=== PATIENT | female | born 1995 | race Caucasian/White ===

== ENCOUNTER → 2016-12-19 | Outpatient (CLI) | payer BC, OTHER ==
[~2016-12-19] MED LIST: ALPR0.25 BC; ASPI-586 PO; CEPH500C PO; DOXY1TAB3; ENOX60DI12 SQ; FOLI0.8T PO; LABE200T3; LABE200T3 PO; LEVO112T55 PO; METO-270 PO; NIFE60TA2 PO; NIFE90TA PO; PREN1TAB19 PO; ZOLP5TAB PO
--- OUTSIDE RECORDS SUMMARY | 2016-12-19 17:20 | XMS REPORT | Continuity of Care Document ---
Author Author [facility] Organization [facility] Address Unknown Phone Unavailable Care Team Providers Care Infusion Nurse Name Role Phone Sang Lawson PCP [phone] Source Comments Some departments are not documenting in the electronic medical record. If you do not see the information that you expected, contact Release of Information in the Health Information Management department at [phone] for further assistance in locating additional records.[facility] Active Allergies and Adverse Reactions No Known Allergies Current Medications Prescription Sig. Disp. Refills Start End Date Status Date NIFEdipine SR Take 60 mg by mouth Active (PROCARDIA-XL; ADALAT CC) daily. 60 mg tablet aspirin EC 81 mg tablet Take 81 mg by mouth Active daily. Take with food. vitamins, w/iron Take 1 Tab by mouth Active & folate 65/1 mg tab daily. levothyroxine (SYNTHROID) Take 137 mcg by mouth 90 Tab 3 11/07/20 Active 137 mcg tablet daily 30 minutes before 16 breakfast. enoxaparin (LOVENOX) 60 Inject 0.6 mL under the 30 Syringe 0 12/15/19 Active mg syrg skin daily. 17 enoxaparin (LOVENOX) 60 Inject 0.6 mL under the 0.6 mL 0 11/21/19 Discontin mg syrg skin daily. 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 Comments Currently Estimated Date of Delivery Based on Ultrasound Yes 05/20/2017 Most Recent Encounters Date Type Specialty Providers Description 12/19/2016 [facility] Luciana Singh, Supervision of high risk Encounter , unspecified, second trimester 12/19/2016 Office Visit High Risk Luciana Singh, High-risk MD second trimester (Primary Dx); Persistent proteinuria; Flu-like symptoms 12/19/2016 Documentation High Risk Aparna Ordonez MD 12/18/2016 Orders Only High Risk Luciana Singh, Chronic hypertension during (Primary Dx); with poor obstetric history 12/18/2016 Orders Only High Risk Luciana Singh MD 12/15/2016 Orders Only High Risk Jeremy Lyon MD Hx of preeclampsia, prior , currently , second trimester (Primary Dx) 12/04/2016 [facility] Becky Livingston MD Supervision of high risk Encounter , unspecified, second trimester 12/04/2016 Office Visit High Risk Becky Livingston MD High- risk , second trimester (Primary Dx) 11/22/2016 Telephone Nephrology Marce Ventura MD Results 11/21/2016 [facility] Radiology Marce Ventura MD Encounter 11/21/2016 [facility] Andreea Tolbert MD Supervision of high risk Encounter , unspecified, first trimester 11/21/2016 Office Visit High Risk Deborah Fulton MD High- risk , first trimester (Primary Dx); Non-functioning kidney; Anticoagulated 11/20/2016 Telephone Nephrology Marce Ventura MD Results 11/17/2016 Office Visit Nephrology Marce Ventura MD Proteinuria ( Primary Dx); Essential hypertension; 13 weeks gestation of ; Non morbid obesity due to excess calories; 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 [facility] Marce Ventura MD Proteinuria, unspecified Encounter 11/16/2016 Documentation High Risk Luciana Singh MD 11/08/2016 Documentation High Risk Becky Livingston MD 11/08/2016 Telephone High Risk Becky Livingston MD Results 11/08/2016 Orders Only High Risk Becky Livingston MD High- risk supervision, unspecified trimester (Primary Dx) 11/07/2016 [facility] Sang Lawson MD Supervision of high risk Encounter , unspecified, first trimester 11/07/2016 Office Visit High Risk Becky Livingston MD High- risk , unspecified trimester (Primary Dx) 11/07/2016 Clinical High Risk Screening for chromosomal Support anomalies by amniocentesis (Primary Dx) 10/30/2016 Hospital Sang Lawson MD Supervision of high risk Encounter , unspecified, first trimester 10/30/2016 Initial High Risk Sang Lawson MD High-risk , first trimester (Primary Dx); Chronic hypertension; with poor obstetric history; Hypothyroid in , antepartum, first trimester; Hx of pre-eclampsia, prior , currently 10/30/2016 Clinical High Risk Chronic hypertension; Support with poor obstetric history 10/27/2016 Orders Only High Risk John Moreau DO Chronic hypertension (Primary Dx); with poor obstetric history Social History Tobacco Use Types Packs/Day Years Used Date Never Smoker Alcohol Use Drinks/Week oz/Week Comments No 0 Standard 0.0 drinks or equivalent Last Filed Vital Signs Vital Sign Reading Time Taken Blood Pressure 134/79 12/19/2016 9:22 AM [employer] Pulse 79 12/19/2016 9:22 AM [employer] Temperature - - Respiratory Rate - - Height 1.575 m (5' 2.01") 12/19/2016 9:22 AM [employer] Weight 120.203 kg (265 lb) 12/04/2016 9:18 AM [employer] Body Mass Index 48.46 12/04/2016 9:18 AM [employer] Oxygen Saturation - - Plan of Care Date Type Specialty Providers Description 01/02/2017 Appointment High Risk Aparna Ordonez MD [address] [place] [address] [phone] (Fax) 01/16/2017 Appointment High Risk 01/16/2017 Appointment High Risk Aparna Ordonez MD [address] [place] [address] [phone] (Fax) Health Maintenance Due Date Last Done Comments Physical (Comprehensive) 2000 Exam Hpv Vaccines (#1) 2004 Pertussis Vaccine 2004 Tetanus Vaccine 2010 Cervical Cancer Screening 2014 Influenza Vaccine 07/13/2016 Results from Last 3 Months URINALYSIS, MICROSCOPIC (12/19/2016 12:23 PM) Component Value Range WBCs,UA 0-2 0-2 /HPF RBCs,UA NONE 0-3 /HPF Bacteria,UA FEW (A) NEG-NEG Squamous Epithelial Cells 0-2 0-5 Specimen Urine URINALYSIS DIPSTICK (12/19/2016 12:23 PM) Component Value Range Color,UA STRAW Turbidity,UA CLEAR CLEAR-CLEAR Specific [place]-Urine 1.003 1.003-1.035 pH,UA 8.0 5.0-8.0 Protein,UA 1+ (A) NEG-NEG Glucose,UA NEG NEG-NEG Ketones,UA NEG NEG-NEG Bilirubin,UA NEG NEG-NEG Blood,UA NEG NEG-NEG Urobilinogen,UA NORMAL NORM-NORMAL Nitrite,UA NEG NEG-NEG Leukocytes,UA NEG NEG-NEG Urine Ascorbic Acid, UA NEG NEG-NEG Specimen Urine PROTEIN/CR RATIO,UR RAN (12/19/2016 12:23 PM)Only the most recent of 4 results within the time period is included. Component Value Range Protein, Random 23 MG/DL Creatinine, Random 19 MG/DL Protein/CR ratio 1.2 Specimen Urine TYPE & SCREEN (NOT CROSSMATCH ELIGIBLE) (12/19/2016 11:37 AM) Component Value Range ABO/RH(D) O POS Antibody Screen NEG Blood Component Type RED CELL GROUP Specimen Blood, venous - Blood NOTES (12/19/2016 11:37 AM) Component Value Range Specimen Notes PT GAVE URINE SAMPLE IN DOCTORS OFFICE YW SYPHILIS AB SCREEN (12/19/2016 11:37 AM) Component Value Range Syphilis AB, Total NEGComment: NEG-NEG Negative EIA: Negative results indicate no past or present syphilis infection. Early infection can not be excluded. Specimen Blood RUBELLA AB IGG (12/19/2016 11:37 AM) Component Value Range Rubella IgG IMMUNE Specimen Blood HIV AB SCREEN(1 AND 2) (12/19/2016 11:37 AM) Component Value Range HIV 1 and 2 AG AB Screen NEG NEG-NEG Specimen Blood HEPATITIS B SURFACE AG (12/19/2016 11:37 AM) Component Value Range HBsAg NEG Specimen Blood HEMOGLOBIN A1C (12/19/2016 11:37 AM) Component Value Range Hemoglobin A1C 5.3Comment: 4.0-6.0 % The ADA recommends that most patients with type 1 and type 2 diabetes maintain an A1c level <7%. Specimen Blood CBC (12/19/2016 11:37 AM) Component Value Range White Blood Cells 11.6 (H) 4.5-11.0 K/UL RBC 5.04 (H) 4.0-5.0 M/UL Hemoglobin 13.9 12.0-15.0 GM/DL Hematocrit 42.9 36-45 % MCV 85.1 80-100 FL MCH 27.6 26-34 PG MCHC 32.4 32.0-36.0 G/DL RDW 15.4 (H) 11-15 % Platelet Count 278 150-400 K/UL MPV 7.6 7-11 FL Specimen Blood POC URINE DIPSTICK MANUAL READ (12/19/2016 9:24 AM)Only the most recent of 5 results within the time period is included. Component Value Range Urine Glucose POC NEGComment: lot#[id number] exp- Urine Ketone POC NEG Urine Blood POC NEG Urine Protein POC NEG Urine Leukocytes POC NEG Specimen Urine CULTURE-URINE W/SENSITIVITY (12/04/2016 9:06 AM) Component Value Range Battery Name URINE CULTURE Specimen Description URINE Special Requests NONE Culture <10,000 organisms/ml MIXED CONTAMINANTS Report Status FINAL 12/05/2016 Specimen Urine US RENAL BLADDER LTD (11/21/2016 1:20 PM) Impressions 1. Upper limits of normal sized right kidney with small left kidney, most consistent with renal hypoplasia. 2. Patent renal vasculature bilaterally. Approved by Dale Todd M.D. on 11/21/2016 2:15 PM By my electronic signature, I attest that I have personally reviewed the images for this examination and formulated the interpretations and opinions expressed in this report Finalized by Carter Quiroz M.D. on 11/21/2016 7:03 PM. Dictated by Dale Todd M.D. on 11/21/2016 2:13 PM. Narrative Renal Ultrasound Clinical Indication: Congenital renal abnormality, essential hypertension Technique: Multiple real-time grayscale sonographic images were obtained through the urinary system. Findings: Comparison: None The right kidney is upper limits of normal and measures 13.3 x 5.3 cm.No hydronephrosis or nephrolithiasis. Right renal artery and vein are patent. The left kidney measures 5.6 x 3.4 cm.No hydronephrosis, nephrolithiasis, or renal masses are identified. Left renal artery and vein are patent. The urinary bladder is nondistended. Incidental note is made of partially evaluated intrauterine . Procedure Note Interface, Radiant Results - Tue Nov 21, 2016 7:06 PM [employer] Renal Ultrasound Clinical Indication: Congenital renal abnormality, essential hypertension Technique: Multiple real-time grayscale sonographic images were obtained through the urinary system. Findings: Comparison: None The right kidney is upper limits of normal and measures 13.3 x 5.3 cm. No hydronephrosis or nephrolithiasis. Right renal artery and vein are patent. The left kidney measures 5.6 x 3.4 cm. No hydronephrosis, nephrolithiasis, or renal masses are identified. Left renal artery and vein are patent. The urinary bladder is nondistended. Incidental note is made of partially evaluated intrauterine . IMPRESSION 1. Upper limits of normal sized right kidney with small left kidney, most consistent with renal hypoplasia. 2. Patent renal vasculature bilaterally. Approved by Dale Todd M.D. on 11/21/2016 2:15 PM By my electronic signature, I attest that I have personally reviewed the images for this examination and formulated the interpretations and opinions expressed in this report Finalized by Carter Quiroz M.D. on 11/21/2016 7:03 PM. Dictated by Dale Todd M.D. on 11/21/2016 2:13 PM. POC URINE DIPSTICK AUTO READ (11/17/2016) Component Value Range Urine Glucose POC norm Urine Bilirubin POC neg Urine Ketone POC neg Urine Specific [place] 1.020 POC Urine Blood POC neg Urine PH POC 6 Urine Protein POC 500 Urine Urobilinogen POC norm Urine Nitrite POC neg Urine Leukocytes POC 25 Specimen Urine URINE COLLECTION (11/07/2016 3:00 PM) Component Value Range Collection Period, Urine 24.0 Volume, Urine 1384 MLS PROTEIN/CREAT RAT, 24 HR (11/07/2016 3:00 PM) Component Value Range Protein, Random 98 MG/DL Protein, 24 HR 1356 (H) 50-150 MG/24 HRS Creatinine, Random 108 MG/DL Protein/CR ratio 0.9 Specimen Urine URIC ACID (10/30/2016 5:00 PM) Component Value Range Uric Acid 5.0 2.0-7.0 MG/DL Specimen Blood LDH-LACTATE DEHYDROGENASE (10/30/2016 5:00 PM) Component Value Range Lactate Dehydrogenase 155 100-210 U/L Specimen Blood THYROID STIMULATING HORMONE-TSH (10/30/2016 5:00 PM) Component Value Range TSH 5.893 (H) 0.35-5.00 MCU/ML Specimen Blood FREE T4 (FREE THYROXINE) ONLY (10/30/2016 5:00 PM) Component Value Range T4-Free 0.9 0.6-1.6 NG/DL Specimen Blood COMPREHENSIVE METABOLIC PANEL (10/30/2016 5:00 PM) Component Value Range Sodium 135 (L) 137-147 MMOL/L Potassium 3.6 3.5-5.1 MMOL/L Chloride 101 98-110 MMOL/L Glucose 81 70-100 MG/DL Blood Urea Nitrogen 12 7-25 MG/DL Creatinine 0.73 0.4-1.00 MG/DL Calcium 10.0 8.5-10.6 MG/DL Total Protein 7.6 6.0-8.0 G/DL Total Bilirubin 0.3 0.3-1.2 MG/DL Albumin 3.9 3.5-5.0 G/DL Alk Phosphatase 75 25-110 U/L AST (SGOT) 13 7-40 U/L CO2 25 21-30 MMOL/L ALT (SGPT) 11 7-56 U/L Anion Gap 9 3-12 eGFR Non >60Comment: >60 mL/min The eGFR is not validated for use in drug dosing adjustments. Continue to use estimated creatinine clearance per dosing reference text. Please contact the Clinical Pharmacist for questions. eGFR >60Comment: >60 mL/min The eGFR is not validated for use in drug dosing adjustments. Continue to use estimated creatinine clearance per dosing reference text. Please contact the Clinical Pharmacist for questions. Specimen Blood ULTRASOUND [facility] ORDER (10/30/2016)
== END ==
LOC: LAB 17:16
PROVIDERS: ATTEND Obstetrics & Gynecology Maternal & Fetal Medicine
DX: R68.89 Other general symptoms and signs (principal)
CPT/HCPCS: 87804

== ENCOUNTER 2017-01-05 00:26 | Observation (INO) | payer BC, OTHER ==
[2017-01-05] VITALS (10 sets, daily range): BP systolic 136–167; BP diastolic 75–97
[~2017-01-05] VITALS: Ht 157.5 cm; Wt 120.7 kg
[~2017-01-05 00:26] MED LIST changes: -ALPR0.25 BC; -ASPI-586 PO; -ENOX60DI12 SQ; -FOLI0.8T PO; -LABE200T3 PO; -METO-270 PO; -NIFE60TA2 PO; -NIFE90TA PO; -PREN1TAB19 PO; -ZOLP5TAB PO
--- OUTSIDE RECORDS SUMMARY | 2017-01-05 00:32 | XMS REPORT | Continuity of Care Document ---
Author Author [facility] Organization [facility] Address Unknown Phone Unavailable Care Team Providers Care General Maintenance Mechanic Name Role Phone Sang Lawson PCP [phone] Source Comments Some departments are not documenting in the electronic medical record. If you do not see the information that you expected, contact Release of Information in the Health Information Management department at [phone] for further assistance in locating additional records.[facility] Active Allergies and Adverse Reactions No Known Allergies Current Medications Prescription Sig. Disp. Refills Start End Date Status Date aspirin EC 81 mg tablet Take 81 [...] 12/15/19 Active mg syrg skin daily. 17 NIFEdipine XL Take 1 Tab by mouth twice 90 Tab 3 12/27/19 Active (PROCARDIA-XL) 60 mg daily. 17 tablet escitalopram oxalate Take 1 Tab by mouth 90 Tab 3 01/02/20 Active (LEXAPRO) 10 mg tablet daily. 17 NIFEdipine SR Take 60 mg by mouth 12/27/19 Discontin (PROCARDIA-XL; ADALAT CC) daily. 17 ued 60 mg tablet enoxaparin (LOVENOX) 60 Inject 0.6 mL under the 0.6 mL 0 11/21/19 Discontin mg syrg skin daily. 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 Comments Currently Estimated Date of Delivery Based on Ultrasound Yes 05/20/2017 Most Recent Encounters Date Type Specialty Providers Description 01/02/2017 [facility] Becky Livingston MD Supervision of high risk Encounter , unspecified, second trimester 01/02/2017 Office Visit High Risk Luciana Singh, High-risk , second trimester (Primary Dx); Hx of preeclampsia, prior , currently , second trimester; Proteinuria affecting in second trimester; Phil's thyroiditis; Supervision of high risk in second trimester 12/27/2016 Hospital Obstetrics Encounter 12/27/2016 Documentation High Risk Son Chaves MD 12/25/2016 Hospital Obstetrics Lizette Smith MD Chronic hypertension in - Encounter Son Chaves MD 12/27/2016 12/25/2016 Anesthesia Obstetrics Berlin Gutierrez, Event 12/25/2016 Telephone High Risk Son Chaves MD Blood Pressure Readings 12/22/2016 Documentation High Risk Luciana Singh MD 12/20/2016 Telephone High Risk Luciana Singh, MD 12/19/2016 [facility] Luciana Singh, Supervision of high risk Encounter MD , unspecified, second trimester 12/19/2016 Clinical High Risk Chronic hypertension Support during ; with poor obstetric history 12/19/2016 Office Visit High Risk Luciana Singh, High-risk , second trimester (Primary Dx); Persistent proteinuria; Flu-like symptoms; Mild intermittent asthma without complication; Influenza 12/19/2016 Documentation High Risk Aparna Ordonez MD 12/18/2016 Orders Only High Risk Luciana Singh Chronic hypertension during (Primary Dx); with poor obstetric history 12/18/2016 Orders Only High Risk Luciana Singh, 23 weeks gestation of MD (Primary Dx) 12/15/2016 Orders Only High Risk Jeremy Lyon MD Hx of preeclampsia, prior , currently , second trimester (Primary Dx) 12/04/2016 [facility] Becky Livingston MD Supervision of high risk Encounter , unspecified, second trimester 12/04/2016 Office Visit High Risk Becky Livingston MD High- risk , second trimester (Primary Dx) 11/22/2016 Telephone Nephrology Marce Ventura MD Results 11/21/2016 Hospital Radiology Marce Ventura MD Encounter 11/21/2016 [facility] Andreea Tolbert MD Supervision of high risk Encounter , unspecified, first trimester 11/21/2016 Office Visit High Risk Deborah Fulton MD High- risk , first trimester (Primary Dx); Non-functioning kidney; Anticoagulated 11/20/2016 Telephone Nephrology Marce Ventura MD Results 11/17/2016 Office Visit Nephrology Marce Vetnura MD Proteinuria ( Primary Dx); Essential hypertension; 13 weeks gestation of ; Non morbid obesity due to excess calories; 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 [facility] Marce Ventura MD Proteinuria, unspecified Encounter 11/16/2016 Documentation High Risk Luciana Singh MD 11/08/2016 Documentation High Risk Becky Livingston MD 11/08/2016 Telephone High Risk Becky Livingston MD Results 11/08/2016 Orders Only High Risk Becky Livingston MD High- risk supervision, unspecified trimester (Primary Dx) 11/07/2016 [facility] Sang Lawson MD Supervision of high risk Encounter , unspecified, first trimester 11/07/2016 Office Visit High Risk Becky Livingston MD High- risk , unspecified trimester (Primary Dx) 11/07/2016 Clinical High Risk Screening for chromosomal Support anomalies by amniocentesis (Primary Dx) 10/30/2016 [facility] Sang Lawson MD Supervision of high [...] Vital Sign Reading Time Taken Blood Pressure 126/84 01/02/2017 9:47 AM AIRCRAFT SERVICER Pulse 100 01/02/2017 9:37 AM AIRCRAFT SERVICER Temperature 36.6 C (97.9 F) 12/27/2016 7:30 AM AIRCRAFT SERVICER Respiratory Rate - - Height 1.575 m (5' 2.01") 01/02/2017 9:37 AM AIRCRAFT SERVICER Weight 120.657 kg (266 lb) 01/02/2017 9:37 AM AIRCRAFT SERVICER Body Mass Index 48.64 01/02/2017 9:37 AM AIRCRAFT SERVICER Oxygen Saturation 100% 12/27/2016 11:02 AM AIRCRAFT SERVICER Plan of Care Date Type Specialty Providers Description 01/16/2017 Appointment High Risk 01/16/2017 Appointment High Risk Aparna Ordonez MD [address] [facility] [address] [place] [address] [phone] (Fax) Health Maintenance Due Date Last Done Comments Physical (Comprehensive) 2000 Exam Hpv Vaccines (#1) 2004 Pertussis Vaccine 2004 Tetanus Vaccine 2010 Cervical Cancer Screening 2014 Influenza Vaccine 07/13/2016 Procedures from Last 3 Months Procedure Name Priority Date/Time Associated Diagnosis Comments CONSULT IV THERAPY TEAM STAT 12/25/2016 7:46 PM AIRCRAFT SERVICER Results from Last 3 Months HEPARIN, LOW MOLECULAR WEIGHT (01/02/2017 10:16 AM) Component Value Range Heparin-Low Molecular 0.29 (L) 0.4-1.1 U/ML Weight Specimen Blood POC URINE DIPSTICK MANUAL READ (01/02/2017 9:39 AM)Only the most recent of 6 results within the time period is included. Component Value Range Urine Glucose POC negComment: lot#[id number] - Urine Ketone POC neg Urine Blood POC neg Urine Protein POC 1+ Urine Leukocytes POC neg Specimen Urine PROTEIN/CR RATIO,UR RAN (01/02/2017 9:30 AM)Only the most recent of 6 results within the time period is included. Component Value Range Protein, Random 35 MG/DL Creatinine, Random 24 MG/DL Protein/CR ratio 1.5 Specimen Urine ANTI-NUCLEAR ANTIBODY(TE) (12/26/2016 9:15 AM) Component Value Range TE Screen <80 <80 TITER BETA 2 GLYCOPROTEIN 1 AB, IGM (12/26/2016 9:15 AM) Component Value Range BETA-2 GLY 1 AB IGM 3.1 0-20 [facility] Specimen Blood BETA 2 GLYCOPROTEIN 1 AB, IGG (12/26/2016 9:15 AM) Component Value Range BETA-2 GLY 1 AB ICG 1.0 0-20 [facility] Specimen Blood HEX LUPUS ANTICOAGULANT (12/26/2016 9:15 AM) Component Value Range Hexagonal Lupus 2Comment: Anticoagulant Unit: sec This value is NEGATIVE. This is a qualitative assay and is therefore reported as positive for lupus anticoagulant or negative. The quantitative value is provided as an aid in diagnosis. Reference Range: 0 - 11 This test was developed and its performance characteristics determined by [facility]. It has not been cleared or approved by the Food and Drug Administration. Test Performed by: [facility] [address] [place] [address] [address] Specimen Blood CARDIOLIPIN AB IGG/IGM (12/26/2016 9:15 AM) Component Value Range Cardiolipin, IgG 3.5 <15 GPL/ML Cardiolipin, IgM 7.1 <12.5 MPL/ML Specimen Blood C3 COMPLEMENT 3 (12/26/2016 9:15 AM) Component Value Range Complemnt C3 194.0 88-200 MG/DL Specimen Blood C4 COMPLEMENT 4 (12/26/2016 9:15 AM) Component Value Range Complemnt C4 42.0 10-49 MG/DL Specimen Blood FREE T4 (FREE THYROXINE) ONLY (12/26/2016 9:15 AM)Only the most recent of 2 results within the time period is included. Component Value Range T4-Free 0.9 0.6-1.6 NG/DL Specimen Blood THYROID STIMULATING HORMONE-TSH (12/26/2016 9:15 AM)Only the most recent of 2 results within the time period is included. Component Value Range TSH 2.215 0.35-5.00 MCU/ML Specimen Blood URINE COLLECTION (12/25/2016 8:50 PM)Only the most recent of 2 results within the time period is included. Component Value Range Collection Period, Urine 24.0 Volume, Urine 3742 MLS CREATININE CLEARANCE-URINE 24H (12/25/2016 8:50 PM) Component Value Range Creatinine,Urine CRCL 46 MG/DL Creatinine, Serum, CRCL 0.61 MG/DL Creatinine Clearance 196 (H) 88-128 mL/min Specimen Urine TOTAL PROTEIN-URINE 24 HR (12/25/2016 8:50 PM) Component Value Range Protein, Random 58 MG/DL Protein, 24 HR 2170 (H) 50-150 MG/24 HRS Specimen Urine URINALYSIS, MICROSCOPIC (12/25/2016 5:40 PM)Only the most recent of 2 results within the time period is included. Component Value Range WBCs,UA 0-2 0-2 /HPF RBCs,UA NONE 0-3 /HPF MucousUA TRACE Squamous Epithelial Cells 0-2 0-5 Specimen Urine URINALYSIS DIPSTICK (12/25/2016 5:40 PM)Only the most recent of 2 results within the time period is included. Component Value Range Color,UA YELLOW Turbidity,UA CLEAR CLEAR-CLEAR Specific [place]-Urine 1.022 1.003-1.035 pH,UA 6.0 5.0-8.0 Protein,UA 3+ (A) NEG-NEG Glucose,UA NEG NEG-NEG Ketones,UA NEG NEG-NEG Bilirubin,UA NEG NEG-NEG Blood,UA NEG NEG-NEG Urobilinogen,UA NORMAL NORM-NORMAL Nitrite,UA NEG NEG-NEG Leukocytes,UA NEG NEG-NEG Urine Ascorbic Acid, UA NEG NEG-NEG Specimen Urine CULTURE-URINE W/SENSITIVITY (12/25/2016 5:40 PM)Only the most recent of 3 results within the time period is included. Component Value Range Battery Name URINE CULTURE Specimen Description URINE Special Requests NONE Culture NO GROWTH Report Status FINAL 12/26/2016 Specimen Urine URIC ACID (12/25/2016 5:30 PM)Only the most recent of 2 results within the time period is included. Component Value Range Uric Acid 4.5 2.0-7.0 MG/DL Specimen Blood LDH-LACTATE DEHYDROGENASE (12/25/2016 5:30 PM)Only the most recent of 2 results within the time period is included. Component Value Range Lactate Dehydrogenase 107 100-210 U/L Specimen Blood COMPREHENSIVE METABOLIC PANEL (12/25/2016 5:30 PM)Only the most recent of 2 results within the time period is included. Component Value Range Sodium 136 (L) 137-147 MMOL/L Potassium 3.8 3.5-5.1 MMOL/L Chloride 101 98-110 MMOL/L Glucose 86 70-100 MG/DL Blood Urea Nitrogen 9 7-25 MG/DL Creatinine 0.61 0.4-1.00 MG/DL Calcium 9.6 8.5-10.6 MG/DL Total Protein 7.6 6.0-8.0 G/DL Total Bilirubin 0.3 0.3-1.2 MG/DL Albumin 3.8 3.5-5.0 G/DL Alk Phosphatase 83 25-110 U/L AST (SGOT) 10 7-40 U/L CO2 24 21-30 MMOL/L ALT (SGPT) 10 7-56 U/L Anion Gap 11 3-12 eGFR Non >60Comment: >60 mL/min The [...] the Clinical Pharmacist for questions. Specimen Blood CBC (12/25/2016 5:30 PM)Only the most recent of 2 results within the time period is included. Component Value Range White Blood Cells 10.9 4.5-11.0 K/UL RBC 5.41 (H) 4.0-5.0 M/UL Hemoglobin 14.8 12.0-15.0 GM/DL Hematocrit 45.7 (H) 36-45 % MCV 84.4 80-100 FL MCH 27.3 26-34 PG MCHC 32.4 32.0-36.0 G/DL RDW 14.7 11-15 % Platelet Count 314 150-400 K/UL MPV 7.4 7-11 FL Specimen Blood TYPE & SCREEN (NOT CROSSMATCH ELIGIBLE) (12/19/2016 [...] maintain an A1c level <7%. Specimen Blood ULTRASOUND [facility] ORDER (12/19/2016)Only the most recent of 2 results within the time period is included.INFLUENZA A/B AG (RAPID TEST) (12/19/2016) Component Value Range Influenza A/B Antigen NEGATIVE Specimen Other - Nasopharyngeal Swab US RENAL BLADDER LTD (11/21/2016 1:20 PM) [...] Tue Nov 21, 2016 7:06 PM AIRCRAFT SERVICER Renal Ultrasound Clinical Indication: Congenital renal abnormality, [...] neg Urine Ketone POC neg Urine Specific [place] 1.020 POC Urine Blood POC neg Urine PH POC 6 Urine Protein POC 500 Urine Urobilinogen POC norm Urine Nitrite POC neg Urine Leukocytes POC 25 Specimen Urine PROTEIN/CREAT RAT, 24 HR (11/07/2016 3:00 PM) Component Value Range Protein, Random 98 MG/DL Protein, 24 HR 1356 (H) 50-150 MG/24 HRS Creatinine, Random 108 MG/DL Protein/CR ratio 0.9 Specimen Urine
[2017-01-05] MEDS ORDERED: NS IV 1000 ML 1,000 ML IV ONE (00:33)
[2017-01-05] MEDS ORDERED: NIFE60TA2 PO (00:37)
[2017-01-05] MEDS ORDERED: diphenhydrAMINE 50 MG/ML INJ (BENADRYL) IV STA (00:37)
[2017-01-05] MEDS ORDERED: PREN1TAB19 PO (00:37)
[2017-01-05] MEDS ORDERED: ASPI-586 PO (00:37)
[2017-01-05] MEDS ORDERED: ENOX60DI12 SQ (00:37)
[2017-01-05] MEDS ORDERED: methylPREDNISolone 125 MG (Solu-MEDROL) VIAL IV STA (00:37)
[2017-01-05] MEDS ORDERED: hydrALAZINE (APESOLINE) 20 MG/ML VIAL IV ONE (00:45)
[2017-01-05 00:48] LABS: BASOPHILS % (AUTO) 0 % (0-10); EOSINOPHILS # (AUTO) 0.3 10^3/uL (0.0-0.3); EOSINOPHILS % (AUTO) 3 % (0-10); LYMPHOCYTES # (AUTO) 3.3 X 10^3 (1.0-4.0); LYMPHOCYTES % (AUTO) 29 % (12-44); MEAN CORPUSCULAR HEMOGLOBIN 28 PG (25-34); MEAN CORPUSCULAR HGB CONC 34 G/DL (32-36); MEAN CORPUSCULAR VOLUME 83 FL (80-99); MEAN PLATELET VOLUME 10.1 FL (7.4-10.4); MONOCYTES # (AUTO) 1.1 X 10^3 (0.0-1.0); MONOCYTES % (AUTO) 10 % (0-12); NEUTROPHILS # (AUTO) 6.3 X 10^3 (1.8-7.8); NEUTROPHILS % (AUTO) 57 % (42-75); PLATELET COUNT 367 10^3/uL (130-400); RED CELL DISTRIBUTION WIDTH 14.1 % (10.0-14.5)
[2017-01-05 00:50] LABS: BILIRUBIN,URINE NEGATIVE (NEGATIVE); KETONES,URINE NEGATIVE (NEGATIVE); LEUKOCYTE ESTERASE ,URINE NEGATIVE (NEGATIVE); NITRITE,URINE NEGATIVE (NEGATIVE); PH,URINE 7 (5-9); PROTEIN,URINE 3+ (NEGATIVE); UROBILINOGEN,URINE NORMAL (NORMAL)
--- NOTE | 2017-01-05 00:53 | ED General ---
General Chief Complaint: Cardiac/General Problems Stated Complaint: ALLERGIC RXN Nursing Triage Note: Pt to ED via [facility] from home. Pt reports taking new prescription of Lexapro around 2100 tonight. Approx 1 hour after taking medication pt reports feeling heart racing, shaking, and feeling like lips and tongue were swelling. Upon arrival to ED, pt reports lips and tongue are feeling normal but still c/o palpitations. Pt is approx 20 weeks . Nursing Sepsis Screen: No Definite Risk Source of Information: Patient Exam Limitations: No Limitations History of Present Illness Time Seen by Provider: 00:26 Initial Comments Here with report of heart racing, shaking, lips and tongue swelling and not feeling well. This started at about an hour after taking a dose of Lexapro tonight. She has been on it before but has been off of it for a while. She restarted her dose tonight and then 1 hour later started getting these feelings. Overall concerns are complicated by the fact that she is 20 weeks and has had previous miscarriage of twins at 23 weeks due to eclampsia. She only has one kidney. She already notes protein loss in the urine of 2 g per day. She is high-risk due to all of this and is seen at . Local OB doctor is Dr. Alberts. Denies nausea or vomiting. Denies abdominal pain. Timing/Duration: 1-3 Hours Severity: Moderate, Severe Associated Systoms: No Chest Pain, No Cough, No Fever/Chills, No Nausea/ Vomiting, No Shortness of Air, Weakness Allergies and Home Medications Allergies Coded Allergies: No Known Drug Allergies (Unverified , 03/09/16) Home Medications Aspirin 81 Mg Tablet.dr 81 MG PO DAILY (Reported) Enoxaparin Sodium 60 Mg/0.6 Ml Syringe 60 MG SQ DAILY (Reported) Levothyroxine Sodium 112 Mcg Tablet #30 138 MCG PO DAILY (Reported) Nifedipine 60 Mg Tab.er.24 60 MG PO BID (Reported) Vit/Iron Fumarate/FA 1 Each Tablet 1 EACH PO DAILY (Reported) Constitutional: see HPINo chills, No fever EENTM: other (mouth and tongue swelling that is improved)No nose congestion, No throat pain Respiratory: no symptoms reported Cardiovascular: see HPINo edema, palpitations Gastrointestinal: no symptoms reportedNo nausea, No vomiting Genitourinary: No decreased output, No pain : Yes Expected Date of Delivery: May 20, 2017 Musculoskeletal: no symptoms reported Skin: no symptoms reported Psychiatric/Neurological: See HPI AnxietyDenies Tremors, Denies Weakness Hematologic/Lymphatic: No Symptoms Reported All Other Systems Reviewed Negative Unless Noted: Yes Past Sykzgcf-Cpltnf-Sjuvsf Hx Patient Social History Alcohol Use: Denies Use Recreational Drug Use: No Smoking Status: Never a Smoker Recent Foreign Travel: No Contact w/Someone Who Travel: No Recent Infectious Disease Expo: No Recent Hopitalizations: No Immunizations Up To Date Tetanus Booster (TDap): Less than 5yrs PED Vaccines UTD: Yes Seasonal Allergies Seasonal Allergies: Yes Surgeries HX Surgeries: Yes Surgeries: Orthopedic, Tonsillectomy Respiratory Hx Respiratory Disorders: Yes Respiratory Disorders: Asthma Cardiovascular Hx Cardiac Disorders: Yes (pre-eclampsia w/ ) Cardiac Disorders: Hypertension Neurological Hx Neurological Disorders: No Reproductive System : Yes Hx Reproductive Disorders: No Sexually Transmitted Disease: No HIV/AIDS: No Genitourinary Hx Genitourinary Disorders: No Gastrointestinal Hx Gastrointestinal Disorders: No Musculoskeletal Hx Musculoskeletal Disorders: No Endocrine Hx Endocrine Disorders: Yes (THYROIDITIS) HEENT HX ENT Disorders: No Cancer Hx Cancer: No Psychosocial Hx Psychiatric Problems: No Integumentary HX Skin/Integumentary Disorder: No Blood Transfusions Hx Blood Disorders: No Adverse Reaction to a Blood Tr: No Reviewed Nursing Assessment Reviewed/Agree w Nursing PMH: Yes Family Medical History Significant Family History: No Pertinent Family Hx Family Medial History: Graves' disease Hypercholesterolemia 19 FATHER (father) 19 MOTHER (mother) Hypertension 19 MOTHER (mother) Physical Exam Vital Signs Vital Sign - Last 12Hours 01/05/17 00:27 Temp 98.8 Pulse 150 Resp 18 B/P 184/97 Pulse Ox 100 O2 Delivery Room Air Capillary Refill : Less Than 3 Seconds General Appearance: No Apparent Distress WD/WN HEENT: PERRL/EOMI Pharynx Normal Neck: Non Tender Supple Respiratory: Lungs Clear Normal Breath Sounds Cardiovascular: No Murmur Tachycardia Gastrointestinal: Non Tender Soft Back: Normal Inspection No CVA Tenderness No Vertebral Tenderness Extremity: Normal Inspection Normal Range of Motion Non Tender No Calf Tenderness Neurologic/Psychiatric: Alert Oriented x3 Skin: Normal Color Warm/Dry Progress/Results/Core Measures Results/Orders Lab Results Laboratory Tests Test 01/05/17 00:30 01/05/17 00:40 Range/Units Alanine Aminotransferase (ALT/SGPT) 13 0-55 U/L Albumin 3.5 3.2-4.5 G/DL Alkaline Phosphatase 76 40-136 U/L Anion Gap 14 5-14 MMOL/L Aspartate Amino Transf (AST/SGOT) 13 5-34 U/L BUN/Creatinine Ratio 21 Basophils # (Auto) 0.0 0.0-0.1 10^3/uL Basophils (%) (Auto) 0 0-10 % Blood Urea Nitrogen 15 7-18 MG/DL Calcium Level 9.3 8.5-10.1 MG/DL Carbon Dioxide Level 20 L 21-32 MMOL/L Chloride Level 104 98-107 MMOL/L Creatinine 0.73 0.60-1.30 MG/DL Eosinophils # (Auto) 0.3 0.0-0.3 10^3/uL Eosinophils (%) (Auto) 3 0-10 % Estimat Glomerular Filtration Rate > 60 Glucose Level 105 70-105 MG/DL Hematocrit 40 35-52 % Hemoglobin 13.6 11.5-16.0 G/DL Lymphocytes # (Auto) 3.3 1.0-4.0 X 10^3 Lymphocytes (%) (Auto) 29 12-44 % Magnesium Level 1.7 L 1.8-2.4 MG/DL Mean Corpuscular Hemoglobin 28 25-34 PG Mean Corpuscular Hemoglobin Concent 34 32-36 G/DL Mean Corpuscular Volume 83 80-99 FL Mean Platelet Volume 10.1 7.4-10.4 FL Monocytes # (Auto) 1.1 H 0.0-1.0 X 10^3 Monocytes (%) (Auto) 10 0-12 % Neutrophils # (Auto) 6.3 1.8-7.8 X 10^3 Neutrophils (%) (Auto) 57 42-75 % Platelet Count 367 130-400 10^3/uL Potassium Level 3.7 3.6-5.0 MMOL/L Red Blood Count 4.80 4.35-5.85 10^6/uL Red Cell Distribution Width 14.1 10.0-14.5 % Sodium Level 138 135-145 MMOL/L Total Bilirubin 0.2 0.1-1.0 MG/DL Total Protein 6.8 6.4-8.2 G/DL Uric Acid 5.6 2.6-7.2 MG/DL White Blood Count 11.0 4.3-11.0 10^3/uL Urine Bacteria TRACE /HPF Urine Bilirubin NEGATIVE NEGATIVE Urine Casts NONE /LPF Urine Clarity CLEAR Urine Color YELLOW Urine Creatinine 22 L 30-125 MG/DL Urine Crystals NONE /LPF Urine Culture Indicated NO Urine Glucose (UA) NEGATIVE NEGATIVE Urine Ketones NEGATIVE NEGATIVE Urine Leukocyte Esterase NEGATIVE NEGATIVE Urine Mucus NEGATIVE /LPF Urine Nitrite NEGATIVE NEGATIVE Urine Protein 83 H 6-12 MG/DL Urine Protein/Creatinine Ratio 3.77 Urine RBC NONE /HPF Urine RBC (Auto) NEGATIVE NEGATIVE Urine Specific [place] 1.015 L 1.016-1.022 Urine Squamous Epithelial Cells 2-5 /HPF Urine Urobilinogen NORMAL NORMAL MG/DL Urine WBC NONE /HPF Urine pH 7 5-9 My Orders Orders-ELIDA ENCINAS MD Cbc With Automated Diff (01/05/17 00:33) Comprehensive Metabolic Panel (01/05/17 00:33) Magnesium (01/05/17 00:33) Ua Culture If Indicated (01/05/17 00:33) Saline Lock/Iv-Start (01/05/17 00:33) Ns Iv 1000 Ml (Sodium Chloride 0.9%) (01/05/17 00:33) Urine [place] Prot Creat W/Ratio (01/05/17 00:33) Uric Acid (01/05/17 00:36) Diphenhydramine Injection (Benadryl Inje (01/05/17 00:37) Methylprednisolone Sod Succ (Solu-Medrol (01/05/17 00:37) Hydralazine Injection (Apresoline Inject (01/05/17 00:45) Medications Given in ED Current Medications Medications Dose Ordered Sig/Ángel Route Start Time Stop Time Status Last Admin Dose Admin Hydralazine HCl 20 mg ONCE ONCE IV 01/05/17 00:45 01/05/17 00:46 DC 01/05/17 01:32 20 MG Sodium Chloride 1,000 ml @ 0 mls/hr Q0M ONCE IV 01/05/17 00:33 01/05/17 00:40 DC 01/05/17 00:50 999 MLS/HR Vital Signs/I&O Vital Sign - Last 12Hours 01/05/17 00:27 Temp 98.8 Pulse 150 Resp 18 B/P 184/97 Pulse Ox 100 O2 Delivery Room Air Blood Pressure Mean: 126 Progress Note : Progress Note Seen and evaluated. IV by EMS. Labs and UA ordered. I did discuss the case with Dr. Garay, OB doctor on-call. Due to her history, we will check uric acid and spot urine protein to creatinine ratio. She has known proteinuria. For her symptoms, normal saline 1 L bolus, Benadryl 25 mg IV and Solu-Medrol 125 mg IV (for possible allergic reaction symptoms) and hydralazine 20 mg IV for hypertension. Dr. Garay agrees. Monitor patient. 0145: Bedside ultrasound shows positive movement with heart rate of 135 and approximately 20-4/7 weeks by femur length. Hydralazine was held earlier but given for blood pressure that was ranging again to 161/85. It did drop earlier after administration of Benadryl. Patient's much comforted after ultrasound. Admit, observation status. Patient and family agree with plan. Departure Communication Time/Spoke to Admitting Phy: 00:33 Impression Impression: Primary Impression: Preeclampsia Qualified Code: O14.92 - Unspecified pre-eclampsia, second trimester Additional Impressions: Hypertension Qualified Code: I15.9 - Secondary hypertension, unspecified Allergic reaction caused by a drug Qualified Code: T78.40XA - Allergy, unspecified, initial encounter Disposition: ADMITTED INPATIENT Condition: Stable Decision to Admit Reason: Admit from ER (General) Decision to Admit/Date: Jan 05, 2017 Time/Decision to Admit Time: 00:33 Departure-Patient Inst. Referrals: MADAY FARR MD (PCP/Family) Primary Care Physician ELIDA ENCINAS MD Jan 05, 2017 00:52
[2017-01-05 01:10] LABS: PROTEIN/CREATININE RATIO 3.77
[2017-01-05 01:10] LABS: ALANINE AMINOTRANSFERASE 13 U/L (0-55); ALBUMIN 3.5 G/DL (3.2-4.5); ANION GAP 14 MMOL/L (5-14); ASPARTATE AMINO TRANSFERASE 13 U/L (5-34); BILIRUBIN,TOTAL 0.2 MG/DL (0.1-1.0); BLOOD UREA NITROGEN 15 MG/DL (7-18); BUN/CREATININE RATIO 21; CALCIUM 9.3 MG/DL (8.5-10.1); CARBON DIOXIDE 20 MMOL/L (21-32); CHLORIDE 104 MMOL/L (98-107); CREATININE SERUM 0.73 MG/DL (0.60-1.30); GFR ESTIMATED > 60; GLUCOSE 105 MG/DL (70-105); MAGNESIUM 1.7 MG/DL (1.8-2.4); POTASSIUM 3.7 MMOL/L (3.6-5.0); SODIUM 138 MMOL/L (135-145); TOTAL PROTEIN 6.8 G/DL (6.4-8.2); URIC ACID 5.6 MG/DL (2.6-7.2)
[2017-01-05] MEDS ORDERED: hydrALAZINE (APESOLINE) 20 MG/ML VIAL IV PRN (02:30)
[2017-01-05] MEDS ORDERED: diphenhydrAMINE 50 MG/ML INJ (BENADRYL) IVP PRN (02:30)
[2017-01-05] MEDS ORDERED: NS IV 1000 ML 1,000 ML IV SCH (02:30)
[2017-01-05] MEDS ORDERED: predniSONE 20 MG TAB PO SCH (07:00)
[2017-01-05] MEDS ORDERED: LEVOTHYROXINE 88 MCG (LEVOTHORID) TAB PO SCH (07:40)
[2017-01-05] MEDS ORDERED: LEVOTHYROXINE 50 MCG (LEVOTHROID) TAB PO SCH (07:41)
--- NOTE | 2017-01-05 07:41 | History & Physical-OB ---
OB - Chief Complaint & HPI Date Date of Admission: Date of Admission: Jan 05, 2017 at 1:45 am Chief Complaint/History OB-Reason for Admission/Chief: Expected Date of Delivery: May 20, 2017 Gestational Age in Weeks: 20 Gestational Age in Days: 1 Other reason for admission: This 21-year-old female presented to the emergency department with palpitations. She was worked up and evaluated for suspicion of preeclampsia as she has a history of presenting with early onset preeclampsia in the past. Her heart rate was in the 150s and EKG was evaluated by emergency physician found to be SVT. Blood pressure was controlled using hydralazine, and the patient was admitted for observation. Emergency physician was suspicious for anaphylaxis secondary to new starting of medication yesterday. She took 1 dose of Lexapro. This morning upon evaluating the patient she denies any chest pain , palpitations, shortness of breath, change in vision, headache, and denies any right upper quadrant pain. She reports that she feels much better. She reports movement. She denies any contractions, vaginal bleeding, loss of fluid. Admission Nurse Assessment Rev: Yes History of Labs Laboratory Tests Test 01/05/17 00:30 01/05/17 00:40 Range/Units Alanine Aminotransferase (ALT/SGPT) 13 0-55 U/L Albumin 3.5 3.2-4.5 G/DL Alkaline Phosphatase 76 40-136 U/L Anion Gap 14 5-14 MMOL/L Aspartate Amino Transf (AST/SGOT) 13 5-34 U/L BUN/Creatinine Ratio 21 Basophils # (Auto) 0.0 0.0-0.1 10^3/uL Basophils (%) (Auto) 0 0-10 % Blood Urea Nitrogen 15 7-18 MG/DL Calcium Level 9.3 8.5-10.1 MG/DL Carbon Dioxide Level 20 L 21-32 MMOL/L Chloride Level 104 98-107 MMOL/L Creatinine 0.73 0.60-1.30 MG/DL Eosinophils # (Auto) 0.3 0.0-0.3 10^3/uL Eosinophils (%) (Auto) 3 0-10 % Estimat Glomerular Filtration Rate > 60 Glucose Level 105 70-105 MG/DL Hematocrit 40 35-52 % Hemoglobin 13.6 11.5-16.0 G/DL Lymphocytes # (Auto) 3.3 1.0-4.0 X 10^3 Lymphocytes (%) (Auto) 29 12-44 % Magnesium Level 1.7 L 1.8-2.4 MG/DL Mean Corpuscular Hemoglobin 28 25-34 PG Mean Corpuscular Hemoglobin Concent 34 32-36 G/DL Mean Corpuscular Volume 83 80-99 FL Mean Platelet Volume 10.1 7.4-10.4 FL Monocytes # (Auto) 1.1 H 0.0-1.0 X 10^3 Monocytes (%) (Auto) 10 0-12 % Neutrophils # (Auto) 6.3 1.8-7.8 X 10^3 Neutrophils (%) (Auto) 57 42-75 % Platelet Count 367 130-400 10^3/uL Potassium Level 3.7 3.6-5.0 MMOL/L Red Blood Count 4.80 4.35-5.85 10^6/uL Red Cell Distribution Width 14.1 10.0-14.5 % Sodium Level 138 135-145 MMOL/L Total Bilirubin 0.2 0.1-1.0 MG/DL Total Protein 6.8 6.4-8.2 G/DL Uric Acid 5.6 2.6-7.2 MG/DL White Blood Count 11.0 4.3-11.0 10^3/uL Urine Bacteria TRACE /HPF Urine Bilirubin NEGATIVE NEGATIVE Urine Casts NONE /LPF Urine Clarity CLEAR Urine Color YELLOW Urine Creatinine 22 L 30-125 MG/DL Urine Crystals NONE /LPF Urine Culture Indicated NO Urine Glucose (UA) NEGATIVE NEGATIVE Urine Ketones NEGATIVE NEGATIVE Urine Leukocyte Esterase NEGATIVE NEGATIVE Urine Mucus NEGATIVE /LPF Urine Nitrite NEGATIVE NEGATIVE Urine Protein 83 H 6-12 MG/DL Urine Protein/Creatinine Ratio 3.77 Urine RBC NONE /HPF Urine RBC (Auto) NEGATIVE NEGATIVE Urine Specific [place] 1.015 L 1.016-1.022 Urine Squamous Epithelial Cells 2-5 /HPF Urine Urobilinogen NORMAL NORMAL MG/DL Urine WBC NONE /HPF Urine pH 7 5-9 Allergies and Home Medications Allergies Coded Allergies: escitalopram (Verified Allergy, Unknown, 01/05/17) Home Medications Aspirin 81 Mg Tablet.dr 81 MG PO DAILY (Reported) Enoxaparin Sodium 60 Mg/0.6 Ml Syringe 60 MG SQ DAILY (Reported) Levothyroxine Sodium 112 Mcg Tablet #30 138 MCG PO DAILY (Reported) Nifedipine 60 Mg Tab.er.24 60 MG PO BID (Reported) Vit/Iron Fumarate/FA 1 Each Tablet 1 EACH PO DAILY (Reported) OB - History Hx of Present Care: Yes Ultrasounds: Normal mid trimester US Obstetrical Complications: Pre-eclampsia, Gestational Hypertension Medical Complications: Other (Phil's thyroiditis) Delivery History Hx Dystocia: No Hx Large For Gestational Age I: No Hx Section: No Hx Vaginal Delivery Post C-Sec: No Hx Blood Disorders: No Adverse Rxn to Tranfusion: No Patient Past Medical History See above - cHTN on labetalol prior to , anovulation, morbid obesity, solitary maternal kidney, hypothryoidism Social History/Family History HIV/AIDS: No Recent Infectious Disease Expo: No Sexually Transmitted Disease: No Alcohol Use: Denies Use Recreational Drug Use: No Immunizations Hepatitis A: Yes Hepatitis B: Yes Tetanus Booster (TDap): Less than 5yrs OB - Admission Exam Physical Exam Vitals: Vital Signs 01/05/17 06:56 Temp 98.6 Pulse 122 Resp 18 B/P 149/83 Pulse Ox 98 O2 Delivery Room Air HEENT: NCAT Heart: Other (tachycardic in the 110s to 100s) Lungs: Clear Abdomen: Gravid Contractions on Admission: None Labs Laboratory Tests Test 01/05/17 00:30 01/05/17 00:40 Range/Units Alanine Aminotransferase (ALT/SGPT) 13 0-55 U/L Albumin 3.5 3.2-4.5 G/DL Alkaline Phosphatase 76 40-136 U/L Anion Gap 14 5-14 MMOL/L Aspartate Amino Transf (AST/SGOT) 13 5-34 U/L BUN/Creatinine Ratio 21 Basophils # (Auto) 0.0 0.0-0.1 10^3/uL Basophils (%) (Auto) 0 0-10 % Blood Urea Nitrogen 15 7-18 MG/DL Calcium Level 9.3 8.5-10.1 MG/DL Carbon Dioxide Level 20 L 21-32 MMOL/L Chloride Level 104 98-107 MMOL/L Creatinine 0.73 0.60-1.30 MG/DL Eosinophils # (Auto) 0.3 0.0-0.3 10^3/uL Eosinophils (%) (Auto) 3 0-10 % Estimat Glomerular Filtration Rate > 60 Glucose Level 105 70-105 MG/DL Hematocrit 40 35-52 % Hemoglobin 13.6 11.5-16.0 G/DL Lymphocytes # (Auto) 3.3 1.0-4.0 X 10^3 Lymphocytes (%) (Auto) 29 12-44 % Magnesium Level 1.7 L 1.8-2.4 MG/DL Mean Corpuscular Hemoglobin 28 25-34 PG Mean Corpuscular Hemoglobin Concent 34 32-36 G/DL Mean Corpuscular Volume 83 80-99 FL Mean Platelet Volume 10.1 7.4-10.4 FL Monocytes # (Auto) 1.1 H 0.0-1.0 X 10^3 Monocytes (%) (Auto) 10 0-12 % Neutrophils # (Auto) 6.3 1.8-7.8 X 10^3 Neutrophils (%) (Auto) 57 42-75 % Platelet Count 367 130-400 10^3/uL Potassium Level 3.7 3.6-5.0 MMOL/L Red Blood Count 4.80 4.35-5.85 10^6/uL Red Cell Distribution Width 14.1 10.0-14.5 % Sodium Level 138 135-145 MMOL/L Total Bilirubin 0.2 0.1-1.0 MG/DL Total Protein 6.8 6.4-8.2 G/DL Uric Acid 5.6 2.6-7.2 MG/DL White Blood Count 11.0 4.3-11.0 10^3/uL Urine Bacteria TRACE /HPF Urine Bilirubin NEGATIVE NEGATIVE Urine Casts NONE /LPF Urine Clarity CLEAR Urine Color YELLOW Urine Creatinine 22 L 30-125 MG/DL Urine Crystals NONE /LPF Urine Culture Indicated NO Urine Glucose (UA) NEGATIVE NEGATIVE Urine Ketones NEGATIVE NEGATIVE Urine Leukocyte Esterase NEGATIVE NEGATIVE Urine Mucus NEGATIVE /LPF Urine Nitrite NEGATIVE NEGATIVE Urine Protein 83 H 6-12 MG/DL Urine Protein/Creatinine Ratio 3.77 Urine RBC NONE /HPF Urine RBC (Auto) NEGATIVE NEGATIVE Urine Specific [place] 1.015 L 1.016-1.022 Urine Squamous Epithelial Cells 2-5 /HPF Urine Urobilinogen NORMAL NORMAL MG/DL Urine WBC NONE /HPF Urine pH 7 5-9 OB - Assessment/Plan/Diagnosis Plan Other Plan Since patient is doing much better this morning I plan on evaluating her status later today and if continues to be stable we'll consider discharge was continued medications and follow-up with med. We'll have the patient hold Lexapro at this point due to adverse reaction. Discharge Diagnosis Diagnosis: Diagnosis: 21-year-old at 20 weeks and 2 days gestation History of early-onset preeclampsia Chronic hypertension Phil's thyroiditis JUDE BRUCE DO Jan 05, 2017 07:41
[2017-01-05] MEDS ORDERED: ASPIRIN E.C. 81 MG (ECOTRIN) TAB PO SCH (09:00)
[2017-01-05] MEDS ORDERED: ENOXAPARIN 60 MG/0.6 ML (LOVENOX) SYR SQ SCH (09:00)
[2017-01-05] MEDS ORDERED: NIFEdipine ER 60 MG (PROCARDIA XL) TAB PO SCH (09:00)
[2017-01-31] MEDS ORDERED: NIFE90TA PO (21:23)
== END 2017-01-05 12:34 | disposition home or self-care (01) ==
LOC: EDUNIT# 00:26 → ER 00:27 → LDRP 01:45 → UNDOADMOB 01:45 → LDRP 02:20
PROVIDERS: ADMIT Obstetrics & Gynecology; ATTEND Obstetrics & Gynecology
DX: O14.92 Unspecified pre-eclampsia, second trimester (principal); O9A.212 Injury, poisoning and certain other consequences of external causes complicating pregnancy, second trimester; I47.1 Supraventricular tachycardia; R22.0 Localized swelling, mass and lump, head; T43.225A Adverse effect of selective serotonin reuptake inhibitors, initial encounter; Z3A.20 20 weeks gestation of pregnancy
CPT/HCPCS: 36415; 80053; 81000; 82570; 83735; 84156; 84443; 84550; 85025; 96361; 96374; 96375; 99211; G0378

== ENCOUNTER 2017-01-24 00:23 | Outpatient (CLI) | payer BC, OTHER ==
[~2017-01-24] VITALS: Ht 157.5 cm; Wt 123.9 kg
[2017-01-24] VITALS (7 sets, daily range): BP systolic 135–151; BP diastolic 63–88
[~2017-01-24 00:23] MED LIST changes: +ASPI-586 PO; +ENOX60DI12 SQ; +NIFE60TA2 PO; +PREN1TAB19 PO
--- OUTSIDE RECORDS SUMMARY | 2017-01-24 00:28 | XMS REPORT | Continuity of Care Document ---
Author Author [facility] Organization [facility] Address Unknown Phone Unavailable Care Team Providers Care Head Irrigator Name Role Phone Sang Lawson PCP [phone] Source Comments Some departments are not documenting in the electronic medical record. If you do not see the information that you expected, contact Release of Information in the Health Information Management department at [phone] for further assistance in locating additional records.[facility] Active Allergies and Adverse Reactions Allergen Noted Date Severity Reactions Comments Lexapro 01/05/2017 Low PALPITATIONS, SEE Lip and Tongue swelling COMMENTS Current Medications Prescription Sig. Disp. Refills Start End Date Status Date aspirin EC 81 mg tablet Take 81 mg by mouth Active daily. Take with food. vitamins, w/iron Take 1 Tab by mouth Active & folate 65/1 mg tab daily. levothyroxine (SYNTHROID) Take 137 mcg by mouth 90 Tab 3 11/07/20 Active 137 mcg tablet daily 30 minutes before 16 breakfast. NIFEdipine XL Take 1 Tab by mouth twice 90 Tab 3 12/27/19 Active (PROCARDIA-XL) 60 mg daily. 17 tablet enoxaparin (LOVENOX) 60 INJECT 0.6ML UNDER THE 30 Syringe 0 01/18/20 Active mg syrg SKIN DAILY 17 NIFEdipine SR Take 60 mg by mouth 12/27/19 Discontin (PROCARDIA-XL; ADALAT CC) daily. 17 ued 60 mg tablet enoxaparin (LOVENOX) 60 Inject 0.6 mL under the 30 Syringe 0 12/15/19 01/18/20 Discontin mg syrg skin daily. 17 17 ued escitalopram oxalate Take 1 Tab by mouth 90 Tab 3 01/02/20 01/05/20 Discontin (LEXAPRO) 10 mg tablet daily. 17 17 ued Active Problems Problem [...] Recent Encounters Date Type Specialty Providers Description 01/17/2017 Refill High Risk Jeremy Lyon MD 01/16/2017 [facility] Deborah Fulton MD Gestational proteinuria, Encounter second trimester 01/16/2017 Office Visit High Risk Deborah Fulton MD High- risk , second trimester (Primary Dx); Proteinuria affecting in second trimester 01/12/2017 Orders Only High Risk Deborah Fulton MD Chronic hypertension in (Primary Dx); with poor obstetric history 01/09/2017 Telephone High Risk Aparna Ordonez MD 01/05/2017 Documentation High Risk Aparna Ordonez MD 01/02/2017 [facility] Becky Livingston MD Supervision of high risk Encounter , unspecified, second trimester 01/02/2017 Office Visit High Risk Luciana Singh High-risk , second trimester (Primary Dx); Hx of preeclampsia, prior , currently , second trimester; Proteinuria affecting in second trimester; Phil's thyroiditis; Supervision of high risk in second trimester 12/27/2016 Hospital Obstetrics Encounter 12/27/2016 Documentation High Risk Son Chaves MD 12/25/2016 Hospital Obstetrics Lizette Smith MD Chronic hypertension in - Encounter Son Chaves MD 12/27/2016 12/25/2016 Anesthesia Obstetrics Berlin Gutierrez DO Event 12/25/2016 Telephone High Risk Son Chaves MD Blood Pressure Readings 12/22/2016 Documentation High Risk Luciana Singh MD 12/20/2016 Telephone High Risk Luciana Singh, Carlos AVILA 12/19/2016 [facility] Luciana Singh, Supervision of high risk Encounter , unspecified, second trimester 12/19/2016 Clinical High Risk Chronic hypertension Support during ; with poor obstetric history 12/19/2016 Office Visit High Risk Luciana Singh, High-risk , second trimester (Primary Dx); Persistent proteinuria; Flu-like symptoms; Mild intermittent asthma without complication; Influenza 12/19/2016 Documentation High Risk Aparna Ordonez MD 12/18/2016 Orders Only High Risk Luciana Singh, Chronic hypertension MD during (Primary Dx); with poor obstetric history 12/18/2016 Orders Only High Risk Luciana Singh, 23 weeks gestation of MD (Primary Dx) 12/15/2016 Orders Only High Risk Jeremy Lyon MD Hx of preeclampsia, prior , currently , second trimester (Primary Dx) 12/04/2016 [facility] Becky Livingston MD Supervision of high risk Encounter , unspecified, second trimester 12/04/2016 Office Visit High Risk Becky Livingston MD High- risk , second trimester (Primary Dx) 11/22/2016 Telephone Nephrology Marce Ventura MD Results 11/21/2016 [facility] Radiology Marce Ventura MD Encounter 11/21/2016 [facility] Andreea Tolbert MD Supervision of high risk Encounter , unspecified, first trimester 11/21/2016 Office Visit High Risk Deborah Fulton MD High- risk , first trimester (Primary Dx); Non-functioning kidney; Anticoagulated 11/20/2016 Telephone Nephrology Marce Ventura MD Results 11/17/2016 Office Visit Nephrology Marce Ventura MD Proteinuria ( Primary Dx); Essential hypertension; 13 weeks gestation of ; Non morbid obesity due to excess calories; Phli's thyroiditis 11/17/2016 [facility] Marce Ventura MD Proteinuria, unspecified Encounter 11/16/2016 Documentation High Risk Luciana Singh MD 11/08/2016 Documentation High Risk Becky Livingston MD 11/08/2016 Telephone High Risk Becky Livingston MD Results 11/08/2016 Orders Only High Risk Becky Livingston MD High- risk supervision, unspecified trimester (Primary Dx) 11/07/2016 [facility] Sang Lawson MD Supervision of high risk Encounter , unspecified, first trimester 11/07/2016 Office Visit High Risk Becky Livingston MD High- risk , unspecified trimester (Primary Dx) 11/07/2016 Clinical High Risk Screening for chromosomal Support anomalies by amniocentesis (Primary Dx) 10/30/2016 [facility] Sang Lawson MD Supervision of high [...] Vital Sign Reading Time Taken Blood Pressure 134/77 01/16/2017 10:43 AM [employer] Pulse 126 01/16/2017 10:43 AM [employer] Temperature 36.6 C (97.9 F) 12/27/2016 7:30 AM [employer] Respiratory Rate - - Height 1.575 m (5' 2.01") 01/16/2017 10:43 AM [employer] Weight 121.11 kg (267 lb) 01/16/2017 10:43 AM [employer] Body Mass Index 48.82 01/16/2017 10:43 AM [employer] Oxygen Saturation 100% 12/27/2016 11:02 AM [employer] Plan of Care Date Type Specialty Providers Description 01/30/2017 Appointment High Risk Aparna Ordonez MD [address] [place] [address] [phone] (Fax) 02/13/2017 Appointment High Risk Aparna Ordonez MD [address] [place] [address] [phone] (Fax) 02/13/2017 Appointment High Risk Health Maintenance Due Date Last Done Comments Physical (Comprehensive) 2000 Exam Hpv Vaccines (#1) 2004 Pertussis Vaccine 2004 Tetanus Vaccine 2010 Cervical Cancer Screening 2014 Influenza Vaccine 07/13/2017 Procedures from Last 3 Months Procedure Name Priority Date/Time Associated Diagnosis Comments CONSULT IV THERAPY TEAM STAT 12/25/2016 7:46 PM [employer] Results from Last 3 Months POC URINE DIPSTICK MANUAL READ (01/16/2017 10:44 AM)Only the most recent of 7 results within the time period is included. Component Value Range Urine Glucose POC negComment: lot#[id number] exp- Urine Ketone POC neg Urine Blood POC neg Urine Protein POC tr Urine Leukocytes POC neg Specimen Urine URINALYSIS, MICROSCOPIC (01/16/2017 10:33 AM)Only the most recent of 3 results within the time period is included. Component Value Range WBCs,UA 0-2 0-2 /HPF RBCs,UA NONE 0-3 /HPF Bacteria,UA FEW (A) NEG-NEG Squamous Epithelial Cells 0-2 0-5 Specimen Urine URINALYSIS DIPSTICK (01/16/2017 10:33 AM)Only the most recent of 3 results within the time period is included. Component Value Range Color,UA STRAW Turbidity,UA CLEAR CLEAR-CLEAR Specific [place]-Urine 1.003 1.003-1.035 pH,UA 7.0 5.0-8.0 Protein,UA 1+ (A) NEG-NEG Glucose,UA NEG NEG-NEG Ketones,UA NEG NEG-NEG Bilirubin,UA NEG NEG-NEG Blood,UA NEG NEG-NEG Urobilinogen,UA NORMAL NORM-NORMAL Nitrite,UA NEG NEG-NEG Leukocytes,UA NEG NEG-NEG Urine Ascorbic Acid, UA NEG NEG-NEG Specimen Urine PROTEIN/CR RATIO,UR RAN (01/16/2017 10:33 AM)Only the most recent of 7 results within the time period is included. Component Value Range Protein, Random 33 MG/DL Creatinine, Random 20 MG/DL Protein/CR ratio 1.7 Specimen Urine HEPARIN, LOW MOLECULAR WEIGHT (01/02/2017 10:16 AM) Component Value Range Heparin-Low Molecular 0.29 (L) 0.4-1.1 U/ML Weight Specimen Blood ANTI-NUCLEAR ANTIBODY(TE) (12/26/2016 9:15 AM) Component Value [...] developed and its performance characteristics determined by [facility]. It has not been cleared or approved by the Food and Drug Administration. Test Performed by: [facility] [id number] [facility] [address] [place] [address] Specimen Blood CARDIOLIPIN AB IGG/IGM (12/26/2016 9:15 [...] 2170 (H) 50-150 MG/24 HRS Specimen Urine CULTURE-URINE W/SENSITIVITY (12/25/2016 5:40 PM)Only [...] an A1c level <7%. Specimen Blood ULTRASOUND [facility] ORDER (12/19/2016)Only the most recent of [...] - Tue Nov 21, 2016 7:06 PM [employer] Renal Ultrasound Clinical Indication: Congenital renal abnormality, [...] neg Urine Ketone POC neg Urine Specific [place] 1.020 POC Urine Blood POC neg Urine [...]
[2017-01-24] MEDS ORDERED: ALPRAZolam 0.5 MG (XANAX) TAB PO SCH (01:15)
[2017-01-24 01:27] LABS: BILIRUBIN,URINE NEGATIVE (NEGATIVE); KETONES,URINE NEGATIVE (NEGATIVE); LEUKOCYTE ESTERASE ,URINE NEGATIVE (NEGATIVE); NITRITE,URINE NEGATIVE (NEGATIVE); PH,URINE 7 (5-9); PROTEIN,URINE 3+ (NEGATIVE); UROBILINOGEN,URINE NORMAL (NORMAL)
[2017-01-24 01:29] LABS: BASOPHILS % (AUTO) 0 % (0-10); EOSINOPHILS # (AUTO) 0.2 10^3/uL (0.0-0.3); EOSINOPHILS % (AUTO) 2 % (0-10); LYMPHOCYTES # (AUTO) 1.7 X 10^3 (1.0-4.0); LYMPHOCYTES % (AUTO) 13 % (12-44); MEAN CORPUSCULAR HEMOGLOBIN 28 PG (25-34); MEAN CORPUSCULAR HGB CONC 33 G/DL (32-36); MEAN CORPUSCULAR VOLUME 85 FL (80-99); MEAN PLATELET VOLUME 9.7 FL (7.4-10.4); MONOCYTES # (AUTO) 0.9 X 10^3 (0.0-1.0); MONOCYTES % (AUTO) 7 % (0-12); NEUTROPHILS # (AUTO) 9.7 X 10^3 (1.8-7.8); NEUTROPHILS % (AUTO) 78 % (42-75); PLATELET COUNT 273 10^3/uL (130-400); RED BLOOD COUNT 4.74 10^6/uL (4.35-5.85); RED CELL DISTRIBUTION WIDTH 14.3 % (10.0-14.5); WHITE BLOOD COUNT 12.5 10^3/uL (4.3-11.0)
[2017-01-24 01:34] LABS: WBC,URINE RARE /HPF
[2017-01-24 01:51] LABS: ALANINE AMINOTRANSFERASE 10 U/L (0-55); ALBUMIN 3.1 G/DL (3.2-4.5); ANION GAP 14 MMOL/L (5-14); ASPARTATE AMINO TRANSFERASE 10 U/L (5-34); BILIRUBIN,TOTAL 0.2 MG/DL (0.1-1.0); BLOOD UREA NITROGEN 9 MG/DL (7-18); BUN/CREATININE RATIO 13; CALCIUM 9.1 MG/DL (8.5-10.1); CARBON DIOXIDE 19 MMOL/L (21-32); CHLORIDE 106 MMOL/L (98-107); CREATININE SERUM 0.68 MG/DL (0.60-1.30); GFR ESTIMATED > 60; GLUCOSE 118 MG/DL (70-105); MAGNESIUM 1.6 MG/DL (1.8-2.4); POTASSIUM 3.8 MMOL/L (3.6-5.0); SODIUM 139 MMOL/L (135-145); TOTAL PROTEIN 6.2 G/DL (6.4-8.2)
[2017-01-24 02:11] LABS: THYROID STIMULATING HORMONE 1.44 UIU/ML (0.35-4.94)
[2017-01-24] MEDS ORDERED: FOLI0.8T PO (03:24)
[2017-01-24] MEDS ORDERED: ALPR0.25 BC (03:25)
[2017-01-24] MEDS ORDERED: ALPRAZolam 0.25 MG (XANAX) TAB PO PRN (07:30)
[2017-01-24] MEDS ORDERED: LEVOTHYROXINE 112 MCG (LEVOTHROID) TAB PO SCH (07:30)
[2017-01-24] MEDS ORDERED: MAGNESIUM OXIDE (MAG-OX)400 MG TAB PO SCH (08:00)
[2017-01-24] MEDS ORDERED: ENOXAPARIN 40 MG/0.4 ML (LOVENOX) SYR SC SCH (08:00)
--- NOTE | 2017-01-24 08:33 | History & Physical-OB ---
OB - Chief Complaint & HPI Date Date of Admission: Date of Admission: Chief Complaint/History Hx : 2 Hx Para: 0 (0100) Expected Date of Delivery: May 20, 2017 Gestational Age in Weeks: 23 Gestational Age in Days: 3 Other reason for admission: 21 y/o @ 23w3d by early sono at [facility] who presented overnight and admitted by Dr. Alberts for tachycardia. Reports late last evening, she was lying in bed and felt her heart race. She took her pulse and it was 154. She presented for care at that time. No chest pain, palpitations, SOA. Did have an episode last week for the same scenario and was thought to be r/t to an allergic reaction to lexapro. Now, reports no complaints. States she feels much better. She believes this was panic related. She lost a set of twins at 23 wga in her last due to super-imposed pre-eclampsia and she is sad and anxious about this. Reports fetus is active. No LOF VB CTX. Does not have any signs of super-imposed pre-eclampsia including h/a, vision changes, RUQ pain, increased edema. History of Labs O+ Antibody neg RI Hep B neg RPR NR HIV Neg GC/CT neg/neg baseline 24 hour urine 1300mg Allergies and Home Medications Allergies Coded Allergies: escitalopram (Verified Allergy, Unknown, 01/05/17) Home Medications Alprazolam 0.25 Mg Tablet 0.25 MG BC PRN (Reported) Aspirin 81 Mg Tablet.dr 81 MG PO DAILY (Reported) Enoxaparin Sodium 60 Mg/0.6 Ml Syringe 60 MG SQ DAILY (Reported) Folic Acid 0.8 Mg Tablet 0.8 MG PO DAILY (Reported) Levothyroxine Sodium 112 Mcg Tablet #30 138 MCG PO DAILY (Reported) Nifedipine 60 Mg Tab.er.24 60 MG PO BID (Reported) OB - History Hx of Present Care: Yes Abnormal Ultrasound Findings: last sono 01/16 at [facility] with adequate interval growth Obstetrical Complications: Other (h/o IUFD @ 23 wga due to super-imposed pre- eclampsia) Medical Complications: Other (chronic HTN, class III obesity, unilateral kidney , hypothyroidism) Obstetrical History Hx : 2 Hx Para: 0100 Hx Total # of Abortions (Spona: 1 Delivery History Hx Dystocia: No Hx Large For Gestational Age I: No Hx Section: No Hx Vaginal Delivery Post C-Sec: No Hx Blood Disorders: No Adverse Rxn to Tranfusion: No Patient Past Medical History See above - cHTN on labetalol prior to , anovulation, morbid obesity, solitary maternal kidney, hypothryoidism Social History/Family History HIV/AIDS: No Recent Infectious Disease Expo: No Sexually Transmitted Disease: No Immunizations Hepatitis A: Yes Hepatitis B: Yes Tetanus Booster (TDap): Less than 5yrs Date of Influenza Vaccine: Sep 04, 2016 OB - Admission Exam Physical Exam Vitals: Vital Signs 01/24/17 01/24/17 02:00 03:39 Temp 97.7 Pulse 113 Resp 20 B/P 138/79 Pulse Ox 99 O2 Delivery Room Air HEENT: NCAT Heart: Rhythm Normal Lungs: Clear Abdomen: Gravid Labs Laboratory Tests Test 01/24/17 01:00 01/24/17 01:20 Range/Units Urine Bacteria TRACE /HPF Urine Bilirubin NEGATIVE NEGATIVE Urine Casts NONE /LPF Urine Clarity CLEAR Urine Color YELLOW Urine Crystals NONE /LPF Urine Culture Indicated NO Urine Glucose (UA) NEGATIVE NEGATIVE Urine Ketones NEGATIVE NEGATIVE Urine Leukocyte Esterase NEGATIVE NEGATIVE Urine Mucus NEGATIVE /LPF Urine Nitrite NEGATIVE NEGATIVE Urine Protein 3+ H NEGATIVE Urine RBC NONE /HPF Urine RBC (Auto) NEGATIVE NEGATIVE Urine Specific [place] 1.010 L 1.016-1.022 Urine Squamous Epithelial Cells 2-5 /HPF Urine Urobilinogen NORMAL NORMAL MG/DL Urine WBC RARE /HPF Urine pH 7 5-9 Alanine Aminotransferase (ALT/SGPT) 10 0-55 U/L Albumin 3.1 L 3.2-4.5 G/DL Alkaline Phosphatase 79 40-136 U/L Anion Gap 14 5-14 MMOL/L Aspartate Amino Transf (AST/SGOT) 10 5-34 U/L B-Type Natriuretic Peptide < 10.0 <100.0 PG/ML BUN/Creatinine Ratio 13 Basophils # (Auto) 0.0 0.0-0.1 10^3/uL Basophils (%) (Auto) 0 0-10 % Blood Urea Nitrogen 9 7-18 MG/DL Calcium Level 9.1 8.5-10.1 MG/DL Carbon Dioxide Level 19 L 21-32 MMOL/L Chloride Level 106 98-107 MMOL/L Creatinine 0.68 0.60-1.30 MG/DL Eosinophils # (Auto) 0.2 0.0-0.3 10^3/uL Eosinophils (%) (Auto) 2 0-10 % Estimat Glomerular Filtration Rate > 60 Glucose Level 118 H 70-105 MG/DL Hematocrit 40 35-52 % Hemoglobin 13.3 11.5-16.0 G/DL Lymphocytes # (Auto) 1.7 1.0-4.0 X 10^3 Lymphocytes (%) (Auto) 13 12-44 % Magnesium Level 1.6 L 1.8-2.4 MG/DL Mean Corpuscular Hemoglobin 28 25-34 PG Mean Corpuscular Hemoglobin Concent 33 32-36 G/DL Mean Corpuscular Volume 85 80-99 FL Mean Platelet Volume 9.7 7.4-10.4 FL Monocytes # (Auto) 0.9 0.0-1.0 X 10^3 Monocytes (%) (Auto) 7 0-12 % Neutrophils # (Auto) 9.7 H 1.8-7.8 X 10^3 Neutrophils (%) (Auto) 78 H 42-75 % Platelet Count 273 130-400 10^3/uL Potassium Level 3.8 3.6-5.0 MMOL/L Red Blood Count 4.74 4.35-5.85 10^6/uL Red Cell Distribution Width 14.3 10.0-14.5 % Sodium Level 139 135-145 MMOL/L Thyroid Stimulating Hormone (TSH) 1.44 0.35-4.94 UIU/ML Total Bilirubin 0.2 0.1-1.0 MG/DL Total Protein 6.2 L 6.4-8.2 G/DL White Blood Count 12.5 H 4.3-11.0 10^3/uL OB - Assessment/Plan/Diagnosis Plan Other Plan 21 y/o @ 23w3d with tachycardia, anxiety. Chronic HTN Unilateral kidney, chronic proteinuria Class III obesity H/o super-imposed pre-eclampsia with twin IUFD @ 23 wga No evidence of super-imposed pre-eclampsia. HELLP labs normal, BPs mild range or better. Tachycardia improved this AM. I have not reviewed EKG personally, but was told sinus tachycardia by Dr. Alberts who admitted the patient overnight. She does have anxiety and believes this is related but would like to r/o other causes. She has asked Dr. Vargas to see the patient and will follow-up on his recommendations. Pt reports next visit with [facility] at is Sunday. Will continue to monitor closely. JOHN FOX MD Jan 24, 2017 08:33
[2017-01-24] MEDS ORDERED: NIFEdipine ER 60 MG (PROCARDIA XL) TAB PO NR (09:00)
[2017-01-24] MEDS ORDERED: ASPIRIN E.C. 81 MG (ECOTRIN) TAB PO SCH (09:00)
[2017-01-24] MEDS ORDERED: LEVOTHYROXINE 88 MCG (LEVOTHORID) TAB ONE (09:49)
[2017-01-24] MEDS ORDERED: LEVOTHYROXINE 50 MCG (LEVOTHROID) TAB ONE (09:49)
[2017-01-24] MEDS ORDERED: METO-270 PO (12:53)
--- NOTE | 2017-01-24 12:54 | Consultation-Cardiology ---
HPI-Cardiology Cardiology Consultation Date of Consultation 01/24/17 Date of Admission Indication: tachycardia HPI Patient is a 21 y/o female, 23 wks gestation, presented to the ER last night after noticing her heart racing with HR in the 150's while lying down in bed. Denied any CP. Patient does admit to having increased anxiety recently as it she lost twins at 23 weeks with her last . Was given Xanax with some improvement of her palpitations. Telemetry reveals sinus tachycardia ranging from 90's to 130's. History of HTN, solitary kidney, obesity. 21 years old lady with a 23 weeks of , last 20 at 23 weeks previously. Patient was doing well until she laid down in bed last night when she started feeling her heart racing and it was around 150 she was fairly anxious and uncomfortable especially with her previous history. Came into the emergency room and she was admitted for observation, felt better after receiving Xanax. Telemetry showed sinus tachycardia with episode of heart rate up to 130. Currently feeling well. No further episodes were noted. Home Medications & Allergies Allergies: Coded Allergies: escitalopram (Verified Allergy, Unknown, 01/05/17) Home Medication List Reviewed: Yes [id number] Hx Patient Social History Alcohol Use: Denies Use Smoking Status: Never a Smoker Recent Foreign Travel: No Recent Infectious Disease Expo: No Recent Hopitalizations: No Physical Abuse Screen: No Sexual Abuse: No Immunizations Up To Date Tetanus Booster (TDap): Less than 5yrs Date of Influenza Vaccine: Sep 04, 2016 Past Medical History HTN, obesity, anxiety Family Medical History Significant Family History: No Pertinent Family Hx Family History: Graves' disease Hypercholesterolemia 19 FATHER (father) 19 MOTHER (mother) Hypertension 19 MOTHER (mother) Constitutional: No chills, No diaphoresis, No dizziness, No fever, No malaise EENTM: No blurred vision, No double vision, No vision loss Respiratory: No cough, No dyspnea on exertion, No orthopnea, No short of breath Cardiovascular: No chest pain, No edema, palpitationsNo syncope Gastrointestinal: No abdominal pain, No constipation, No diarrhea Genitourinary: No dysuria, No frequency Musculoskeletal: No back pain, No joint pain Skin: No lesions, No rash Psychiatric/Neurological: Anxiety Reviewed Test Results Reviewed Test Results Lab Laboratory Tests 01/24/17 01:00: Urine Bacteria TRACE, Urine Bilirubin NEGATIVE, Urine Casts NONE, Urine Clarity CLEAR, Urine Color YELLOW, Urine Crystals NONE, Urine Culture Indicated NO, Urine Glucose (UA) NEGATIVE, Urine Ketones NEGATIVE, Urine Leukocyte Esterase NEGATIVE, Urine Mucus NEGATIVE, Urine Nitrite NEGATIVE, Urine Protein 3+H, Urine RBC NONE, Urine RBC (Auto) NEGATIVE, Urine Specific [place] 1.010L, Urine Squamous Epithelial Cells 2-5, Urine Urobilinogen NORMAL, Urine WBC RARE, Urine pH 7 01/24/17 01:20: Alanine Aminotransferase (ALT/SGPT) 10, Albumin 3.1L, Alkaline Phosphatase 79, Anion Gap 14, Aspartate Amino Transf (AST/SGOT) 10, B-Type Natriuretic Peptide < 10.0, BUN/Creatinine Ratio 13, Basophils # (Auto) 0.0, Basophils (%) (Auto) 0 , Blood Urea Nitrogen 9, Calcium Level 9.1, Carbon Dioxide Level 19L, Chloride Level 106, Creatinine 0.68, Eosinophils # (Auto) 0.2, Eosinophils (%) (Auto) 2, Estimat Glomerular Filtration Rate > 60, Glucose Level 118H, Hematocrit 40, Hemoglobin 13.3, Lymphocytes # (Auto) 1.7, Lymphocytes (%) (Auto) 13, Magnesium Level 1.6L, Mean Corpuscular Hemoglobin 28, Mean Corpuscular Hemoglobin Concent 33, Mean Corpuscular Volume 85, Mean Platelet Volume 9.7, Monocytes # (Auto) 0.9 , Monocytes (%) (Auto) 7, Neutrophils # (Auto) 9.7H, Neutrophils (%) (Auto) 78H , Platelet Count 273, Potassium Level 3.8, Red Blood Count 4.74, Red Cell Distribution Width 14.3, Sodium Level 139, Thyroid Stimulating Hormone (TSH) 1.44, Total Bilirubin 0.2, Total Protein 6.2L, White Blood Count 12.5H ECG Impression ECG Initial ECG Rhythm: S.Tach Physical Exam Vital Signs Vital Sign - Last 12Hours 01/24/17 00:50 Temp 99.2 Pulse 132 Resp 22 B/P 151/81 Pulse Ox 99 O2 Delivery Room Air Capillary Refill : General Appearance: No Apparent Distress WD/WN HEENT: PERRL/EOMI TMs Normal Normal ENT Inspection Pharynx Normal Neck: Full Range of Motion Normal Inspection Non Tender Supple Respiratory: Chest Non Tender Lungs Clear Cardiovascular: No Edema No Gallop No JVD No Murmur Tachycardia Gastrointestinal: Non Tender Soft Rectal: Deferred Back: No CVA Tenderness Extremity: Non Tender No Calf Tenderness Neurologic/Psychiatric: Alert 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 Currently on nifedipine. I will add Lopressor 25mg daily PRN for resting HR >120, BP>140. Continue to monitor, patient was educated in length about the use of beta blockers, currently feeling better. Okay for discharge and follow-up as an outpatient. She is to continue on Procardia as an outpatient. HTN- controlled. Continue to monitor. Add Lopressor to use as needed as discussed above. Obesity Hypothyroidism- TSH WNL. Continue to monitor. 23 wks with history of super-imposed pre-eclampsia with twin IUFD at 23 wga. Anxiety Unilateral kidney Thank you for allowing us to participate in the management of Ms. Matson. This is Paige Mason PA-C as a scribe for Dr. Vargas. This is Dr. Vargas, I have seen and evaluated the patient with Paige, interviewed the patient and perform physical examination, on examination lungs were clear to auscultation bilaterally, heart is regular rate and rhythm. She has episode of sinus tachycardia and anxiety. She has been controlled on Procardia with her hypertension, palpitation is better at this time, I reassured her. Instructed her or taking Lopressor 25 mg as needed for palpitation, tachycardia or hypertension. I did review the current note and agree with the current scribe, I made a few modification and used Italic Font PAIGE HEARN Jan 24, 2017 12:53 MADDISON VARGAS MD Jan 24, 2017 13:23
--- NOTE | 2017-01-24 12:55 | Discharge Inst-Women's Service ---
Discharge Inst-Women's Serv Depart Medication/Instructions New, Converted or Re-Newed RX: Transmitted to Pharmacy Final Diagnosis Tachycardia, anxiety Consults/Follow Up Additional Follow Up: Yes Orders/Referrals F/u as scheduled with Dr. Alberts and MARY at [facility] F/u with Dr. Vargas in 4 weeks Activity Activity: Activity as Tolerated Driving Instructions: You May Drive NO SMOKING: NO SMOKING Diet Discharge Diet: No Restrictions Symptoms to Report to : Swelling Increased, Eyesight Changes, Pain Increased , Fever Over 101 Degrees F, Pain/Pressure in Chest, Vaginal Bleeding Increase, Dizziness/Fainting, Nausea/Vomiting, Shortness of Breath Palpitations, chest pain, shortness of breath, or any other concerns For Any Problems or Questions: Contact Your Physician, Go to Emergency Room JOHN FOX MD Jan 24, 2017 12:54
[2017-01-25] MEDS ORDERED: LEVOTHYROXINE 88 MCG (LEVOTHORID) TAB PO SCH (06:30)
[2017-01-25] MEDS ORDERED: LEVOTHYROXINE 50 MCG (LEVOTHROID) TAB PO SCH (06:30)
[2017-01-31] MEDS ORDERED: NIFE90TA PO (21:23)
== END 2017-01-24 13:30 | disposition home or self-care (01) ==
LOC: WSo 00:23 → LDRP 00:28 → WSo 13:30
PROVIDERS: ATTEND Obstetrics & Gynecology
DX: R00.0 Tachycardia, unspecified (principal); O10.012 Pre-existing essential hypertension complicating pregnancy, second trimester; O12.12 Gestational proteinuria, second trimester; O99.212 Obesity complicating pregnancy, second trimester; E66.9 Obesity, unspecified; O99.282 Endocrine, nutritional and metabolic diseases complicating pregnancy, second trimester; E03.9 Hypothyroidism, unspecified; O99.342 Other mental disorders complicating pregnancy, second trimester; F41.9 Anxiety disorder, unspecified; Z3A.23 23 weeks gestation of pregnancy
CPT/HCPCS: 36415; 80053; 81000; 83735; 83880; 84443; 85025; 93005; 96372; 99213

== ENCOUNTER 2017-01-31 19:13 | Outpatient (CLI) | payer BC, OTHER ==
[~2017-01-31] VITALS: Ht 157.5 cm; Wt 123.9 kg
[~2017-01-31 19:13] MED LIST changes: +ALPR0.25 BC; +FOLI0.8T PO; +METO-270 PO
[2017-01-31 19:43] VITALS: BP 175/88
[2017-01-31 20:04] VITALS: BP 147/73
[2017-01-31 20:15] LABS: BILIRUBIN,URINE NEGATIVE (NEGATIVE); KETONES,URINE NEGATIVE (NEGATIVE); LEUKOCYTE ESTERASE ,URINE NEGATIVE (NEGATIVE); NITRITE,URINE NEGATIVE (NEGATIVE); PH,URINE 7 (5-9); PROTEIN,URINE 2+ (NEGATIVE); UROBILINOGEN,URINE NORMAL (NORMAL)
[2017-01-31 20:20] LABS: BASOPHILS % (AUTO) 0 % (0-10); EOSINOPHILS # (AUTO) 0.3 10^3/uL (0.0-0.3); EOSINOPHILS % (AUTO) 2 % (0-10); LYMPHOCYTES # (AUTO) 2.4 X 10^3 (1.0-4.0); LYMPHOCYTES % (AUTO) 18 % (12-44); MEAN CORPUSCULAR HEMOGLOBIN 29 PG (25-34); MEAN CORPUSCULAR HGB CONC 34 G/DL (32-36); MEAN CORPUSCULAR VOLUME 85 FL (80-99); MONOCYTES # (AUTO) 1.1 X 10^3 (0.0-1.0); MONOCYTES % (AUTO) 8 % (0-12); NEUTROPHILS # (AUTO) 9.4 X 10^3 (1.8-7.8); NEUTROPHILS % (AUTO) 72 % (42-75); PLATELET COUNT 319 10^3/uL (130-400); RED BLOOD COUNT 4.78 10^6/uL (4.35-5.85); RED CELL DISTRIBUTION WIDTH 14.2 % (10.0-14.5); WHITE BLOOD COUNT 13.1 10^3/uL (4.3-11.0)
[2017-01-31 20:33] LABS: WBC,URINE RARE /HPF
[2017-01-31 20:37] LABS: PROTEIN/CREATININE RATIO 1.81
[2017-01-31 20:40] LABS: ALANINE AMINOTRANSFERASE 12 U/L (0-55); ALBUMIN 3.2 G/DL (3.2-4.5); ANION GAP 14 MMOL/L (5-14); ASPARTATE AMINO TRANSFERASE 12 U/L (5-34); BILIRUBIN,TOTAL 0.2 MG/DL (0.1-1.0); BLOOD UREA NITROGEN 11 MG/DL (7-18); BUN/CREATININE RATIO 16; CALCIUM 9.6 MG/DL (8.5-10.1); CARBON DIOXIDE 19 MMOL/L (21-32); CHLORIDE 105 MMOL/L (98-107); GFR ESTIMATED > 60; GLUCOSE 86 MG/DL (70-105); LACTATE DEHYDROGENASE 136 U/L (125-220); POTASSIUM 3.8 MMOL/L (3.6-5.0); SODIUM 138 MMOL/L (135-145); TOTAL PROTEIN 6.5 G/DL (6.4-8.2); URIC ACID 4.9 MG/DL (2.6-7.2)
[2017-01-31 20:45] VITALS: BP 141/70
[2017-01-31 21:06] VITALS: BP 145/67
[2017-01-31] MEDS ORDERED: NIFEdipine 10 MG CAPS (WOMEN'S SERVICES ONLY!!!) PO ONE (21:15)
[2017-01-31] MEDS ORDERED: NIFE90TA PO (21:23)
--- NOTE | 2017-01-31 21:31 | History & Physical-OB ---
OB - Chief Complaint & HPI Date Date of Admission: Date of Admission: Chief Complaint/History OB-Reason for Admission/Chief: Hx : 2 Hx Para: 0 Expected Date of Delivery: May 20, 2017 Gestational Age in Weeks: 24 Gestational Age in Days: 3 Other reason for admission: Sarah is a 21 y/o @ 24w3d with chronic HTN here for elevated BP Reports when sitting at home, BP was 180/100 Has been seen at for this recently No other si/sx pre-eclampsia, denies h/a, vision changes, RUQ pain, sudden increase in edema/wt Does admit to significant anxiety but did not feel overly anxious at that time Fetus is active No LOF VB CTX On modified bedrest (working while sitting only) Taking lovenox. On Procardia 60 mg BID. Managed at [facility] primarily by Dr. Ordonez Well known to me from previous admissions managed by Dr. Alberts locally History of Labs See last H&P for labs Allergies and Home Medications Allergies Coded Allergies: escitalopram (Verified Allergy, Unknown, 01/05/17) Home Medications Aspirin 81 Mg Tablet.dr, 81 MG PO DAILY, (Reported) Enoxaparin Sodium 60 Mg/0.6 Ml Syringe, 60 MG SQ DAILY, (Reported) Folic Acid 0.8 Mg Tablet, 0.8 MG PO DAILY, (Reported) Levothyroxine Sodium 112 Mcg Tablet, 138 MCG PO DAILY, #30 (Reported) Nifedipine 60 Mg Tab.er.24, 60 MG PO BID, (Reported) Nifedipine 90 Mg Tab.er.24, 90 MG PO Q12H, #60 Ref 1 Prescribed by: JOHN FOX on 01/31/172122 OB - History Hx of Present Care: Yes Obstetrical Complications: Other (history of severe pre-eclampsia at 22 wga with IUFD of twins) Medical Complications: Other (cHTN, unilateral kidney with chronic proteinuria , class III obesity, hypothyroidism) Delivery History Hx Dystocia: No Hx Large For Gestational Age I: No Hx Section: No Hx Vaginal Delivery Post C-Sec: No Hx Blood Disorders: No Adverse Rxn to Tranfusion: No Patient Past Medical History See above - cHTN on labetalol prior to , anovulation, morbid obesity, solitary maternal kidney, hypothyroidism Social History/Family History HIV/AIDS: No Recent Infectious Disease Expo: No Sexually Transmitted Disease: No Immunizations Hepatitis A: Yes Hepatitis B: Yes Tetanus Booster (TDap): Less than 5yrs Date of Influenza Vaccine: Sep 04, 2016 OB - Admission Exam Physical Exam Vitals: see vice president of consulting services of vitals BP 175/88, then mild range following pulse low 100s HEENT: NCAT Heart: Rhythm Normal Lungs: Clear Abdomen: Gravid Extremities: Normal Reflexes: Normal Heart Rate: 130's Decelerations: No Decelerations Short Term Variability: Present [facility] Variability: Average (6-25) Contractions on Admission: None Labs Laboratory Tests Test 01/31/17 20:00 01/31/17 20:14 Range/Units Urine Color YELLOW Urine Clarity CLEAR Urine pH 7 5-9 Urine Specific [place] 1.005 L 1.016-1.022 Urine Protein 29 H 6-12 MG/DL Urine Glucose (UA) NEGATIVE NEGATIVE Urine Ketones NEGATIVE NEGATIVE Urine Nitrite NEGATIVE NEGATIVE Urine Bilirubin NEGATIVE NEGATIVE Urine Urobilinogen NORMAL NORMAL MG/DL Urine Leukocyte Esterase NEGATIVE NEGATIVE Urine RBC (Auto) NEGATIVE NEGATIVE Urine RBC 0-2 /HPF Urine WBC RARE /HPF Urine Squamous Epithelial Cells 2-5 /HPF Urine Crystals NONE /LPF Urine Bacteria NEGATIVE /HPF Urine Casts NONE /LPF Urine Mucus NEGATIVE /LPF Urine Culture Indicated NO Urine Creatinine 16 L 30-125 MG/DL Urine Protein/Creatinine Ratio 1.81 White Blood Count 13.1 H 4.3-11.0 10^3/uL Red Blood Count 4.78 4.35-5.85 10^6/uL Hemoglobin 13.6 11.5-16.0 G/DL Hematocrit 41 35-52 % Mean Corpuscular Volume 85 80-99 FL Mean Corpuscular Hemoglobin 29 25-34 PG Mean Corpuscular Hemoglobin Concent 34 32-36 G/DL Red Cell Distribution Width 14.2 10.0-14.5 % Platelet Count 319 130-400 10^3/uL Mean Platelet Volume 10.0 7.4-10.4 FL Neutrophils (%) (Auto) 72 42-75 % Lymphocytes (%) (Auto) 18 12-44 % Monocytes (%) (Auto) 8 0-12 % Eosinophils (%) (Auto) 2 0-10 % Basophils (%) (Auto) 0 0-10 % Neutrophils # (Auto) 9.4 H 1.8-7.8 X 10^3 Lymphocytes # (Auto) 2.4 1.0-4.0 X 10^3 Monocytes # (Auto) 1.1 H 0.0-1.0 X 10^3 Eosinophils # (Auto) 0.3 0.0-0.3 10^3/uL Basophils # (Auto) 0.0 0.0-0.1 10^3/uL Sodium Level 138 135-145 MMOL/L Potassium Level 3.8 3.6-5.0 MMOL/L Chloride Level 105 98-107 MMOL/L Carbon Dioxide Level 19 L 21-32 MMOL/L Anion Gap 14 5-14 MMOL/L Blood Urea Nitrogen 11 7-18 MG/DL Creatinine 0.70 0.60-1.30 MG/DL Estimat Glomerular Filtration Rate > 60 BUN/Creatinine Ratio 16 Glucose Level 86 70-105 MG/DL Uric Acid 4.9 2.6-7.2 MG/DL Calcium Level 9.6 8.5-10.1 MG/DL Total Bilirubin 0.2 0.1-1.0 MG/DL Aspartate Amino Transf (AST/SGOT) 12 5-34 U/L Alanine Aminotransferase (ALT/SGPT) 12 0-55 U/L Alkaline Phosphatase 87 40-136 U/L Lactate Dehydrogenase 136 125-220 U/L Total Protein 6.5 6.4-8.2 G/DL Albumin 3.2 3.2-4.5 G/DL OB - Assessment/Plan/Diagnosis Plan Other Plan 21 y/o @ 24w3d with worsening cHTN in Unilateral kidney, chronic proteinuria Class III obesity H/o super-imposed pre-eclampsia with twin IUFD @ 23 wga Hypothyroidism No evidence of super-imposed pre-eclampsia. HELLP labs normal, BPs mild range or better after bedrest in triage. Does have significant proteinuria but this is chronic. I spoke with Dr. Ordonez with [facility] who manages her high risk conditions who agrees with my plan to increase procardia to 90 mg BID. She will have her nursing staff contact the patient for visit there. Return precautions discussed. JOHN FOX MD Jan 31, 2017 21:31
[2017-01-31 21:40] VITALS: BP 140/66
== END 2017-01-31 21:40 | disposition home or self-care (01) ==
LOC: DELPENDDIS → LDRP 19:13 → WSo 19:13
PROVIDERS: ATTEND Obstetrics & Gynecology
DX: O10.912 Unspecified pre-existing hypertension complicating pregnancy, second trimester (principal); O12.12 Gestational proteinuria, second trimester; O99.282 Endocrine, nutritional and metabolic diseases complicating pregnancy, second trimester; E03.9 Hypothyroidism, unspecified; O26.892 Other specified pregnancy related conditions, second trimester; Q60.0 Renal agenesis, unilateral; Z3A.24 24 weeks gestation of pregnancy
CPT/HCPCS: 36415; 80053; 81000; 82570; 83615; 84156; 84550; 85025; 99213

== ENCOUNTER 2017-02-12 18:30 | Outpatient (CLI) | payer BC, OTHER ==
[~2017-02-12] VITALS: Ht 157.5 cm; Wt 123.9 kg
[2017-02-12] VITALS (9 sets, daily range): BP systolic 146–191; BP diastolic 72–87
[~2017-02-12 18:30] MED LIST changes: +NIFE90TA PO
[2017-02-12] MEDS ORDERED: NIFE90TA PO (19:24)
[2017-02-12] MEDS ORDERED: ZOLP5TAB PO (19:24)
[2017-02-12] MEDS ORDERED: NIFEdipine 10 MG CAPS (WOMEN'S SERVICES ONLY!!!) PO ONE ×2 (19:50→20:00)
[2017-02-12 20:00] LABS: BASOPHILS % (AUTO) 0 % (0-10); EOSINOPHILS # (AUTO) 0.2 10^3/uL (0.0-0.3); EOSINOPHILS % (AUTO) 1 % (0-10); LYMPHOCYTES # (AUTO) 2.5 X 10^3 (1.0-4.0); LYMPHOCYTES % (AUTO) 19 % (12-44); MEAN CORPUSCULAR HEMOGLOBIN 29 PG (25-34); MEAN CORPUSCULAR HGB CONC 33 G/DL (32-36); MEAN CORPUSCULAR VOLUME 86 FL (80-99); MEAN PLATELET VOLUME 10.1 FL (7.4-10.4); MONOCYTES # (AUTO) 1.2 X 10^3 (0.0-1.0); MONOCYTES % (AUTO) 9 % (0-12); NEUTROPHILS # (AUTO) 9.4 X 10^3 (1.8-7.8); NEUTROPHILS % (AUTO) 70 % (42-75); PLATELET COUNT 278 10^3/uL (130-400); RED BLOOD COUNT 4.52 10^6/uL (4.35-5.85); RED CELL DISTRIBUTION WIDTH 14.1 % (10.0-14.5); WHITE BLOOD COUNT 13.3 10^3/uL (4.3-11.0)
[2017-02-12] MEDS ORDERED: NIFEdipine ER 30 MG (PROCARDIA XL) TAB PO NR (20:00)
[2017-02-12] MEDS ORDERED: NIFEdipine ER 60 MG (PROCARDIA XL) TAB PO NR (20:00)
[2017-02-12 20:14] LABS: BILIRUBIN,URINE NEGATIVE (NEGATIVE); KETONES,URINE 1+ (NEGATIVE); LEUKOCYTE ESTERASE ,URINE NEGATIVE (NEGATIVE); NITRITE,URINE NEGATIVE (NEGATIVE); PH,URINE 7 (5-9); PROTEIN,URINE 2+ (NEGATIVE); UROBILINOGEN,URINE NORMAL (NORMAL)
[2017-02-12 20:25] LABS: SQUAMOUS EPITHELIAL CELL,UR 0-2 /HPF
[2017-02-12 20:25] LABS: ALANINE AMINOTRANSFERASE 7 U/L (0-55); ALBUMIN 3.1 G/DL (3.2-4.5); ANION GAP 12 MMOL/L (5-14); ASPARTATE AMINO TRANSFERASE 9 U/L (5-34); BILIRUBIN,TOTAL 0.2 MG/DL (0.1-1.0); BLOOD UREA NITROGEN 12 MG/DL (7-18); BUN/CREATININE RATIO 18; CALCIUM 9.5 MG/DL (8.5-10.1); CARBON DIOXIDE 20 MMOL/L (21-32); CHLORIDE 106 MMOL/L (98-107); CREATININE SERUM 0.68 MG/DL (0.60-1.30); GFR ESTIMATED > 60; GLUCOSE 78 MG/DL (70-105); LACTATE DEHYDROGENASE 166 U/L (125-220); POTASSIUM 4.1 MMOL/L (3.6-5.0); SODIUM 138 MMOL/L (135-145); TOTAL PROTEIN 6.2 G/DL (6.4-8.2); URIC ACID 4.9 MG/DL (2.6-7.2)
[2017-02-12] MEDS ORDERED: hydrALAZINE (APESOLINE) 20 MG/ML VIAL IV ONE ×2 (21:30→22:15)
[2017-02-12] MEDS ORDERED: hydrOXYzine (VISTARIL) 25 MG CAP PO ONE (22:45)
[2017-02-12] MEDS ORDERED: hydrOXYzine (ATARAX) 10 MG TAB PO ONE (23:00)
[2017-02-12] MEDS ORDERED: hydrALAZINE (APESOLINE) 20 MG/ML VIAL IV PRN (23:30)
[2017-02-13 03:30] VITALS: BP 148/81
[2017-02-13 06:08] VITALS: BP 138/74
--- NOTE | 2017-02-13 07:49 | History & Physical ---
History and Physical this patient is a 21-year-old patient of Dr. Nasima martinez. She presented with complaint of elevated blood pressure. She is brought 26 weeks gestation and her has been complicated by elevated blood pressure for which she is on Procardia. She has a significant medical history and has apparently persistent proteinuria. She continued her on blood pressure medication and was treated with hydralazine in addition. Pressures were as high as 170s to 180s over 80s. Blood pressures eventually came down to the 140s over 70s to 80s. Vital Signs Date Time Temp Pulse Resp B/P (MAP) Pulse Ox O2 Delivery O2 Flow Rate FiO2 02/13/17 06:08 90 138/74 02/13/17 03:30 90 148/81 02/12/17 23:55 105 148/73 02/12/17 23:09 106 174/77 02/12/17 22:33 98.4 114 146/80 02/12/17 22:06 104 170/79 02/12/17 22:05 109 178/81 02/12/17 21:11 106 188/77 02/12/17 21:09 99 177/72 02/12/17 20:33 109 176/87 99 02/12/17 19:43 113 191/79 99 Laboratory Tests Test 02/12/17 19:44 02/12/17 20:00 Range/Units White Blood Count 13.3 H 4.3-11.0 10^3/uL Red Blood Count 4.52 4.35-5.85 10^6/uL Hemoglobin 12.9 11.5-16.0 G/DL Hematocrit 39 35-52 % Mean Corpuscular Volume 86 80-99 FL Mean Corpuscular Hemoglobin 29 25-34 PG Mean Corpuscular Hemoglobin Concent 33 32-36 G/DL Red Cell Distribution Width 14.1 10.0-14.5 % Platelet Count 278 130-400 10^3/uL Mean Platelet Volume 10.1 7.4-10.4 FL Neutrophils (%) (Auto) 70 42-75 % Lymphocytes (%) (Auto) 19 12-44 % Monocytes (%) (Auto) 9 0-12 % Eosinophils (%) (Auto) 1 0-10 % Basophils (%) (Auto) 0 0-10 % Neutrophils # (Auto) 9.4 H 1.8-7.8 X 10^3 Lymphocytes # (Auto) 2.5 1.0-4.0 X 10^3 Monocytes # (Auto) 1.2 H 0.0-1.0 X 10^3 Eosinophils # (Auto) 0.2 0.0-0.3 10^3/uL Basophils # (Auto) 0.0 0.0-0.1 10^3/uL Sodium Level 138 135-145 MMOL/L Potassium Level 4.1 3.6-5.0 MMOL/L Chloride Level 106 98-107 MMOL/L Carbon Dioxide Level 20 L 21-32 MMOL/L Anion Gap 12 5-14 MMOL/L Blood Urea Nitrogen 12 7-18 MG/DL Creatinine 0.68 0.60-1.30 MG/DL Estimat Glomerular Filtration Rate > 60 BUN/Creatinine Ratio 18 Glucose Level 78 70-105 MG/DL Uric Acid 4.9 2.6-7.2 MG/DL Calcium Level 9.5 8.5-10.1 MG/DL Total Bilirubin 0.2 0.1-1.0 MG/DL Aspartate Amino Transf (AST/SGOT) 9 5-34 U/L Alanine Aminotransferase (ALT/SGPT) 7 0-55 U/L Alkaline Phosphatase 76 40-136 U/L Lactate Dehydrogenase 166 125-220 U/L Total Protein 6.2 L 6.4-8.2 G/DL Albumin 3.1 L 3.2-4.5 G/DL Urine Color YELLOW Urine Clarity SLIGHTLY CLOUDY Urine pH 7 5-9 Urine Specific [place] 1.010 L 1.016-1.022 Urine Protein 38 H 6-12 MG/DL Urine Glucose (UA) NEGATIVE NEGATIVE Urine Ketones 1+ H NEGATIVE Urine Nitrite NEGATIVE NEGATIVE Urine Bilirubin NEGATIVE NEGATIVE Urine Urobilinogen NORMAL NORMAL MG/DL Urine Leukocyte Esterase NEGATIVE NEGATIVE Urine RBC (Auto) NEGATIVE NEGATIVE Urine RBC NONE /HPF Urine WBC NONE /HPF Urine Squamous Epithelial Cells 0-2 /HPF Urine Crystals NONE /LPF Urine Bacteria NONE /HPF Urine Casts NONE /LPF Urine Mucus NEGATIVE /LPF Urine Culture Indicated NO Urine Creatinine 19 L 30-125 MG/DL Urine Protein/Creatinine Ratio 2.00 monitoring was continuous through the night and was reassuring physical exam is deferred assessment and plan 26 week with significantly elevated blood pressure. Blood pressure was eventually brought down with a couple doses of hydralazine. Patient was discharges morning feeling markedly improved. She does have an appointment at [facility] for follow-up in regard to her complicated severe hypertension Allergies and Home Medications Allergies Coded Allergies: escitalopram (Verified Allergy, Unknown, 01/05/17) Home Medications Aspirin 81 Mg Tablet.dr, 81 MG PO DAILY, (Reported) Enoxaparin Sodium 60 Mg/0.6 Ml Syringe, 60 MG SQ DAILY, (Reported) Folic Acid 0.8 Mg Tablet, 0.8 MG PO DAILY, (Reported) Levothyroxine Sodium 112 Mcg Tablet, 138 MCG PO DAILY, #30 (Reported) Nifedipine 90 Mg Tab.er.24, 90 MG PO BID, #60 Ref 1 Prescribed by: CHENTE JAIME on 02/12/171923 Zolpidem Tartrate 5 Mg Tablet, 5 MG PO HS, (Reported) ION GO MD Feb 13, 2017 07:49
--- NOTE | 2017-02-13 07:57 | History & Physical ---
History and Physical severe hypertension Allergies and Home Medications Allergies Coded Allergies: escitalopram (Verified Allergy, Unknown, 01/05/17) Home Medications Aspirin 81 Mg Tablet.dr, 81 MG PO DAILY, (Reported) Enoxaparin Sodium 60 Mg/0.6 Ml Syringe, 60 MG SQ DAILY, (Reported) Folic Acid 0.8 Mg Tablet, 0.8 MG PO DAILY, (Reported) Levothyroxine Sodium 112 Mcg Tablet, 138 MCG PO DAILY, #30 (Reported) Nifedipine 90 Mg Tab.er.24, 90 MG PO BID, #60 Ref 1 Prescribed by: CHENTE JAIME on 02/12/171923 Zolpidem Tartrate 5 Mg Tablet, 5 MG PO HS, (Reported) ION GO MD Feb 13, 2017 7:57 am
== END 2017-02-13 07:55 | disposition home or self-care (01) ==
LOC: LDRP 18:30 → WSo 18:30
PROVIDERS: ATTEND Obstetrics & Gynecology
DX: O10.912 Unspecified pre-existing hypertension complicating pregnancy, second trimester (principal); O12.12 Gestational proteinuria, second trimester; Z3A.26 26 weeks gestation of pregnancy
CPT/HCPCS: 36415; 80053; 81000; 82570; 83615; 84156; 84550; 85025; 87088; 96374; 96376; 99213

== ENCOUNTER 2017-03-08 19:45 | Outpatient (CLI) | payer OTHER, BC ==
[~2017-03-08] VITALS: Ht 157.5 cm; Wt 125.2 kg
[~2017-03-08 19:45] MED LIST changes: +ZOLP5TAB PO
[2017-03-08 19:58] VITALS: BP 145/81
[2017-03-08] MEDS ORDERED: LABE200T3 PO (20:34)
--- NOTE | 2017-03-09 10:52 | Physician Query-Final Dx ---
ANTONIO BHATT 03/09/17 1052: Clinic Account Progress/Dx Physician Query: Please give diagnosis Date of Service Mar 08, 2017 at 19:45 JUDE BRUCE DO 03/10/17 0928: Clinic Account Progress/Dx DIAGNOSIS: Diagnosis 28 week IUP Chronic HTN Elevated BP at home reading ANTONIO BHATT Mar 09, 2017 10:52 JUDE BRUCE DO Mar 10, 2017 09:28
== END 2017-03-08 20:40 | disposition home or self-care (01) ==
LOC: WSo 19:45
PROVIDERS: ATTEND Obstetrics & Gynecology
DX: O10.913 Unspecified pre-existing hypertension complicating pregnancy, third trimester (principal); Z3A.28 28 weeks gestation of pregnancy
CPT/HCPCS: 99212

== ENCOUNTER 2017-03-19 09:59 | Outpatient (CLI) | payer BC, OTHER ==
[~2017-03-19] VITALS: Ht 154.9 cm; Wt 125.2 kg
[~2017-03-19 09:59] MED LIST changes: +LABE200T3 PO
[2017-03-19 10:42] VITALS: BP 149/68
[2017-03-19] MEDS ORDERED: NIFE90TA PO (10:51)
--- NOTE | 2017-03-20 10:14 | Physician Query-Final Dx ---
MELANIA MUNROE 03/20/17 1013: Clinic Account Progress/Dx Physician Query: Please give diagnosis Date of Service March 19, 2017 at 09:59 ION GO MD 03/20/17 1126: Clinic Account Progress/Dx DIAGNOSIS: Diagnosis induced hypertension MELANIA MUNROE March 20, 2017 10:13 ION GO MD March 20, 2017 11:26
== END 2017-03-19 12:10 | disposition home or self-care (01) ==
LOC: LDRP 09:59 → WSo 09:59
PROVIDERS: ATTEND Obstetrics & Gynecology
DX: O13.3 Gestational [pregnancy-induced] hypertension without significant proteinuria, third trimester (principal); Z3A.31 31 weeks gestation of pregnancy
CPT/HCPCS: 99213

== ENCOUNTER 2017-04-17 16:24 | Outpatient (CLI) | payer BC, OTHER ==
[~2017-04-17] VITALS: Ht 157.5 cm; Wt 127.5 kg
[2017-04-17 16:58] VITALS: BP 149/72
[2017-04-17 17:05] VITALS: BP 155/74
[2017-04-17 17:26] VITALS: BP 138/63
[2017-04-17 17:55] VITALS: BP 138/63
--- NOTE | 2017-04-18 08:10 | Physician Query-Final Dx ---
ANTONIO BHATT 04/18/17 0810: Clinic Account Progress/Dx Physician Query: Please give diagnosis Date of Service Apr 17, 2017 at 16:24 JORDAN MICHELLE DO 04/18/17 1827: Clinic Account Progress/Dx DIAGNOSIS: Diagnosis blurred vision chronic hypertension, third trimester history of proteinuria ANTONIO BHATT Apr 18, 2017 08:10 JORDAN MICHELLE DO Apr 18, 2017 18:27
== END 2017-04-17 17:55 | disposition home or self-care (01) ==
LOC: WSo 16:24 → LDRP 16:24 → WSo 17:55
PROVIDERS: ATTEND Obstetrics & Gynecology
DX: O10.013 Pre-existing essential hypertension complicating pregnancy, third trimester (principal); O26.893 Other specified pregnancy related conditions, third trimester; O99.89 Other specified diseases and conditions complicating pregnancy, childbirth and the puerperium; H53.8 Other visual disturbances; Z3A.35 35 weeks gestation of pregnancy
CPT/HCPCS: 99212

== ENCOUNTER 2017-04-25 02:24 | Outpatient (CLI) | payer BC, OTHER ==
[~2017-04-25] VITALS: Ht 157.5 cm; Wt 125.4 kg
[2017-04-25] VITALS (15 sets, daily range): BP systolic 136–187; BP diastolic 68–103
[2017-04-25 02:56] LABS: BILIRUBIN,URINE NEGATIVE (NEGATIVE); KETONES,URINE NEGATIVE (NEGATIVE); LEUKOCYTE ESTERASE ,URINE NEGATIVE (NEGATIVE); NITRITE,URINE NEGATIVE (NEGATIVE); PH,URINE 7 (5-9); PROTEIN,URINE 3+ (NEGATIVE); UROBILINOGEN,URINE NORMAL (NORMAL)
[2017-04-25 03:10] LABS: SQUAMOUS EPITHELIAL CELL,UR 0-2 /HPF
[2017-04-25] MEDS ORDERED: HEPA100D37 IV (04:12)
--- NOTE | 2017-04-26 12:19 | Physician Query-Final Dx ---
MELANIA MUNROE 04/26/17 1219: Clinic Account Progress/Dx Physician Query: Please give diagnosis Date of Service Apr 25, 2017 at 02:24 JORDAN MICHELLE DO 04/30/17 1027: Clinic Account Progress/Dx DIAGNOSIS: Diagnosis chronic hypertension with exacerbation, third trimester severe proteinuria (preexisiting) anxiety, MELANIA MUNROE Apr 26, 2017 12:19 JORDAN MICHELLE DO Apr 30, 2017 10:27
== END 2017-04-25 06:37 | disposition home or self-care (01) ==
LOC: WSo 02:24 → LDRP 02:25 → WSo 06:37
PROVIDERS: ATTEND Obstetrics & Gynecology
DX: O10.013 Pre-existing essential hypertension complicating pregnancy, third trimester (principal); O12.13 Gestational proteinuria, third trimester; F41.9 Anxiety disorder, unspecified; Z3A.36 36 weeks gestation of pregnancy; O99.343 Other mental disorders complicating pregnancy, third trimester
CPT/HCPCS: 81000; 99213

== ENCOUNTER 2017-05-03 15:07 | Outpatient (RCR) | payer BC, OTHER ==
[~2017-05-03 15:07] MED LIST changes: +HEPA100D37 IV; -METO-270 PO; +METO-387 PO
== END 2017-08-01 | disposition home or self-care (01) ==
LOC: WSo 15:07
PROVIDERS: ATTEND Family Medicine
DX: Z39.1 Encounter for care and examination of lactating mother (principal)
CPT/HCPCS: 99211

== ENCOUNTER 2018-02-27 06:47 | Emergency (ER) | payer BC, OTHER ==
[~2018-02-27] VITALS: Ht 157.5 cm; Wt 119.3 kg
[~2018-02-27 06:47] MED LIST changes: -LABE200T3; -LABE200T3 PO; +LABE200T7; +LABE200T7 PO
[2018-02-27] MEDS ORDERED: FLUO20CA42 PO (07:12)
[2018-02-27] MEDS ORDERED: NIFE90TA33 (07:12)
[2018-02-27] MEDS ORDERED: ALPR0.254 PO (07:12)
[2018-02-27] MEDS ORDERED: NS IV 1000 ML 1,000 ML IV ONE (07:19)
--- NOTE | 2018-02-27 07:27 | ED Abdominal Pain ---
General Chief Complaint: Back Problems Stated Complaint: BACK PAIN Nursing Triage Note: ARRIVED VIA AMB TO ROOM 07. COMPLAINS OF RIGHT SIDED UPPER BACK PAIN THAT RADIATES INTO UPPER ABD STARTING LAST NIGHT. STATES THIS HAPPENED ABOUT A MONTH AGO. Sepsis Screen: No Definite Risk Source of Information: Patient Exam Limitations: No Limitations History of Present Illness Date Seen by Provider: Feb 27, 2018 Time Seen by Provider: 07:11 Initial Comments This 22-year-old young lady presents to the emergency room with complaints of pain in the right mid upper back and right upper quadrant of the abdomen since last night. She has been having episodes of similar pain intermittently over the past month. She notes this pain usually happens in the evening and after eating. Last night she ate macaroni and cheese and hamburgers before the pain started. She normally takes Tylenol, Xanax, and applies heat to treat the pain. This was ineffective last night. She has associated nausea without vomiting. She denies diarrhea or constipation. Her last bowel movement was last night and was normal. She denies any vaginal symptoms, fever, or urinary changes. She has the Mirena for contraception. Last oral intake was at 22:00. Allergies and Home Medications Allergies Coded Allergies: escitalopram (Verified Allergy, Unknown, 01/05/17) Home Medications Labetalol HCl 200 Mg Tablet, 300 MG PO BID, (Reported) Levothyroxine Sodium 112 Mcg Tablet, 138 MCG PO DAILY, (Reported) Nifedipine 90 Mg Tab.er.24, 90 MG PO BID, (Reported) Ondansetron 4 Mg Tab.rapdis, 4 MG SL Q4H PRN for NAUSEA/VOMITING-1ST LINE Prescribed by: MARISA RAPP on 02/27/18 1107 Oxycodone HCl/Acetaminophen 1 Each Tablet, 1 EACH PO Q4H PRN for PAIN-MODERATE TO SEVERE Prescribed by: MARISA RAPP on 02/27/18 1107 Zolpidem Tartrate 5 Mg Tablet, 5 MG PO HS, (Reported) Patient Home Medication List Home Medication List Reviewed: Yes Review of Systems Constitutional: no symptoms reported EENTM: No Symptoms Reported Respiratory: No Symptoms Reported Cardiovascular: No Symptoms Reported Gastrointestinal: See HPI Genitourinary: No Symptoms Reported Musculoskeletal: no symptoms reported Skin: no symptoms reported Psychiatric/Neurological: No Symptoms Reported Past Fkdpjyn-Ygcipz-Zkdozp Hx Patient Social History Alcohol Use: Denies Use Recreational Drug Use: No Smoking Status: Never a Smoker Recent Foreign Travel: No Contact w/Someone Who Travel: No Recent Infectious Disease Expo: No Recent Hopitalizations: No Immunizations Up To Date Tetanus Booster (TDap): Less than 5yrs PED Vaccines UTD: Yes Date of Influenza Vaccine: Sep 04, 2016 Seasonal Allergies Seasonal Allergies: Yes Past Medical History Surgeries: Yes Section, Orthopedic, Tonsillectomy Respiratory: Yes Asthma Currently Using CPAP: No Currently Using BIPAP: No Cardiac: Yes (pre-eclampsia w/ ) Hypertension Neurological: No : No Reproductive Disorders: No [employer]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) Sexually Transmitted Disease: No HIV/AIDS: No Genitourinary: Yes (functionally unilateral kidney) Gastrointestinal: No Musculoskeletal: No 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) Hypothyroidsim HEENT: No Cancer: No Did You Recieve Any Treatments: No Psychosocial: No Integumentary: No Blood Disorders: No Adverse Reaction/Blood Tranf: No Family Medical History Graves' disease Hypercholesterolemia 19 FATHER (father) 19 MOTHER (mother) Hypertension 19 MOTHER (mother) No Pertinent Family Hx, Asthma, Heart Disease Physical Exam Vital Signs Vital Signs - First Documented 02/27/18 02/27/18 06:56 11:28 Temp 98.0 Pulse 74 Resp 18 B/P (MAP) 166/144 (151) Pulse Ox 100 O2 Delivery Room Air Capillary Refill : Less Than 3 Seconds General Appearance: WD/WN, mild distress, obese HEENT: PERRL/EOMI, normal ENT inspection Neck: normal inspection Respiratory: lungs clear, normal breath sounds, no respiratory distress, no accessory muscle use Cardiovascular: regular rate, rhythm, no edema, no murmur Gastrointestinal: normal bowel sounds, soft, tenderness (right upper quadrant) Extremities: normal inspection, no pedal edema 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, no motor/sensory deficits, alert, normal mood/affect, oriented x 3 Skin: normal color, warm/dry Progress/Results/Core Measures Lab Results Laboratory Tests Test 02/27/18 07:27 02/27/18 07:30 Range/Units White Blood Count 9.0 4.3-11.0 10^3/uL Red Blood Count 5.51 4.35-5.85 10^6/uL Hemoglobin 14.9 11.5-16.0 G/DL Hematocrit 45 35-52 % Mean Corpuscular Volume 82 80-99 FL Mean Corpuscular Hemoglobin 27 25-34 PG Mean Corpuscular Hemoglobin Concent 33 32-36 G/DL Red Cell Distribution Width 15.0 H 10.0-14.5 % Platelet Count 329 130-400 10^3/uL Mean Platelet Volume 9.7 7.4-10.4 FL Neutrophils (%) (Auto) 56 42-75 % Lymphocytes (%) (Auto) 25 12-44 % Monocytes (%) (Auto) 7 0-12 % Eosinophils (%) (Auto) 11 H 0-10 % Basophils (%) (Auto) 1 0-10 % Neutrophils # (Auto) 5.0 1.8-7.8 X 10^3 Lymphocytes # (Auto) 2.3 1.0-4.0 X 10^3 Monocytes # (Auto) 0.7 0.0-1.0 X 10^3 Eosinophils # (Auto) 1.0 H 0.0-0.3 10^3/uL Basophils # (Auto) 0.1 0.0-0.1 10^3/uL Sodium Level 140 135-145 MMOL/L Potassium Level 4.2 3.6-5.0 MMOL/L Chloride Level 106 98-107 MMOL/L Carbon Dioxide Level 24 21-32 MMOL/L Anion Gap 10 5-14 MMOL/L Blood Urea Nitrogen 13 7-18 MG/DL Creatinine 0.84 0.60-1.30 MG/DL Estimat Glomerular Filtration Rate > 60 BUN/Creatinine Ratio 15 Glucose Level 88 70-105 MG/DL Calcium Level 9.8 8.5-10.1 MG/DL Total Bilirubin 0.4 0.1-1.0 MG/DL Aspartate Amino Transf (AST/SGOT) 13 5-34 U/L Alanine Aminotransferase (ALT/SGPT) 15 0-55 U/L Alkaline Phosphatase 123 40-136 U/L Total Protein 7.3 6.4-8.2 GM/DL Albumin 4.1 3.2-4.5 GM/DL Lipase 11 8-78 U/L Serum Test, Qualitative NEGATIVE NEGATIVE Urine Color YELLOW Urine Clarity CLEAR Urine pH 6 5-9 Urine Specific [place] 1.010 L 1.016-1.022 Urine Protein 3+ H NEGATIVE Urine Glucose (UA) NEGATIVE NEGATIVE Urine Ketones NEGATIVE NEGATIVE Urine Nitrite NEGATIVE NEGATIVE Urine Bilirubin NEGATIVE NEGATIVE Urine Urobilinogen NORMAL NORMAL MG/DL Urine Leukocyte Esterase NEGATIVE NEGATIVE Urine RBC (Auto) NEGATIVE NEGATIVE Urine RBC NONE /HPF Urine WBC NONE /HPF Urine Squamous Epithelial Cells 5-10 /HPF Urine Crystals NONE /LPF Urine Bacteria NEGATIVE /HPF Urine Casts NONE /LPF Urine Mucus NEGATIVE /LPF Urine Culture Indicated NO My Orders Orders - MARISA WALKER MD Cbc With Automated Diff (02/27/18 07:19) Comprehensive Metabolic Panel (02/27/18 07:19) Hcg,Qualitative Serum (02/27/18 07:19) Lipase (02/27/18 07:19) Ua Culture If Indicated (02/27/18 07:19) Saline Lock/Iv-Start (02/27/18 07:19) Ns Iv 1000 Ml (Sodium Chloride 0.9%) (02/27/18 07:19) Fentanyl Injection (Sublimaze Injection (02/27/18 07:30) Ondansetron Injection (Zofran Injectio (02/27/18 07:30) Us Gallbladder [id number] (02/27/18 07:19) Chest Pa/Lat (2 View) (02/27/18 09:44) Ketorolac Injection (Toradol Injection) (02/27/18 09:45) Medications Given in ED Vital Signs/I&O 02/27/18 02/27/18 06:56 11:28 Temp 98.0 Pulse 74 77 Resp 18 18 B/P (MAP) 166/144 (151) 135/81 Pulse Ox 100 98 O2 Delivery Room Air Blood Pressure Mean: 151 Progress Note #1: Time: 07:27 Progress Note Patient was seen and examined. Fentanyl and Zofran have been ordered for treatment of symptoms. Labs pending. Gallbladder ultrasound is pending. Progress Note #2: Progress Note GB US was negative. Residual pain was further treated with Toradol. Necessity for further work-up which might include hepatobiliary scan and/or endoscopy was discussed with patient and SO. Diagonstic Imaging: Ultrasound Plain Films/CT/US/NM/MRI: abdomen Comments Gallbladder ultrasound report reviewed. See report below: NAME: ALEJANDRO BARTH [facility] REC#: [id number] PT STATUS: DEP ER : 1995 PHYSICIAN: MARISA WALKER MD ADMIT DATE: 02/27/18/ER Signed Date of Exam: 02/27/18 US GALLBLADDER [id number] PROCEDURE: US Gallbladder. TECHNIQUE: Multiple Real-time grayscale images were obtained over the right upper quadrant in various projections. INDICATION: Abdominal pain. FINDINGS: The exam demonstrates poor visualization of the pancreas due to overlying bowel gas. The liver appears normal. Flow is present in the main portal vein. No intrahepatic ductal dilatation is present. The gallbladder appears normal. The gallbladder wall is of normal thickness measuring 2 mm. The common bile duct is of normal caliber measuring 4.2 mm. No pericholecystic fluid, ascites, or sonographic Mccarthy sign is present. The right kidney appears normal measuring up to 11.9 x 5.3 x 5.7 cm. No calculus or hydronephrosis is present. IMPRESSION: Normal right upper quadrant ultrasound. The pancreas is not well-visualized. Dictated by: Dictated on workstation # [id number] Dict: 02/27/18 0936 Trans: 02/27/181715 Interpreted by: BARBARA GOLDBERG MD Electronically signed by: BARBARA GOLDBERG MD 02/27/181715 Diagonstic Imaging: Xray Plain Films/CT/US/NM/MRI: chest Comments Chest x-ray viewed by me and report reviewed. See report below: NAME: ALEJANDRO BARTH [facility] REC#: [id number] PT STATUS: [facility] ER : 1995 PHYSICIAN: MARISA WALKER MD ADMIT DATE: 02/27/18/ER Signed Date of Exam: 02/27/18 CHEST PA/LAT (2 VIEW) INDICATION: Right-sided upper back pain PA and lateral chest obtained at 1030 AM. Heart and mediastinal silhouette are normal in appearance. The lungs are clear. There is no pneumothorax or pleural fluid. IMPRESSION: Negative chest. Dictated by: Dictated on workstation # [id number] Dict: 02/27/18 1033 Trans: 02/27/18 1124 Interpreted by: LAILA BARNEY MD Electronically signed by: LAILA BARNEY MD 02/27/18 1124 Departure Impression Primary Impression: Right upper quadrant pain Additional Impression: Nausea Disposition: 01 HOME, SELF-CARE Condition: Improved Departure-Patient Inst. Decision time for Depature: 11:00 Referrals: MADAY FARR MD (PCP/Family) Primary Care Physician Patient Instructions: Acute Abdomen (Belly Pain) Add. Discharge Instructions: Follow-up with your primary care provider as soon as possible. Please call today for an appointment. Discuss further workup with your primary care provider which may include a hepatobiliary scan and/or endoscopy (visual scoping of the esophagus and stomach ). Eat an extremely low fat diet and small meals. Drink plenty of clear liquids. For primary pain control, take Tylenol (acetaminophen) up to 1000 mg every 6 hours as needed. Add ibuprofen up to 600 mg every 6 hours as needed for additional pain relief. For more severe pain you may use Percocet as prescribed. Return to the emergency room if symptoms worsen. Also return to the emergency room if you develop new symptoms such as vomiting, fever over 100, or other concerning symptoms. All discharge instructions reviewed with patient and/or family. Voiced understanding. Scripts Oxycodone HCl/Acetaminophen (Percocet 5-325 mg Tablet) 1 Each Tablet 1 EACH PO Q4H PRN for PAIN-MODERATE TO SEVERE, #10 TAB Prov: MARISA WALKER MD 02/27/18 Ondansetron (Zofran Odt) 4 Mg Tab.rapdis 4 MG SL Q4H PRN for NAUSEA/VOMITING-1ST LINE, #10 TAB Prov: MARISA WALKER MD 02/27/18 Copy Copies To 1: MADAY FARR MD, JOSHUA T MD Feb 27, 2018 07:27
[2018-02-27] MEDS ORDERED: ONDANSETRON 4 MG/2 ML (SDV) Z0FRAN IVP ONE (07:30)
[2018-02-27] MEDS ORDERED: fentaNYL INJECTION 100 MCG/2 ML AMP IVP ONE (07:30)
[2018-02-27 07:33] LABS: BASOPHILS # (AUTO) 0.1 10^3/uL (0.0-0.1); BASOPHILS % (AUTO) 1 % (0-10); EOSINOPHILS % (AUTO) 11 % (0-10); HEMATOCRIT 45 % (35-52); HEMOGLOBIN 14.9 G/DL (11.5-16.0); LYMPHOCYTES # (AUTO) 2.3 X 10^3 (1.0-4.0); LYMPHOCYTES % (AUTO) 25 % (12-44); MEAN CORPUSCULAR HEMOGLOBIN 27 PG (25-34); MEAN CORPUSCULAR HGB CONC 33 G/DL (32-36); MEAN CORPUSCULAR VOLUME 82 FL (80-99); MEAN PLATELET VOLUME 9.7 FL (7.4-10.4); MONOCYTES # (AUTO) 0.7 X 10^3 (0.0-1.0); MONOCYTES % (AUTO) 7 % (0-12); NEUTROPHILS % (AUTO) 56 % (42-75); PLATELET COUNT 329 10^3/uL (130-400); RED BLOOD COUNT 5.51 10^6/uL (4.35-5.85)
[2018-02-27 07:38] LABS: BILIRUBIN,URINE NEGATIVE (NEGATIVE); CLARITY,URINE CLEAR; COLOR,URINE YELLOW; GLUCOSE, URINE (UA) NEGATIVE (NEGATIVE); KETONES,URINE NEGATIVE (NEGATIVE); LEUKOCYTE ESTERASE ,URINE NEGATIVE (NEGATIVE); NITRITE,URINE NEGATIVE (NEGATIVE); PH,URINE 6 (5-9); PROTEIN,URINE 3+ (NEGATIVE); UROBILINOGEN,URINE NORMAL (NORMAL)
[2018-02-27 07:57] LABS: ALANINE AMINOTRANSFERASE 15 U/L (0-55); ALBUMIN 4.1 GM/DL (3.2-4.5); ALKALINE PHOSPHATASE 123 U/L (40-136); BILIRUBIN,TOTAL 0.4 MG/DL (0.1-1.0); BUN/CREATININE RATIO 15; CALCIUM 9.8 MG/DL (8.5-10.1); CARBON DIOXIDE 24 MMOL/L (21-32); CHLORIDE 106 MMOL/L (98-107); CREATININE SERUM 0.84 MG/DL (0.60-1.30); GFR ESTIMATED > 60; GLUCOSE 88 MG/DL (70-105); LIPASE 11 U/L (8-78); POTASSIUM 4.2 MMOL/L (3.6-5.0); SODIUM 140 MMOL/L (135-145); TOTAL PROTEIN 7.3 GM/DL (6.4-8.2)
[2018-02-27 08:00] LABS: BACTERIA,URINE NEGATIVE /HPF
--- NOTE | 2018-02-27 09:39 | Diagnostic Imaging Report ---
PROCEDURE: US Gallbladder. TECHNIQUE: Multiple Real-time grayscale images were obtained over the right upper quadrant in various projections. INDICATION: Abdominal pain. FINDINGS: The exam demonstrates poor visualization of the pancreas due to overlying bowel gas. The liver appears normal. Flow is present in the main portal vein. No intrahepatic ductal dilatation is present. The gallbladder appears normal. The gallbladder wall is of normal thickness measuring 2 mm. The common bile duct is of normal caliber measuring 4.2 mm. No pericholecystic fluid, ascites, or sonographic Mccarthy sign is present. The right kidney appears normal measuring up to 11.9 x 5.3 x 5.7 cm. No calculus or hydronephrosis is present. IMPRESSION: Normal right upper quadrant ultrasound. The pancreas is not well-visualized. Dictated by: Dictated on workstation # [id number]
[2018-02-27] MEDS ORDERED: KETOROLAC 30 MG/ML VIAL IVP ONE (09:45)
--- NOTE | 2018-02-27 10:36 | Diagnostic Imaging Report ---
INDICATION: Right-sided upper back pain PA and lateral chest obtained at 1030 AM. Heart and mediastinal silhouette are normal in appearance. The lungs are clear. There is no pneumothorax or pleural fluid. IMPRESSION: Negative chest. Dictated by: Dictated on workstation # [id number]
[2018-02-27] MEDS ORDERED: OXYC-197 PO (11:07)
[2018-02-27] MEDS ORDERED: ONDA4TAB8 SL (11:07)
[2018-02-27 11:28] VITALS: BP 135/81
[2018-03-14] MEDS ORDERED: ACHD5005 PO (13:07)
[2018-03-14] MEDS ORDERED: DOCU-143 PO (13:07)
== END 2018-02-27 11:28 | disposition home or self-care (01) ==
LOC: EDUNIT# 06:47 → ER 06:50
DX: R10.11 Right upper quadrant pain (principal); R11.0 Nausea; E03.9 Hypothyroidism, unspecified; I10 Essential (primary) hypertension; J45.909 Unspecified asthma, uncomplicated; Z87.59 Personal history of other complications of pregnancy, childbirth and the puerperium; Z90.89 Acquired absence of other organs; Z97.5 Presence of (intrauterine) contraceptive device; Z88.8 Allergy status to other drugs, medicaments and biological substances
CPT/HCPCS: 36415; 71046; 76705; 80053; 81000; 83690; 84703; 85025; 96361; 96374; 96375

== ENCOUNTER → 2018-03-08 | Outpatient (CLI) | payer BC ==
[~2018-03-08] MED LIST changes: +ACHD5005 PO; +ALPR0.254 PO; +CATHETER FLUSH 10 ML SYR IV PRN; +DOCU-143 PO; +FLUO20CA42 PO; +LABE200T3; +LABE200T3 PO; -LABE200T7; -LABE200T7 PO; +LEVO137T2 PO; +NIFE90TA33; +ONDA4TAB8 SL; +OXYC-197 PO; +RT-ALBUINH IH; +morphine INJ 10 MG/ML 1ML (SYR OR VIAL) IV ONE; +morphine INJ 10 MG/ML 1ML (SYR OR VIAL) ONE
--- NOTE | 2018-03-08 17:28 | Diagnostic Imaging Report ---
INDICATION: Right upper quadrant pain. TECHNIQUE: Patient was administered 5.3 mCi technetium 99m Choletec intravenously and imaging over the abdomen was performed. At 60 minutes, approximately 2 mg of morphine sulfate was administered intravenously due to a nonvisualized gallbladder. A second dose of 1.0 mCi technetium 99m Choletec was also administered. FINDINGS: A homogeneous uptake of activity by the liver is seen with prompt excretion of activity into the common duct. There is passage of activity into the small bowel. Despite morphine, the gallbladder is nonvisualized. IMPRESSION: Nonvisualized gallbladder suggestive of cystic duct obstruction. Dictated by: Dictated on workstation # [id number]
== END ==
LOC: CARD 11:30
PROVIDERS: ATTEND Family Medicine
DX: R10.11 Right upper quadrant pain (principal)
CPT/HCPCS: 78226

== ENCOUNTER 2018-03-13 08:56 | Outpatient (CLI) | payer BC ==
[~2018-03-13] VITALS: Ht 157.5 cm; Wt 119.3 kg
[~2018-03-13 08:56] MED LIST changes: -ACHD5005 PO; -CATHETER FLUSH 10 ML SYR IV PRN; -DOCU-143 PO; -LEVO137T2 PO; -RT-ALBUINH IH; -morphine INJ 10 MG/ML 1ML (SYR OR VIAL) IV ONE; -morphine INJ 10 MG/ML 1ML (SYR OR VIAL) ONE
[2018-03-13] MEDS ORDERED: LEVO137T2 PO (09:20)
[2018-03-13] MEDS ORDERED: RT-ALBUINH IH (09:20)
[2018-03-14] MEDS ORDERED: ACHD5005 PO (13:07)
[2018-03-14] MEDS ORDERED: DOCU-143 PO (13:07)
== END 2018-03-13 09:25 ==
LOC: PREOP 08:56
PROVIDERS: ATTEND Surgery
DX: Z01.818 Encounter for other preprocedural examination (principal); K81.9 Cholecystitis, unspecified

== ENCOUNTER 2018-03-14 09:44 | Day surgery (SDC) | payer BC ==
[~2018-03-14] VITALS: Ht 157.5 cm; Wt 119.3 kg
[~2018-03-14 09:44] MED LIST changes: +LEVO137T2 PO; +RT-ALBUINH IH
[2018-03-14] MEDS ORDERED: ceFAZolin 2 GM IV Premixed 50 ML IV ONE (10:15)
[2018-03-14 10:47] VITALS: BP 121/79
[2018-03-14] MEDS: LACTATED RINGERS 1,000 ML IV PRN ×2 (10:47→12:05)
[2018-03-14] MEDS ORDERED: LIDOCAINE 1% INJ 20 ML 20 ML VIAL ONE (10:56)
[2018-03-14] MEDS ORDERED: BUPIVACAINE 0.5% 30 ML (SENSORCAINE) VIAL ONE (10:56)
[2018-03-14] MEDS ORDERED: fentaNYL INJECTION 100 MCG/2 ML AMP ONE ×2 (10:59→12:55)
[2018-03-14] MEDS ORDERED: SUCCINYLCHOLINE INJ 100 MG/5 ML SYR ONE (10:59)
[2018-03-14] MEDS ORDERED: ONDANSETRON 4 MG/2 ML (SDV) Z0FRAN ONE (10:59)
[2018-03-14] MEDS ORDERED: MIDAZOLAM 2 MG/2 ML (VERSED) VIAL ONE (10:59)
[2018-03-14] MEDS ORDERED: DEXAMETHASONE 10 MG/ML (DECADRON) 1 ML VIAL ONE (10:59)
[2018-03-14] MEDS ORDERED: LIDOCAINE PF 2% 5 ML (XYLOCAINE) VIAL ONE (10:59)
[2018-03-14] MEDS ORDERED: ROCURONIUM 10 MG/ML 5 ML SYRINGE IV ONE (10:59)
[2018-03-14] MEDS ORDERED: proPOfol 200 MG/20 ML (DIPRIVAN) VIAL IV ONE (10:59)
--- NOTE | 2018-03-14 11:44 | Progress Note-Pre Operative ---
Pre-Operative Progress Note H&P Reviewed The H&P was reviewed, patient examined and no changes noted. Date Seen by Provider: March 14, 2018 Time Seen by Provider: 11:44 Date H&P Reviewed: March 14, 2018 Time H&P Reviewed: 11:44 Pre-Operative Diagnosis: CHRONIC CHOLECYSTITIS JUNAID PANTOJA DO March 14, 2018 11:44
[2018-03-14] MEDS ORDERED: NEOSTIGMINE 1 MG/ML 5 ML SYRINGE ONE (13:00)
[2018-03-14] MEDS ORDERED: GLYCOPYRROLATE 0.2 MG/ML (ROBINUL) 2 ML VIAL ONE (13:00)
--- NOTE | 2018-03-14 13:06 | Progress Note-Post Operative ---
Post-Operative Progess Note Surgeon (s)/Healthcare Business Analyst (s) Surgeon JUNAID PANTOJA DO Healthcare Business Analyst: Dr. Rodas Pre-Operative Diagnosis CHRONIC CHOLECYSTITIS Post-Operative Diagnosis hydrops gallbladder Procedure & Operative Findings Date of Procedure 03/14/18 Procedure Performed/Findings lap mora c ioc Anesthesia Type general Estimated Blood Loss Estimated blood loss (mL): min Specimens/Packing Specimens Removed gallbladder JUNAID PANTOJA DO March 14, 2018 13:06
[2018-03-14] MEDS ORDERED: DOCU-143 PO (13:07)
[2018-03-14] MEDS ORDERED: ACHD5005 PO (13:07)
--- NOTE | 2018-03-14 13:09 | Discharge Inst-Simple/Standard ---
Discharge Inst-Standard Discharge Medications New, Converted or Re-Newed RX: RX on Chart Patient Instructions/Follow Up Plan of Care/Instructions/FU: 2 weeks bekah Activity as Tolerated: No Discharge Diet: Regular Diet Other Inst to Patient Follow up Appt: Make appointment for 2 weeks. Instructions: No lifting greater than 10 pounds. No strenuous activity. May shower in 24 hours, no tub bath or soaking. Use incentive spirometer at home as directed. No Smoking Skin/Wound Care: You have special glue over incisions it will fall off on its own. Symptoms to Report: Appetite Changes, Extremity Discoloration, Numbness/Tingling, Swelling Increased , Bleeding Excessive, Eyesight Changes, Pain Increased, Urine Color Change, Constipation(Persistent), Fever over 101 degree F, Pain/Pressure in chest, Urinating Difficulty, Cough Up/Vomit Blood, Heart Beat Irreg/Pounding, Pain/ Pressure in jaw, Vaginal Bleeding Increase, Cramps in feet or legs, Lightheadedness, Pain/Pressure in shoulder, Diarrhea(Persistent), Memory Changes Suddenly, Questions/Concerns, Weight gain consecutive days, Dizziness/ Fainting, Nausea/Vomiting, Shortness of Breath, Weight gain over 2 pounds. If eyes or skin turn yellow notify physician. If questions or concerns contact your physician Or seek help at emergency department. JUNAID PANTOJA DO March 14, 2018 13:09
[2018-03-14] MEDS ORDERED: HYDROcodone/APAP 5 MG/325 MG (LORTAB) TAB PO PRN (13:15)
[2018-03-14] MEDS ORDERED: SEVOFLURANE (ULTANE) 15 ML INHAL SOLN ONE (13:25)
[2018-03-14] MEDS ORDERED: HYDROmorphone 2 MG/ML VIAL (DILAUDID) IVP PRN (13:30)
[2018-03-14] MEDS ORDERED: fentaNYL INJECTION 100 MCG/2 ML AMP IVP PRN (13:30)
[2018-03-14] MEDS ORDERED: MEPERIDINE (DEMEROL) INJ 50 MG/ML IVP PRN (13:30)
[2018-03-14] MEDS ORDERED: ONDANSETRON 4 MG/2 ML (SDV) Z0FRAN IVP PRN (13:30)
[2018-03-14 14:20] VITALS: BP 134/76
[2018-03-14] MEDS ORDERED: oxyCODONE/APAP 5/325MG (PERCOCET 5) TABLET ONE (14:28)
[2018-03-14] MEDS ORDERED: oxyCODONE/APAP 5/325MG (PERCOCET 5) TABLET PO ONE (14:30)
[2018-03-14 14:50] VITALS: BP 136/71
[2018-03-14 15:20] VITALS: BP 129/70
[2018-03-14 16:25] VITALS: BP 129/70
--- NOTE | 2018-03-14 19:22 | Diagnostic Imaging Report ---
INDICATION: Fluoroscopy during intraoperative cholangiogram. Fluoroscopy was provided during intraoperative cholangiogram. 89 seconds of fluoroscopy was utilized. The images demonstrate contrast being injected via the cystic duct remnant. Intrahepatic and extrahepatic bile ducts are nondilated. No filling defects are seen. Imaging was not carried out to show contrast within the duodenum. IMPRESSION: Fluoroscopy during intraoperative cholangiogram. Dictated by: Dictated on workstation # [id number]
--- NOTE | 2018-03-16 02:40 | OPERATIVE REPORT ---
DATE OF SERVICE: 03/14/2018 PREOPERATIVE DIAGNOSIS: Chronic cholecystitis. POSTOPERATIVE DIAGNOSIS: Hydrops of the gallbladder. PROCEDURE: Laparoscopic cholecystectomy with intraoperative cholangiogram. SURGEON: Glen Kumar DO. READY MIX TRUCK DRIVER: Dr. Rodas, assisted in retraction, dissection and closure. ANESTHESIA: General. ESTIMATED BLOOD LOSS: Minimal. COMPLICATIONS: None. INDICATIONS: The patient is a 22-year-old female who began having lots of pain that she thought was a pinched nerve. She had workup demonstrating the cystic duct to be obstructed by HIDA scan which would be consistent with chronic cholecystitis. The patient was explained risks and benefits of procedure and wished to proceed with procedure. Consent was signed in the chart. PROCEDURE: The patient was taken to the operating suite. She was prepped and draped in sterile fashion. Surgical pause was performed. Delma technique was used to dissect just above the umbilicus down to the fascia, which was then scored, grasped and elevated and the abdomen was entered. A balloon trocar was inserted and pneumoperitoneum was achieved. Under direct visualization of the laparoscope, a 5 mm trocar was placed in the subxiphoid region and two 5 mm trocars were placed in the right upper quadrant. Gallbladder was appeared inflamed and thickened. There is some omental fat up on that as well. The adhesions were then taken down and the gallbladder was grasped and elevated. The cystic duct was then dissected out along with the cystic artery. A small hole was made in the gallbladder which decompressed it. White fluid consistent with hydrops gallbladder, drained from it. Clips were placed on the proximal and distal portion of the cystic artery and clips were placed on the distal portion of the cystic duct which was a very short cystic duct. The duct was then partially transected. Arrow catheter was inserted and cholangiogram was then performed. There are no filling defects and contrast made its way into duodenum. The catheter was removed. Clips were placed on the proximal portion of the cystic duct and then the duct and artery were then completely transected. Hook cautery was used to dissect the gallbladder from the gallbladder fossa achieving hemostasis. Once removed, it was placed in an Endobag and removed through the 12 mm trocar site. The abdomen was irrigated and suctioned with copious amounts of irrigation. The trocars were then removed. A 0 Vicryl was placed at the fascia of the 12 mm trocar which was then closed. The skin was then closed with 4-0 Monocryl in a subcuticular fashion. The abdomen was then washed and dried and a SwiftSet was placed over the incisions. The patient tolerated the procedure well without any complications. She was sent to recovery room in stable condition. Job ID: [id number] DocumentID: [id number] Dictated Date: 03/15/2018 20:07:17 Alliance Consultant Date: 03/16/2018 02:40:04 Dictated By: DO PHUC SHANNON
== END 2018-03-14 16:25 | disposition home or self-care (01) ==
LOC: SDC 09:44
PROVIDERS: ATTEND Surgery
DX: K80.10 Calculus of gallbladder with chronic cholecystitis without obstruction (principal); K82.1 Hydrops of gallbladder; I10 Essential (primary) hypertension; E06.3 Autoimmune thyroiditis; J45.909 Unspecified asthma, uncomplicated; E66.01 Morbid (severe) obesity due to excess calories; Z68.42 Body mass index [BMI] 45.0-49.9, adult; Z79.899 Other long term (current) drug therapy
CPT/HCPCS: 84703; 87081; 88304; 94664

== ENCOUNTER → 2020-09-16 | Outpatient (CLI) | payer OTHER ==
[~2020-09-16] MED LIST changes: +ACHD5005 PO; +ALPR.25T PO; -ALPR0.254 PO; +DOCU-143 PO; -LABE200T3; -LABE200T3 PO; +LABE200T7; +LABE200T7 PO; -METO-387 PO; +MTP25TSR PO; -NIFE90TA33; +NIFE90TA57; -OXYC-197 PO; +OXYC1TAB87 PO
== END ==
LOC: LAB 09:31
PROVIDERS: ATTEND Obstetrics & Gynecology Reproductive Endocrinology
DX: Z32.01 Encounter for pregnancy test, result positive (principal)
CPT/HCPCS: 36415; 84144

== ENCOUNTER → 2020-10-18 | Outpatient (CLI) | payer OTHER ==
[2020-10-18 11:07] LABS: HEMOGLOBIN 14.6 g/dL (11.5-16.0); MEAN PLATELET VOLUME 9.7 fL (9.0-12.2); WHITE BLOOD COUNT 4.3 10^3/uL (4.3-11.0)
[2020-10-18 11:46] LABS: ALANINE AMINOTRANSFERASE 40 U/L (0-55); ALBUMIN 4.1 GM/DL (3.2-4.5); ALKALINE PHOSPHATASE 92 U/L (40-136); BILIRUBIN,TOTAL 0.3 MG/DL (0.1-1.0); BUN/CREATININE RATIO 10; CALCIUM 9.2 MG/DL (8.5-10.1); CARBON DIOXIDE 23 MMOL/L (21-32); CHLORIDE 105 MMOL/L (98-107); GFR ESTIMATED > 60; GLUCOSE 87 MG/DL (70-105); POTASSIUM 4.2 MMOL/L (3.6-5.0); SODIUM 140 MMOL/L (135-145)
== END ==
LOC: LABNPT 06:17
DX: U07.1 COVID-19 (principal)
CPT/HCPCS: 80053; 85027; 86141

== ENCOUNTER 2021-09-30 19:12 | Inpatient (IN) | payer BC, OTHER ==
[~2021-09-30] VITALS: Ht 167.7 cm; Wt 150.8 kg
[~2021-09-30 19:12] MED LIST changes: -FOLI0.8T PO; +FOLI0.8T4 PO
[2021-09-30] MEDS ORDERED: LACTATED RINGERS 1,000 ML IV ONE ×3 (19:30→21:45)
[2021-09-30] MEDS: PROPOFOL DRIP (ICU) 100 ML IV SCH (19:31)
[2021-09-30 19:35] VITALS: BP 95/51
[2021-09-30 19:50] LABS: BILIRUBIN,URINE NEGATIVE (NEGATIVE); CLARITY,URINE CLEAR; COLOR,URINE YELLOW; GLUCOSE, URINE (UA) NEGATIVE (NEGATIVE); KETONES,URINE NEGATIVE (NEGATIVE); LEUKOCYTE ESTERASE ,URINE NEGATIVE (NEGATIVE); NITRITE,URINE NEGATIVE (NEGATIVE); PROTEIN,URINE TRACE (NEGATIVE)
[2021-09-30 20:00] LABS: ABG BASE EXCESS -7.9 MMOL/L (-2.5-2.5); ABG OXYGEN SATURATION 81 % (94-100); ABG PCO2 60 MMHG (35-45); ABG PO2 58 MMHG (79-93); ABG TCO2 21.5 MMOL/L (21.0-31.0); ALLENS TEST YES-POS; INSPIRED O2 100%; VENTILATOR YES
[2021-09-30] MEDS ORDERED: IOHEXOL 350 MG/ML 100 ML (OMNIPAQUE 350) VIAL IV ONE (20:00)
[2021-09-30] MEDS ORDERED: HOLD METFORMIN - RECEIVED CONTRAST 20 ML VIAL IV SCH (20:00)
[2021-09-30] MEDS ORDERED: NS 100 ML (IVPB) BAG IV ONE (20:00)
[2021-09-30 20:02] LABS: ABG PH 7.14 (7.37-7.43)
[2021-09-30 20:02] LABS: AMPHETAMINE SCREEN, URINE NEGATIVE (NEGATIVE); BARBITURATE SCREEN URINE NEGATIVE (NEGATIVE); BENZODIAZEPINES SCREEN URINE NEGATIVE (NEGATIVE); CANNABINOID SCREEN, URINE NEGATIVE (NEGATIVE); COCAINE SCREEN URINE NEGATIVE (NEGATIVE); METHADONE STAT NEGATIVE (NEGATIVE); METHAMPHETAMINE SCREEN URINE S NEGATIVE (NEGATIVE); OPIATE SCREEN URINE NEGATIVE (NEGATIVE); OXYCODONE STAT NEGATIVE (NEGATIVE); TRICYCLIC ANTIDEPRESSANTS SCRE NEGATIVE (NEGATIVE)
[2021-09-30 20:03] LABS: PROPOXYPHENE STAT NEGATIVE (NEGATIVE)
[2021-09-30 20:08] LABS: CHLORIDE 106 MMOL/L (98-107); POTASSIUM 4.1 MMOL/L (3.6-5.0); SODIUM 137 MMOL/L (135-145)
[2021-09-30 20:09] LABS: ALBUMIN 3.4 GM/DL (3.2-4.5)
[2021-09-30 20:10] LABS: AMYLASE 82 U/L (25-125); CALCIUM 8.3 MG/DL (8.5-10.1)
[2021-09-30 20:11] LABS: GLUCOSE 161 MG/DL (70-105); TOTAL PROTEIN 6.4 GM/DL (6.4-8.2)
[2021-09-30 20:12] LABS: CARBON DIOXIDE 14 MMOL/L (21-32)
[2021-09-30 20:13] LABS: BILIRUBIN,TOTAL 0.4 MG/DL (0.1-1.0)
[2021-09-30 20:15] LABS: ALKALINE PHOSPHATASE 143 U/L (40-136); CREATININE SERUM 1.18 MG/DL (0.60-1.30); GFR ESTIMATED 55
[2021-09-30 20:16] LABS: BUN/CREATININE RATIO 14
[2021-09-30 20:17] LABS: SALICYLATE < 5.0 MG/DL (5.0-20.0)
[2021-09-30 20:18] LABS: ALANINE AMINOTRANSFERASE 355 U/L (0-55); MAGNESIUM 1.9 MG/DL (1.6-2.4)
[2021-09-30 20:19] LABS: AMORPHOUS SEDIMENT,UR RARE AMOR URATES /LPF; BACTERIA,URINE TRACE /HPF; CREATINE KINASE 145 U/L (29-168); LIPASE 45 U/L (8-78)
[2021-09-30 20:20] LABS: FIBRIN DEGRADATION PRODUCTS 13.86 UG/ML (0.00-0.49); PROTHROMBIN TIME PATIENT 13.5 SEC (12.2-14.7)
--- NOTE | 2021-09-30 20:21 | Diagnostic Imaging Report ---
PROCEDURE: CT head w/o r/o stroke. TECHNIQUE: Multiple contiguous axial images were obtained through the brain without the use of intravenous contrast. Auto Exposure Controls were utilized during the CT exam to meet ALARA standards for radiation dose reduction. INDICATION: Post code. Found down at home. On ventilator. Neurological deficit. COMPARISON: None. FINDINGS: The ventricles and cortical sulci appear age-appropriate. There is no midline shift or mass effect. There is motion artifact throughout the exam resulting in suboptimal evaluation. No acute intracranial hemorrhage is seen. No CT evidence of acute territorial ischemia is seen. The calvarium appears intact. Visualized paranasal sinuses are clear. The patient is intubated. IMPRESSION: No acute intracranial hemorrhage or CT evidence of acute territorial ischemia. Dictated by: Dictated on workstation # [id number]
--- NOTE | 2021-09-30 20:23 | Diagnostic Imaging Report ---
HISTORY: Post code, found down, on ventilator. COMPARISON: 02/27/2018. TECHNIQUE: Frontal view of the chest. FINDINGS: Endotracheal tube is near the ramsey, less than 1 cm. Lung volumes are low. There is airspace consolidation throughout the right lung with some aeration in the right lung base, as well as consolidation in the left upper lung. No pleural effusion or pneumothorax is seen. Prominence of the cardiac silhouette is likely accentuated by low lung volumes. An enteric tube crosses into the stomach. IMPRESSION: 1. Endotracheal tube is just above the ramsey. Consider 2 cm of retraction. 2. Marked airspace consolidation in the right lung as well as in the left upper lung. This could be due to infection, edema, hemorrhage. Findings including endotracheal tube placement discussed with MADAY ELIZONDO DO by Dr. Groves, on 09/30/2021 8:10 PM. Dictated by: Dictated on workstation # [id number]
--- NOTE | 2021-09-30 20:25 | ED General ---
General Chief Complaint: Code Blue Stated Complaint: CODE BLUE Source of Information: EMS (MADAY ELIZONDO DO) History of Present Illness Date Seen by Provider: Sep 30, 2021 Time Seen by Provider: 19:16 Initial Comments PT ARRIVES VIA EMS FROM HOME PT HAD A WITNESSED ARREST BY FAMILY/BYSTANDERS--PT WAS SITTING IN LIVING ROOM AND COLLAPSED CPR WAS INITIATED BY FIRE DEPT. PT WAS DEFIBRILLATED X 2 BY FIRE DEPT. WHEN EMS ARRIVED, PT FOUND TO BE IN V-FIB, AND EMS DEFIBRILLATED X 2, THEN GAVE AMIDARONE EMS REPORT THAT PT CONVERTED TO SINUS TACH WITH RATE IN 130'S WITH AMIODARONE EMS ALSO GAVE EPINEPHRINE X 2, NARCAN 4 MG EMS UNABLE TO INTUBATE DUE TO PT WITH CLAMPED JAW/BITING TONGUE. PT IS HAVING SPONTANEOUS RESPIRATIONS, WITH EMS BAGGING PATIENT TO ASSIST RESPIRATIONS. O2 SATS IN 70'S ACCUCHECK 96 BY EMS. NO OTHER INFORMATION IS KNOWN AT THIS TIME. NO FAMILY HERE AT THIS TIME (MADAY ELIZONDO DO) Allergies and Home Medications Allergies Coded Allergies: escitalopram (Verified Allergy, Unknown, 01/05/17) Patient Home Medication List ALPRAZolam (Xanax Tablet) 0.25 Mg Tablet, 0.25 MG PO DAILY PRN for ANXIETY, (Reported) Entered as Reported by: JACQUIE TERAN on 02/27/18 0712 Albuterol Sulfate (Proair Hfa) 1 Puff Puff, 2 PUFF IH Q4H PRN for SHORTNESS OF BREATH, (Reported) Entered as Reported by: HUSSEIN MELGOZA on 03/13/18 0920 Docusate Sodium (Colace) 100 Mg Capsule, 100 MG PO DAILY Prescribed by: JUNAID PANOTJA on 03/14/18 1307 Esomeprazole Magnesium (Esomeprazole Magnesium) 40 Mg Capsule.dr, 40 MG PO DAILY, (Reported) Entered as Reported by: AFIA PUGA on 10/01/21 0454 Last Action: New Order Fluoxetine HCl (Prozac) 20 Mg Capsule, 20 MG PO DAILY, (Reported) Entered as Reported by: JACQUIE TERAN on 02/27/18 0712 Last Action: Last Taken Edited Hydrocodone Bit/Acetaminophen (Lortab 5 Mg Tablet) 1 Tab Tab, 1 TAB PO Q4H PRN Prescribed by: JUNAID PANTOJA on 03/14/18 1307 Labetalol HCl (Labetalol HCl) 200 Mg Tablet, 300 MG PO BID, (Reported) Entered as Reported by: JOYCE ISSA on 03/08/172033 Last Action: Last Taken Edited Levothyroxine Sodium (Levothyroxine Sodium) 137 Mcg Tablet, 137 MCG PO DAILY, (Reported) Entered as Reported by: HUSSEIN MELGOZA on 03/13/18 0920 Last Action: Last Taken Edited Nifedipine (Procardia Xl) 90 Mg Tab.er.24, 90 MG PO BID, (Reported) Entered as Reported by: MING SEWELL on 03/19/17 1051 Last Action: Last Taken Edited Oxycodone HCl/Acetaminophen (Percocet 5-325 mg Tablet) 1 Each Tablet, 1 EACH PO Q4H PRN for PAIN-MODERATE TO SEVERE Prescribed by: MARISA RAPP on 02/27/18 1107 Zolpidem Tartrate (Ambien) 5 Mg Tablet, 5 MG PO HS, (Reported) Entered as Reported by: CHENTE JAIME on 02/12/171923 Review of Systems Review of Systems Constitutional: other (PT IS UNRESPONSIVE) (MADAY ELIZONDO DO) Past Pziryuh-Tstrcq-Lmktfx Hx Immunizations Up To Date Tetanus Booster (TDap): Less than 5yrs PED Vaccines UTD: Yes (MADAY ELIZONDO DO) Seasonal Allergies Seasonal Allergies: Yes (MADAY ELIZONDO DO) Past Medical History Surgeries: Yes Section, Tonsillectomy Respiratory: Yes Asthma Currently Using CPAP: No Currently Using BIPAP: No Cardiac: Yes (pre-eclampsia w/ ) Hypertension Neurological: No Reproductive Disorders: No [employer] History: IUD Sexually Transmitted Disease: No HIV/AIDS: No Genitourinary: Yes (functionally unilateral kidney) Gastrointestinal: No Gall Bladder Disease Musculoskeletal: No 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) Hypothyroidsim HEENT: No Cancer: No Did You Recieve Any Treatments: No Psychosocial: No Integumentary: No Blood Disorders: No Adverse Reaction/Blood Tranf: No (MADAY ELIZONDO DO) Family Medical History Graves' disease Hypercholesterolemia 19 FATHER (father) 19 MOTHER (mother) Hypertension 19 MOTHER (mother) No Pertinent Family Hx, Asthma, Heart Disease (MADAY ELIZONDO DO) Physical Exam Vital Signs Vital Signs - First Documented 09/30/21 09/30/21 19:31 19:35 Pulse 130 Resp 25 Pulse Ox 93 O2 Delivery Mechanical Ventilator FiO2 100 (SLAVA MONTOYA APRN) Vital Signs Capillary Refill : (MADAY ELIZONDO DO) Height, Weight, BMI Height: 5'2.00" Weight: 263lbs. 0.0oz. 119.507629rs; 48.1 BMI Method:Stated General Appearance: Severe Distress, Other (OBTUNDED, WITH LABORED BREATHING WHILE BEING BAGGED TO ASSIST RESPIRATIONS. PT WITH JAWS CLAMPED DOWN AND BITING TONGUE, WITH MODERATE AMOUNT OF BLOOD IN MOUTH AND AROUND LIPS. ) HEENT: Other (PUPILS 5 MM AND MINIMALLY REACTIVE. ) (MADAY ELIZONDO DO) Focused Exam Lactate Level 09/30/21 19:35: Lactic Acid Level 4.27*H (SLAVA MONTOYA APRN) Lactic Acid Level Laboratory Tests Test 09/30/21 19:35 Lactic Acid Level 4.27 MMOL/L (0.50-2.00) *H (SLAVA MONTOYA APRN) Procedures/Interventions Lumen: triple Position: internal jugular (R) Anesthesia: local Volume Anesthetic (ccs): 5 Complications: none Post Position: sutured, good blood return, position confirmed w/ CXR IV : Location: Right Site: Upper arm IV Catheter Type: Peripheral IV IV Catheter Gauge: 20 (SLAVA MONTOYA APRN) Date of ETT Placement: Oct 01, 2021 Time of ETT Placement: 21:00 (estimated time) Intubation Method: orotracheal Tube Size: 7 Medications: Succinylcholine (+2mg ativan dt concern for possible seizure activity) Positive End Tide CO2: Yes Breath Sounds after Intubation: bilateral-equal Intubation Complications: no complications Post Intubation Xray: Yes (SLAVA MONTOYA APRN) Progress/Results/Core Measures Suspected Sepsis SIRS Temperature: Pulse: Respiratory Rate: Laboratory Tests 09/30/21 00:00: Blood Pressure / Mean: 09/30/21 19:35: Laboratory Tests 09/30/21 00:00: 09/30/21 19:35: Creatinine 1.18, Total Bilirubin 0.4 (MADAY ELIZONDO DO) Results/Orders Lab Results Laboratory Tests Test 09/30/21 19:24 09/30/21 19:35 09/30/21 20:33 09/30/21 20:42 Range/Units Blood Gas Puncture Site L RAD R RAD Blood Gas Patient Temperature 36.0 97.1 Arterial Blood pH 7.14 *L 7.27 *L 7.37-7.43 Arterial Blood Partial Pressure CO2 60 H 45 35-45 MMHG Arterial Blood Partial Pressure O2 58 L 75 L 79-93 MMHG Arterial Blood HCO3 20 L 20 L 23-27 MMOL/L Arterial Blood Total CO2 21.5 21.3 21.0-31.0 MMOL/L Arterial Blood Oxygen Saturation 81 L 93 L 94-100 % Arterial Blood Base Excess -7.9 L -5.9 L -2.5-2.5 MMOL/L Baron Test YES-POS YES-POS Blood Gas Ventilator Setting YES YES Blood Gas Inspired Oxygen 100% 100% Prothrombin Time 13.5 12.2-14.7 SEC INR Comment 1.0 0.8-1.4 Activated Partial Thromboplast Time 28 24-35 SEC D-Dimer 13.86 H 0.00-0.49 UG/ML Urine Color YELLOW Urine Clarity CLEAR Urine pH 6.0 5-9 Urine Specific [place] 1.020 1.016-1.022 Urine Protein TRACE H NEGATIVE Urine Glucose (UA) NEGATIVE NEGATIVE Urine Ketones NEGATIVE NEGATIVE Urine Nitrite NEGATIVE NEGATIVE Urine Bilirubin NEGATIVE NEGATIVE Urine Urobilinogen 0.2 < = 1.0 MG/DL Urine Leukocyte Esterase NEGATIVE NEGATIVE Urine RBC (Auto) 2+ H NEGATIVE Urine RBC 5-10 H /HPF Urine WBC NONE /HPF Urine Crystals PRESENT H /LPF Urine Amorphous Sediment RARE CARLOS ALBERTO URATES H /LPF Urine Bacteria TRACE /HPF Urine Casts NONE /LPF Urine Mucus NEGATIVE /LPF Urine Culture Indicated NO Sodium Level 137 135-145 MMOL/L Potassium Level 4.1 3.6-5.0 MMOL/L Chloride Level 106 98-107 MMOL/L Carbon Dioxide Level 14 L 21-32 MMOL/L Anion Gap 17 H 5-14 MMOL/L Blood Urea Nitrogen 16 7-18 MG/DL Creatinine 1.18 0.60-1.30 MG/DL Estimat Glomerular Filtration Rate 55 BUN/Creatinine Ratio 14 Glucose Level 161 H 70-105 MG/DL Lactic Acid Level 4.27 *H 0.50-2.00 MMOL/L Calcium Level 8.3 L 8.5-10.1 MG/DL Corrected Calcium 8.8 8.5-10.1 MG/DL Magnesium Level 1.9 1.6-2.4 MG/DL Total Bilirubin 0.4 0.1-1.0 MG/DL Aspartate Amino Transf (AST/SGOT) 385 H 5-34 U/L Alanine Aminotransferase (ALT/SGPT) 355 H 0-55 U/L Alkaline Phosphatase 143 H 40-136 U/L Lactate Dehydrogenase 933 H 125-220 U/L Total Creatine Kinase 145 29-168 U/L Creatine Kinase MB 20.8 *H <6.6 NG/ML Myoglobin 578.0 H 10.0-92.0 NG/ML Troponin I 3.236 *H <0.028 NG/ML C-Reactive Protein High Sensitivity 0.14 0.00-0.50 MG/DL Total Protein 6.4 6.4-8.2 GM/DL Albumin 3.4 3.2-4.5 GM/DL Amylase Level 82 25-125 U/L Lipase 45 8-78 U/L Procalcitonin 0.06 <0.10 NG/ML Free Thyroxine 1.04 0.70-1.48 NG/DL TSH [place] Testing 5.83 H 0.35-4.94 UIU/ML Serum Test, Qualitative NEGATIVE NEGATIVE Salicylates Level < 5.0 L 5.0-20.0 MG/DL Urine Opiates Screen NEGATIVE NEGATIVE Urine Oxycodone Screen NEGATIVE NEGATIVE Urine Methadone Screen NEGATIVE NEGATIVE Urine Propoxyphene Screen NEGATIVE NEGATIVE Acetaminophen Level < 10 L 10-30 UG/ML Urine Barbiturates Screen NEGATIVE NEGATIVE Ur Tricyclic Antidepressants Screen NEGATIVE NEGATIVE Urine Phencyclidine Screen NEGATIVE NEGATIVE Urine Amphetamines Screen NEGATIVE NEGATIVE Urine Methamphetamines Screen NEGATIVE NEGATIVE Urine Benzodiazepines Screen NEGATIVE NEGATIVE Urine Cocaine Screen NEGATIVE NEGATIVE Urine Cannabinoids Screen NEGATIVE NEGATIVE Serum Alcohol < 10 <10 MG/DL Influenza Type A (RT-PCR) Not Detected Not Detecte Influenza Type B (RT-PCR) Not Detected Not Detecte SARS-CoV-2 RNA (RT-PCR) Not Detected Not Detecte White Blood Count 17.9 H 4.3-11.0 10^3/uL Red Blood Count 5.85 H 3.80-5.11 10^6/uL Hemoglobin 16.1 H 11.5-16.0 g/dL Hematocrit 51 35-52 % Mean Corpuscular Volume 87 80-99 fL Mean Corpuscular Hemoglobin 28 25-34 pg Mean Corpuscular Hemoglobin Concent 32 32-36 g/dL Red Cell Distribution Width 13.2 10.0-14.5 % Platelet Count 354 130-400 10^3/uL Mean Platelet Volume 9.6 9.0-12.2 fL Immature Granulocyte % (Auto) 1 % Neutrophils (%) (Auto) 79 H 42-75 % Lymphocytes (%) (Auto) 14 12-44 % Monocytes (%) (Auto) 5 0-12 % Eosinophils (%) (Auto) 1 0-10 % Basophils (%) (Auto) 0 0-10 % Neutrophils # (Auto) 14.1 H 1.8-7.8 10^3/uL Lymphocytes # (Auto) 2.4 1.0-4.0 10^3/uL Monocytes # (Auto) 1.0 0.0-1.0 10^3/uL Eosinophils # (Auto) 0.1 0.0-0.3 10^3/uL Basophils # (Auto) 0.1 0.0-0.1 10^3/uL Immature Granulocyte # (Auto) 0.2 H 0.0-0.1 10^3/uL Neutrophils % (Manual) 81 % Lymphocytes % (Manual) 15 % Monocytes % (Manual) 4 % Blood Morphology Comment NORMAL Erythrocyte Sedimentation Rate 5 0-20 MM/HR B-Type Natriuretic Peptide 33.8 <100.0 PG/ML (SLAVA MONTOYA APRN) Vital Signs/I&O 09/30/21 09/30/21 09/30/21 09/30/21 19:31 19:35 19:35 19:36 Pulse 130 94 Resp 25 B/P (MAP) Pulse Ox 93 93 74 O2 Delivery Mechanical Ventilator Ambu Bag FiO2 100 100 (SLAVA MONTOYA APRN) Vital Signs/I&O Capillary Refill : (MADAY ELIZONDO DO) Departure Departure-Patient Inst. Referrals: MADAY FARR MD (PCP/Family) Primary Care Physician MADAY ELIZONDO DO Sep 30, 2021 20:25 SLAVA MONTOYA APRN Oct 01, 2021 10:41
[2021-09-30 20:32] LABS: ACETAMINOPHEN < 10 UG/ML (10-30); CREATINE KINASE MB 20.8 NG/ML (<6.6)
[2021-09-30 20:40] LABS: TSH (THYROID ANALYZER) 5.83 UIU/ML (0.35-4.94)
[2021-09-30] MEDS ORDERED: MIDAZOLAM 5 MG/5 ML (VERSED) VIAL IVP ONE (20:45)
[2021-09-30] MEDS ORDERED: CEFEPIME INJECTION 1,000 MG in NS (IVPB) 50 ML IV ONE (20:45)
[2021-09-30 20:48] LABS: BASOPHILS # (AUTO) 0.1 10^3/uL (0.0-0.1); BASOPHILS % (AUTO) 0 % (0-10); EOSINOPHILS # (AUTO) 0.1 10^3/uL (0.0-0.3); EOSINOPHILS % (AUTO) 1 % (0-10); HEMATOCRIT 51 % (35-52); HEMOGLOBIN 16.1 g/dL (11.5-16.0); LYMPHOCYTES # (AUTO) 2.4 10^3/uL (1.0-4.0); LYMPHOCYTES % (AUTO) 14 % (12-44); MEAN CORPUSCULAR HEMOGLOBIN 28 pg (25-34); MEAN CORPUSCULAR HGB CONC 32 g/dL (32-36); MEAN CORPUSCULAR VOLUME 87 fL (80-99); MEAN PLATELET VOLUME 9.6 fL (9.0-12.2); MONOCYTES % (AUTO) 5 % (0-12); NEUTROPHILS # (AUTO) 14.1 10^3/uL (1.8-7.8); NEUTROPHILS % (AUTO) 79 % (42-75); PLATELET COUNT 354 10^3/uL (130-400); WHITE BLOOD COUNT 17.9 10^3/uL (4.3-11.0)
--- NOTE | 2021-09-30 21:00 | Diagnostic Imaging Report ---
INDICATION: CODE. Respiratory distress. TECHNIQUE: CTA chest, abdomen and pelvis. Thin axial sections through the chest, abdomen and pelvis are obtained following intravenous contrast bolus. Multiplanar MIP images were reconstructed and reviewed. All CT scans use one or more of the following dose optimizing techniques: automated exposure control, MA and/or KvP adjustment based on patient size and exam type or iterative reconstruction. COMPARISON: There is no prior CTA chest examination available for comparison. FINDINGS: The plain film examination of the chest performed on 02/17/2018 failed to show any sign of an acute abnormality. There is dense consolidation throughout the right upper lobe and right perihilar region and to a lesser extent the right lung base. There are also patchy areas of atelectasis/infiltrate in the left lung. These findings do suggest pneumonia/atelectasis and the possibly of aspiration pneumonia should be considered. The heart size is within normal limits. The aorta is not abnormally dilated. There is no defect within the pulmonary arteries to indicate a pulmonary embolus. The branches of the pulmonary arteries to the lower lobes are difficult to evaluate, however, due to the pneumonia/atelectasis. There is no mediastinal or hilar adenopathy. The patient has been intubated and ET tube seems to be in good position. There is also an NG line in place with the tip of the tube in the gastric fundus. The stomach, however, is distended by gas and air. The liver is difficult to assess due to streak artifact. There is a vague area of diminished density in the lateral aspect of the right lobe. This finding is questionable for a contusion. The spleen, pancreas, adrenals and inferior vena cava show no sign of an acute abnormality. The abdominal aorta is quite small. This finding has been seen with hypovolemia. Also, there is an area of diminished density along the inferior medial aspect of the right kidney. This does suggest underperfusion. The left kidney seems fairly well perfused but it is much smaller than the right. There is no pelvic mass or free fluid collection noted. There is a Castle catheter within the bladder. The uterus is grossly unremarkable. The bone windows show no sign of a fracture or of a destructive lesion. IMPRESSION: 1. There is diffuse pneumonia/atelectasis throughout the right lung and to a lesser extent the left lung. This could be secondary to aspiration pneumonia. 2. There is no evidence for a pulmonary embolus or for an aortic dissection. 3. There is an NG line in place but the stomach is distended by gas and fluid. 4. The vague area of diminished density along the periphery of the right lobe of the liver is questionable for a contusion. 5. The diminished density in the inferior pole the right kidney does suggest underperfusion. The aorta is also quite small and this finding has been associated with hypovolemia.. 6. These results were discussed with Dr. Cesilia Yanez at the time of this dictation. Dictated by: Dictated on workstation # [id number]
[2021-09-30] MEDS ORDERED: ROCURONIUM 10 MG/ML 5 ML SYRINGE IV STA ×3 (21:08→21:11)
[2021-09-30] MEDS ORDERED: MAG SULFATE 2 GM/50 ML IV PRE-MIX BAG IV STA ×3 (21:08→21:11)
[2021-09-30] MEDS ORDERED: fentaNYL INJ 100 MCG/2 ML AMP IV STA ×2 (21:08)
[2021-09-30] MEDS ORDERED: LORazepam INJ 2 MG/ML (ATIVAN) VIAL IV STA ×2 (21:08)
[2021-09-30] MEDS: VANCOMYCIN INJECTION 1,000 MG in NS (IVPB) 250 ML IV SCH ×2 (21:10→22:05)
[2021-09-30] MEDS ORDERED: ROCURONIUM 50 MG/5 ML (ZEMURON) VIAL IV PRN ×2 (21:15)
[2021-09-30] MEDS ORDERED: LACRI-LUBE OPTHALMIC OINT 3.5 GM TUBE OU SCH (21:15)
[2021-09-30] MEDS ORDERED: CALCIUM CHLORIDE 10% INJECTION 1 GM in NS (IVPB) 100 ML IV PRN ×4 (21:15)
[2021-09-30] MEDS ORDERED: LACRI-LUBE OPTHALMIC OINT 3.5 GM TUBE OU PRN ×3 (21:15)
[2021-09-30] MEDS ORDERED: SODIUM PHOSPHATE INJ 30 MM in NS (IVPB) 250 ML IV PRN ×4 (21:15)
[2021-09-30] MEDS ORDERED: LORazepam INJECTION FOR DRIP 20 MG in D5W 100 ML IVPB 90 ML IV SCH ×4 (21:15)
[2021-09-30] MEDS ORDERED: fentaNYL INJ 1,250 MCG in NS (IVPB) 225 ML IV SCH (21:15)
[2021-09-30] MEDS ORDERED: MAGNESIUM SULFATE DRIP 500 ML IV SCH (21:15)
[2021-09-30 21:29] LABS: FREE T4 (FREE THYROXINE) 1.04 NG/DL (0.70-1.48)
[2021-09-30 21:30] LABS: ERYTHROCYTE SEDIMENTATION RATE 5 MM/HR (0-20)
--- NOTE | 2021-09-30 21:53 | Diagnostic Imaging Report ---
HISTORY: Central line placement. COMPARISON: 09/30/2021. TECHNIQUE: Frontal view of the chest. FINDINGS: The endotracheal tube is 2.7 cm above the ramsey. The right central line tip projects over the low SVC. The cardiac silhouette is prominent, may be exacerbated by low lung volumes. There is no pleural effusion or pneumothorax. Marked airspace consolidation in the right lung and in the left upper lung appears stable given differences in inspiration. IMPRESSION: 1. The right central line projects over the low SVC. Endotracheal tube was retracted to 2.7 cm above the ramsey. 2. Stable bilateral airspace opacities, right worse than left. Dictated by: Dictated on workstation # [id number]
[2021-09-30] MEDS ORDERED: busPIRone 15 MG (BUSPAR) TABLET GT SCH (22:00)
[2021-09-30] MEDS ORDERED: MAGNESIUM 1 GM/100 ML IVPB 200 ML IV ONE (22:13)
[2021-09-30 22:35] LABS: LYMPHOCYTES % (MANUAL) 15 %; MONOCYTES % (MANUAL) 4 %; NEUTROPHILS % (MANUAL) 81 %
[2021-09-30 22:36] LABS: RBC MORPH NORMAL
[2021-09-30 22:39] LABS: ABG BASE EXCESS -5.9 MMOL/L (-2.5-2.5); ABG OXYGEN SATURATION 93 % (94-100); ABG PCO2 45 MMHG (35-45); ABG PO2 75 MMHG (79-93); ABG TCO2 21.3 MMOL/L (21.0-31.0); ALLENS TEST YES-POS; INSPIRED O2 100%; PATIENT TEMP 97.1; VENTILATOR YES
[2021-09-30 22:40] LABS: ABG PH 7.27 (7.37-7.43)
[2021-09-30 23:27] VITALS: BP 129/98
[2021-09-30] MEDS: LACRI-LUBE OPTHALMIC OINT 3.5 GM TUBE OU SCH (23:40)
[2021-09-30] MEDS: LACTATED RINGERS 1,000 ML IV SCH (23:44)
[2021-09-30] MEDS: busPIRone 15 MG (BUSPAR) TABLET GT SCH (23:46)
[2021-09-30 23:48] VITALS: BP 95/51
[2021-09-30] MEDS ORDERED: MAGNESIUM 1 GM/100 ML IVPB 100 ML IV ONE (23:49)
[2021-09-30] MEDS: ACETAMINOPHEN 325 MG TABLET GT SCH (23:54)
[2021-09-30] MEDS: inSUlin ASPART (NovoLOG) 1 UNIT/0.01 ML (CHARGE PER UNIT) SC SCH (23:57)
[2021-09-30] MEDS: MAGNESIUM SULFATE DRIP 500 ML IV SCH (23:58)
[2021-10-01] MEDS ORDERED: ACETAMINOPHEN 325 MG TABLET GT SCH
[2021-10-01] MEDS ORDERED: POTASSIUM CL 10MEQ/50ML IVPB 50 ML IV SCH
[2021-10-01] MEDS ORDERED: RT-ALBUTEROL/IPRATROPIUM 3 ML (DUONEB) VIAL INH PRN
[2021-10-01 00:07] LABS: POTASSIUM 3.9 MMOL/L (3.6-5.0)
--- NOTE | 2021-10-01 00:13 | Tele-ICU Progress Note ---
Progress Note 26F morbid obesity, severe GERD, Phil's, congenital single functioning kidney presented after witnessed cardiac arrest. She had essentially been in her usual state of health with the exception of significant worsening of GERD. 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 She did not go to the ER, elected to go home. Her gave her an omeprazole and left her in her usual state of health upright in a chair. She was not eating and did not have any food her general vicinity. He went to the bathroom were he overheard an odd gurgle. When it recurred he went to find his unresponsive, gasping, with some jerking movements. She then became apneic. Per 911 instructions he moved her to the floor and intitiated compressions. He does note that she would have some gasping respirations during compressions. I believe police arrived first, delivered shock x2 per auto-defib. On EMS arrival found to be in VF, additional shock x2 with successful ROSC. Of note, appeared to have significant tongue biting and bleeding. CTA was negative for PE or aortic dissection. Severe left and minor right infiltrate, suspicious for aspiration. Per , no family history of sudden , will confirm with her mother. Of note, had COVID in October which did progress to COVID pna. Did receive 2 do ses of vaccine in addition. Rapid COVID negative. - Cardiac arrest: unclear etiology. Could be pneumonia/hypoxia but without prodromal illness and pattern of distribtion, suspect this represents aspiration during the event. Primary seizure with hypoxia is also possible, but patient has no history or risk factors. No apparent drug use. Troponin at 3.2, slightly above expected this quickly post cardiac arrest. Will get echo, cardiology consulted. May have been primary cardiac event or arrythmia. If so, the event has completed and emergent procedure would have more risks than benefits. No significant metabolic derrangements. Hypothermia protocol initiated. - troponin elevation: as above, concerning for acute event. Will defer anticoag to cardiology. Trend troponins, echo, cardiology eval (non-emergent as above). - acidosis: initial combined acidosis, repeat ABG with CO2 improved from 60 to 45, pH from 7.14 to 7.27. Bicarb unchanged at 20. Will get repeat ABG now and reeval vent settings, consider bicarb gtt at that time. - seizure vs myclonus: presumable myoclonic activity post cardiac arrest. However this is based on likelihood of incidence, can not exclude new onset seizure at onset. Keppra ordered. Try and maintain hypothermia off of paralytics to facilitate monitoring. - transaminitis: ischemic hepatitis secodnary to cardiac arrest. Anticipate significant worsening before improving. - pneumonia: as above, suspect massive aspiration during event. No prior infectious symptoms. Will send cultures. Cefepime, vanco intiated in ER. Rapid COVID negative. - Hasimoto's. Slight TSH elevation of 5.2, fT4 pending. Does not have clinical stigmata of thyroid coma, but will await results. Focused Exam Lactate Level 09/30/21 19:35: Lactic Acid Level 4.27*H 09/30/21 21:34: Lactic Acid Level 1.69 Height, Weight, BMI Height: 5'2.00" Weight: 263lbs. 0.0oz. 119.516070qg; 48.1 BMI Method:Stated Lactic Acid Level Laboratory Tests Test 09/30/21 21:34 Lactic Acid Level 1.69 MMOL/L (0.50-2.00) DAVID MARIE MD Oct 01, 2021 00:13
[2021-10-01] MEDS ORDERED: ASPIRIN 300 MG (5 GR) SUPPOSITORY PR STA (00:44)
[2021-10-01] MEDS ORDERED: MAGNESIUM 1 GM/100 ML IVPB 100 ML IV ONE (00:58)
[2021-10-01] MEDS: MAGNESIUM SULFATE DRIP 500 ML IV SCH ×2 (01:00→02:06)
[2021-10-01] MEDS: FAMOTIDINE 20MG/2ML IV (PEPCID) IVP SCH ×2 (01:02→11:30)
[2021-10-01] MEDS: POTASSIUM CL 10MEQ/50ML IVPB 50 ML IV SCH ×8 (01:03→20:37)
[2021-10-01] MEDS: PROPOFOL DRIP (ICU) 100 ML IV SCH ×9 (01:08→23:53)
[2021-10-01 01:28] LABS: BASOPHILS # (AUTO) 0.1 10^3/uL (0.0-0.1); BASOPHILS % (AUTO) 0 % (0-10); EOSINOPHILS # (AUTO) 0.1 10^3/uL (0.0-0.3); EOSINOPHILS % (AUTO) 1 % (0-10); HEMATOCRIT 48 % (35-52); HEMOGLOBIN 15.1 g/dL (11.5-16.0); LYMPHOCYTES # (AUTO) 1.8 10^3/uL (1.0-4.0); LYMPHOCYTES % (AUTO) 11 % (12-44); MEAN CORPUSCULAR HEMOGLOBIN 28 pg (25-34); MEAN CORPUSCULAR HGB CONC 32 g/dL (32-36); MEAN CORPUSCULAR VOLUME 88 fL (80-99); MEAN PLATELET VOLUME 9.6 fL (9.0-12.2); MONOCYTES # (AUTO) 0.7 10^3/uL (0.0-1.0); MONOCYTES % (AUTO) 4 % (0-12); NEUTROPHILS # (AUTO) 14.5 10^3/uL (1.8-7.8); NEUTROPHILS % (AUTO) 84 % (42-75); PLATELET COUNT 270 10^3/uL (130-400); WHITE BLOOD COUNT 17.2 10^3/uL (4.3-11.0)
[2021-10-01 01:35] LABS: POTASSIUM 3.6 MMOL/L (3.6-5.0)
[2021-10-01 01:37] LABS: CALCIUM 7.9 MG/DL (8.5-10.1)
[2021-10-01 01:38] LABS: TOTAL PROTEIN 5.7 GM/DL (6.4-8.2)
[2021-10-01] MEDS ORDERED: fentaNYL DRIP PRE-MIX 250 ML IV ONE ×2 (01:39→13:11)
[2021-10-01 01:40] LABS: BILIRUBIN,TOTAL 0.5 MG/DL (0.1-1.0)
[2021-10-01 01:41] LABS: PHOSPHORUS 4.6 MG/DL (2.3-4.7)
[2021-10-01 01:42] LABS: CREATININE SERUM 1.12 MG/DL (0.60-1.30)
[2021-10-01] MEDS: fentaNYL INJ 1,250 MCG in NS (IVPB) 225 ML IV SCH ×2 (01:43→13:12)
[2021-10-01 01:44] LABS: MAGNESIUM 2.8 MG/DL (1.6-2.4)
[2021-10-01 01:49] LABS: FIBRIN DEGRADATION PRODUCTS 14.78 UG/ML (0.00-0.49); PROTHROMBIN TIME PATIENT 13.2 SEC (12.2-14.7)
[2021-10-01] MEDS: HEParin DRIP 25000 UNIT/500ML 500 ML IV SCH (02:00)
[2021-10-01 02:34] VITALS: BP 121/77
[2021-10-01] MEDS: RT-ALBUTEROL/IPRATROPIUM 3 ML (DUONEB) VIAL INH SCH ×6 (02:34→22:24)
[2021-10-01 02:39] LABS: ABG BASE EXCESS -6.4 MMOL/L (-2.5-2.5); ABG OXYGEN SATURATION 91 % (94-100); ABG PCO2 48 MMHG (35-45); ABG PO2 55 MMHG (79-93); ABG TCO2 22.3 MMOL/L (21.0-31.0)
[2021-10-01 02:40] LABS: ALLENS TEST YES-POS; INSPIRED O2 100%; PATIENT TEMP 33.5; VENTILATOR YES
[2021-10-01 02:41] LABS: ABG PH 7.23 (7.37-7.43)
[2021-10-01] MEDS ORDERED: ASPIRIN E.C. 325 MG (ECOTRIN) TABLET PO ONE (02:45)
[2021-10-01] MEDS: LACTATED RINGERS 1,000 ML IV SCH ×4 (03:15→22:47)
[2021-10-01] MEDS: LACRI-LUBE OPTHALMIC OINT 3.5 GM TUBE OU SCH ×4 (03:20→20:15)
[2021-10-01] MEDS: inSUlin ASPART (NovoLOG) 1 UNIT/0.01 ML (CHARGE PER UNIT) SC SCH ×7 (03:21→23:52)
[2021-10-01 03:33] LABS: BASOPHILS % (AUTO) 0 % (0-10); EOSINOPHILS # (AUTO) 0.1 10^3/uL (0.0-0.3); EOSINOPHILS % (AUTO) 1 % (0-10); HEMATOCRIT 46 % (35-52); HEMOGLOBIN 14.7 g/dL (11.5-16.0); LYMPHOCYTES # (AUTO) 1.4 10^3/uL (1.0-4.0); LYMPHOCYTES % (AUTO) 9 % (12-44); MEAN CORPUSCULAR HEMOGLOBIN 28 pg (25-34); MEAN CORPUSCULAR HGB CONC 32 g/dL (32-36); MEAN CORPUSCULAR VOLUME 88 fL (80-99); MEAN PLATELET VOLUME 9.5 fL (9.0-12.2); MONOCYTES # (AUTO) 0.6 10^3/uL (0.0-1.0); MONOCYTES % (AUTO) 4 % (0-12); NEUTROPHILS # (AUTO) 13.4 10^3/uL (1.8-7.8); NEUTROPHILS % (AUTO) 86 % (42-75); PLATELET COUNT 230 10^3/uL (130-400); WHITE BLOOD COUNT 15.5 10^3/uL (4.3-11.0)
[2021-10-01 03:45] LABS: ALBUMIN 2.9 GM/DL (3.2-4.5); POTASSIUM 3.6 MMOL/L (3.6-5.0)
[2021-10-01 03:46] LABS: INR 1.1 (0.8-1.4); PROTHROMBIN TIME PATIENT 14.1 SEC (12.2-14.7)
[2021-10-01 03:47] LABS: CALCIUM 7.9 MG/DL (8.5-10.1)
[2021-10-01 03:48] LABS: TOTAL PROTEIN 5.3 GM/DL (6.4-8.2)
[2021-10-01 03:50] LABS: BILIRUBIN,TOTAL 0.5 MG/DL (0.1-1.0)
[2021-10-01 03:51] LABS: PHOSPHORUS 4.5 MG/DL (2.3-4.7)
[2021-10-01 04:02] LABS: MAGNESIUM 3.4 MG/DL (1.6-2.4)
[2021-10-01 04:12] LABS: CREATININE SERUM 1.06 MG/DL (0.60-1.30)
[2021-10-01] MEDS ORDERED: EPINEPHrine 1 MG INJECTION 4 MG in NS (IVPB) 248 ML IV SCH (04:30)
[2021-10-01] MEDS ORDERED: VANCOMYCIN 750 MG/NS 250 ML IVPB IV ONE ×2 (04:30)
[2021-10-01] MEDS ORDERED: NS (IVPB) 50 ML ONE (04:34)
[2021-10-01] MEDS ORDERED: NS (IVPB) 250 ML ONE (04:34)
[2021-10-01] MEDS: NOREPINEPHRINE 8 MG/250 ML 250 ML IV SCH ×3 (04:37→22:47)
[2021-10-01] MEDS: VASOPRESSIN INJECTION 20 UNIT in NS (IVPB) 100 ML IV SCH ×2 (04:37→14:49)
[2021-10-01] MEDS: CEFEPIME 1,000 MG/NS 50 ML IVPB IV SCH ×4 (04:38→10:16)
[2021-10-01] MEDS ORDERED: ESOM40CA52 PO (04:54)
[2021-10-01] MEDS: ACETAMINOPHEN 325 MG TABLET GT SCH ×2 (05:40→11:29)
[2021-10-01] MEDS: busPIRone 15 MG (BUSPAR) TABLET GT SCH ×3 (05:40→21:49)
[2021-10-01 06:57] LABS: BASOPHILS % (AUTO) 0 % (0-10); EOSINOPHILS % (AUTO) 0 % (0-10); HEMATOCRIT 45 % (35-52); HEMOGLOBIN 14.1 g/dL (11.5-16.0); LYMPHOCYTES # (AUTO) 0.8 10^3/uL (1.0-4.0); LYMPHOCYTES % (AUTO) 5 % (12-44); MEAN CORPUSCULAR HEMOGLOBIN 28 pg (25-34); MEAN CORPUSCULAR HGB CONC 32 g/dL (32-36); MEAN CORPUSCULAR VOLUME 88 fL (80-99); MEAN PLATELET VOLUME 9.6 fL (9.0-12.2); MONOCYTES # (AUTO) 0.5 10^3/uL (0.0-1.0); MONOCYTES % (AUTO) 3 % (0-12); NEUTROPHILS # (AUTO) 14.3 10^3/uL (1.8-7.8); NEUTROPHILS % (AUTO) 91 % (42-75); PLATELET COUNT 211 10^3/uL (130-400); WHITE BLOOD COUNT 15.7 10^3/uL (4.3-11.0)
[2021-10-01 06:58] VITALS: BP 121/77
[2021-10-01 07:11] LABS: ALBUMIN 2.8 GM/DL (3.2-4.5); POTASSIUM 3.9 MMOL/L (3.6-5.0)
[2021-10-01 07:12] LABS: CALCIUM 7.8 MG/DL (8.5-10.1)
[2021-10-01 07:14] LABS: TOTAL PROTEIN 5.5 GM/DL (6.4-8.2)
[2021-10-01 07:15] LABS: BILIRUBIN,TOTAL 1.1 MG/DL (0.1-1.0)
[2021-10-01 07:17] LABS: CREATININE SERUM 1.06 MG/DL (0.60-1.30); PHOSPHORUS 3.8 MG/DL (2.3-4.7)
[2021-10-01 07:19] LABS: PROTHROMBIN TIME PATIENT 13.5 SEC (12.2-14.7)
[2021-10-01] MEDS ORDERED: FLU QUADRIvalent (3YOA+) 60 mcg/0.5 ml 2021-22(AFLURIA) IM ONE (07:30)
[2021-10-01 08:19] LABS: ABG BASE EXCESS -7.3 MMOL/L (-2.5-2.5); ABG OXYGEN SATURATION 94 % (94-100); ABG PCO2 40 MMHG (35-45); ABG PO2 66 MMHG (79-93); ABG TCO2 20.4 MMOL/L (21.0-31.0)
[2021-10-01 08:21] LABS: ABG PH 7.27 (7.37-7.43)
[2021-10-01 08:22] LABS: ALLENS TEST YES-POS; INSPIRED O2 100%; PATIENT TEMP 33.4; VENTILATOR YES
[2021-10-01] MEDS: PANTOPRAZOLE 40 MG (PROTONIX) VIAL IV SCH (08:35)
[2021-10-01] MEDS ORDERED: NS IV 1000 ML 1,000 ML ONE (08:50)
[2021-10-01 09:04] LABS: TRIGLYCERIDES 125 MG/DL (<150); VLDL CHOLESTEROL 25 MG/DL (5-40)
[2021-10-01 09:09] LABS: CHOLESTEROL 187 MG/DL (< 200)
[2021-10-01 09:10] LABS: HDL CHOLESTEROL 40 MG/DL (40-60)
[2021-10-01] MEDS: VANCOMYCIN 1500 MG/NS 500 ML IVPB IV SCH ×4 (09:19→20:36)
--- NOTE | 2021-10-01 09:36 | Anesthesia-Procedure Note ---
Procedures/Interventions Procedure Start/Stop/Diagnosis Date of Procedure: Oct 01, 2021 Start Time: 09:00 Stop Time: 09:30 Arterial Line Arterial Line Catheter: 20G Type: Radial Location: Left Procedure: prepped, draped in sterile fashion, good wave-form was obtained, patient tolerated procedure well, no immediate complications, post procedure area cleaned, post procedure dressing applied RUBIN SIEGEL CRNA Oct 01, 2021 09:36
[2021-10-01] MEDS: ASPIRIN 81 MG CHEW (CHILDREN'S ASA) PO SCH (09:37)
[2021-10-01] MEDS ORDERED: fentaNYL INJ 100 MCG/2 ML AMP IV ONE (09:47)
[2021-10-01] MEDS ORDERED: SUCCINYLCHOLINE INJ 100 MG/5 ML SYR/VIAL INJ ONE (09:47)
[2021-10-01] MEDS ORDERED: MIDAZOLAM 5 MG/5 ML (VERSED) VIAL INJ ONE (09:47)
[2021-10-01] MEDS ORDERED: ETOMIDATE IV SOLN 20 MG/10 ML VIAL IV ONE (09:47)
[2021-10-01] MEDS ORDERED: LACRI-LUBE OPTHALMIC OINT 3.5 GM TUBE OU PRN (10:00)
--- NOTE | 2021-10-01 10:41 | Consultation-Cardiology ---
HPI-Cardiology Cardiology Consultation: Date of Consultation 10/01/2021 Date of Admission 09/30/2021 Attending Physician Jorge Zhong Jr, MD Admitting Physician Cesilia Henson MD Consulting Physician JORGE ZHONG JR, MD HPI: Time Seen by a Provider: 09:45 Chief Complaint: Reason for consultation: Sudden cardiac I had the pleasure of seeing Sarah and her this morning in the intensive care unit at [facility] in [place], [place]. I obtained the history from her since the patient is intubated and sedated on hypothermia protocol. According to her , she has been dealing with worsening esophageal reflux disease over the past few months. There have been several occasions where she had severe substernal chest discomfort that would sometimes lead to vomiting. She told him on several occasions that she felt like she was dying. She would just take more of her proton pump inhibitor and antacids for relief. She did not discuss this with her primary provider. Yesterday she was again having issues with heartburn. She had gone home for lunch and took some extra medication for the heartburn. Her had seen her at that time. She went back to work after lunch and according to her , her coworkers urged her to go to the hospital to get checked out. However, she just continue to work. When her got home in the evening, she was laying on the sofa resting. She was still complaining of heartburn. He went into the bathroom and then heard some gurgling sounds in the other room. He went to check on his and she was unresponsive and her tongue was out of her mouth and she was clenching on her tongue. He did a sternal rub and she did not respond. He got her on the floor and called 911 and started CPR. Upon arrival of the fire squad, she was found to be in ventricular fibrillation and received 2 defibrillations. EMS then arrived and she was still in ventricular fibrillation and received at least 1 or 2 other shocks. She then regained spontaneous circulation and was brought to the hospital for further evaluation. In the emergency room she was intubated and sedated for airway protection. She was subsequently admitted to the intensive care unit. She has not had any further arrhythmias. She did receive 1 dose of intravenous amiodarone in the field but this was not continued. The patient's states that she has otherwise been doing reasonably well. She is in the process of being evaluated for bariatric surgery to be performed sometime next spring. He does believe that she has sleep apnea but she refuses to get tested. She apparently has severe daytime somnolence and fatigue as well as dyspnea on exertion. No further history was obtained due to the patient's intubated status. The patient's does state that her maternal grandfather and 2 of his brothers all had heart attacks at a young age and at least 2 of them sounds as though they had sudden cardiac . Her mother had a coronary stent in her 30s. Certain portions of this document may have been dictated utilizing voice recognition technology. Inherent to this technology, typographical and grammatical errors may exist. As much as I am diligent to identify and correct these mistakes, some errors may remain in the document. Review of Systems-Cardiology Review of Systems Other comments Not obtainable due to clinical status. [id number]-[id number]-Vzgeco Hx Patient Social History Marrital Status: Smoking Status: Never a Smoker Have you traveled recently?: No Alcohol Use?: No Pt feels they are or have been: No Immunizations Up To Date Tetanus Booster (TDap): Less than 5yrs Date of Influenza Vaccine: Sep 04, 2016 Past Medical History PMH As described under Assessment. Family Medical History Family Medical History: As above, her mother had a coronary stent in her 30s. Family History: Graves' disease Hypercholesterolemia 19 FATHER (father) 19 MOTHER (mother) Hypertension 19 MOTHER (mother) Allergies and Home Medications Allergies Coded Allergies: escitalopram (Verified Allergy, Unknown, 01/05/17) Patient Home Medication List Home Medication List Reviewed: Yes ALPRAZolam (Xanax Tablet) 0.25 Mg Tablet, 0.25 MG PO DAILY PRN for ANXIETY, (Reported) Entered as Reported by: JACQUIE TERAN on 02/27/18 0712 Albuterol Sulfate (Proair Hfa) 1 Puff Puff, 2 PUFF IH Q4H PRN for SHORTNESS OF BREATH, (Reported) Entered as Reported by: HUSSEIN MELGOZA on 03/13/18 0920 Docusate Sodium (Colace) 100 Mg Capsule, 100 MG PO DAILY Prescribed by: JUNAID PANTOJA on 03/14/18 1307 Esomeprazole Magnesium (Esomeprazole Magnesium) 40 Mg Capsule.dr, 40 MG PO DAILY, (Reported) Entered as Reported by: AFIA PUGA on 10/01/21 0454 Last Action: New Order Fluoxetine HCl (Prozac) 20 Mg Capsule, 20 MG PO DAILY, (Reported) Entered as Reported by: JACQUIE TERAN on 02/27/18 0712 Last Action: Last Taken Edited Hydrocodone Bit/Acetaminophen (Lortab 5 Mg Tablet) 1 Tab Tab, 1 TAB PO Q4H PRN Prescribed by: JUNAID PANTOJA on 03/14/18 1307 Labetalol HCl (Labetalol HCl) 200 Mg Tablet, 300 MG PO BID, (Reported) Entered as Reported by: JOYCE ISSA on 03/08/172033 Last Action: Last Taken Edited Levothyroxine Sodium (Levothyroxine Sodium) 137 Mcg Tablet, 137 MCG PO DAILY, (Reported) Entered as Reported by: HUSSEIN MELGOZA on 03/13/18 0920 Last Action: Last Taken Edited Nifedipine (Procardia Xl) 90 Mg Tab.er.24, 90 MG PO BID, (Reported) Entered as Reported by: MING SEWELL on 03/19/17 1051 Last Action: Last Taken Edited Oxycodone HCl/Acetaminophen (Percocet 5-325 mg Tablet) 1 Each Tablet, 1 EACH PO Q4H PRN for PAIN-MODERATE TO SEVERE Prescribed by: MARISA RAPP on 02/27/18 1107 Zolpidem Tartrate (Ambien) 5 Mg Tablet, 5 MG PO HS, (Reported) Entered as Reported by: CHENTE JAIME on 02/12/17 192 Exam Vital Signs Vital Signs Date Time Temp Pulse Resp B/P (MAP) Pulse Ox O2 Delivery O2 Flow Rate FiO2 10/01/21 11:00 33.0 10/01/21 10:59 60 16 97 100 10/01/21 10:28 96/54 10/01/21 09:45 Mechanical Ventilator 100.00 Physical Exam General: Intubated and sedated. Well nourished and appears stated age. She is morbidly obese. Eye: Conjunctivae are clear. There are no xanthelasma. HENT: Normocephalic. Atraumatic. Carotid pulsations 2/2 without bruits. Neck: Jugular venous pressure does not appear elevated. No thyromegaly appreciated. Respiratory: Symmetrical expansion bilaterally. Coarse breath sounds due to the ventilator. Cardiovascular: Normal rate. Regular rhythm. No murmur. No gallop. Point of maximal impulse is not appear displaced. Good pulses equal in all extremities. No edema. Gastrointestinal: Soft. Normal bowel sounds. Skin: Skin turgor is normal. There is no pallor. Musculoskeletal: No obvious deformities. Neurologic: Intubated and sedated. Psychiatric: Not obtainable due to clinical status. Labs Laboratory Tests Test 09/30/21 19:24 09/30/21 19:35 09/30/21 20:33 09/30/21 20:42 Range/Units Blood Gas Puncture Site L RAD R RAD Blood Gas Patient Temperature 36.0 97.1 Arterial Blood pH 7.14 *L 7.27 *L 7.37-7.43 Arterial Blood Partial Pressure CO2 60 H 45 35-45 MMHG Arterial Blood Partial Pressure O2 58 L 75 L 79-93 MMHG Arterial Blood HCO3 20 L 20 L 23-27 MMOL/L Arterial Blood Total CO2 21.5 21.3 21.0-31.0 MMOL/L Arterial Blood Oxygen Saturation 81 L 93 L 94-100 % Arterial Blood Base Excess -7.9 L -5.9 L -2.5-2.5 MMOL/L Baron Test YES-POS YES-POS Blood Gas Ventilator Setting YES YES Blood Gas Inspired Oxygen 100% 100% Prothrombin Time 13.5 12.2-14.7 SEC INR Comment 1.0 0.8-1.4 Activated Partial Thromboplast Time 28 24-35 SEC D-Dimer 13.86 H 0.00-0.49 UG/ML Urine Color YELLOW Urine Clarity CLEAR Urine pH 6.0 5-9 Urine Specific Bath 1.020 1.016-1.022 Urine Protein TRACE H NEGATIVE Urine Glucose (UA) NEGATIVE NEGATIVE Urine Ketones NEGATIVE NEGATIVE Urine Nitrite NEGATIVE NEGATIVE Urine Bilirubin NEGATIVE NEGATIVE Urine Urobilinogen 0.2 < = 1.0 MG/DL Urine Leukocyte Esterase NEGATIVE NEGATIVE Urine RBC (Auto) 2+ H NEGATIVE Urine RBC 5-10 H /HPF Urine WBC NONE /HPF Urine Crystals PRESENT H /LPF Urine Amorphous Sediment RARE CARL[place]BERT[place] URATES H /LPF Urine Bacteria TRACE /HPF Urine Casts NONE /LPF Urine Mucus NEGATIVE /LPF Urine Culture Indicated NO Sodium Level 137 135-145 MMOL/L Potassium Level 4.1 3.6-5.0 MMOL/L Chloride Level 106 98-107 MMOL/L Carbon Dioxide Level 14 L 21-32 MMOL/L Anion Gap 17 H 5-14 MMOL/L Blood Urea Nitrogen 16 7-18 MG/DL Creatinine 1.18 0.60-1.30 MG/DL Estimat Glomerular Filtration Rate 55 BUN/Creatinine Ratio 14 Glucose Level 161 H 70-105 MG/DL Lactic Acid Level 4.27 *H 0.50-2.00 MMOL/L Calcium Level 8.3 L 8.5-10.1 MG/DL Corrected Calcium 8.8 8.5-10.1 MG/DL Magnesium Level 1.9 1.6-2.4 MG/DL Total Bilirubin 0.4 0.1-1.0 MG/DL Aspartate Amino Transf (AST/SGOT) 385 H 5-34 U/L Alanine Aminotransferase (ALT/SGPT) 355 H 0-55 U/L Alkaline Phosphatase 143 H 40-136 U/L Lactate Dehydrogenase 933 H 125-220 U/L Total Creatine Kinase 145 29-168 U/L Creatine Kinase MB 20.8 *H <6.6 NG/ML Myoglobin 578.0 H 10.0-92.0 NG/ML Troponin I 3.236 *H <0.028 NG/ML C-Reactive Protein High Sensitivity 0.14 0.00-0.50 MG/DL Total Protein 6.4 6.4-8.2 GM/DL Albumin 3.4 3.2-4.5 GM/DL Amylase Level 82 25-125 U/L Lipase 45 8-78 U/L Procalcitonin 0.06 <0.10 NG/ML Free Thyroxine 1.04 0.70-1.48 NG/DL TSH [place] Testing 5.83 H 0.35-4.94 UIU/ML Serum Test, Qualitative NEGATIVE NEGATIVE Salicylates Level < 5.0 L 5.0-20.0 MG/DL Urine Opiates Screen NEGATIVE NEGATIVE Urine Oxycodone Screen NEGATIVE NEGATIVE Urine Methadone Screen NEGATIVE NEGATIVE Urine Propoxyphene Screen NEGATIVE NEGATIVE Acetaminophen Level < 10 L 10-30 UG/ML Urine Barbiturates Screen NEGATIVE NEGATIVE Ur Tricyclic Antidepressants Screen NEGATIVE NEGATIVE Urine Phencyclidine Screen NEGATIVE NEGATIVE Urine Amphetamines Screen NEGATIVE NEGATIVE Urine Methamphetamines Screen NEGATIVE NEGATIVE Urine Benzodiazepines Screen NEGATIVE NEGATIVE Urine Cocaine Screen NEGATIVE NEGATIVE Urine Cannabinoids Screen NEGATIVE NEGATIVE Serum Alcohol < 10 <10 MG/DL Influenza Type A (RT-PCR) Not Detected Not Detecte Influenza Type B (RT-PCR) Not Detected Not Detecte SARS-CoV-2 RNA (RT-PCR) Not Detected Not Detecte White Blood Count 17.9 H 4.3-11.0 10^3/uL Red Blood Count 5.85 H 3.80-5.11 10^6/uL Hemoglobin 16.1 H 11.5-16.0 g/dL Hematocrit 51 35-52 % Mean Corpuscular Volume 87 80-99 fL Mean Corpuscular Hemoglobin 28 25-34 pg Mean Corpuscular Hemoglobin Concent 32 32-36 g/dL Red Cell Distribution Width 13.2 10.0-14.5 % Platelet Count 354 130-400 10^3/uL Mean Platelet Volume 9.6 9.0-12.2 fL Immature Granulocyte % (Auto) 1 % Neutrophils (%) (Auto) 79 H 42-75 % Lymphocytes (%) (Auto) 14 12-44 % Monocytes (%) (Auto) 5 0-12 % Eosinophils (%) (Auto) 1 0-10 % Basophils (%) (Auto) 0 0-10 % Neutrophils # (Auto) 14.1 H 1.8-7.8 10^3/uL Lymphocytes # (Auto) 2.4 1.0-4.0 10^3/uL Monocytes # (Auto) 1.0 0.0-1.0 10^3/uL Eosinophils # (Auto) 0.1 0.0-0.3 10^3/uL Basophils # (Auto) 0.1 0.0-0.1 10^3/uL Immature Granulocyte # (Auto) 0.2 H 0.0-0.1 10^3/uL Neutrophils % (Manual) 81 % Lymphocytes % (Manual) 15 % Monocytes % (Manual) 4 % Blood Morphology Comment NORMAL Erythrocyte Sedimentation Rate 5 0-20 MM/HR B-Type Natriuretic Peptide 33.8 <100.0 PG/ML Test 09/30/21 21:08 09/30/21 21:34 09/30/21 23:40 09/30/21 23:55 Range/Units Fibrinogen 417 221-496 MG/DL Lactic Acid Level 1.69 0.50-2.00 MMOL/L Phosphorus Level 5.7 H 2.3-4.7 MG/DL Potassium Level 3.9 3.6-5.0 MMOL/L Total Creatine Kinase 313 H 29-168 U/L Troponin I 4.846 *H <0.028 NG/ML Glucometer 122 H 70-110 MG/DL Test 10/01/21 01:20 10/01/21 01:36 10/01/21 02:31 10/01/21 03:03 Range/Units White Blood Count 17.2 H 4.3-11.0 10^3/uL Red Blood Count 5.44 H 3.80-5.11 10^6/uL Hemoglobin 15.1 11.5-16.0 g/dL Hematocrit 48 35-52 % Mean Corpuscular Volume 88 80-99 fL Mean Corpuscular Hemoglobin 28 25-34 pg Mean Corpuscular Hemoglobin Concent 32 32-36 g/dL Red Cell Distribution Width 13.4 10.0-14.5 % Platelet Count 270 130-400 10^3/uL Mean Platelet Volume 9.6 9.0-12.2 fL Immature Granulocyte % (Auto) 0 % Neutrophils (%) (Auto) 84 H 42-75 % Lymphocytes (%) (Auto) 11 L 12-44 % Monocytes (%) (Auto) 4 0-12 % Eosinophils (%) (Auto) 1 0-10 % Basophils (%) (Auto) 0 0-10 % Neutrophils # (Auto) 14.5 H 1.8-7.8 10^3/uL Lymphocytes # (Auto) 1.8 1.0-4.0 10^3/uL Monocytes # (Auto) 0.7 0.0-1.0 10^3/uL Eosinophils # (Auto) 0.1 0.0-0.3 10^3/uL Basophils # (Auto) 0.1 0.0-0.1 10^3/uL Immature Granulocyte # (Auto) 0.1 0.0-0.1 10^3/uL Prothrombin Time 13.2 12.2-14.7 SEC INR Comment 1.0 0.8-1.4 Activated Partial Thromboplast Time 29 24-35 SEC Fibrinogen 360 221-496 MG/DL D-Dimer 14.78 H 0.00-0.49 UG/ML Sodium Level 135 135-145 MMOL/L Potassium Level 3.6 3.6-5.0 MMOL/L Chloride Level 106 98-107 MMOL/L Carbon Dioxide Level 17 L 21-32 MMOL/L Anion Gap 12 5-14 MMOL/L Blood Urea Nitrogen 18 7-18 MG/DL Creatinine 1.12 0.60-1.30 MG/DL Estimat Glomerular Filtration Rate 58 BUN/Creatinine Ratio 16 Glucose Level 132 H 70-105 MG/DL Lactic Acid Level 1.78 0.50-2.00 MMOL/L Calcium Level 7.9 L 8.5-10.1 MG/DL Corrected Calcium 8.7 8.5-10.1 MG/DL Phosphorus Level 4.6 2.3-4.7 MG/DL Magnesium Level 2.8 H 1.6-2.4 MG/DL Total Bilirubin 0.5 0.1-1.0 MG/DL Aspartate Amino Transf (AST/SGOT) 353 H 5-34 U/L Alanine Aminotransferase (ALT/SGPT) 289 H 0-55 U/L Alkaline Phosphatase 114 40-136 U/L Troponin I 5.446 *H <0.028 NG/ML Total Protein 5.7 L 6.4-8.2 GM/DL Albumin 3.0 L 3.2-4.5 GM/DL Triglycerides Level 299 H <150 MG/DL Amylase Level 83 25-125 U/L Lipase 22 8-78 U/L Procalcitonin 0.62 H <0.10 NG/ML Glucometer 116 H 105 70-110 MG/DL Blood Gas Puncture Site LEFT RAD Blood Gas Patient Temperature 33.5 Arterial Blood pH 7.23 *L 7.37-7.43 Arterial Blood Partial Pressure CO2 48 H 35-45 MMHG Arterial Blood Partial Pressure O2 55 L 79-93 MMHG Arterial Blood HCO3 21 L 23-27 MMOL/L Arterial Blood Total CO2 22.3 21.0-31.0 MMOL/L Arterial Blood Oxygen Saturation 91 L 94-100 % Arterial Blood Base Excess -6.4 L -2.5-2.5 MMOL/L Baron Test YES-POS Blood Gas Ventilator Setting YES Blood Gas Inspired Oxygen 100% Test 10/01/21 03:30 10/01/21 04:00 10/01/21 04:58 10/01/21 05:35 Range/Units White Blood Count 15.5 H 4.3-11.0 10^3/uL Red Blood Count 5.28 H 3.80-5.11 10^6/uL Hemoglobin 14.7 11.5-16.0 g/dL Hematocrit 46 35-52 % Mean Corpuscular Volume 88 80-99 fL Mean Corpuscular Hemoglobin 28 25-34 pg Mean Corpuscular Hemoglobin Concent 32 32-36 g/dL Red Cell Distribution Width 13.5 10.0-14.5 % Platelet Count 230 130-400 10^3/uL Mean Platelet Volume 9.5 9.0-12.2 fL Immature Granulocyte % (Auto) 0 % Neutrophils (%) (Auto) 86 H 42-75 % Lymphocytes (%) (Auto) 9 L 12-44 % Monocytes (%) (Auto) 4 0-12 % Eosinophils (%) (Auto) 1 0-10 % Basophils (%) (Auto) 0 0-10 % Neutrophils # (Auto) 13.4 H 1.8-7.8 10^3/uL Lymphocytes # (Auto) 1.4 1.0-4.0 10^3/uL Monocytes # (Auto) 0.6 0.0-1.0 10^3/uL Eosinophils # (Auto) 0.1 0.0-0.3 10^3/uL Basophils # (Auto) 0.0 0.0-0.1 10^3/uL Immature Granulocyte # (Auto) 0.0 0.0-0.1 10^3/uL Prothrombin Time 14.1 12.2-14.7 SEC INR Comment 1.1 0.8-1.4 Activated Partial Thromboplast Time 43 H 24-35 SEC Sodium Level 136 135-145 MMOL/L Potassium Level 3.6 3.6 3.6-5.0 MMOL/L Chloride Level 107 98-107 MMOL/L Carbon Dioxide Level 17 L 21-32 MMOL/L Anion Gap 12 5-14 MMOL/L Blood Urea Nitrogen 18 7-18 MG/DL Creatinine 1.06 0.60-1.30 MG/DL Estimat Glomerular Filtration Rate 62 BUN/Creatinine Ratio 17 Glucose Level 131 H 70-105 MG/DL Calcium Level 7.9 L 8.5-10.1 MG/DL Corrected Calcium 8.8 8.5-10.1 MG/DL Phosphorus Level 4.5 2.3-4.7 MG/DL Magnesium Level 3.4 H 1.6-2.4 MG/DL Total Bilirubin 0.5 0.1-1.0 MG/DL Aspartate Amino Transf (AST/SGOT) 303 H 5-34 U/L Alanine Aminotransferase (ALT/SGPT) 266 H 0-55 U/L Alkaline Phosphatase 109 40-136 U/L Total Protein 5.3 L 6.4-8.2 GM/DL Albumin 2.9 L 3.2-4.5 GM/DL Glucometer 110 102 70-110 MG/DL Test 10/01/21 05:59 10/01/21 06:51 10/01/21 07:01 10/01/21 07:59 Range/Units Glucometer 122 H 131 H 138 H 70-110 MG/DL White Blood Count 15.7 H 4.3-11.0 10^3/uL Red Blood Count 5.08 3.80-5.11 10^6/uL Hemoglobin 14.1 11.5-16.0 g/dL Hematocrit 45 35-52 % Mean Corpuscular Volume 88 80-99 fL Mean Corpuscular Hemoglobin 28 25-34 pg Mean Corpuscular Hemoglobin Concent 32 32-36 g/dL Red Cell Distribution Width 13.4 10.0-14.5 % Platelet Count 211 130-400 10^3/uL Mean Platelet Volume 9.6 9.0-12.2 fL Immature Granulocyte % (Auto) 0 % Neutrophils (%) (Auto) 91 H 42-75 % Lymphocytes (%) (Auto) 5 L 12-44 % Monocytes (%) (Auto) 3 0-12 % Eosinophils (%) (Auto) 0 0-10 % Basophils (%) (Auto) 0 0-10 % Neutrophils # (Auto) 14.3 H 1.8-7.8 10^3/uL Lymphocytes # (Auto) 0.8 L 1.0-4.0 10^3/uL Monocytes # (Auto) 0.5 0.0-1.0 10^3/uL Eosinophils # (Auto) 0.0 0.0-0.3 10^3/uL Basophils # (Auto) 0.0 0.0-0.1 10^3/uL Immature Granulocyte # (Auto) 0.1 0.0-0.1 10^3/uL Prothrombin Time 13.5 12.2-14.7 SEC INR Comment 1.0 0.8-1.4 Fibrinogen 384 221-496 MG/DL Sodium Level 135 135-145 MMOL/L Potassium Level 3.9 3.6-5.0 MMOL/L Chloride Level 107 98-107 MMOL/L Carbon Dioxide Level 18 L 21-32 MMOL/L Anion Gap 10 5-14 MMOL/L Blood Urea Nitrogen 17 7-18 MG/DL Creatinine 1.06 0.60-1.30 MG/DL Estimat Glomerular Filtration Rate 62 BUN/Creatinine Ratio 16 Glucose Level 147 H 70-105 MG/DL Calcium Level 7.8 L 8.5-10.1 MG/DL Corrected Calcium 8.8 8.5-10.1 MG/DL Phosphorus Level 3.8 2.3-4.7 MG/DL Magnesium Level 4.0 H 1.6-2.4 MG/DL Total Bilirubin 1.1 H 0.1-1.0 MG/DL Aspartate Amino Transf (AST/SGOT) 383 H 5-34 U/L Alanine Aminotransferase (ALT/SGPT) 310 H 0-55 U/L Alkaline Phosphatase 115 40-136 U/L Troponin I 5.379 *H <0.028 NG/ML Total Protein 5.5 L 6.4-8.2 GM/DL Albumin 2.8 L 3.2-4.5 GM/DL Test 10/01/21 08:00 10/01/21 08:05 10/01/21 08:20 10/01/21 09:11 Range/Units Triglycerides Level 125 <150 MG/DL Cholesterol Level 187 < 200 MG/DL LDL Cholesterol Direct 136 H 1-129 MG/DL VLDL Cholesterol 25 5-40 MG/DL HDL Cholesterol 40 40-60 MG/DL Blood Gas Puncture Site L RAD Blood Gas Patient Temperature 33.4 Arterial Blood pH 7.27 *L 7.37-7.43 Arterial Blood Partial Pressure CO2 40 35-45 MMHG Arterial Blood Partial Pressure O2 66 L 79-93 MMHG Arterial Blood HCO3 19 L 23-27 MMOL/L Arterial Blood Total CO2 20.4 L 21.0-31.0 MMOL/L Arterial Blood Oxygen Saturation 94 94-100 % Arterial Blood Base Excess -7.3 L -2.5-2.5 MMOL/L Baron Test YES-POS Blood Gas Ventilator Setting YES Blood Gas Inspired Oxygen 100% Activated Partial Thromboplast Time 80 H 24-35 SEC Potassium Level 3.8 3.6-5.0 MMOL/L Glucometer 147 H 70-110 MG/DL Test 10/01/21 09:55 10/01/21 10:09 10/01/21 10:59 Range/Units Potassium Level 3.7 3.6-5.0 MMOL/L Glucometer 156 H 139 H 70-110 MG/DL Radiology ECHOCARDIOGRAM (10/01/2021): 1. Left ventricle: The cavity size is normal. There is mild concentric hypertrophy. Systolic function is normal. The estimated ejection fraction is 55- 60%. There were no regional wall motion abnormalities identified. Left ventricular diastolic function parameters are normal. 2. Pulmonary arteries: The estimated pulmonary artery systolic pressure is 20 mmHg assuming a right atrial pressure of 5 mmHg. ECG Impression ECG Comment Sinus rhythm with poor R wave progression and anterolateral T wave inversion concerning for a possible recent anterolateral myocardial infarction versus inappropriate lead placement with T wave inversion. Diagnosis/Problems Diagnosis/Problems (1) Sudden cardiac Assessment & Plan: Based upon the events outlined above, I suspect the patient may have had a primary ventricular fibrillation event. She also has a strong family history of premature coronary artery disease and possibly sudden cardiac . She is presently on hypothermia protocol. She has not had any significant recurrent arrhythmias. She has a normal ejection fraction on her echocardiogram. She will ultimately need a cardiac catheterization. However, s mikey she has not had any further arrhythmias and she has a normal ejection fraction, I will plan to perform this procedure on Sunday. I would like to see how her neurologic status does once we wean her off hypothermia protocol. (2) Ventricular fibrillation Assessment & Plan: As above, I suspect she had a primary arrhythmia that led to sudden cardiac . She may need a defibrillator implantation for secondary prevention of sudden cardiac prior to discharge. (3) Non-ST elevation myocardial infarction (NSTEMI), initial care episode Assessment & Plan: Her echocardiogram shows a normal ejection fraction. I suspect she had a type II non-ST elevation myocardial infarction secondary to the ventricular fibrillation resulting in cardiac arrest that required CPR for at least 20 minutes. However, she will still need a coronary angiogram. I will continue her on aspirin and intravenous heparin which was started by the eICU. (4) Primary hypertension Assessment & Plan: We will continue to monitor her blood pressures in the hospital. I would suggest we allow for some permissive hypertension while we await her weaning from the hypothermia protocol. (5) Family history of sudden cardiac Assessment & Plan: This is a concerning history and increases the chance that the patient had a primary arrhythmia leading to sudden cardiac . (6) Morbid obesity Assessment & Plan: She has already been working on getting bariatric surgery. JORGE ZHONG JR, MD Oct 01, 2021 10:41
[2021-10-01 10:59] VITALS: BP 108/77
--- NOTE | 2021-10-01 11:24 | History & Physical-Hospitalist ---
History of Present Illness HPI/Chief Complaint Sarah Larry is a 26 year old female with PMH super obesity, GERD, who presented after having a cardiac arrest at home. She is unable to provide any history and there is no family present. All information is obtained from the chart and discussion with the ER doctor and bedside RN. She was reportedly having heartburn recently and had been taking increasing amounts of antacids and PPIs. She was not feeling well yesterday and coworkers had recommended that she go to the hospital but she continued working. She was laying on the couch when her got home. He was in another room and heard gurgling sounds and returned to find her unresponsive. He moved her to the floor, called EMS, and began CPR. Upon EMS arrival she was found to be in VFib. She was given two shocks and ROSC was obtained. Upon my exam she is intubated and sedated and on hypothermia protocol. Source: RN/MD Exam Limitations: clinical condition Date Seen 10/01/21 Time Seen by a Provider: 08:55 Attending Physician Francisco Zhong Jr, MD PCP Cesilia Henson MD Referring Physician Date of Admission Sep 30, 2021 at 20:50 Home Medications & Allergies Home Medications Reviewed patient Home Medication Reconciliation performed by pharmacy medication reconciliations certified surgical technician and/or nursing. Patients Allergies have been reviewed. Allergies Allergies Coded Allergies escitalopram (Verified Allergy, Unknown, 01/05/17) Past Coiuwgm-Adinfw-Lqdyme Hx Patient Social History Marrital Status: Tobacco Use?: No Smoking Status: Never a Smoker Use of E-Cig and/or Vaping dev: No Substance use?: No Alcohol Use?: No Pt feels they are or have been: No Immunizations Up To Date Date of Influenza Vaccine: Sep 04, 2016 First/Initial COVID19 Vaccinat: November Second COVID19 Vaccination Tashi: December Tetanus Booster (TDap): Unknown Hepatitis A: Yes Hepatitis B: Yes PED Vaccines UTD: Yes Seasonal Allergies Seasonal Allergies: Yes Current Status Advance Directives: No Primary Language: Cuban Preferred Spoken Language: Cuban Is interpretation needed?: No Implanted or Applied Medical D: None Past Medical History Surgeries: Section, Tonsillectomy Asthma Currently Using CPAP: No Currently Using BIPAP: No 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 Sexually Transmitted Disease: No HIV/AIDS: No Gall Bladder Disease Hypothyroidsim Did You Recieve Any Treatments: No Blood Disorders: No Adverse Reaction/Blood Tranf: No See above - cHTN on labetalol prior to , anovulation, morbid obesity, solitary maternal kidney, hypothyroidism Family Medical History Graves' disease Hypercholesterolemia 19 FATHER (father) 19 MOTHER (mother) Hypertension 19 MOTHER (mother) Sudden cardiac No Pertinent Family Hx, Asthma, Heart Disease Review of Systems ROS-Unable to Obtain: intubated and sedated Constitutional: see HPI Physical Exam Physical Exam Vital Signs Vital Signs - First Documented 09/30/21 09/30/21 09/30/21 09/30/21 19:31 19:35 22:45 23:27 Temp 35.9 Pulse 130 Resp 25 B/P (MAP) 129/98 Pulse Ox 93 O2 Delivery Mechanical Ventilator O2 Flow Rate 80.00 FiO2 100 Capillary Refill : Less Than 3 Seconds Height, Weight, BMI Height: 5'2.00" Weight: 263lbs. 0.0oz. 119.586678tv; 49.85 BMI Method:Stated General Appearance: No Apparent Distress, Obese, Other (intubated and sedated) HEENT: Other (ET tube in place) Neck: Normal Inspection, Supple Respiratory: No Respiratory Distress, Crackles, Decreased Breath Sounds, Other (intubated and mechanically ventilated) Cardiovascular: Regular Rate, Rhythm, No Edema, No Murmur Gastrointestinal: Normal Bowel Sounds, Non Tender, Soft Extremity: Normal Inspection, Non Tender, No Pedal Edema Neurologic/Psychiatric: Other (sedated, unresponsive) Skin: Normal Color, Warm/Dry Results Results/Procedures Labs Laboratory Tests 09/30/21 19:35 09/30/21 20:33 09/30/21 23:40 10/01/21 01:20 10/01/21 03:30 10/01/21 05:35 10/01/21 06:51 10/01/21 08:20 10/01/21 09:55 Patient resulted labs reviewed. Imaging: Reviewed Imaging Report Assessment/Plan Admission Diagnosis Sudden cardiac Admission Status: Inpatient Order (span 2 midnights) Reason for Inpatient Admission: NSTEMI Ventricular fibrillation Respiratory failure Assessment and Plan Cardiac arrest Ventricular fibrillation NSTEMI Acute respiratory failure with hypoxia and hypercapnia Aspiration pneumonia Likely obesity hypoventilation syndrome Likely obstructive sleep apnea Super obesity Ischemic hepatitis EKG concerning for inferior [place] Troponin significantly elevated Cardiology consulted Continue ASA Heparin gtt Planning for left heart cath Sunday Hypothermia protocol TeleICU consulted Imaging with bilateral infiltrates right worse than left, consistent with aspiration Continue Vancomycin Transition from Cefepime to Zosyn for aspiration pneumonia Critical Care Critically Ill Patient Diagnosis/Problems Diagnosis/Problems (1) Cardiac arrest Status: Acute (2) Ventricular fibrillation Status: Acute (3) Non-ST elevation myocardial infarction (NSTEMI), initial care episode Status: Acute (4) Acute respiratory failure with hypoxia and hypercapnia Status: Acute (5) Endotracheally intubated Status: Acute (6) Aspiration pneumonia Status: Acute Qualifiers: Laterality: bilateral (7) Super obesity Status: Chronic (8) Obesity hypoventilation syndrome Status: Chronic (9) Obstructive sleep apnea Status: Chronic (10) Ischemic hepatitis Status: Acute CASPER LÓPEZ MD Oct 01, 2021 11:24
[2021-10-01] MEDS ORDERED: PIPERACILLIN/TAZO 4.5 GM/NS 100 ML IV NR ×2 (11:45)
[2021-10-01 12:28] LABS: BASOPHILS % (AUTO) 0 % (0-10); EOSINOPHILS % (AUTO) 0 % (0-10); LYMPHOCYTES # (AUTO) 0.5 10^3/uL (1.0-4.0); LYMPHOCYTES % (AUTO) 4 % (12-44); MEAN CORPUSCULAR HGB CONC 32 g/dL (32-36); MEAN CORPUSCULAR VOLUME 86 fL (80-99); MEAN PLATELET VOLUME 9.2 fL (9.0-12.2); MONOCYTES # (AUTO) 0.3 10^3/uL (0.0-1.0); MONOCYTES % (AUTO) 3 % (0-12); NEUTROPHILS % (AUTO) 92 % (42-75)
[2021-10-01 12:32] LABS: ALBUMIN 2.8 GM/DL (3.2-4.5); HEMATOCRIT 44 % (35-52); MEAN CORPUSCULAR HEMOGLOBIN 28 pg (25-34); PLATELET COUNT 175 10^3/uL (130-400); POTASSIUM 3.5 MMOL/L (3.6-5.0); WHITE BLOOD COUNT 13.3 10^3/uL (4.3-11.0)
[2021-10-01 12:33] LABS: CALCIUM 7.6 MG/DL (8.5-10.1)
[2021-10-01 12:35] LABS: TOTAL PROTEIN 5.6 GM/DL (6.4-8.2)
[2021-10-01 12:37] LABS: BILIRUBIN,TOTAL 1.3 MG/DL (0.1-1.0)
[2021-10-01 12:38] LABS: PHOSPHORUS 2.5 MG/DL (2.3-4.7)
[2021-10-01 12:41] LABS: MAGNESIUM 4.6 MG/DL (1.6-2.4)
[2021-10-01 12:47] LABS: PROTHROMBIN TIME PATIENT 13.9 SEC (12.2-14.7)
[2021-10-01 13:10] LABS: ABG BASE EXCESS -7.7 MMOL/L (-2.5-2.5); ABG OXYGEN SATURATION 93 % (94-100); ABG PCO2 38 MMHG (35-45); ABG PO2 56 MMHG (79-93); ABG TCO2 20.2 MMOL/L (21.0-31.0)
[2021-10-01 13:13] LABS: ALLENS TEST ART LINE; INSPIRED O2 100%; PATIENT TEMP 32.6; VENTILATOR YES
[2021-10-01 13:14] LABS: ABG PH 7.28 (7.37-7.43)
[2021-10-01 14:33] VITALS: BP 111/48
[2021-10-01] MEDS ORDERED: ROCURONIUM 10 MG/ML 5 ML SYRINGE IV PRN (15:15)
[2021-10-01] MEDS: PIPERACILLIN/TAZOBACTAM (BULK) 4.5 GM in NS (IVPB) 100 ML IV SCH (17:13)
[2021-10-01 18:18] LABS: BASOPHILS % (AUTO) 0 % (0-10); EOSINOPHILS % (AUTO) 0 % (0-10); HEMATOCRIT 44 % (35-52); HEMOGLOBIN 13.8 g/dL (11.5-16.0); LYMPHOCYTES # (AUTO) 0.5 10^3/uL (1.0-4.0); LYMPHOCYTES % (AUTO) 4 % (12-44); MEAN CORPUSCULAR HEMOGLOBIN 27 pg (25-34); MEAN CORPUSCULAR HGB CONC 31 g/dL (32-36); MEAN CORPUSCULAR VOLUME 86 fL (80-99); MEAN PLATELET VOLUME 10.2 fL (9.0-12.2); MONOCYTES # (AUTO) 0.2 10^3/uL (0.0-1.0); MONOCYTES % (AUTO) 2 % (0-12); NEUTROPHILS # (AUTO) 9.8 10^3/uL (1.8-7.8); NEUTROPHILS % (AUTO) 93 % (42-75); PLATELET COUNT 203 10^3/uL (130-400); WHITE BLOOD COUNT 10.6 10^3/uL (4.3-11.0)
[2021-10-01 18:27] VITALS: BP 102/46
[2021-10-01 18:34] LABS: ALBUMIN 2.8 GM/DL (3.2-4.5); POTASSIUM 3.7 MMOL/L (3.6-5.0)
[2021-10-01 18:37] LABS: TOTAL PROTEIN 5.8 GM/DL (6.4-8.2)
[2021-10-01 18:38] LABS: BILIRUBIN,TOTAL 0.7 MG/DL (0.1-1.0)
[2021-10-01 18:40] LABS: CREATININE SERUM 0.94 MG/DL (0.60-1.30); PHOSPHORUS 2.6 MG/DL (2.3-4.7)
[2021-10-01 18:43] LABS: MAGNESIUM 3.5 MG/DL (1.6-2.4)
[2021-10-01 18:59] LABS: ABG BASE EXCESS -8.6 MMOL/L (-2.5-2.5); ABG OXYGEN SATURATION 98 % (94-100); ABG PCO2 36 MMHG (35-45); ABG PO2 101 MMHG (79-93); ABG TCO2 18.9 MMOL/L (21.0-31.0)
[2021-10-01 19:02] LABS: ALLENS TEST ARTLINE; INSPIRED O2 100%; VENTILATOR YES
[2021-10-01 19:04] LABS: ABG PH 7.28 (7.37-7.43)
[2021-10-01 23:47] VITALS: BP 118/58
[2021-10-02] MEDS: FAMOTIDINE 20MG/2ML IV (PEPCID) IVP SCH ×2 (00:19→12:01)
[2021-10-02] MEDS: HEParin DRIP 25000 UNIT/500ML 500 ML IV SCH ×2 (00:23→07:37)
[2021-10-02 01:12] LABS: ABG BASE EXCESS -9.2 MMOL/L (-2.5-2.5); ABG OXYGEN SATURATION 97 % (94-100); ABG PCO2 35 MMHG (35-45); ABG PO2 85 MMHG (79-93); ABG TCO2 18.2 MMOL/L (21.0-31.0)
[2021-10-02 01:13] LABS: ALLENS TEST ARTLINE; BASOPHILS % (AUTO) 0 % (0-10); EOSINOPHILS % (AUTO) 0 % (0-10); HEMATOCRIT 41 % (35-52); HEMOGLOBIN 13.1 g/dL (11.5-16.0); LYMPHOCYTES # (AUTO) 0.5 10^3/uL (1.0-4.0); LYMPHOCYTES % (AUTO) 5 % (12-44); MEAN CORPUSCULAR HEMOGLOBIN 27 pg (25-34); MEAN CORPUSCULAR HGB CONC 32 g/dL (32-36); MEAN CORPUSCULAR VOLUME 87 fL (80-99); MEAN PLATELET VOLUME 10.1 fL (9.0-12.2); MONOCYTES # (AUTO) 0.3 10^3/uL (0.0-1.0); MONOCYTES % (AUTO) 2 % (0-12); NEUTROPHILS # (AUTO) 10.4 10^3/uL (1.8-7.8); NEUTROPHILS % (AUTO) 93 % (42-75); PLATELET COUNT 184 10^3/uL (130-400); WHITE BLOOD COUNT 11.2 10^3/uL (4.3-11.0)
[2021-10-02 01:14] LABS: INSPIRED O2 60%; PATIENT TEMP 33.2; VENTILATOR YES
[2021-10-02 01:15] LABS: ABG PH 7.28 (7.37-7.43)
[2021-10-02 01:25] LABS: ALBUMIN 2.7 GM/DL (3.2-4.5)
[2021-10-02 01:26] LABS: POTASSIUM 3.3 MMOL/L (3.6-5.0)
[2021-10-02 01:27] LABS: CALCIUM 8.1 MG/DL (8.5-10.1)
[2021-10-02 01:28] LABS: TOTAL PROTEIN 5.2 GM/DL (6.4-8.2)
[2021-10-02 01:30] LABS: BILIRUBIN,TOTAL 0.4 MG/DL (0.1-1.0)
[2021-10-02 01:32] LABS: CREATININE SERUM 0.91 MG/DL (0.60-1.30)
[2021-10-02 01:35] LABS: MAGNESIUM 3.1 MG/DL (1.6-2.4)
[2021-10-02] MEDS ORDERED: fentaNYL DRIP PRE-MIX 250 ML IV ONE ×3 (01:43→20:13)
[2021-10-02] MEDS: fentaNYL INJ 1,250 MCG in NS (IVPB) 225 ML IV SCH ×3 (01:46→22:23)
[2021-10-02] MEDS: PIPERACILLIN/TAZOBACTAM (BULK) 4.5 GM in NS (IVPB) 100 ML IV SCH ×3 (02:07→17:03)
[2021-10-02] MEDS: VASOPRESSIN INJECTION 20 UNIT in NS (IVPB) 100 ML IV SCH ×2 (02:07→13:36)
[2021-10-02 02:39] VITALS: BP 115/53
[2021-10-02] MEDS: RT-ALBUTEROL/IPRATROPIUM 3 ML (DUONEB) VIAL INH SCH ×6 (02:39→21:23)
[2021-10-02 02:50] LABS: INR 1.1 (0.8-1.4); PROTHROMBIN TIME PATIENT 14.2 SEC (12.2-14.7)
[2021-10-02] MEDS: LACRI-LUBE OPTHALMIC OINT 3.5 GM TUBE OU SCH ×4 (03:05→20:06)
[2021-10-02] MEDS: inSUlin ASPART (NovoLOG) 1 UNIT/0.01 ML (CHARGE PER UNIT) SC SCH ×6 (03:17→22:57)
[2021-10-02] MEDS: PROPOFOL DRIP (ICU) 100 ML IV SCH ×8 (04:46→23:50)
[2021-10-02] MEDS: LACTATED RINGERS 1,000 ML IV SCH ×2 (05:31→11:45)
[2021-10-02] MEDS: POTASSIUM CL 10MEQ/50ML IVPB 50 ML IV SCH ×5 (05:33→12:14)
[2021-10-02] MEDS: busPIRone 15 MG (BUSPAR) TABLET GT SCH ×2 (05:33→13:43)
[2021-10-02 07:00] LABS: ABG BASE EXCESS -8.8 MMOL/L (-2.5-2.5); ABG OXYGEN SATURATION 97 % (94-100); ABG PCO2 36 MMHG (35-45); ABG PO2 89 MMHG (79-93); ABG TCO2 18.5 MMOL/L (21.0-31.0)
[2021-10-02 07:01] LABS: BASOPHILS % (AUTO) 0 % (0-10); EOSINOPHILS % (AUTO) 0 % (0-10); HEMATOCRIT 39 % (35-52); HEMOGLOBIN 12.4 g/dL (11.5-16.0); LYMPHOCYTES # (AUTO) 0.6 10^3/uL (1.0-4.0); LYMPHOCYTES % (AUTO) 5 % (12-44); MEAN CORPUSCULAR HEMOGLOBIN 27 pg (25-34); MEAN CORPUSCULAR HGB CONC 32 g/dL (32-36); MEAN CORPUSCULAR VOLUME 87 fL (80-99); MEAN PLATELET VOLUME 10.3 fL (9.0-12.2); MONOCYTES # (AUTO) 0.4 10^3/uL (0.0-1.0); MONOCYTES % (AUTO) 3 % (0-12); NEUTROPHILS # (AUTO) 11.3 10^3/uL (1.8-7.8); NEUTROPHILS % (AUTO) 92 % (42-75); PLATELET COUNT 190 10^3/uL (130-400); WHITE BLOOD COUNT 12.2 10^3/uL (4.3-11.0)
[2021-10-02 07:02] LABS: ABG PH 7.29 (7.37-7.43)
[2021-10-02 07:03] LABS: ALLENS TEST YES-POS; INSPIRED O2 60%; PATIENT TEMP 33.9; VENTILATOR YES
[2021-10-02 07:20] LABS: ALBUMIN 2.6 GM/DL (3.2-4.5)
[2021-10-02 07:21] LABS: POTASSIUM 3.1 MMOL/L (3.6-5.0)
[2021-10-02 07:22] LABS: CALCIUM 8.1 MG/DL (8.5-10.1)
[2021-10-02 07:23] LABS: TOTAL PROTEIN 4.9 GM/DL (6.4-8.2)
[2021-10-02 07:25] LABS: BILIRUBIN,TOTAL 0.3 MG/DL (0.1-1.0)
[2021-10-02 07:26] LABS: PHOSPHORUS 3.2 MG/DL (2.3-4.7)
[2021-10-02 07:27] VITALS: BP 135/57
[2021-10-02 07:27] LABS: CREATININE SERUM 0.86 MG/DL (0.60-1.30)
[2021-10-02 07:30] LABS: MAGNESIUM 2.8 MG/DL (1.6-2.4)
[2021-10-02] MEDS: ASPIRIN 81 MG CHEW (CHILDREN'S ASA) PO SCH (07:53)
[2021-10-02] MEDS: PANTOPRAZOLE 40 MG (PROTONIX) VIAL IV SCH (07:53)
--- NOTE | 2021-10-02 07:55 | Tele-ICU Progress Note ---
Subjective Date Seen by a Provider: Oct 02, 2021 Time Seen by a Provider: 07:00 Subjective/Events-last exam This virtual visit was conducted using real time audio/video. Thank you for asking us to see this patient for respiratory insufficiency due to vfib arrest at home. Recent events: rewarming 21nce 13.30, good UO. PE: sedated on vent. VSS. 120/50 HR 58 NSR. O2 sat 97% on 60%/+12 HEENT: No obvious masses, adenopathy or JVD. Chest: clear to auscultation. CV: RRR S1 S2 No murmur or added sounds. Abd: Non-tender. Bowel sounds Y. : Unremarkable. [place]. 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 No obvious focal findings. Extremities: edema. Capillary refill < 3 seconds. Skin: unremarkable. Results: Elevated BG 133. Decreased HB 12.2, K 3.1, Alb 2.6. B.29/36/89. CXR: B infilts. Available chart/ vitals / labs / images reviewed. Video assessment done using teleICU camera, rest of exam as per RN. A/P: Respiratory insufficiency: Continue present management with duonebs, propofol PPI, heparin. Wean O2 as mary ellen. Critical Care: critically ill patient. Cont. Hep., Rocephin, ASA, SSI, Keppra. Cardiac Cath in AM. Replace KCl. Discussed with RN Humera. Asked RN to reach out to eICU if any questions or concer ns later. Time spent with patient/coordination of care with other health professionals (mins): 25 Sepsis Event Evaluation Height, Weight, BMI Height: 5'2.00" Weight: 263lbs. 0.0oz. 119.416999vf; 49.85 BMI Method:Stated Focused Exam Lactate Level 09/30/21 19:35: Lactic Acid Level 4.27*H 09/30/21 21:34: Lactic Acid Level 1.69 10/01/21 01:20: Lactic Acid Level 1.78 Exam Exam Patient acknowledged, consented, and participated in this virtual visit which was conducted using real time audio/video Vital Signs Date Time Temp Pulse Resp B/P (MAP) Pulse Ox O2 Delivery O2 Flow Rate FiO2 10/02/21 07:30 34.0 10/02/21 07:27 61 16 97 60 10/02/21 07:15 33.9 10/02/21 07:00 33.9 10/02/21 06:45 33.8 10/02/21 06:30 33.8 10/02/21 06:15 33.7 10/02/21 06:00 33.6 52 16 98 Mechanical Ventilator 60.00 10/02/21 06:00 33.6 10/02/21 05:45 60 10/02/21 05:45 33.5 10/02/21 05:30 33.4 10/02/21 05:15 33.3 10/02/21 05:00 33.1 49 16 98 Mechanical Ventilator 60.00 10/02/21 05:00 33.2 10/02/21 04:47 47 119/51 10/02/21 04:46 47 119/51 10/02/21 04:45 33.1 10/02/21 04:30 33.0 10/02/21 04:15 32.9 10/02/21 04:00 98 Mechanical Ventilator 60 10/02/21 04:00 32.9 10/02/21 04:00 32.7 44 16 98 Mechanical Ventilator 60.00 10/02/21 03:45 32.8 10/02/21 03:30 32.9 10/02/21 03:15 32.9 10/02/21 03:00 32.9 10/02/21 03:00 32.6 44 15 98 Mechanical Ventilator 60.00 10/02/21 02:39 43 16 98 60 10/02/21 02:00 32.8 42 15 97 Mechanical Ventilator 60.00 10/02/21 01:46 60 10/02/21 01:00 41 10/02/21 01:00 33.2 10/02/21 01:00 32.9 44 15 97 Mechanical Ventilator 60.00 10/02/21 00:00 33.3 10/02/21 00:00 97 Mechanical Ventilator 60 10/02/21 00:00 33.1 45 16 97 Mechanical Ventilator 60.00 10/01/21 23:53 45 118/56 10/01/21 23:53 45 118/56 10/01/21 23:47 44 16 97 60 10/01/21 23:06 Mechanical Ventilator 60.00 11/20/21 23:00 32.9 43 15 98 Mechanical Ventilator 70.00 10/01/21 23:00 33.0 10/01/21 22:00 32.3 42 15 97 Mechanical Ventilator 70.00 10/01/21 22:00 32.4 10/01/21 21:45 70 10/01/21 21:43 Mechanical Ventilator 70.00 10/01/21 21:00 32.4 42 15 97 Mechanical Ventilator 80.00 10/01/21 21:00 32.6 10/01/21 20:00 97 Mechanical Ventilator 80 10/01/21 20:00 32.7 10/01/21 20:00 Mechanical Ventilator 80.00 10/01/21 20:00 32.5 43 16 98 Mechanical Ventilator 80.00 10/01/21 19:29 Mechanical Ventilator 90.00 10/01/21 19:00 33.0 10/01/21 19:00 41 10/01/21 19:00 32.7 42 16 98 Mechanical Ventilator 100.00 10/01/21 19:00 33.0 Mechanical Ventilator 100.00 Automatic Cuff 10/01/21 18:59 42 102/46 10/01/21 18:58 42 102/46 10/01/21 18:27 42 16 98 100 10/01/21 18:00 33.2 10/01/21 18:00 32.7 44 16 98 Mechanical Ventilator 100.00 10/01/21 17:04 100 10/01/21 17:00 33.3 10/01/21 17:00 33.1 46 15 97 Mechanical Ventilator 100.00 10/01/21 16:12 33.1 10/01/21 16:05 97 Mechanical Ventilator 100 10/01/21 16:00 33.3 10/01/21 16:00 33.1 47 16 97 Mechanical Ventilator 100.00 10/01/21 15:07 48 111/48 10/01/21 15:07 48 111/48 10/01/21 15:00 33.0 46 16 98 Mechanical Ventilator 100.00 10/01/21 15:00 33.2 10/01/21 14:33 48 16 95 100 10/01/21 14:00 32.8 10/01/21 14:00 32.5 48 16 95 Mechanical Ventilator 100.00 10/01/21 13:55 100 10/01/21 13:45 32.3 52 16 95 Mechanical Ventilator 100.00 10/01/21 13:30 32.1 52 16 94 Mechanical Ventilator 100.00 10/01/21 13:15 32.4 51 16 94 Mechanical Ventilator 100.00 10/01/21 13:00 32.6 10/01/21 13:00 32.4 52 16 94 Mechanical Ventilator 100.00 10/01/21 13:00 53 10/01/21 12:45 32.4 54 15 94 Mechanical Ventilator 100.00 10/01/21 12:30 32.4 52 16 94 Mechanical Ventilator 100.00 10/01/21 12:15 32.4 54 15 94 Mechanical Ventilator 100.00 10/01/21 12:03 94 Mechanical Ventilator 100 10/01/21 12:00 32.4 55 16 94 Mechanical Ventilator 100.00 10/01/21 12:00 32.8 10/01/21 11:45 32.3 56 15 95 Mechanical Ventilator 100.00 10/01/21 11:45 32.9 10/01/21 11:30 32.9 10/01/21 11:30 32.7 56 16 94 Mechanical Ventilator 100.00 10/01/21 11:15 32.9 10/01/21 11:15 32.7 56 16 95 Mechanical Ventilator 100.00 10/01/21 11:00 32.8 57 15 96 Mechanical Ventilator 100.00 10/01/21 11:00 33.0 10/01/21 10:59 60 16 97 100 10/01/21 10:45 32.8 52 16 96 Mechanical Ventilator 100.00 10/01/21 10:45 33.1 10/01/21 10:30 32.8 52 16 97 Mechanical Ventilator 100.00 10/01/21 10:30 33.1 10/01/21 10:28 51 96/54 10/01/21 10:27 51 96/54 10/01/21 10:15 33.2 10/01/21 10:15 32.9 51 16 97 Mechanical Ventilator 100.00 10/01/21 10:00 33.2 10/01/21 10:00 32.9 51 10 97 Mechanical Ventilator 100.00 10/01/21 09:45 100 10/01/21 09:45 33.3 10/01/21 09:45 32.8 51 15 96 Mechanical Ventilator 100.00 10/01/21 09:30 33.2 51 16 96/54 97 Mechanical Ventilator 100.00 10/01/21 09:30 33.3 10/01/21 09:15 33.2 52 15 96/54 96 Mechanical Ventilator 100.00 10/01/21 09:15 33.4 10/01/21 09:00 33.2 52 15 116/69 96 Mechanical Ventilator 100.00 10/01/21 09:00 33.4 10/01/21 08:45 33.1 53 16 112/68 95 Mechanical Ventilator 100.00 10/01/21 08:45 33.4 10/01/21 08:30 33.2 54 15 113/72 96 Mechanical Ventilator 100.00 10/01/21 08:30 33.4 10/01/21 08:27 33.4 10/01/21 08:15 33.1 54 15 113/71 96 Mechanical Ventilator 100.00 10/01/21 08:15 33.4 10/01/21 08:00 33.3 10/01/21 08:00 97 Mechanical Ventilator 100 10/01/21 08:00 33.0 54 15 114/68 96 Mechanical Ventilator 100.00 I & O 10/02/21 07:00 Intake Total 7850 ml Output Total 4290 ml Balance 3560 ml Height & Weight Height: 5'2.00" Weight: 263lbs. 0.0oz. 119.139014ks; 49.85 BMI Method:Stated General Appearance: No Apparent Distress, Obese, Other (intubated and sedated) HEENT: Other (ET tube in place) Neck: Normal Inspection, Supple Respiratory: No Respiratory Distress, Crackles, Decreased Breath Sounds, Other (intubated and mechanically ventilated) Cardiovascular: Regular Rate, Rhythm, No Edema, No Murmur Capillary Refill: Less Than 3 Seconds Peripheral Pulses: 1+ Dorsalis Pedis (R), 1+ Left Dors-Pedis (L) (see free text) Extremity: Normal Inspection, Non Tender, No Pedal Edema Neurologic/Psychiatric: Other (sedated, unresponsive) Skin: Normal Color, Warm/Dry Results Lab Laboratory Tests 09/30/21 19:35 09/30/21 20:33 09/30/21 23:40 10/01/21 01:20 10/01/21 03:30 10/01/21 05:35 10/01/21 06:51 10/01/21 08:20 10/01/21 09:55 10/01/21 12:10 10/01/21 14:00 10/01/21 18:00 10/01/21 20:08 10/02/21 01:00 10/02/21 06:50 Assessment/Plan Assessment/Plan See free text. Critical Care: Ventilator Management CARA REYNOSO MD Oct 02, 2021 07:55
[2021-10-02] MEDS ORDERED: TROUGH ORDER-PHARMACY XX NR ×2 (08:00→15:00)
[2021-10-02] MEDS: NOREPINEPHRINE 8 MG/250 ML 250 ML IV SCH ×2 (08:03→17:46)
[2021-10-02 08:41] LABS: PROTHROMBIN TIME PATIENT 13.8 SEC (12.2-14.7)
[2021-10-02] MEDS: MUPIROCIN 2% OINT 22 GM (BACTROBAN) TUBE NSEACH SCH ×2 (08:47→20:06)
[2021-10-02] MEDS: VANCOMYCIN 1500 MG/NS 500 ML IVPB IV SCH ×2 (09:06)
[2021-10-02] MEDS ORDERED: CATHETER FLUSH 10 ML SYR IV PRN (10:00)
--- NOTE | 2021-10-02 10:12 | Cardiology Progress Note ---
Progress Note-Cardiology Events since last exam Date Seen by Provider: Oct 02, 2021 Time Seen by Provider: 10:07 Events since last exam I am following her due to sudden cardiac . She remains intubated and s edated on hypothermia protocol. She has not had any significant arrhythmias or hypotension. She is receiving antibiotics for possible aspiration pneumonia. I spoke with her yesterday and discussed the possibility of cardiac catheterization tomorrow assuming that she has meaningful neurologic recovery. She started weaning from the hypothermia early this morning. The weaning process should be completed by early tomorrow morning. Certain portions of this document may have been dictated utilizing voice recognition technology. Inherent to this technology, typographical and grammatical errors may exist. As much as I am diligent to identify and correct these mistakes, some errors may remain in the document. Vitals Last set of Vitals Signs Vital Signs 10/02/21 10/02/21 10/02/21 10/02/21 09:00 09:10 09:34 10:00 Temp 34.7 Pulse 62 Resp 12 B/P (MAP) 135/57 Pulse Ox 96 O2 Delivery Mechanical Ventilator O2 Flow Rate 60.00 FiO2 60 Labs Labs Laboratory Tests 10/01/21 12:10 10/01/21 14:00 10/01/21 18:00 10/01/21 20:08 10/02/21 01:00 10/02/21 06:50 Exam Vital Signs Vital Signs Date Time Temp Pulse Resp B/P (MAP) Pulse Ox O2 Delivery O2 Flow Rate FiO2 10/02/21 10:00 34.7 10/02/21 09:34 62 135/57 10/02/21 09:10 60 10/02/21 09:00 12 96 Mechanical Ventilator 60.00 Physical Exam General: Intubated and sedated. Well nourished and appears stated age. She is morbidly obese. Eye: Conjunctivae are clear. There are no xanthelasma. HENT: Normocephalic. Atraumatic. Carotid pulsations 2/2 without bruits. Neck: Jugular venous pressure does not appear elevated. No thyromegaly appreciated. Respiratory: Symmetrical expansion bilaterally. Coarse breath sounds due to the ventilator. Cardiovascular: Normal rate. Regular rhythm. No murmur. No gallop. Point of maximal impulse is not appear displaced. Good pulses equal in all extremities. No edema. Gastrointestinal: Soft. Normal bowel sounds. Skin: Skin turgor is normal. There is no pallor. Musculoskeletal: No obvious deformities. Neurologic: Intubated and sedated. Psychiatric: Not obtainable due to clinical status. Labs Laboratory Tests Test 10/01/21 10:09 10/01/21 10:59 10/01/21 12:08 10/01/21 12:10 Range/Units Glucometer 156 H 139 H 160 H 70-110 MG/DL White Blood Count 13.3 H 4.3-11.0 10^3/uL Red Blood Count 5.04 3.80-5.11 10^6/uL Hemoglobin 14.0 11.5-16.0 g/dL Hematocrit 44 35-52 % Mean Corpuscular Volume 86 80-99 fL Mean Corpuscular Hemoglobin 28 25-34 pg Mean Corpuscular Hemoglobin Concent 32 32-36 g/dL Red Cell Distribution Width 13.5 10.0-14.5 % Platelet Count 175 130-400 10^3/uL Mean Platelet Volume 9.2 9.0-12.2 fL Immature Granulocyte % (Auto) 1 % Neutrophils (%) (Auto) 92 H 42-75 % Lymphocytes (%) (Auto) 4 L 12-44 % Monocytes (%) (Auto) 3 0-12 % Eosinophils (%) (Auto) 0 0-10 % Basophils (%) (Auto) 0 0-10 % Neutrophils # (Auto) 11.0 H 1.8-7.8 10^3/uL Lymphocytes # (Auto) 0.5 L 1.0-4.0 10^3/uL Monocytes # (Auto) 0.3 0.0-1.0 10^3/uL Eosinophils # (Auto) 0.0 0.0-0.3 10^3/uL Basophils # (Auto) 0.0 0.0-0.1 10^3/uL Immature Granulocyte # (Auto) 0.1 0.0-0.1 10^3/uL Prothrombin Time 13.9 12.2-14.7 SEC INR Comment 1.0 0.8-1.4 Fibrinogen 442 221-496 MG/DL Sodium Level 136 135-145 MMOL/L Potassium Level 3.5 L 3.6-5.0 MMOL/L Chloride Level 109 H 98-107 MMOL/L Carbon Dioxide Level 16 L 21-32 MMOL/L Anion Gap 11 5-14 MMOL/L Blood Urea Nitrogen 15 7-18 MG/DL Creatinine 1.00 0.60-1.30 MG/DL Estimat Glomerular Filtration Rate 66 BUN/Creatinine Ratio 15 Glucose Level 182 H 70-105 MG/DL Calcium Level 7.6 L 8.5-10.1 MG/DL Corrected Calcium 8.6 8.5-10.1 MG/DL Phosphorus Level 2.5 2.3-4.7 MG/DL Magnesium Level 4.6 H 1.6-2.4 MG/DL Total Bilirubin 1.3 H 0.1-1.0 MG/DL Aspartate Amino Transf (AST/SGOT) 465 H 5-34 U/L Alanine Aminotransferase (ALT/SGPT) 437 H 0-55 U/L Alkaline Phosphatase 135 40-136 U/L Troponin I 3.744 *H <0.028 NG/ML Total Protein 5.6 L 6.4-8.2 GM/DL Albumin 2.8 L 3.2-4.5 GM/DL Test 10/01/21 13:00 10/01/21 14:00 10/01/21 14:02 10/01/21 14:58 Range/Units Blood Gas Puncture Site L ART Blood Gas Patient Temperature 32.6 Arterial Blood pH 7.28 *L 7.37-7.43 Arterial Blood Partial Pressure CO2 38 35-45 MMHG Arterial Blood Partial Pressure O2 56 L 79-93 MMHG Arterial Blood HCO3 19 L 23-27 MMOL/L Arterial Blood Total CO2 20.2 L 21.0-31.0 MMOL/L Arterial Blood Oxygen Saturation 93 L 94-100 % Arterial Blood Base Excess -7.7 L -2.5-2.5 MMOL/L Baron Test ART LINE Blood Gas Ventilator Setting YES Blood Gas Inspired Oxygen 100% Glucometer 152 H 172 H 156 H 70-110 MG/DL Activated Partial Thromboplast Time 104 H 24-35 SEC Potassium Level 3.4 L 3.6-5.0 MMOL/L Test 10/01/21 15:58 10/01/21 17:01 10/01/21 18:00 10/01/21 18:03 Range/Units Glucometer 138 H 153 H 125 H 70-110 MG/DL White Blood Count 10.6 4.3-11.0 10^3/uL Red Blood Count 5.09 3.80-5.11 10^6/uL Hemoglobin 13.8 11.5-16.0 g/dL Hematocrit 44 35-52 % Mean Corpuscular Volume 86 80-99 fL Mean Corpuscular Hemoglobin 27 25-34 pg Mean Corpuscular Hemoglobin Concent 31 L 32-36 g/dL Red Cell Distribution Width 13.4 10.0-14.5 % Platelet Count 203 130-400 10^3/uL Mean Platelet Volume 10.2 9.0-12.2 fL Immature Granulocyte % (Auto) 0 % Neutrophils (%) (Auto) 93 H 42-75 % Lymphocytes (%) (Auto) 4 L 12-44 % Monocytes (%) (Auto) 2 0-12 % Eosinophils (%) (Auto) 0 0-10 % Basophils (%) (Auto) 0 0-10 % Neutrophils # (Auto) 9.8 H 1.8-7.8 10^3/uL Lymphocytes # (Auto) 0.5 L 1.0-4.0 10^3/uL Monocytes # (Auto) 0.2 0.0-1.0 10^3/uL Eosinophils # (Auto) 0.0 0.0-0.3 10^3/uL Basophils # (Auto) 0.0 0.0-0.1 10^3/uL Immature Granulocyte # (Auto) 0.0 0.0-0.1 10^3/uL Prothrombin Time 14.0 12.2-14.7 SEC INR Comment 1.0 0.8-1.4 Fibrinogen 459 221-496 MG/DL Sodium Level 138 135-145 MMOL/L Potassium Level 3.7 3.6-5.0 MMOL/L Chloride Level 114 H 98-107 MMOL/L Carbon Dioxide Level 14 L 21-32 MMOL/L Anion Gap 10 5-14 MMOL/L Blood Urea Nitrogen 13 7-18 MG/DL Creatinine 0.94 0.60-1.30 MG/DL Estimat Glomerular Filtration Rate 71 BUN/Creatinine Ratio 14 Glucose Level 148 H 70-105 MG/DL Calcium Level 8.0 L 8.5-10.1 MG/DL Corrected Calcium 9.0 8.5-10.1 MG/DL Phosphorus Level 2.6 2.3-4.7 MG/DL Magnesium Level 3.5 H 1.6-2.4 MG/DL Total Bilirubin 0.7 0.1-1.0 MG/DL Aspartate Amino Transf (AST/SGOT) 343 H 5-34 U/L Alanine Aminotransferase (ALT/SGPT) 447 H 0-55 U/L Alkaline Phosphatase 141 H 40-136 U/L Total Protein 5.8 L 6.4-8.2 GM/DL Albumin 2.8 L 3.2-4.5 GM/DL Test 10/01/21 18:50 10/01/21 18:57 10/01/21 20:06 10/01/21 20:08 Range/Units Blood Gas Puncture Site LEFT ARTLINE Blood Gas Patient Temperature 33.0 Arterial Blood pH 7.28 *L 7.37-7.43 Arterial Blood Partial Pressure CO2 36 35-45 MMHG Arterial Blood Partial Pressure O2 101 H 79-93 MMHG Arterial Blood HCO3 18 L 23-27 MMOL/L Arterial Blood Total CO2 18.9 L 21.0-31.0 MMOL/L Arterial Blood Oxygen Saturation 98 94-100 % Arterial Blood Base Excess -8.6 L -2.5-2.5 MMOL/L Baron Test ARTLINE Blood Gas Ventilator Setting YES Blood Gas Inspired Oxygen 100% Glucometer 131 H 136 H 70-110 MG/DL Activated Partial Thromboplast Time 107 H 24-35 SEC Potassium Level 3.4 L 3.6-5.0 MMOL/L Test 10/01/21 21:03 10/01/21 22:00 10/01/21 23:04 10/01/21 23:51 Range/Units Glucometer 132 H 134 H 143 H 137 H 70-110 MG/DL Test 10/02/21 01:00 10/02/21 01:05 10/02/21 01:56 10/02/21 02:30 Range/Units White Blood Count 11.2 H 4.3-11.0 10^3/uL Red Blood Count 4.78 3.80-5.11 10^6/uL Hemoglobin 13.1 11.5-16.0 g/dL Hematocrit 41 35-52 % Mean Corpuscular Volume 87 80-99 fL Mean Corpuscular Hemoglobin 27 25-34 pg Mean Corpuscular Hemoglobin Concent 32 32-36 g/dL Red Cell Distribution Width 13.6 10.0-14.5 % Platelet Count 184 130-400 10^3/uL Mean Platelet Volume 10.1 9.0-12.2 fL Immature Granulocyte % (Auto) 0 % Neutrophils (%) (Auto) 93 H 42-75 % Lymphocytes (%) (Auto) 5 L 12-44 % Monocytes (%) (Auto) 2 0-12 % Eosinophils (%) (Auto) 0 0-10 % Basophils (%) (Auto) 0 0-10 % Neutrophils # (Auto) 10.4 H 1.8-7.8 10^3/uL Lymphocytes # (Auto) 0.5 L 1.0-4.0 10^3/uL Monocytes # (Auto) 0.3 0.0-1.0 10^3/uL Eosinophils # (Auto) 0.0 0.0-0.3 10^3/uL Basophils # (Auto) 0.0 0.0-0.1 10^3/uL Immature Granulocyte # (Auto) 0.0 0.0-0.1 10^3/uL Prothrombin Time 14.0 14.2 12.2-14.7 SEC INR Comment 1.0 1.1 0.8-1.4 Fibrinogen 500 H 221-496 MG/DL Blood Gas Puncture Site LEFT RAD Blood Gas Patient Temperature 33.2 Arterial Blood pH 7.28 *L 7.37-7.43 Arterial Blood Partial Pressure CO2 35 35-45 MMHG Arterial Blood Partial Pressure O2 85 79-93 MMHG Arterial Blood HCO3 17 *L 23-27 MMOL/L Arterial Blood Total CO2 18.2 L 21.0-31.0 MMOL/L Arterial Blood Oxygen Saturation 97 94-100 % Arterial Blood Base Excess -9.2 L -2.5-2.5 MMOL/L Baron Test ARTLINE Blood Gas Ventilator Setting YES Blood Gas Inspired Oxygen 60% Sodium Level 139 135-145 MMOL/L Potassium Level 3.3 L 3.6-5.0 MMOL/L Chloride Level 113 H 98-107 MMOL/L Carbon Dioxide Level 13 L 21-32 MMOL/L Anion Gap 13 5-14 MMOL/L Blood Urea Nitrogen 11 7-18 MG/DL Creatinine 0.91 0.60-1.30 MG/DL Estimat Glomerular Filtration Rate 74 BUN/Creatinine Ratio 12 Glucose Level 162 H 70-105 MG/DL Calcium Level 8.1 L 8.5-10.1 MG/DL Corrected Calcium 9.1 8.5-10.1 MG/DL Phosphorus Level 3.0 2.3-4.7 MG/DL Magnesium Level 3.1 H 1.6-2.4 MG/DL Total Bilirubin 0.4 0.1-1.0 MG/DL Aspartate Amino Transf (AST/SGOT) 250 H 5-34 U/L Alanine Aminotransferase (ALT/SGPT) 394 H 0-55 U/L Alkaline Phosphatase 147 H 40-136 U/L Total Protein 5.2 L 6.4-8.2 GM/DL Albumin 2.7 L 3.2-4.5 GM/DL Glucometer 149 H 138 H 70-110 MG/DL Activated Partial Thromboplast Time 99 H 24-35 SEC Test 10/02/21 03:04 10/02/21 04:02 10/02/21 05:18 10/02/21 06:03 Range/Units Glucometer 154 H 149 H 159 H 137 H 70-110 MG/DL Test 10/02/21 06:50 10/02/21 07:06 10/02/21 08:02 10/02/21 08:10 Range/Units White Blood Count 12.2 H 4.3-11.0 10^3/uL Red Blood Count 4.53 3.80-5.11 10^6/uL Hemoglobin 12.4 11.5-16.0 g/dL Hematocrit 39 35-52 % Mean Corpuscular Volume 87 80-99 fL Mean Corpuscular Hemoglobin 27 25-34 pg Mean Corpuscular Hemoglobin Concent 32 32-36 g/dL Red Cell Distribution Width 13.7 10.0-14.5 % Platelet Count 190 130-400 10^3/uL Mean Platelet Volume 10.3 9.0-12.2 fL Immature Granulocyte % (Auto) 0 % Neutrophils (%) (Auto) 92 H 42-75 % Lymphocytes (%) (Auto) 5 L 12-44 % Monocytes (%) (Auto) 3 0-12 % Eosinophils (%) (Auto) 0 0-10 % Basophils (%) (Auto) 0 0-10 % Neutrophils # (Auto) 11.3 H 1.8-7.8 10^3/uL Lymphocytes # (Auto) 0.6 L 1.0-4.0 10^3/uL Monocytes # (Auto) 0.4 0.0-1.0 10^3/uL Eosinophils # (Auto) 0.0 0.0-0.3 10^3/uL Basophils # (Auto) 0.0 0.0-0.1 10^3/uL Immature Granulocyte # (Auto) 0.0 0.0-0.1 10^3/uL Activated Partial Thromboplast Time 74 H 66 H 24-35 SEC Blood Gas Puncture Site L RAD Blood Gas Patient Temperature 33.9 Arterial Blood pH 7.29 *L 7.37-7.43 Arterial Blood Partial Pressure CO2 36 35-45 MMHG Arterial Blood Partial Pressure O2 89 79-93 MMHG Arterial Blood HCO3 17 *L 23-27 MMOL/L Arterial Blood Total CO2 18.5 L 21.0-31.0 MMOL/L Arterial Blood Oxygen Saturation 97 94-100 % Arterial Blood Base Excess -8.8 L -2.5-2.5 MMOL/L Baron Test YES-POS Blood Gas Ventilator Setting YES Blood Gas Inspired Oxygen 60% Sodium Level 141 135-145 MMOL/L Potassium Level 3.1 L 3.6-5.0 MMOL/L Chloride Level 115 H 98-107 MMOL/L Carbon Dioxide Level 14 L 21-32 MMOL/L Anion Gap 12 5-14 MMOL/L Blood Urea Nitrogen 10 7-18 MG/DL Creatinine 0.86 0.60-1.30 MG/DL Estimat Glomerular Filtration Rate 79 BUN/Creatinine Ratio 12 Glucose Level 150 H 70-105 MG/DL Calcium Level 8.1 L 8.5-10.1 MG/DL Corrected Calcium 9.2 8.5-10.1 MG/DL Phosphorus Level 3.2 2.3-4.7 MG/DL Magnesium Level 2.8 H 1.6-2.4 MG/DL Total Bilirubin 0.3 0.1-1.0 MG/DL Aspartate Amino Transf (AST/SGOT) 199 H 5-34 U/L Alanine Aminotransferase (ALT/SGPT) 347 H 0-55 U/L Alkaline Phosphatase 128 40-136 U/L Total Protein 4.9 L 6.4-8.2 GM/DL Albumin 2.6 L 3.2-4.5 GM/DL Glucometer 133 H 132 H 70-110 MG/DL Prothrombin Time 13.8 12.2-14.7 SEC INR Comment 1.0 0.8-1.4 Fibrinogen 488 221-496 MG/DL Vancomycin Level Trough 25.6 *H 10.0-20.0 UG/ML Test 10/02/21 09:01 10/02/21 09:56 Range/Units Glucometer 126 H 108 70-110 MG/DL Diagnosis/Problems Diagnosis/Problems (1) Sudden cardiac Assessment & Plan: Based upon the events outlined above, I suspect the patient may have had a primary ventricular fibrillation event. She also has a strong family history of premature coronary artery disease and possibly sudden cardiac . She is presently weaning off hypothermia protocol. She has not had any significant recurrent arrhythmias. She has a normal ejection fraction on her echocardiogram. She will ultimately need a cardiac catheterization. However, since she has not had any further arrhythmias and she has a normal ejection fraction, I will plan to perform this procedure on Sunday. I would like to see how her neurologic status does once we wean her off hypothermia protocol. (2) Ventricular fibrillation Status: Acute Assessment & Plan: As above, I suspect she had a primary arrhythmia that led to sudden cardiac . She may need a defibrillator implantation for secondary prevention of sudden cardiac prior to discharge. (3) Non-ST elevation myocardial infarction (NSTEMI), initial care episode Status: Acute Assessment & Plan: Her echocardiogram shows a normal ejection fraction. I suspect she had a type II non-ST elevation myocardial infarction secondary to the ventricular fibrillation resulting in cardiac arrest that required CPR for at least 20 minutes. However, she will still need a coronary angiogram. I will continue her on aspirin and intravenous heparin which was started by the eICU. Her blood pressures have been reasonable despite being on hypothermia protocol. I will start her on low-dose carvedilol. (4) Primary hypertension Assessment & Plan: We will continue to monitor her blood pressures in the hospital. I would suggest we allow for some permissive hypertension while we await her weaning from the hypothermia protocol. (5) Family history of sudden cardiac Assessment & Plan: This is a concerning history and increases the chance that the patient had a primary arrhythmia leading to sudden cardiac . (6) Morbid obesity Assessment & Plan: She has already been working on getting bariatric surgery. JORGE CALIX JR, MD Oct 02, 2021 10:12
[2021-10-02 10:15] VITALS: BP 135/57
--- NOTE | 2021-10-02 11:12 | Diagnostic Imaging Report ---
INDICATION: Acute respiratory failure. COMPARISON is made with a prior study from 09/30/2021. FINDINGS: Positioning of the patient's endotracheal tube and enteric tube appear unchanged. A right internal jugular line is stable. Lung lungs remain diminished. There are diffuse pulmonary opacities present which are greater on the right. These are not significantly changed from the prior examination. IMPRESSION: 1. Low lung volumes with right greater than left alveolar consolidation. Features may be reflective of asymmetric edema or a multifocal pneumonia. 2. Life support apparatus appears unchanged. Dictated by: Dictated on workstation # [id number]
--- NOTE | 2021-10-02 12:24 | Progress Note - Hospitalist ---
Subjective HPI/CC On Admission Date Seen by Provider: Oct 02, 2021 Time Seen by Provider: 09:15 Sarah Larry is a 26 year old female with PMH super obesity, GERD, who presented after having a cardiac arrest at home. She is unable to provide any history and there is no family present. All information is obtained from the chart and d iscussion with the ER doctor and bedside RN. She was reportedly having heartburn recently and had been taking increasing amounts of antacids and PPIs. She was not feeling well yesterday and coworkers had recommended that she go to the hospital but she continued working. She was laying on the couch when her got home. He was in another room and heard gurgling sounds and returned to find her unresponsive. He moved her to the floor, called EMS, and began CPR. Upon EMS arrival she was found to be in VFib. She was given two shocks and ROSC was obtained. Upon my exam she is intubated and sedated and on hypothermia protocol. Subjective/Events-last exam She remains intubated and sedated. Her is at the bedside and all questions and conncerns were addressed. Focused Exam Lactate Level 09/30/21 19:35: Lactic Acid Level 4.27*H 09/30/21 21:34: Lactic Acid Level 1.69 10/01/21 01:20: Lactic Acid Level 1.78 Objective Exam Vital Signs Vital Signs Date Time Temp Pulse Resp B/P (MAP) Pulse Ox O2 Delivery O2 Flow Rate FiO2 10/02/21 12:15 35.3 10/02/21 11:00 71 15 96 Mechanical Ventilator 60.00 10/02/21 09:10 60 Capillary Refill : Less Than 3 Seconds General Appearance: No Apparent Distress, Obese, Other (intubated and sedated) Respiratory: Lungs Clear, Normal Breath Sounds, No Respiratory Distress, Other (intubated and mechanically ventilated) Cardiovascular: Regular Rate, Rhythm, No Edema, No Murmur Gastrointestinal: Normal Bowel Sounds, Soft Extremity: Normal Inspection, No Pedal Edema Neurologic/Psychiatric: Other (sedated) Skin: Normal Color, Warm/Dry Results/Procedures Lab Laboratory Tests 10/01/21 14:00 10/01/21 18:00 10/01/21 20:08 10/02/21 01:00 10/02/21 06:50 Patient resulted labs reviewed. Imaging: Reviewed Imaging Report Assessment/Plan Assessment and Plan Assess & Plan/Chief Complaint Cardiac arrest Ventricular fibrillation NSTEMI Acute respiratory failure with hypoxia and hypercapnia Aspiration pneumonia Likely obesity hypoventilation syndrome Likely obstructive sleep apnea Super obesity Ischemic hepatitis Troponin significantly elevated, now trending down Cardiology following Continue ASA Heparin gtt Planning for left heart cath tomorrow Hypothermia protocol, currently rewarming Planning to wean sedation this afternoon TeleICU following Imaging with bilateral infiltrates right worse than left, consistent with a spiration Sputum culture added MRSA nasal swab positive Continue Vancomycin and Zosyn Critical Care Critically Ill Patient Diagnosis/Problems Diagnosis/Problems (1) Cardiac arrest Status: Acute (2) Ventricular fibrillation Status: Acute (3) Non-ST elevation myocardial infarction (NSTEMI), initial care episode Status: Acute (4) Acute respiratory failure with hypoxia and hypercapnia Status: Acute (5) Endotracheally intubated Status: Acute (6) Aspiration pneumonia Status: Acute Qualifiers: Laterality: bilateral (7) Super obesity Status: Chronic (8) Obesity hypoventilation syndrome Status: Chronic (9) Obstructive sleep apnea Status: Chronic (10) Ischemic hepatitis Status: Acute CASPER LÓPEZ MD Oct 02, 2021 12:24
[2021-10-02 13:10] LABS: ABG BASE EXCESS -6.8 MMOL/L (-2.5-2.5); ABG OXYGEN SATURATION 93 % (94-100); ABG PCO2 42 MMHG (35-45); ABG PO2 60 MMHG (79-93); ABG TCO2 20.5 MMOL/L (21.0-31.0); BASOPHILS % (AUTO) 0 % (0-10); EOSINOPHILS % (AUTO) 0 % (0-10); HEMATOCRIT 39 % (35-52); HEMOGLOBIN 12.3 g/dL (11.5-16.0); LYMPHOCYTES # (AUTO) 0.6 10^3/uL (1.0-4.0); LYMPHOCYTES % (AUTO) 4 % (12-44); MEAN CORPUSCULAR HEMOGLOBIN 28 pg (25-34); MEAN CORPUSCULAR HGB CONC 32 g/dL (32-36); MEAN CORPUSCULAR VOLUME 87 fL (80-99); MEAN PLATELET VOLUME 10.6 fL (9.0-12.2); MONOCYTES # (AUTO) 0.7 10^3/uL (0.0-1.0); MONOCYTES % (AUTO) 5 % (0-12); NEUTROPHILS # (AUTO) 13.6 10^3/uL (1.8-7.8); NEUTROPHILS % (AUTO) 91 % (42-75); PLATELET COUNT 189 10^3/uL (130-400); WHITE BLOOD COUNT 14.9 10^3/uL (4.3-11.0)
[2021-10-02] MEDS ORDERED: D5 LR IV SOLUTION 1,000 ML IV ONE (13:14)
[2021-10-02] MEDS ORDERED: DEXTROSE 50% 50 ML (IMS) SYR ONE ×3 (13:14→22:13)
[2021-10-02 13:15] LABS: ABG PH 7.28 (7.37-7.43); ALLENS TEST ART LINE; INSPIRED O2 60%; PATIENT TEMP 35.4; VENTILATOR YES
[2021-10-02] MEDS ORDERED: D5 LR IV SOLUTION 1,000 ML IV SCH (13:15)
[2021-10-02] MEDS ORDERED: DEXTROSE 50% 50 ML (IMS) SYR IV NR (13:15)
[2021-10-02] MEDS ORDERED: DEXTROSE 50% 50 ML (IMS) SYR IV ONE (13:15)
[2021-10-02 13:19] LABS: ALBUMIN 2.7 GM/DL (3.2-4.5)
[2021-10-02 13:20] LABS: POTASSIUM 3.8 MMOL/L (3.6-5.0); PROTHROMBIN TIME PATIENT 13.6 SEC (12.2-14.7)
[2021-10-02 13:21] LABS: CALCIUM 8.1 MG/DL (8.5-10.1)
[2021-10-02] MEDS: D5 LR IV SOLUTION 1,000 ML IV SCH ×2 (13:21→20:04)
[2021-10-02 13:22] LABS: TOTAL PROTEIN 5.1 GM/DL (6.4-8.2)
[2021-10-02 13:24] LABS: BILIRUBIN,TOTAL 0.3 MG/DL (0.1-1.0)
[2021-10-02 13:26] LABS: CREATININE SERUM 0.89 MG/DL (0.60-1.30)
[2021-10-02 13:29] LABS: MAGNESIUM 2.6 MG/DL (1.6-2.4)
[2021-10-02 14:15] VITALS: BP 160/80
[2021-10-02] MEDS ORDERED: HEParin 1000 UNIT/ML (10ML VIAL) FOR BOLUS IV SCH (15:00)
[2021-10-02] MEDS ORDERED: HEParin 1000 UNIT/ML (10ML VIAL) FOR BOLUS IV PRN (15:15)
[2021-10-02] MEDS: VANCOMYCIN 1 GM/NS 250 ML IVPB IV SCH ×2 (16:46)
[2021-10-02] MEDS ORDERED: meTOprolol 5 MG/5 ML (LOPRESSOR) VIAL ONE (17:39)
[2021-10-02] MEDS ORDERED: meTOprolol 5 MG/5 ML (LOPRESSOR) VIAL IV ONE (17:45)
[2021-10-02 18:35] VITALS: BP 106/54
[2021-10-02] MEDS ORDERED: niCARdipine IV FOR DRIP 50 MG KIT ONE (20:27)
[2021-10-02] MEDS ORDERED: NS (IVPB) 250 ML ONE (20:27)
[2021-10-02] MEDS: niCARdipine IV 50 MG in NS (IVPB) 230 ML IV SCH (20:36)
[2021-10-02 21:23] VITALS: BP 106/54
[2021-10-02] MEDS ORDERED: FUROSEMIDE 40 MG/4 ML INJ (LASIX) IVP ONE (21:30)
[2021-10-02] MEDS ORDERED: D5 1/2 NS 1000 ML IV SOLUTION 1,000 ML IV SCH (21:30)
[2021-10-02] MEDS ORDERED: FUROSEMIDE 40 MG/4 ML INJ (LASIX) ONE (21:32)
[2021-10-02] MEDS ORDERED: D5W 1000 ML IV SOLUTION 0 ML ONE (21:33)
[2021-10-02] MEDS ORDERED: D5 1/2 NS 1000 ML IV SOLUTION 1,000 ML IV ONE (21:35)
--- NOTE | 2021-10-02 21:55 | Tele-ICU Progress Note ---
Progress Note Called by the nurse with worsening Oxygenation. Now requiring 100% O2 and peep 16. CXR with bilateral infiltrates, more on the Rt , ? fluid overload? CM. Pt is receiving IVF at 125 ml/hr and U/O good 125 ml in 3 hrs. SBP in 160s. Not much room to manipulate on MV. Lasix 40 mg , Decrease IVF and change to D5/ 0.45 NS due to low blood sugars and hyperchloremia and Na 140s. CXR stat ordered a well. Chart reviewed and Pt viewed on camera. D/W the bedside nurse. Also continue to monitor U/O. Interventions Minor-Other: worsening hypoxia Focused Exam Lactate Level 09/30/21 19:35: Lactic Acid Level 4.27*H 09/30/21 21:34: Lactic Acid Level 1.69 10/01/21 01:20: Lactic Acid Level 1.78 Height, Weight, BMI Height: 5'2.00" Weight: 263lbs. 0.0oz. [id number]; 49.85 BMI Method:Stated MARGI VICENTE MD Oct 02, 2021 21:55
--- NOTE | 2021-10-02 22:19 | Diagnostic Imaging Report ---
HISTORY: Fluid overload COMPARISON: 10/02/2021. TECHNIQUE: Frontal view of the chest. FINDINGS: The endotracheal tube is 3.2 cm above the ramsey. Right central line tip projects over the right atrium. The enteric tube is not well seen distally but appears to be at the stomach. Lung volumes are low. There are bilateral airspace opacities, right greater than left, which appear to be increased compared to the prior exam. No large effusion or pneumothorax is seen. The cardiac silhouette is stable in size. Multiple leads overlie the chest. IMPRESSION: Low lung volumes with increasing bilateral airspace opacities, right much more than left. Dictated by: Dictated on workstation # [id number]
[2021-10-03] MEDS: FAMOTIDINE 20MG/2ML IV (PEPCID) IVP SCH ×2 (00:10→12:30)
[2021-10-03] MEDS: VASOPRESSIN INJECTION 20 UNIT in NS (IVPB) 100 ML IV SCH ×3 (00:10→20:03)
[2021-10-03] MEDS ORDERED: DEXTROSE 50% 50 ML (IMS) SYR ONE ×4 (00:56→14:03)
[2021-10-03] MEDS ORDERED: DEXTROSE 50% 50 ML (IMS) SYR IV ONE ×2 (01:00→08:00)
[2021-10-03] MEDS: PIPERACILLIN/TAZOBACTAM (BULK) 4.5 GM in NS (IVPB) 100 ML IV SCH ×3 (01:50→17:00)
[2021-10-03] MEDS: RT-ALBUTEROL/IPRATROPIUM 3 ML (DUONEB) VIAL INH SCH ×6 (02:10→21:35)
[2021-10-03 02:11] VITALS: BP 147/65
[2021-10-03] MEDS: LACRI-LUBE OPTHALMIC OINT 3.5 GM TUBE OU SCH (02:35)
[2021-10-03] MEDS: NOREPINEPHRINE 8 MG/250 ML 250 ML IV SCH ×3 (02:38→20:03)
[2021-10-03] MEDS: inSUlin ASPART (NovoLOG) 1 UNIT/0.01 ML (CHARGE PER UNIT) SC SCH ×6 (02:39→23:46)
[2021-10-03] MEDS ORDERED: NS (IVPB) 250 ML ONE (02:45)
[2021-10-03] MEDS ORDERED: niCARdipine IV FOR DRIP 50 MG KIT ONE (02:45)
[2021-10-03] MEDS: niCARdipine IV 50 MG in NS (IVPB) 230 ML IV SCH ×2 (02:56→15:26)
[2021-10-03] MEDS ORDERED: HEParin 1000 UNIT/ML (10ML VIAL) FOR BOLUS IV SCH (03:00)
[2021-10-03] MEDS: PROPOFOL DRIP (ICU) 100 ML IV SCH ×8 (03:30→22:58)
[2021-10-03] MEDS ORDERED: fentaNYL DRIP PRE-MIX 250 ML IV ONE ×3 (03:52→20:56)
[2021-10-03] MEDS: fentaNYL INJ 1,250 MCG in NS (IVPB) 225 ML IV SCH ×3 (04:22→23:46)
[2021-10-03 04:23] LABS: ABG BASE EXCESS -4.8 MMOL/L (-2.5-2.5); ABG OXYGEN SATURATION 90 % (94-100); ABG PCO2 52 MMHG (35-45); ABG PO2 52 MMHG (79-93); ABG TCO2 24.4 MMOL/L (21.0-31.0)
[2021-10-03 04:25] LABS: ALLENS TEST ARTLINE; INSPIRED O2 100%; VENTILATOR YES
[2021-10-03 04:27] LABS: ABG PH 7.23 (7.37-7.43)
[2021-10-03 04:29] LABS: BASOPHILS % (AUTO) 0 % (0-10); EOSINOPHILS % (AUTO) 0 % (0-10); HEMATOCRIT 42 % (35-52); LYMPHOCYTES # (AUTO) 1.2 10^3/uL (1.0-4.0); LYMPHOCYTES % (AUTO) 6 % (12-44); MEAN CORPUSCULAR HEMOGLOBIN 28 pg (25-34); MEAN CORPUSCULAR HGB CONC 31 g/dL (32-36); MEAN CORPUSCULAR VOLUME 89 fL (80-99); MEAN PLATELET VOLUME 10.6 fL (9.0-12.2); MONOCYTES # (AUTO) 0.9 10^3/uL (0.0-1.0); MONOCYTES % (AUTO) 5 % (0-12); NEUTROPHILS % (AUTO) 88 % (42-75); PLATELET COUNT 230 10^3/uL (130-400); WHITE BLOOD COUNT 19.3 10^3/uL (4.3-11.0)
[2021-10-03] MEDS: VANCOMYCIN 1 GM/NS 250 ML IVPB IV SCH ×2 (04:41)
[2021-10-03 04:49] LABS: BILIRUBIN,TOTAL 0.4 MG/DL (0.1-1.0); CALCIUM 8.3 MG/DL (8.5-10.1); CREATININE SERUM 1.07 MG/DL (0.60-1.30); MAGNESIUM 1.8 MG/DL (1.6-2.4); PHOSPHORUS 5.3 MG/DL (2.3-4.7); POTASSIUM 4.1 MMOL/L (3.6-5.0); TOTAL PROTEIN 5.9 GM/DL (6.4-8.2)
[2021-10-03] MEDS: POTASSIUM CL 10MEQ/50ML IVPB 50 ML IV SCH (05:10)
[2021-10-03] MEDS: MAGNESIUM 1 GM/100 ML IVPB 100 ML IV SCH (05:11)
[2021-10-03] MEDS: KCL 20 MEQ TAB (K-DUR) PO SCH (05:11)
[2021-10-03] MEDS ORDERED: HEParin (CATH LAB) 2,000 ML IV ONE (06:40)
[2021-10-03] MEDS ORDERED: LIDOCAINE 1% INJ 20 ML 20 ML VIAL ONE (06:40)
[2021-10-03 06:47] LABS: ABG BASE EXCESS -5.2 MMOL/L (-2.5-2.5); ABG OXYGEN SATURATION 97 % (94-100); ABG PCO2 55 MMHG (35-45); ABG PO2 88 MMHG (79-93); ABG TCO2 23.5 MMOL/L (21.0-31.0)
[2021-10-03 06:51] LABS: ABG PH 7.21 (7.37-7.43); ALLENS TEST ART LINE
[2021-10-03 06:52] LABS: INSPIRED O2 100%; PATIENT TEMP 35.7; VENTILATOR YES
[2021-10-03] MEDS ORDERED: NS IV 1000 ML 1,000 ML IV ONE (07:00)
[2021-10-03 07:07] VITALS: BP 115/54
[2021-10-03] MEDS: ASPIRIN 81 MG CHEW (CHILDREN'S ASA) PO SCH (07:31)
[2021-10-03] MEDS: MUPIROCIN 2% OINT 22 GM (BACTROBAN) TUBE NSEACH SCH ×2 (07:31→20:03)
[2021-10-03] MEDS: PANTOPRAZOLE 40 MG (PROTONIX) VIAL IV SCH (07:31)
[2021-10-03] MEDS ORDERED: VERAPAMIL 5 MG/2 ML (CALAN) VIAL IV ONE (08:27)
[2021-10-03] MEDS ORDERED: HEParin 1000 UNIT/ML (10ML VIAL) FOR BOLUS ONE (08:27)
[2021-10-03] MEDS ORDERED: NITRO DRIP 25000 MCG/D5W 250 ML IV ONE (08:27)
[2021-10-03] MEDS ORDERED: fentaNYL INJ 100 MCG/2 ML AMP ONE (08:28)
[2021-10-03] MEDS ORDERED: MIDAZOLAM 5 MG/5 ML (VERSED) VIAL ONE (08:28)
--- NOTE | 2021-10-03 09:04 | Pre-Op Note & Conscious Sedat ---
Pre-Operative Progress Note H&P Reviewed The H&P was reviewed, patient examined and no changes noted. Date H&P Reviewed: Oct 03, 2021 Time H&P Reviewed: 09:03 Pre-Op Diagnosis: Sudden cardiac arrest and non-ST elevation myocardial infarction. Conscious Sedation Pre-Proced Time 09:03 ASA Score 3 For ASA 3 and 4: Consider anesthesia and medical clearance. Also, for patients with a history of failed moderate sedation consider anesthesia. Airway Lungs Heart ASA score ASA 1: a normal healthy patient ASA 2: a patient with a mild systemic disease (mid diabetes, controlled hypertension, obesity ASA 3: a patient with a severe systemic disease that limits activity (angina, COPD, prior Myocardial infarction) ASA 4: a patient with an incapacitating disease that is a constant threat to life (CHF, renal failure) ASA 5: a moribund patient not expected to survive 24 hrs. (ruptured aneurysm) ASA 6: a declared brain- patient whose organs are being harvested. For emergent operations, add the letter E after the classification Mallampati Classification Grade 4 Sedation Plan Analgesia, Amnesia, Plan communicated to team members, Discussed options with patient/fam, Discussed risks with patient/fam The patient is an appropriate candidate to undergo the planned procedure, sedation, and anesthesia. The patient immediately re-assessed prior to indication. The patient is intubated and sedated on intravenous propofol. JORGE CALIX JR, MD Oct 03, 2021 09:04
[2021-10-03] MEDS ORDERED: LABE300T2 PO (10:23)
[2021-10-03] MEDS ORDERED: FLUO20CA48 PO (10:23)
[2021-10-03] MEDS ORDERED: NIFE90TA57 PO (10:23)
[2021-10-03] MEDS ORDERED: ALPR0.254 PO (10:34)
[2021-10-03] MEDS ORDERED: TICAGRELOR 90 MG TABLET (BRILINTA) PO ONE (10:34)
[2021-10-03] MEDS ORDERED: CALC10009 PO (10:34)
[2021-10-03] MEDS ORDERED: FUROSEMIDE 40 MG/4 ML INJ (LASIX) IVP NR ×2 (11:15→16:45)
--- NOTE | 2021-10-03 11:15 | Tele-ICU Progress Note ---
Subjective Date Seen by a Provider: Oct 03, 2021 Time Seen by a Provider: 09:40 Sepsis Event Evaluation Height, Weight, BMI Height: 5'2.00" Weight: 263lbs. 0.0oz. [id number]; 49.85 BMI Method:Stated Focused Exam Lactate Level 09/30/21 19:35: Lactic Acid Level 4.27*H 09/30/21 21:34: Lactic Acid Level 1.69 10/01/21 01:20: Lactic Acid Level 1.78 Exam Exam Patient acknowledged, consented, and participated in this virtual visit which was conducted using real time audio/video Vital Signs Date Time Temp Pulse Resp B/P (MAP) Pulse Ox O2 Delivery O2 Flow Rate FiO2 10/03/21 08:00 35.3 79 17 99 Mechanical Ventilator 100.00 10/03/21 08:00 35.7 10/03/21 08:00 95 Mechanical Ventilator 100 10/03/21 07:51 78 115/54 10/03/21 07:51 78 115/54 10/03/21 07:07 78 18 99 100 10/03/21 07:00 79 10/03/21 07:00 35.7 10/03/21 07:00 35.4 81 18 98 Mechanical Ventilator 100.00 10/03/21 06:00 35.3 89 19 94 Mechanical Ventilator 100.00 10/03/21 06:00 35.7 10/03/21 05:00 36.0 10/03/21 05:00 35.5 93 36 89 Mechanical Ventilator 100.00 10/03/21 04:45 100 10/03/21 04:00 36.0 10/03/21 04:00 89 Mechanical Ventilator 100 10/03/21 04:00 35.6 92 21 89 Mechanical Ventilator 100.00 10/03/21 03:30 92 140/63 10/03/21 03:30 92 140/63 10/03/21 03:00 35.9 93 20 89 Mechanical Ventilator 100.00 10/03/21 03:00 36.1 10/03/21 02:11 95 17 89 100 10/03/21 02:00 36.2 10/03/21 02:00 35.9 94 17 89 Mechanical Ventilator 100.00 10/03/21 01:45 100 10/03/21 01:00 35.9 93 17 89 Mechanical Ventilator 100.00 11/22/21 01:00 36.2 10/03/21 01:00 93 10/03/21 00:00 91 Mechanical Ventilator 100 10/03/21 00:00 36.2 10/03/21 00:00 35.9 99 15 87 Mechanical Ventilator 100.00 10/02/21 23:50 94 147/63 10/02/21 23:49 94 147/63 10/02/21 23:00 36.2 10/02/21 23:00 35.9 96 19 90 Mechanical Ventilator 100.00 10/02/21 22:00 35.8 94 21 87 Mechanical Ventilator 100.00 10/02/21 21:55 36.0 10/02/21 21:45 100 10/02/21 21:23 90 21 90 80 10/02/21 21:00 36.1 10/02/21 21:00 35.8 90 20 92 Mechanical Ventilator 100.00 10/02/21 20:19 Mechanical Ventilator 100.00 10/02/21 20:00 36.2 10/02/21 20:00 35.9 94 20 91 Mechanical Ventilator 80.00 10/02/21 19:20 93 Mechanical Ventilator 10/02/21 19:16 93 169/58 10/02/21 19:16 93 169/58 10/02/21 19:00 89 10/02/21 19:00 36.4 92 16 93 Mechanical Ventilator 80.00 10/02/21 19:00 36.4 10/02/21 18:35 89 21 93 80 10/02/21 18:16 Mechanical Ventilator 80.00 10/02/21 18:13 36.1 84 17 96 Mechanical Ventilator 100.00 10/02/21 18:05 Mechanical Ventilator 100.00 10/02/21 18:00 36.4 10/02/21 17:46 60 10/02/21 17:29 36.0 96 21 93 Mechanical Ventilator 60.00 10/02/21 16:57 36.2 10/02/21 16:19 97 Mechanical Ventilator 60 10/02/21 16:19 36.2 10/02/21 16:00 36.0 98 19 97 Mechanical Ventilator 60.00 10/02/21 16:00 36.2 10/02/21 15:00 36.0 10/02/21 15:00 35.3 96 19 95 Mechanical Ventilator 60.00 10/02/21 14:45 35.9 10/02/21 14:40 91 135/57 10/02/21 14:40 91 135/57 10/02/21 14:30 35.9 10/02/21 14:15 35.8 10/02/21 14:15 70 16 96 60 10/02/21 14:00 35.3 91 18 93 Mechanical Ventilator 60.00 10/02/21 14:00 35.7 10/02/21 13:45 35.6 10/02/21 13:34 35.6 10/02/21 13:30 35.6 10/02/21 13:15 35.5 10/02/21 13:10 60 10/02/21 13:00 35.3 82 18 95 Mechanical Ventilator 60.00 10/02/21 13:00 83 10/02/21 13:00 35.4 10/02/21 12:45 35.4 10/02/21 12:30 35.4 10/02/21 12:15 35.3 10/02/21 12:00 35.2 10/02/21 12:00 35.1 73 18 94 Mechanical Ventilator 60.00 10/02/21 12:00 94 Mechanical Ventilator 60 10/02/21 11:45 35.1 10/02/21 11:30 35.1 10/02/21 11:15 35.0 I & O 10/03/21 07:00 Intake Total 6350 ml Output Total 2675 ml Balance 3675 ml Height & Weight Height: 5'2.00" Weight: 263lbs. 0.0oz. 119.327588kt; 49.85 BMI Method:Stated General Appearance: No Apparent Distress, Obese, Other (intubated and sedated) HEENT: Other (ET tube in place) Neck: Normal Inspection, Supple Respiratory: Lungs Clear, Normal Breath Sounds, No Respiratory Distress, Other (intubated and mechanically ventilated) Cardiovascular: Regular Rate, Rhythm, No Edema, No Murmur Capillary Refill: Less Than 3 Seconds Peripheral Pulses: 1+ Dorsalis Pedis (R), 1+ Left Dors-Pedis (L) (see free text) Extremity: Normal Inspection, No Pedal Edema Neurologic/Psychiatric: Other (sedated) Skin: Normal Color, Warm/Dry Results Lab Laboratory Tests 11/20/21 12:10 10/01/21 14:00 10/01/21 18:00 10/01/21 20:08 10/02/21 01:00 10/02/21 06:50 10/02/21 12:55 10/03/21 04:15 Assessment/Plan Assessment/Plan (Tele-ICU Physician , Progress Note ) Available chart/ vitals / labs / Images reviewed Video assessment done using teleICU camera, rest of exam as per RN Discussed with RN , EXAM PER RN Events overnight : Afebrile FiO2 - 100 I/O = pos 8l sice admission Drips: Pressors: , hemodynamically stable Sedation gtt: ( RASS ) VENT SETTINGS and ABG reviewed Not candidate for SBT today REVIEWED Cardiovascular Stability / Sedation Score / FI02/PEEP / ABG / CXR Consultants: darnell Hospital course: 09/30 - s/p OTH card arrest , TTM 10/01 - peep 12 . 60% 10/02 - AC 18-460 1005 +16 - changed to rr 26 - tv350 ( 7 cc/kg IBW) +16 100% A/P Acute resp failure ( PNA , posible developing ARDS , no PE on CT 09/30 - AC 18-460 1005 +16 - changed to rr 26 - tv350 ( 7 cc/kg IBW) +16 100% - gentle diuresis ( 8 L positive balance ) PNA - bilar R>>L , suspect aspiration = abx started 09/30 = vanc , zosyn - cx bleed neg 09/30 , neg flu and covid - ( + MRSA nasal swab - on bactroban V fib OTH arrest - ECHO EF 55% - s/p cath 10/03- went to lab now - results pending - as per cards Myoclonus after arrest - Keppra startd empiticlly 09/30 for possible sx - will cont today , consider stop when weaned off sedtion Hasimoto's. -Slight TSH elevation of 5.2 with nl T4 transaminitis: ischemic hepatitis secodnary to cardiac arrest - improving Reportedly " one functional kidney " - monitor closely with diuresis Hypoglycemia - on dextrose , will strt TF Nutrition - starting on TF Lines : RIGHT IJ 09/30 (Central Line Necessity Reviewed) [place]: OG: + Nutrition: Analgesia: Anxiety/ delirium VTE Prophylaxis: heparin gtt Stress Ulcer Prophylaxis: ppi and pepcid Glycemic Control: Plans in collaboration with bedside consultants and IM MDs. Discussed with RN to reach out if any questions or concerns A total of 35 minutes of critical care time was devoted to this patient today, required to treat and/or prevent further deterioration of critical care condition ( as above) . CHAO ROBISON MD Oct 03, 2021 11:14
[2021-10-03] MEDS: NS IV 1000 ML 1,000 ML IV SCH ×2 (11:37→19:57)
[2021-10-03 11:51] VITALS: BP 155/59
[2021-10-03] MEDS ORDERED: DEXTROSE 50% 50 ML (IMS) SYR IV NR ×4 (12:00→18:45)
--- NOTE | 2021-10-03 12:42 | Cardiac Cath Report ---
CARDIAC CATHETERIZATION DATE OF PROCEDURE: 10/03/2021 INDICATION: Non-ST elevation myocardial infarction and sudden cardiac . HISTORY: The patient is a 26 year old female with no previously known history of coronary artery disease. She does have a very strong family history of premature coronary artery disease with her mother having had a myocardial infarction in her mid 30s. The patient has a history of gastroesophageal reflux disease with severe, intermittent symptoms. She has been taking medication for this. On the day of admission, she was having another severe episode of heartburn but then collapsed at home. Her started CPR and called 911. Upon arrival of the fire squad, she was found to be in ventricular fibrillation and received 2 defibrillations. When EMS arrived a short while later, she was still in ventricular fibrillation and received another 1 or 2 defibrillations after which she regained spontaneous circulation. She was taken to the emergency room where she was intubated. She was subsequently placed on hypothermia protocol. Her electrocardiogram showed a possible recent anterior myocardial infarction but without ST elevation. Her troponin levels were elevated but somewhat flat. She underwent an echocardiogram that showed a normal ejection fraction without significant regional wall motion abnormalities. We allowed her to stabilize for the past 48 hours and she is now referred for further evaluation with a cardiac catheterization. She has not had any further ventricular arrhythmias since being admitted. PROCEDURES PERFORMED: 1. Left heart catheterization with hemodynamic measurements. 2. Diagnostic lime coronary angiography. 3. Drug-eluting stent placement to mid left anterior descending coronary artery PROCEDURE DESCRIPTION: After informed consent and in the fasting state, left heart catheterization was performed through the right radial artery utilizing a 6 Marshallese system by percutaneous approach. Standard 5 Marshallese Karin catheters were utilized for the diagnostic portion of the procedure. I was not able to interrogate the left coronary artery from the right radial artery due to a very short ascending aorta. I tried multiple diagnostic catheters and none of these would engage the left main coronary artery. Therefore, I accessed the right femoral artery with a micropuncture technique. I then upsized to a 6 Marshallese sheath. I was then able to interrogate the left coronary artery utilizing a JL4 and JL 3.5 diagnostic catheters. A 6 Marshallese CLS 3 guide catheter was utilized for the percutaneous intervention. All catheters were exchanged over a guidewire. Following the procedure, a vascular band was applied to the radial artery access site and the sheath was removed with good hemostasis. Following the intervention, a right femoral angiogram revealed the sheath to be entering above the bifurcation. A Mynx closure device was deployed. RESULTS: HEMODYNAMICS: The aortic pressure was 106/57 mmHg. The left ventricular pressure was 117/0 mmHg with a left ventricular end-diastolic pressure of 26 mmHg. There was no significant pressure gradient upon pullback across aortic valve. CORONARY ANGIOGRAPHY: Left main coronary artery: Short and free of significant disease. Left anterior descending coronary artery: There was a 70% stenosis in the mid segment that had the appearance of ruptured plaque but with DARRYL-3 flow. The r emainder of the vessel and branches were unremarkable. Left circumflex coronary artery: Free of significant disease. Ramus intermedius: There was a ramus intermedius branch which was free of significant disease. Right coronary artery: Dominant and free of significant disease. PERCUTANEOUS CORONARY INTERVENTION: Percutaneous coronary intervention was carried out on the left anterior descending coronary artery through a 6 Marshallese CLS 3 guide catheter. The lesion was successfully crossed with a KAYAK idewire. I subsequently performed coronary angioplasty with a 2 x 12 mm Mini- Trek balloon at a pressure of 8 thompson. I subsequently deployed a 2.5 x 15 mm drug- eluting Xience Skypoint stent at a pressure of 16 thompson. A follow-up angiogram appeared as though there may have been some spasm proximal to the proximal edge of the stent. Intracoronary nitroglycerin was administered. However, there is still seemed to be a defect proximal to the stent. As such, I deployed an additional 2.5 x 15 mm drug-eluting Xience Skypoint stent proximal to but overlapping the proximal edge of the previously placed stent at a pressure of 16 thompson. I then postdilated the overlapped segment with the stent balloon at a pressure of 16 thompson. Following stent placement, there was 0% residual stenosis with DARRYL-3 flow. IMPRESSION: 1. Elevated left ventricular end-diastolic pressure. 2. There was severe disease of the midportion of the left anterior descending coronary artery with evidence of a probable previous ruptured plaque. I suspect this was the ischemia related vessel for her non-ST elevation myocardial infarction and may have led to her ventricular fibrillation cardiac arrest prior to admission. 3. Status post drug-eluting stent placement to the midportion of the left anterior descending coronary artery with two 2.5 x 15 mm drug-eluting Skypoint stent with both stents overlapped with 0% residual stenosis and DARRYL-3 flow. 4. The patient is known to have normal left ventricular systolic function with an estimated ejection fraction of 55-60% by echocardiogram performed on 10/01/2021. Certain portions of this document may have been dictated utilizing voice recognition technology. Inherent to this technology, typographical and grammatical errors may exist. As much as I am diligent to identify and correct these mistakes, some errors may remain in the document. JORGE CALIX JR, MD Oct 03, 2021 12:42
[2021-10-03 13:07] LABS: ABG BASE EXCESS -3.4 MMOL/L (-2.5-2.5); ABG OXYGEN SATURATION 95 % (94-100); ABG PCO2 57 MMHG (35-45); ABG PO2 79 MMHG (79-93); ABG TCO2 25.1 MMOL/L (21.0-31.0)
[2021-10-03 13:17] LABS: ABG PH 7.23 (7.37-7.43); ALLENS TEST YES-POS; INSPIRED O2 100%; PATIENT TEMP 36.4; VENTILATOR YES
[2021-10-03] MEDS ORDERED: MEPERIDINE (DEMEROL) INJ 50 MG/ML IVP PRN (13:45)
--- NOTE | 2021-10-03 14:28 | Progress Note - Hospitalist ---
JORGE LANDIN 10/03/21 1428: Subjective HPI/CC On Admission Date Seen by Provider: Oct 03, 2021 Time Seen by Provider: 08:58 Sarah Larry is a 26 year old female with PMH super obesity, GERD, who presented after having a cardiac arrest at home. She is unable to provide any history and there is no family present. All information is obtained from the chart and discussion with the ER doctor and bedside RN. She was reportedly having heartburn recently and had been taking increasing amounts of antacids and PPIs. She was not feeling well yesterday and coworkers had recommended that she go to the hospital but she continued working. She was laying on the couch when her got home. He was in another room and heard gurgling sounds and returned to find her unresponsive. He moved her to the floor, called EMS, and began CPR. Upon EMS arrival she was found to be in VFib. She was given two shocks and ROSC was obtained. Upon my exam she is intubated and sedated and on hypothermia protocol. Subjective/Events-last exam Attempted to visit the pt, but was not present, nursing stated that pt was in cathlab undergoing intervention. Nursing also noted having difficulty warming pt, may use bear hugger. Focused Exam Lactate Level 09/30/21 19:35: Lactic Acid Level 4.27*H 09/30/21 21:34: Lactic Acid Level 1.69 10/01/21 01:20: Lactic Acid Level 1.78 Objective Exam Vital Signs Vital Signs Date Time Temp Pulse Resp B/P (MAP) Pulse Ox O2 Delivery O2 Flow Rate FiO2 10/03/21 13:58 36.6 10/03/21 13:35 100 10/03/21 13:08 92 155/59 10/03/21 12:00 100 Mechanical Ventilator 10/03/21 12:00 34 100.00 Capillary Refill : Less Than 3 Seconds Results/Procedures Lab Laboratory Tests 10/03/21 04:15 Patient resulted labs reviewed. Imaging: Reviewed Imaging Report Assessment/Plan Assessment and Plan Assess & Plan/Chief Complaint Cardiac arrest - Ventricular fibrillation - NSTEMI Acute respiratory failure with hypoxia and hypercapnia Aspiration pneumonia Likely obesity hypoventilation syndrome Likely obstructive sleep apnea Morbidly obese Ischemic hepatitis Plan: Intensive supportive care Abx for likely asp. PNA (MRSA pos) Cardiology following Critical Care: Critically Ill Patient TERESA PECK DO 10/04/21 0553: Subjective Subjective/Events-last exam Patient undergoing catheterization Stent placed where suspected coronary vessel obstruction causing non-ST elev ation [place] and thus sudden cardiac arrhythmia Hypoglycemia noted Liver shock due to fatty liverwill require close monitoring and D50 amps Super morbid obesity of 54 BMI poses a risk of poor outcome Objective Exam General Appearance: Chronically ill, Obese, Other (Sedated and intubated) Assessment/Plan Assessment and Plan Assess & Plan/Chief Complaint Assessment: Respiratory failure vent dependent Status post cardiac arrest due to ventricular fibrillation Non-ST elevation due to suspected ruptured plaque in coronary vessel on cardiac catheterization status post stent placement by Dr. Zhong Super morbid obesity BMI 54 Aspiration pneumonia presumed Obesity hypoventilation syndrome Liver shock Presumed fatty liver/GARDINER Plan: Appreciate Dr. Zhong Appreciate eICU management Supervisory-Addendum Brief Verification & Attestation Participated in pt care: history, MDM, physical Personally performed: exam, history, MDM, supervision of care Care discussed with: Medical Student Procedures: n/a Results interpretation: Verified all documentation Verification and Attestation of Medical Student E/M Service A medical student performed and documented this service in my presence. I reviewed and verified all information documented by the medical student and made modifications to such information, when appropriate. I personally performed the physical exam and medical decision making. Teresa Peck, Oct 04, 2021,05:53 JORGE LANDIN Oct 03, 2021 14:28 TERESA PECK DO Oct 04, 2021 05:53
[2021-10-03 14:47] VITALS: BP 136/65
[2021-10-03] MEDS ORDERED: TROUGH ORDER-PHARMACY XX NR (16:00)
[2021-10-03] MEDS ORDERED: ENOXAPARIN 40 MG/0.4 ML (LOVENOX) SYR SC SCH (16:45)
[2021-10-03] MEDS: ENOXAPARIN 60 MG/0.6 ML (LOVENOX) SYR SC SCH (17:00)
--- NOTE | 2021-10-03 18:05 | Cardiology Progress Note ---
Progress Note-Cardiology Events since last exam Date Seen by Provider: Oct 03, 2021 Time Seen by Provider: 15:00 Events since last exam I am following her after sudden cardiac . She remains intubated and sed ated. She underwent drug eluting stent placement to mid-LAD this morning. She completed the rewarming yesterday but eICU is concerned about extubating her at this point time due to worsening pulmonary status. Vitals Last set of Vitals Signs Vital Signs 10/03/21 10/03/21 10/03/21 10/03/21 10/03/21 15:00 15:18 16:02 17:20 17:34 Temp 36.7 Pulse 87 Resp 25 B/P (MAP) 136/65 Pulse Ox 100 O2 Delivery Mechanical Ventilator O2 Flow Rate 100.00 FiO2 100 Labs Labs Laboratory Tests 10/03/21 04:15 Exam Vital Signs Vital Signs Date Time Temp Pulse Resp B/P (MAP) Pulse Ox O2 Delivery O2 Flow Rate FiO2 10/03/21 17:34 87 136/65 10/03/21 17:20 100 10/03/21 16:02 36.7 10/03/21 15:18 100 Mechanical Ventilator 10/03/21 15:00 25 100.00 Physical Exam General: Intubated and sedated. Well nourished and appears stated age. She is morbidly obese. Eye: Conjunctivae are clear. There are no xanthelasma. HENT: Normocephalic. Atraumatic. Carotid pulsations 2/2 without bruits. Neck: Jugular venous pressure does not appear elevated. No thyromegaly appreciated. Respiratory: Symmetrical expansion bilaterally. Coarse breath sounds due to the ventilator. Cardiovascular: Normal rate. Regular rhythm. No murmur. No gallop. Point of maximal impulse is not appear displaced. Good pulses equal in all extremities. No edema. Gastrointestinal: Soft. Normal bowel sounds. Skin: Skin turgor is normal. There is no pallor. Musculoskeletal: No obvious deformities. Neurologic: Intubated and sedated. Psychiatric: Not obtainable due to clinical status. Labs Laboratory Tests Test 10/02/21 18:36 10/02/21 18:50 10/02/21 19:38 10/02/21 20:45 Range/Units Activated Partial Thromboplast Time > 200 *H 24-35 SEC Glucometer 129 H 111 H 83 70-110 MG/DL Test 10/02/21 21:15 10/02/21 22:11 10/02/21 22:56 10/02/21 23:44 Range/Units Glucometer 77 58 *L 91 87 70-110 MG/DL Test 10/03/21 00:54 10/03/21 01:42 10/03/21 02:15 10/03/21 02:33 Range/Units Glucometer 66 L 112 H 91 70-110 MG/DL Prothrombin Time 13.0 12.2-14.7 SEC INR Comment 1.0 0.8-1.4 Activated Partial Thromboplast Time 42 H 24-35 SEC Triglycerides Level 155 H <150 MG/DL Test 10/03/21 03:33 10/03/21 04:15 10/03/21 04:16 10/03/21 05:47 Range/Units Glucometer 74 101 107 70-110 MG/DL White Blood Count 19.3 H 4.3-11.0 10^3/uL Red Blood Count 4.70 3.80-5.11 10^6/uL Hemoglobin 13.0 11.5-16.0 g/dL Hematocrit 42 35-52 % Mean Corpuscular Volume 89 80-99 fL Mean Corpuscular Hemoglobin 28 25-34 pg Mean Corpuscular Hemoglobin Concent 31 L 32-36 g/dL Red Cell Distribution Width 14.6 H 10.0-14.5 % Platelet Count 230 130-400 10^3/uL Mean Platelet Volume 10.6 9.0-12.2 fL Immature Granulocyte % (Auto) 1 % Neutrophils (%) (Auto) 88 H 42-75 % Lymphocytes (%) (Auto) 6 L 12-44 % Monocytes (%) (Auto) 5 0-12 % Eosinophils (%) (Auto) 0 0-10 % Basophils (%) (Auto) 0 0-10 % Neutrophils # (Auto) 17.0 H 1.8-7.8 10^3/uL Lymphocytes # (Auto) 1.2 1.0-4.0 10^3/uL Monocytes # (Auto) 0.9 0.0-1.0 10^3/uL Eosinophils # (Auto) 0.0 0.0-0.3 10^3/uL Basophils # (Auto) 0.0 0.0-0.1 10^3/uL Immature Granulocyte # (Auto) 0.2 H 0.0-0.1 10^3/uL Blood Gas Puncture Site LEFT RAD Blood Gas Patient Temperature 33.0 Arterial Blood pH 7.23 *L 7.37-7.43 Arterial Blood Partial Pressure CO2 52 H 35-45 MMHG Arterial Blood Partial Pressure O2 52 L 79-93 MMHG Arterial Blood HCO3 23 23-27 MMOL/L Arterial Blood Total CO2 24.4 21.0-31.0 MMOL/L Arterial Blood Oxygen Saturation 90 L 94-100 % Arterial Blood Base Excess -4.8 L -2.5-2.5 MMOL/L Baron Test ARTLINE Blood Gas Ventilator Setting YES Blood Gas Inspired Oxygen 100% Sodium Level 142 135-145 MMOL/L Potassium Level 4.1 3.6-5.0 MMOL/L Chloride Level 112 H 98-107 MMOL/L Carbon Dioxide Level 16 L 21-32 MMOL/L Anion Gap 14 5-14 MMOL/L Blood Urea Nitrogen 9 7-18 MG/DL Creatinine 1.07 0.60-1.30 MG/DL Estimat Glomerular Filtration Rate 61 BUN/Creatinine Ratio 8 Glucose Level 104 70-105 MG/DL Calcium Level 8.3 L 8.5-10.1 MG/DL Corrected Calcium 9.1 8.5-10.1 MG/DL Phosphorus Level 5.3 H 2.3-4.7 MG/DL Magnesium Level 1.8 1.6-2.4 MG/DL Total Bilirubin 0.4 0.1-1.0 MG/DL Aspartate Amino Transf (AST/SGOT) 111 H 5-34 U/L Alanine Aminotransferase (ALT/SGPT) 307 H 0-55 U/L Alkaline Phosphatase 115 40-136 U/L Total Protein 5.9 L 6.4-8.2 GM/DL Albumin 3.0 L 3.2-4.5 GM/DL Triglycerides Level 108 <150 MG/DL Test 10/03/21 06:37 10/03/21 06:44 10/03/21 07:53 10/03/21 11:33 Range/Units Glucometer 111 H 76 77 70-110 MG/DL Blood Gas Puncture Site LT RAD ARTLINE Blood Gas Patient Temperature 35.7 Arterial Blood pH 7.21 *L 7.37-7.43 Arterial Blood Partial Pressure CO2 55 H 35-45 MMHG Arterial Blood Partial Pressure O2 88 79-93 MMHG Arterial Blood HCO3 22 L 23-27 MMOL/L Arterial Blood Total CO2 23.5 21.0-31.0 MMOL/L Arterial Blood Oxygen Saturation 97 94-100 % Arterial Blood Base Excess -5.2 L -2.5-2.5 MMOL/L Baron Test ART LINE Blood Gas Ventilator Setting YES Blood Gas Inspired Oxygen 100% Test 10/03/21 12:55 10/03/21 13:58 10/03/21 14:59 10/03/21 16:00 Range/Units Blood Gas Puncture Site LT ART Blood Gas Patient Temperature 36.4 Arterial Blood pH 7.23 *L 7.37-7.43 Arterial Blood Partial Pressure CO2 57 H 35-45 MMHG Arterial Blood Partial Pressure O2 79 79-93 MMHG Arterial Blood HCO3 23 23-27 MMOL/L Arterial Blood Total CO2 25.1 21.0-31.0 MMOL/L Arterial Blood Oxygen Saturation 95 94-100 % Arterial Blood Base Excess -3.4 L -2.5-2.5 MMOL/L Baron Test YES-POS Blood Gas Ventilator Setting YES Blood Gas Inspired Oxygen 100% Glucometer 85 62 L 99 72 70-110 MG/DL Test 10/03/21 16:38 10/03/21 17:31 Range/Units Glucometer 64 L 104 70-110 MG/DL Diagnosis/Problems Diagnosis/Problems (1) Sudden cardiac Assessment & Plan: Today she was found to have evidence of a ruptured plaque in the mid left anterior descending coronary artery that was treated with 2 drug- eluting stents. Her initial electrocardiograms from admission were consistent with a possible recent anterior myocardial infarction. In light of these findings, I would now question whether or not the patient may have had suffered a myocardial infarction at home due to plaque rupture in the left anterior descending coronary artery and then had spontaneous lysis but due to anterior ischemia developed ventricular fibrillation. Alternatively, she does also have borderline elevated QT level at times. I will discuss this with an bank operations officer in [place] to make a better risk assessment in regards to recurrent risk of sudden and best course of therapy prior to discharge. (2) Abnormal ECG Assessment & Plan: As above, her QTc has been intermittently elevated although following the coronary stent procedure, her QTc was normal. I will discuss this with an bank operations officer as outlined above. (3) Ventricular fibrillation Status: Acute Assessment & Plan: As outlined above, now it appears as though she may have had an acute ischemic event resulting in ventricular fibrillation. However, I am also concerned about the slight prolongation of the QT interval. We will proceed as above. (4) Non-ST elevation myocardial infarction (NSTEMI), initial care episode Status: Acute Assessment & Plan: Based on upon the findings of today's cardiac catheterization, she appears to have suffered a type I non-ST elevation myocardi al infarction as opposed to a type II non-ST elevation myocardial infarction. In actuality, this may have been a delayed presentation of an anterior ST elevation myocardial infarction but was spontaneous lysis of thrombus prior to her presentation. (5) Coronary artery disease with unstable angina pectoris Assessment & Plan: She will need dual antiplatelet therapy for a minimum of 1 years time. She was already on aspirin and beta-indy. I will hold off on starting statin medication until her transaminase levels normalize. She most likely had elevated transaminase levels due to her cardiac arrest and shock liver. Her transaminase levels continue to improve. (6) Primary hypertension Assessment & Plan: We will continue to monitor her blood pressures in the hospital. She actually became quite hypertensive yesterday and temporarily needed nicardipine infusion. She is now on moderate dose carvedilol. (7) Mixed hyperlipidemia Assessment & Plan: As above, once her transaminase levels improve, I will consider starting statin medication. (8) Family history of sudden cardiac Assessment & Plan: This is a concerning history and increases the chance that the patient had a primary arrhythmia leading to sudden cardiac . (9) Morbid obesity Assessment & Plan: She has already been working on getting bariatric surgery. JORGE CALIX JR, MD Oct 03, 2021 18:05
[2021-10-03] MEDS ORDERED: DEXTROSE 10% IV SOLUTION 1,000 ML IV ONE (18:44)
[2021-10-03] MEDS: DEXTROSE 10% IV SOLUTION 1,000 ML IV SCH (18:50)
[2021-10-03 19:11] VITALS: BP 106/54
[2021-10-03] MEDS: TICAGRELOR 90 MG TABLET (BRILINTA) PO SCH (20:03)
[2021-10-03 21:35] VITALS: BP 106/54
[2021-10-03 23:23] LABS: ABG BASE EXCESS -0.5 MMOL/L (-2.5-2.5); ABG OXYGEN SATURATION 99 % (94-100); ABG PCO2 45 MMHG (35-45); ABG PH 7.35 (7.37-7.43); ABG PO2 168 MMHG (79-93); ABG TCO2 25.6 MMOL/L (21.0-31.0)
[2021-10-03 23:25] LABS: ALLENS TEST ARTLINE; INSPIRED O2 60%; PATIENT TEMP 37.3; VENTILATOR YES
[2021-10-04] MEDS: FAMOTIDINE 20MG/2ML IV (PEPCID) IVP SCH ×2 (00:23→13:24)
[2021-10-04] MEDS: niCARdipine IV 50 MG in NS (IVPB) 230 ML IV SCH ×3 (01:37→22:30)
[2021-10-04] MEDS: PIPERACILLIN/TAZOBACTAM (BULK) 4.5 GM in NS (IVPB) 100 ML IV SCH ×3 (01:39→18:47)
[2021-10-04] MEDS: RT-ALBUTEROL/IPRATROPIUM 3 ML (DUONEB) VIAL INH SCH ×6 (01:49→22:02)
[2021-10-04 04:02] LABS: ABG BASE EXCESS 0.2 MMOL/L (-2.5-2.5); ABG OXYGEN SATURATION 93 % (94-100); ABG PCO2 46 MMHG (35-45); ABG PH 7.36 (7.37-7.43); ABG PO2 68 MMHG (79-93); ABG TCO2 26.3 MMOL/L (21.0-31.0)
[2021-10-04 04:04] LABS: ALLENS TEST ARTLINE
[2021-10-04 04:05] LABS: INSPIRED O2 50%; PATIENT TEMP 37.3; VENTILATOR YES
[2021-10-04] MEDS: NS IV 1000 ML 1,000 ML IV SCH ×2 (04:08→17:18)
[2021-10-04] MEDS: inSUlin ASPART (NovoLOG) 1 UNIT/0.01 ML (CHARGE PER UNIT) SC SCH ×5 (04:08→21:27)
[2021-10-04 04:14] LABS: BASOPHILS % (AUTO) 0 % (0-10); EOSINOPHILS # (AUTO) 0.1 10^3/uL (0.0-0.3); EOSINOPHILS % (AUTO) 1 % (0-10); HEMATOCRIT 33 % (35-52); HEMOGLOBIN 10.5 g/dL (11.5-16.0); LYMPHOCYTES # (AUTO) 0.9 10^3/uL (1.0-4.0); LYMPHOCYTES % (AUTO) 8 % (12-44); MEAN CORPUSCULAR HEMOGLOBIN 28 pg (25-34); MEAN CORPUSCULAR HGB CONC 31 g/dL (32-36); MEAN CORPUSCULAR VOLUME 88 fL (80-99); MEAN PLATELET VOLUME 10.5 fL (9.0-12.2); MONOCYTES # (AUTO) 0.6 10^3/uL (0.0-1.0); MONOCYTES % (AUTO) 5 % (0-12); NEUTROPHILS # (AUTO) 9.6 10^3/uL (1.8-7.8); NEUTROPHILS % (AUTO) 85 % (42-75); PLATELET COUNT 175 10^3/uL (130-400); WHITE BLOOD COUNT 11.3 10^3/uL (4.3-11.0)
[2021-10-04 04:20] LABS: ALBUMIN 2.6 GM/DL (3.2-4.5)
[2021-10-04 04:21] LABS: POTASSIUM 3.2 MMOL/L (3.6-5.0)
[2021-10-04 04:25] LABS: BILIRUBIN,TOTAL 0.5 MG/DL (0.1-1.0)
[2021-10-04 04:26] LABS: PHOSPHORUS 3.3 MG/DL (2.3-4.7)
[2021-10-04 04:27] LABS: CREATININE SERUM 1.1 MG/DL (0.60-1.30)
[2021-10-04 04:29] LABS: MAGNESIUM 1.7 MG/DL (1.6-2.4)
[2021-10-04] MEDS: MAGNESIUM 1 GM/100 ML IVPB 100 ML IV SCH ×3 (04:31→04:45)
[2021-10-04] MEDS: POTASSIUM CL 10MEQ/50ML IVPB 50 ML IV SCH ×5 (04:31→05:38)
[2021-10-04] MEDS: KCL 20 MEQ TAB (K-DUR) PO SCH (04:32)
[2021-10-04] MEDS: ENOXAPARIN 60 MG/0.6 ML (LOVENOX) SYR SC SCH ×2 (05:23→18:47)
[2021-10-04 06:47] VITALS: BP 106/54
[2021-10-04] MEDS: NOREPINEPHRINE 8 MG/250 ML 250 ML IV SCH ×2 (09:07→18:47)
--- NOTE | 2021-10-04 09:20 | Cardiology Progress Note ---
Progress Note-Cardiology Events since last exam Date Seen by Provider: Oct 04, 2021 Time Seen by Provider: 09:15 Events since last exam I am following her due to coronary artery disease and ventricular fibrillation. She remains in the intensive care unit intubated and sedated. Her parents are at the bedside. She has not had any significant ventricular arrhythmias since being in the hospital. I am not able to obtain any history from the patient due to her clinical status. Certain portions of this document may have been dictated utilizing voice recognition technology. Inherent to this technology, typographical and grammatical errors may exist. As much as I am diligent to identify and correct these mistakes, some errors may remain in the document. Vitals Last set of Vitals Signs Vital Signs 10/03/21 10/04/21 10/04/21 10/04/21 22:58 06:47 07:58 08:15 Temp 36.9 Pulse 100 Resp 26 B/P (MAP) 95/53 Pulse Ox 94 O2 Delivery Mechanical Ventilator O2 Flow Rate 50.00 FiO2 60 Labs Labs Laboratory Tests 10/04/21 03:53 Exam Vital Signs Vital Signs Date Time Temp Pulse Resp B/P (MAP) Pulse Ox O2 Delivery O2 Flow Rate FiO2 10/04/21 08:15 100 26 94 Mechanical Ventilator 50.00 10/04/21 07:58 36.9 10/04/21 06:47 60 Physical Exam General: Intubated and sedated. Well nourished and appears stated age. She is morbidly obese. Eye: Conjunctivae are clear. There are no xanthelasma. HENT: Normocephalic. Atraumatic. Carotid pulsations 2/2 without bruits. Neck: Jugular venous pressure does not appear elevated. No thyromegaly appreciated. Respiratory: Symmetrical expansion bilaterally. Coarse breath sounds due to the ventilator. Cardiovascular: Normal rate. Regular rhythm. No murmur. No gallop. Point of maximal impulse is not appear displaced. Good pulses equal in all extremities. No edema. Gastrointestinal: Soft. Normal bowel sounds. Skin: Skin turgor is normal. There is no pallor. Musculoskeletal: No obvious deformities. Neurologic: Intubated and sedated. Psychiatric: Not obtainable due to clinical status. Labs Laboratory Tests Test 10/03/21 11:33 10/03/21 12:55 10/03/21 13:58 10/03/21 14:59 Range/Units Glucometer 77 85 62 L 99 70-110 MG/DL Blood Gas Puncture Site LT ART Blood Gas Patient Temperature 36.4 Arterial Blood pH 7.23 *L 7.37-7.43 Arterial Blood Partial Pressure CO2 57 H 35-45 MMHG Arterial Blood Partial Pressure O2 79 79-93 MMHG Arterial Blood HCO3 23 23-27 MMOL/L Arterial Blood Total CO2 25.1 21.0-31.0 MMOL/L Arterial Blood Oxygen Saturation 95 94-100 % Arterial Blood Base Excess -3.4 L -2.5-2.5 MMOL/L Baron Test YES-POS Blood Gas Ventilator Setting YES Blood Gas Inspired Oxygen 100% Test 10/03/21 16:00 10/03/21 16:38 10/03/21 17:31 10/03/21 18:32 Range/Units Glucometer 72 64 L 104 62 L 70-110 MG/DL Test 10/03/21 19:43 10/03/21 20:52 10/03/21 21:48 10/03/21 22:59 Range/Units Glucometer 108 88 88 83 70-110 MG/DL Test 10/03/21 23:15 10/03/21 23:49 10/04/21 00:32 10/04/21 01:51 Range/Units Blood Gas Puncture Site LEFT RADIAL ARTLINE Blood Gas Patient Temperature 37.3 Arterial Blood pH 7.35 L 7.37-7.43 Arterial Blood Partial Pressure CO2 45 35-45 MMHG Arterial Blood Partial Pressure O2 168 H 79-93 MMHG Arterial Blood HCO3 24 23-27 MMOL/L Arterial Blood Total CO2 25.6 21.0-31.0 MMOL/L Arterial Blood Oxygen Saturation 99 94-100 % Arterial Blood Base Excess -0.5 -2.5-2.5 MMOL/L Baron Test ARTLINE Blood Gas Ventilator Setting YES Blood Gas Inspired Oxygen 60% Glucometer 86 82 84 70-110 MG/DL Test 10/04/21 02:54 10/04/21 03:53 10/04/21 03:56 10/04/21 04:55 Range/Units Glucometer 98 110 108 70-110 MG/DL White Blood Count 11.3 H 4.3-11.0 10^3/uL Red Blood Count 3.80 3.80-5.11 10^6/uL Hemoglobin 10.5 L 11.5-16.0 g/dL Hematocrit 33 L 35-52 % Mean Corpuscular Volume 88 80-99 fL Mean Corpuscular Hemoglobin 28 25-34 pg Mean Corpuscular Hemoglobin Concent 31 L 32-36 g/dL Red Cell Distribution Width 14.6 H 10.0-14.5 % Platelet Count 175 130-400 10^3/uL Mean Platelet Volume 10.5 9.0-12.2 fL Immature Granulocyte % (Auto) 1 % Neutrophils (%) (Auto) 85 H 42-75 % Lymphocytes (%) (Auto) 8 L 12-44 % Monocytes (%) (Auto) 5 0-12 % Eosinophils (%) (Auto) 1 0-10 % Basophils (%) (Auto) 0 0-10 % Neutrophils # (Auto) 9.6 H 1.8-7.8 10^3/uL Lymphocytes # (Auto) 0.9 L 1.0-4.0 10^3/uL Monocytes # (Auto) 0.6 0.0-1.0 10^3/uL Eosinophils # (Auto) 0.1 0.0-0.3 10^3/uL Basophils # (Auto) 0.0 0.0-0.1 10^3/uL Immature Granulocyte # (Auto) 0.1 0.0-0.1 10^3/uL Blood Gas Puncture Site LEFT RADIAL ARTLINE Blood Gas Patient Temperature 37.3 Arterial Blood pH 7.36 L 7.37-7.43 Arterial Blood Partial Pressure CO2 46 H 35-45 MMHG Arterial Blood Partial Pressure O2 68 L 79-93 MMHG Arterial Blood HCO3 25 23-27 MMOL/L Arterial Blood Total CO2 26.3 21.0-31.0 MMOL/L Arterial Blood Oxygen Saturation 93 L 94-100 % Arterial Blood Base Excess 0.2 -2.5-2.5 MMOL/L Baron Test ARTLINE Blood Gas Ventilator Setting YES Blood Gas Inspired Oxygen 50% Sodium Level 142 135-145 MMOL/L Potassium Level 3.2 L 3.6-5.0 MMOL/L Chloride Level 108 H 98-107 MMOL/L Carbon Dioxide Level 21 21-32 MMOL/L Anion Gap 13 5-14 MMOL/L Blood Urea Nitrogen 10 7-18 MG/DL Creatinine 1.10 0.60-1.30 MG/DL Estimat Glomerular Filtration Rate 59 BUN/Creatinine Ratio 9 Glucose Level 112 H 70-105 MG/DL Calcium Level 8.0 L 8.5-10.1 MG/DL Corrected Calcium 9.1 8.5-10.1 MG/DL Phosphorus Level 3.3 2.3-4.7 MG/DL Magnesium Level 1.7 1.6-2.4 MG/DL Total Bilirubin 0.5 0.1-1.0 MG/DL Aspartate Amino Transf (AST/SGOT) 63 H 5-34 U/L Alanine Aminotransferase (ALT/SGPT) 174 H 0-55 U/L Alkaline Phosphatase 94 40-136 U/L Total Protein 5.0 L 6.4-8.2 GM/DL Albumin 2.6 L 3.2-4.5 GM/DL Test 10/04/21 05:49 Range/Units Glucometer 133 H 70-110 MG/DL Diagnosis/Problems Diagnosis/Problems (1) Sudden cardiac Assessment & Plan: At the time of cardiac catheterization on 10/03 she was found to have evidence of a ruptured plaque in the mid left anterior descending coronary artery that was treated with 2 drug-eluting stents. Her initial electrocardiograms from admission were consistent with a possible recent anterior myocardial infarction. In light of these findings, I would now question whether or not the patient may have had suffered a myocardial infarction at home due to plaque rupture in the left anterior descending coronary artery and then had spontaneous lysis but due to anterior ischemia developed ventricular fibrillation. I did speak with an director of quantitative research in [place], [place] level suspect the QT prolongation seen during the initial portion of this hospitalization was related to ischemia from the left anterior descending coronary artery. The QT interval has returned to normal. She has a normal ejection fraction. In light of these findings, she does not need an implantable defibrillator or LifeVest. (2) Abnormal ECG Assessment & Plan: As above, her QTc has been intermittently elevated although following the coronary stent procedure, her QTc was normal. Her electrocardio gram from this morning shows a normal QT interval. (3) Coronary artery disease with unstable angina pectoris Assessment & Plan: As above, she was treated with 2 drug-eluting stents to the midportion of the left anterior descending coronary artery with an excellent angiographic result. The remainder of her coronary arteries are free of significant disease. She has a normal ejection fraction. She will need dual antiplatelet therapy for a minimum of 1 years time. She was already on aspirin and beta-indy. I will hold off on starting statin medication until her transaminase levels normalize. She most likely had elevated transaminase levels due to her cardiac arrest and shock liver. Her transaminase levels continue to improve. (4) Ventricular fibrillation Status: Acute Assessment & Plan: As outlined above, it appears as though she may have had an acute ischemic event resulting in ventricular fibrillation. As above, she does not require an implantable defibrillator or LifeVest prior to discharge since this was most likely an ischemic related arrhythmia. (5) Non-ST elevation myocardial infarction (NSTEMI), initial care episode Status: Acute Assessment & Plan: Based on upon the findings of today's cardiac catheterization, she appears to have suffered a type I non-ST elevation myocardial infarction as opposed to a type II non-ST elevation myocardial infarction. In actuality, this may have been a delayed presentation of an anterior ST elevation myocardial infarction but with spontaneous lysis of th rombus prior to her presentation. By the time she arrived at the hospital, there was no evidence of anterior ST elevation but rather, findings consistent with a possible recent anterior myocardial infarction. (6) Primary hypertension Assessment & Plan: We will continue to monitor her blood pressures in the hospital. I will continue carvedilol and titrate as needed to improved blood pressure control. (7) Mixed hyperlipidemia Assessment & Plan: As above, once her transaminase levels improve, I will start statin medication. (8) Family history of sudden cardiac Assessment & Plan: I spoke with the patient's mother this morning and the history sounds more consistent with premature coronary artery disease as opposed to a familial arrhythmia syndrome. (9) Morbid obesity Assessment & Plan: She has already been working on getting bariatric surgery. JORGE CALIX JR, MD Oct 04, 2021 09:20
--- NOTE | 2021-10-04 09:39 | Tele-ICU Progress Note ---
Subjective Date Seen by a Provider: Oct 04, 2021 Time Seen by a Provider: 09:39 Sepsis Event Evaluation Height, Weight, BMI Height: 5'2.00" Weight: 263lbs. 0.0oz. 119.294100yq; 49.85 BMI Method:Stated Exam Exam Patient acknowledged, consented, and participated in this virtual visit which was conducted using real time audio/video Vital Signs Date Time Temp Pulse Resp B/P (MAP) Pulse Ox O2 Delivery O2 Flow Rate FiO2 10/04/21 08:15 100 26 94 Mechanical Ventilator 50.00 10/04/21 08:00 100 95 Mechanical Ventilator 50.00 10/04/21 07:58 36.9 10/04/21 07:45 98 26 94 Mechanical Ventilator 50.00 10/04/21 07:30 97 25 97 Mechanical Ventilator 50.00 10/04/21 07:15 98 26 96 Mechanical Ventilator 50.00 10/04/21 07:00 98 26 96 Mechanical Ventilator 50.00 10/04/21 07:00 98 10/04/21 06:47 100 26 95 60 10/04/21 06:00 37.0 101 32 93 Mechanical Ventilator 50.00 10/04/21 05:45 60 10/04/21 05:00 37.2 104 31 93 Mechanical Ventilator 50.00 10/04/21 04:00 37.3 103 25 94 Mechanical Ventilator 50.00 10/04/21 03:47 Mechanical Ventilator 50.00 10/04/21 03:10 98 Mechanical Ventilator 60 10/04/21 03:00 37.4 99 97 Mechanical Ventilator 60.00 10/04/21 02:00 37.4 96 25 100 Mechanical Ventilator 60.00 10/04/21 01:49 98 26 98 60 10/04/21 01:45 60 10/04/21 01:01 91 10/04/21 01:00 37.2 91 26 100 Mechanical Ventilator 60.00 10/04/21 00:00 37.2 Mechanical Ventilator 60.00 10/04/21 00:00 37.2 93 26 100 Mechanical Ventilator 60.00 10/04/21 00:00 100 Mechanical Ventilator 60 10/03/21 23:45 94 26 100 60 10/03/21 23:00 37.2 89 25 100 Mechanical Ventilator 60.00 10/03/21 22:58 90 95/53 10/03/21 22:57 90 95/53 10/03/21 22:10 88 26 100 60 10/03/21 22:00 37.1 87 26 100 Mechanical Ventilator 60.00 10/03/21 21:45 60 10/03/21 21:45 Mechanical Ventilator 60.00 10/03/21 21:40 86 26 100 60 10/03/21 21:35 86 26 100 60 10/03/21 21:00 37.0 87 26 100 Mechanical Ventilator 70.00 10/03/21 20:13 Mechanical Ventilator 70.00 10/03/21 20:00 36.8 88 25 100 Mechanical Ventilator 80.00 10/03/21 20:00 36.8 10/03/21 19:45 100 Mechanical Ventilator 80 10/03/21 19:11 86 26 100 80 10/03/21 19:00 36.7 88 26 100 Mechanical Ventilator 80.00 10/03/21 19:00 86 10/03/21 18:00 36.3 85 26 100 Mechanical Ventilator 100.00 10/03/21 17:34 87 136/65 10/03/21 17:33 87 136/65 10/03/21 17:20 100 10/03/21 17:00 36.1 88 27 100 Mechanical Ventilator 100.00 10/03/21 16:02 36.7 10/03/21 16:00 36.4 86 26 100 Mechanical Ventilator 100.00 10/03/21 15:18 100 Mechanical Ventilator 100 10/03/21 15:00 36.6 10/03/21 15:00 36.4 87 25 100 Mechanical Ventilator 100.00 10/03/21 14:47 87 27 100 100 10/03/21 14:00 36.3 94 26 100 Mechanical Ventilator 100.00 10/03/21 13:58 36.6 10/03/21 13:35 100 10/03/21 13:08 92 155/59 10/03/21 13:07 92 155/59 10/03/21 13:00 36.4 93 8 100 Mechanical Ventilator 100.00 10/03/21 13:00 97 10/03/21 12:59 36.4 10/03/21 12:30 36.1 10/03/21 12:00 100 Mechanical Ventilator 100 10/03/21 12:00 35.5 92 34 92 Mechanical Ventilator 100.00 10/03/21 11:51 93 26 92 100 I & O 10/04/21 07:00 Intake Total 3943 ml Output Total 4365 ml Balance -422 ml Height & Weight Height: 5'2.00" Weight: 263lbs. 0.0oz. 119.196037dv; 49.85 BMI Method:Stated General Appearance: Chronically ill, Obese, Other (Sedated and intubated) HEENT: Other Neck: Normal Inspection, Supple Respiratory: Lungs Clear, Normal Breath Sounds, No Respiratory Distress, Other Cardiovascular: Regular Rate, Rhythm, No Edema, No Murmur Capillary Refill: Less Than 3 Seconds Peripheral Pulses: 1+ Dorsalis Pedis (R), 1+ Left Dors-Pedis (L) (see free text) Extremity: Normal Inspection, No Pedal Edema Neurologic/Psychiatric: Other Skin: Normal Color, Warm/Dry Results Lab Laboratory Tests 10/02/21 12:55 10/03/21 04:15 10/04/21 03:53 Assessment/Plan Assessment/Plan (Tele-ICU Physician , Progress Note ) Available chart/ vitals / labs / Images reviewed Video assessment done using teleICU camera, rest of exam as per RN Discussed with RN , EXAM PER RN Events overnight : Afebrile FiO2 - 100 I/O = pos 8l sice admission- 1300 neg last 24 h Drips: Pressors: , hemodynamically stable Sedation gtt: ( RASS ) VENT SETTINGS and ABG reviewed Not candidate for SBT today REVIEWED Cardiovascular Stability / Sedation Sco re / FI02/PEEP / ABG / CXR Consultants: darnell Hospital course: 09/30 - s/p OTH card arrest , TTM 10/01 - peep 12 . 60% 10/02 - AC 18-460 1005 +16 - changed to rr 26 - tv350 ( 7 cc/kg IBW) +16 100% 10/03- cath - LAD stent 1123 - AC 18-460 +8 45 % after diuresis . OFF SEDATION A/P Acute resp failure ( PNA , posible developing ARDS , no PE on CT 09/30 - AC 18-460 +8 45 % - responded to gentle diuresis ( 8 L positive balance ) - monitor closelu - OFF SEDATION SINCE 5 AM - WILL FOLLOW PNA - bilar R>>L , suspect aspiration = abx started 09/30 = vanc , zosyn - cx bleed neg 09/30 , neg flu and covid - ( + MRSA nasal swab - on bactroban V fib OTH arrest - cad - S/P STENT lad 10/03 - ECHO EF 55% - as per cards Myoclonus after arrest - Keppra startd empiticlly 09/30 for possible sx - will cont today -- OFF SEDATION SINCE 5 AM - WILL FOLLOW Hasimoto's. -Slight TSH elevation of 5.2 with nl T4 transaminitis: ischemic hepatitis secodnary to cardiac arrest - improving Reportedly " one functional kidney " - monitor closely with diuresis Hypoglycemia - OFF dextrose , cont TF Nutrition - starting on TF Lines : RIGHT IJ 09/30 (Central Line Necessity Reviewed) [place]: + OG: + Nutrition: TF pulmicare Analgesia: Anxiety/ delirium VTE Prophylaxis: lovenox 60 q 12 Stress Ulcer Prophylaxis: ppi and pepcid Plans in collaboration with bedside consultants and IM MDs. Discussed with RN to reach out if any questions or concerns A total of 35 minutes of critical care time was devoted to this patient today, required to treat and/or prevent further deterioration of critical care condition ( as above) . CHAO ROBISON MD Oct 04, 2021 09:39
[2021-10-04] MEDS: PANTOPRAZOLE 40 MG (PROTONIX) VIAL IV SCH (09:48)
[2021-10-04] MEDS: ASPIRIN 81 MG CHEW (CHILDREN'S ASA) PO SCH (09:48)
[2021-10-04] MEDS: TICAGRELOR 90 MG TABLET (BRILINTA) PO SCH ×2 (09:49→21:24)
[2021-10-04] MEDS: MUPIROCIN 2% OINT 22 GM (BACTROBAN) TUBE NSEACH SCH ×2 (09:50→21:26)
[2021-10-04 10:06] VITALS: BP 154/65
--- NOTE | 2021-10-04 10:12 | Diagnostic Imaging Report ---
INDICATION: Respiratory failure. Intubated patient. COMPARISON: 10/02/2021. FINDINGS: A single frontal radiographic view of the chest was obtained and demonstrates an indwelling endotracheal tube with the tip at the clavicular heads. The gastric tube extends inferiorly beyond the [id number]. A right internal jugular central venous catheter is also seen with the tip in the SVC. The lungs continue to show low inspiratory volumes. There has, however, been significant interval improved aeration of the right lung. Mild residual scattered patchy airspace opacities persist. There is no large effusion or pneumothorax. The cardiac silhouette appears borderline enlarged but may be exaggerated by the portable technique and low inspiratory volumes. IMPRESSION: 1. Lines and tubes as above. 2. Significant overall improved aeration of the right lung. Residual patchy airspace opacities persist. Continued followup is advised. Dictated by: Dictated on workstation # [id number]
[2021-10-04] MEDS: VASOPRESSIN INJECTION 20 UNIT in NS (IVPB) 100 ML IV SCH ×2 (11:19→21:27)
--- NOTE | 2021-10-04 12:55 | Progress Note - Hospitalist ---
KRISTENADITYAJORGE COX 10/04/21 1255: Subjective HPI/CC On Admission Date Seen by Provider: Oct 04, 2021 Time Seen by Provider: 08:41 Sarah Larry is a 26 year old female with PMH super obesity, GERD, who presented after having a cardiac arrest at home. She is unable to provide any history and there is no family present. All information is obtained from the chart and discussion with the ER doctor and bedside RN. She was reportedly having heartburn recently and had been taking increasing amounts of antacids and PPIs. She was not feeling well yesterday and coworkers had recommended that she go to the hospital but she continued working. She was laying on the couch when her got home. He was in another room and heard gurgling sounds and returned to find her unresponsive. He moved her to the floor, called EMS, and began CPR. Upon EMS arrival she was found to be in VFib. She was given two shocks and ROSC was obtained. Upon my exam she is intubated and sedated and on hypothermia protocol. Subjective/Events-last exam Pt still intubated and resting in bed. She is S/P ND with V-fib and 2x stent placement to LAD. Mother is at bedside and father is also in the room. Pt appears to be progressing in her recovery at this time. She is minimally responsive to commands and opening her eyes spontaneously. Mother notes that she has a history of long recover from sedation. Family instructed that working towards extubation is the next goal in her management. Her lung sounds are very poor, suggestive of aspiration, F/U CXR will be review when available. ROS and exam limited by clinical condition. Objective Exam Vital Signs Vital Signs Date Time Temp Pulse Resp B/P (MAP) Pulse Ox O2 Delivery O2 Flow Rate FiO2 10/04/21 11:34 94 Mechanical Ventilator 50 10/04/21 10:06 98 26 10/04/21 08:15 50.00 10/04/21 07:58 36.9 Capillary Refill : Less Than 3 Seconds General Appearance: No Apparent Distress, WD/WN, Obese HEENT: PERRL/EOMI Neck: Supple Respiratory: Crackles (diffusly in all lung castro), Expiration, Inspiration, Rales, Other (intubated, on vent) Cardiovascular: Regular Rate, Rhythm, No Gallop, No Murmur, Normal Peripheral Pulses Gastrointestinal: No Pulsatile Mass, Soft Rectal: Deferred Extremity: Normal Capillary Refill Neurologic/Psychiatric: Other (sedated/ post-sedation stupor) Skin: Normal Color, Warm/Dry Lymphatic: No Adenopathy (cervial and axillary) Results/Procedures Lab Laboratory Tests 10/04/21 03:53 Patient resulted labs reviewed. Imaging: Reviewed Imaging Report Assessment/Plan Assessment and Plan Assess & Plan/Chief Complaint Cardiac arrest - Ventricular fibrillation - NSTEMI Acute respiratory failure with hypoxia and hypercapnia Aspiration pneumonia Likely obesity hypoventilation syndrome Likely obstructive sleep apnea Morbidly obese Ischemic hepatitis Plan: Intensive supportive care Abx for likely asp. PNA (MRSA pos) Cardiology following 10/04/21 Intensive supportive care Abx for likely asp. PNA (MRSA pos) Cardiology following TERESA PECK DO 10/05/21 0539: Subjective Subjective/Events-last exam Patient still intubated Opens her eyes and tracks a bit Mother and father at the bedside Spoke with Dr. Zhong Monitoring closely for ARDS Checked meds and labs Objective Exam General Appearance: Obese, Other (Sedated intubated) Respiratory: Crackles (diffusly in all lung castro), Other (intubated, on vent) Cardiovascular: Regular Rate, Rhythm Assessment/Plan Assessment and Plan Assess & Plan/Chief Complaint Supportive care Vent management appreciated Appreciate Dr. Zhong Try to wean Prognosis guarded Supervisory-Addendum Brief Verification & Attestation Participated in pt care: history, MDM, physical Personally performed: exam, history, MDM, supervision of care Care discussed with: Medical Student Procedures: n/a Results interpretation: Verified all documentation Verification and Attestation of Medical Student E/M Service A medical student performed and documented this service in my presence. I reviewed and verified all information documented by the medical student and made modifications to such information, when appropriate. I personally performed the physical exam and medical decision making. Teresa Peck Oct 05, 2021,05:38 JORGE LANDIN Oct 04, 2021 12:55 TERESA PECK DO Oct 05, 2021 05:39
[2021-10-04 14:03] VITALS: BP 106/54
[2021-10-04] MEDS: DEXTROSE 10% IV SOLUTION 1,000 ML IV SCH (14:53)
[2021-10-04] MEDS ORDERED: niCARdipine IV FOR DRIP 50 MG KIT ONE (20:20)
[2021-10-04] MEDS ORDERED: NS (IVPB) 250 ML ONE (20:21)
[2021-10-04] MEDS: PROPOFOL DRIP (ICU) 100 ML IV SCH (22:34)
[2021-10-05] MEDS: inSUlin ASPART (NovoLOG) 1 UNIT/0.01 ML (CHARGE PER UNIT) SC SCH ×6 (00:13→19:56)
[2021-10-05] MEDS: FAMOTIDINE 20MG/2ML IV (PEPCID) IVP SCH ×2 (00:13→12:17)
[2021-10-05] MEDS: PIPERACILLIN/TAZOBACTAM (BULK) 4.5 GM in NS (IVPB) 100 ML IV SCH ×3 (01:49→17:33)
[2021-10-05] MEDS: niCARdipine IV 50 MG in NS (IVPB) 230 ML IV SCH ×2 (01:49→10:18)
[2021-10-05] MEDS ORDERED: NS (IVPB) 250 ML ONE ×2 (01:50→06:16)
[2021-10-05] MEDS ORDERED: niCARdipine IV FOR DRIP 50 MG KIT ONE ×2 (01:50→06:16)
[2021-10-05] MEDS: NS IV 1000 ML 1,000 ML IV SCH ×2 (02:22→12:55)
[2021-10-05] MEDS: RT-ALBUTEROL/IPRATROPIUM 3 ML (DUONEB) VIAL INH SCH ×6 (02:22→22:18)
[2021-10-05] MEDS: NOREPINEPHRINE 8 MG/250 ML 250 ML IV SCH ×2 (02:23→12:55)
[2021-10-05] MEDS: PROPOFOL DRIP (ICU) 100 ML IV SCH ×3 (03:19→17:36)
[2021-10-05 04:31] LABS: BASOPHILS % (AUTO) 0 % (0-10); EOSINOPHILS # (AUTO) 0.2 10^3/uL (0.0-0.3); EOSINOPHILS % (AUTO) 2 % (0-10); HEMATOCRIT 33 % (35-52); HEMOGLOBIN 10.7 g/dL (11.5-16.0); LYMPHOCYTES # (AUTO) 1.1 10^3/uL (1.0-4.0); LYMPHOCYTES % (AUTO) 10 % (12-44); MEAN CORPUSCULAR HEMOGLOBIN 27 pg (25-34); MEAN CORPUSCULAR HGB CONC 32 g/dL (32-36); MEAN CORPUSCULAR VOLUME 85 fL (80-99); MEAN PLATELET VOLUME 10.4 fL (9.0-12.2); MONOCYTES # (AUTO) 0.5 10^3/uL (0.0-1.0); MONOCYTES % (AUTO) 5 % (0-12); NEUTROPHILS # (AUTO) 8.9 10^3/uL (1.8-7.8); NEUTROPHILS % (AUTO) 82 % (42-75); PLATELET COUNT 200 10^3/uL (130-400); WHITE BLOOD COUNT 10.8 10^3/uL (4.3-11.0)
[2021-10-05 04:44] LABS: ALBUMIN 2.8 GM/DL (3.2-4.5)
[2021-10-05 04:45] LABS: CALCIUM 8.5 MG/DL (8.5-10.1)
[2021-10-05 04:47] LABS: TOTAL PROTEIN 5.6 GM/DL (6.4-8.2)
[2021-10-05 04:48] LABS: BILIRUBIN,TOTAL 0.7 MG/DL (0.1-1.0)
[2021-10-05 04:50] LABS: CREATININE SERUM 0.81 MG/DL (0.60-1.30); PHOSPHORUS 2.2 MG/DL (2.3-4.7)
[2021-10-05 04:53] LABS: MAGNESIUM 2.1 MG/DL (1.6-2.4)
[2021-10-05] MEDS ORDERED: POTASSIUM CL 10MEQ/50ML IVPB 50 ML IV ONE ×5 (05:00→09:00)
[2021-10-05] MEDS: POTASSIUM CL 10MEQ/50ML IVPB 50 ML IV SCH ×3 (05:06→13:31)
[2021-10-05] MEDS: KCL 20 MEQ TAB (K-DUR) PO SCH (05:07)
[2021-10-05] MEDS: MAGNESIUM 1 GM/100 ML IVPB 100 ML IV SCH (05:07)
[2021-10-05] MEDS: ENOXAPARIN 60 MG/0.6 ML (LOVENOX) SYR SC SCH ×2 (05:17→17:33)
[2021-10-05 07:09] VITALS: BP 149/61
[2021-10-05] MEDS: VASOPRESSIN INJECTION 20 UNIT in NS (IVPB) 100 ML IV SCH ×2 (07:46→20:18)
[2021-10-05 07:58] LABS: ABG BASE EXCESS 3.9 MMOL/L (-2.5-2.5); ABG OXYGEN SATURATION 92 % (94-100); ABG PCO2 41 MMHG (35-45); ABG PH 7.45 (7.37-7.43); ABG PO2 65 MMHG (79-93); ABG TCO2 28.9 MMOL/L (21.0-31.0)
[2021-10-05 08:00] LABS: ALLENS TEST ART LINE; INSPIRED O2 60%; PATIENT TEMP 37.3; VENTILATOR YES
--- NOTE | 2021-10-05 08:35 | Cardiology Progress Note ---
Progress Note-Cardiology Events since last exam Date Seen by Provider: Oct 05, 2021 Time Seen by Provider: 08:34 Events since last exam I am following her for coronary artery disease with NSTEMI/possible late pre sentation of anterior STEMI and [id number] cardiac arrest. She underwent drug-eluting stent placement to the left anterior descending coronary artery on 10/04 with 2 drug-eluting stents to the midportion of the left anterior descending coronary artery. The remainder of the vessels were free of significant disease. She has been off sedation for 24 hours. She is opening her eyes and moving all 4 extremities but not following commands or tracking with her eyes. I spoke to her nurse and and parents at the bedside. She will be going for a head CT later this morning. She became hypertensive again last evening and is back on nicardipine infusion. Certain portions of this document may have been dictated utilizing voice recognition technology. Inherent to this technology, typographical and grammatical errors may exist. As much as I am diligent to identify and correct these mistakes, some errors may remain in the document. Vitals Last set of Vitals Signs Vital Signs 10/05/21 10/05/21 10/05/21 10/05/21 10/05/21 06:00 06:41 07:09 08:06 08:10 Temp 36.8 Pulse 98 Resp 28 B/P (MAP) 147/80 Pulse Ox 91 O2 Delivery Mechanical Ventilator O2 Flow Rate 60.00 FiO2 60 Labs Labs Laboratory Tests 10/05/21 04:20 Exam Vital Signs Vital Signs Date Time Temp Pulse Resp B/P (MAP) Pulse Ox O2 Delivery O2 Flow Rate FiO2 10/05/21 08:10 Mechanical Ventilator 60.00 10/05/21 08:06 91 60 10/05/21 07:09 98 28 10/05/21 06:41 147/80 10/05/21 06:00 36.8 Physical Exam General: Intubated. Well nourished and appears stated age. She is morbidly obese. Eye: Conjunctivae are clear. There are no xanthelasma. HENT: Normocephalic. Atraumatic. Carotid pulsations 2/2 without bruits. Neck: Jugular venous pressure does not appear elevated. No thyromegaly appreciated. Respiratory: Symmetrical expansion bilaterally. Coarse breath sounds due to the ventilator. Cardiovascular: Normal rate. Regular rhythm. No murmur. No gallop. Point of maximal impulse is not appear displaced. Good pulses equal in all extremities. No edema. Gastrointestinal: Soft. Normal bowel sounds. Skin: Skin turgor is normal. There is no pallor. Musculoskeletal: No obvious deformities. Neurologic: Intubated. As above, she opens her eyes and moves all 4 extremities but is not following commands or making purposeful movements. She is not tracking with her eyes. Psychiatric: Not obtainable due to clinical status. Labs Laboratory Tests Test 10/04/21 08:52 10/04/21 11:27 10/04/21 15:40 10/04/21 21:22 Range/Units Glucometer 113 H 106 111 H 110 70-110 MG/DL Test 10/04/21 23:52 10/05/21 03:17 10/05/21 04:20 10/05/21 07:45 Range/Units Glucometer 107 108 110 70-110 MG/DL White Blood Count 10.8 4.3-11.0 10^3/uL Red Blood Count 3.91 3.80-5.11 10^6/uL Hemoglobin 10.7 L 11.5-16.0 g/dL Hematocrit 33 L 35-52 % Mean Corpuscular Volume 85 80-99 fL Mean Corpuscular Hemoglobin 27 25-34 pg Mean Corpuscular Hemoglobin Concent 32 32-36 g/dL Red Cell Distribution Width 13.8 10.0-14.5 % Platelet Count 200 130-400 10^3/uL Mean Platelet Volume 10.4 9.0-12.2 fL Immature Granulocyte % (Auto) 1 % Neutrophils (%) (Auto) 82 H 42-75 % Lymphocytes (%) (Auto) 10 L 12-44 % Monocytes (%) (Auto) 5 0-12 % Eosinophils (%) (Auto) 2 0-10 % Basophils (%) (Auto) 0 0-10 % Neutrophils # (Auto) 8.9 H 1.8-7.8 10^3/uL Lymphocytes # (Auto) 1.1 1.0-4.0 10^3/uL Monocytes # (Auto) 0.5 0.0-1.0 10^3/uL Eosinophils # (Auto) 0.2 0.0-0.3 10^3/uL Basophils # (Auto) 0.0 0.0-0.1 10^3/uL Immature Granulocyte # (Auto) 0.1 0.0-0.1 10^3/uL Sodium Level 141 135-145 MMOL/L Potassium Level 3.0 L 3.6-5.0 MMOL/L Chloride Level 105 98-107 MMOL/L Carbon Dioxide Level 25 21-32 MMOL/L Anion Gap 11 5-14 MMOL/L Blood Urea Nitrogen 13 7-18 MG/DL Creatinine 0.81 0.60-1.30 MG/DL Estimat Glomerular Filtration Rate 84 BUN/Creatinine Ratio 16 Glucose Level 109 H 70-105 MG/DL Calcium Level 8.5 8.5-10.1 MG/DL Corrected Calcium 9.5 8.5-10.1 MG/DL Phosphorus Level 2.2 L 2.3-4.7 MG/DL Magnesium Level 2.1 1.6-2.4 MG/DL Total Bilirubin 0.7 0.1-1.0 MG/DL Aspartate Amino Transf (AST/SGOT) 45 H 5-34 U/L Alanine Aminotransferase (ALT/SGPT) 123 H 0-55 U/L Alkaline Phosphatase 103 40-136 U/L Total Protein 5.6 L 6.4-8.2 GM/DL Albumin 2.8 L 3.2-4.5 GM/DL Triglycerides Level 91 <150 MG/DL Test 10/05/21 07:50 Range/Units Blood Gas Puncture Site L ART Blood Gas Patient Temperature 37.3 Arterial Blood pH 7.45 H 7.37-7.43 Arterial Blood Partial Pressure CO2 41 35-45 MMHG Arterial Blood Partial Pressure O2 65 L 79-93 MMHG Arterial Blood HCO3 28 H 23-27 MMOL/L Arterial Blood Total CO2 28.9 21.0-31.0 MMOL/L Arterial Blood Oxygen Saturation 92 L 94-100 % Arterial Blood Base Excess 3.9 H -2.5-2.5 MMOL/L Baron Test ART LINE Blood Gas Ventilator Setting YES Blood Gas Inspired Oxygen 60% Diagnosis/Problems Diagnosis/Problems (1) Coronary artery disease with unstable angina pectoris Assessment & Plan: As above, she was treated with 2 drug-eluting stents to the midportion of the left anterior descending coronary artery with an excellent angiographic result. The remainder of her coronary arteries are free of significant disease. She has a normal ejection fraction. She will need dual antiplatelet therapy for a minimum of 1 years time. I will hold off on starting statin medication until her transaminase levels normalize. She most likely had elevated transaminase levels due to her cardiac arrest and shock liver. Her transaminase levels continue to improve. (2) Encephalopathy acute Assessment & Plan: Etiology unclear. She will be having a head CT for further evaluation. Her states that every time she has anesthesia, she does take a long time to fully wake up. She may just be a slow metabolizer. (3) Primary hypertension Assessment & Plan: Blood pressures continue to be elevated at times. Her carvedilol dose has been increased and decreased due to fluctuating blood pressures. She is now on carvedilol 12.5 mg twice daily. I will start her on low-dose lisinopril. We will attempt to wean off the nicardipine. I would be cautious with aggressively titrating up the oral medication or she may develop iatrogenic hypotension. (4) Sudden cardiac Assessment & Plan: At the time of cardiac catheterization on 10/03 she was found to have evidence of a ruptured plaque in the mid left anterior descending coronary artery that was treated with 2 drug-eluting stents. Her initial electrocardiograms from admission were consistent with a possible recent anterior myocardial infarction. In light of these findings, I would now question whether or not the patient may have had suffered a myocardial infarction at home due to plaque rupture in the left anterior descending coronary artery and then had spontaneous lysis but due to anterior ischemia developed ventricular fibrillation. I did speak with an generator repairer in [place], [place]. He suspects that the QT prolongation seen during the initial portion of this hospitalization was related to ischemia from the left anterior descending coronary artery. The QT interval has returned to normal. She has a normal ejection fraction. In light of these findings, she does not need an implantable defibrillator or LifeVest. (5) Ventricular fibrillation Status: Acute Assessment & Plan: As outlined above, it appears as though she may have had an acute ischemic event resulting in ventricular fibrillation. As above, she does not require an implantable defibrillator or LifeVest prior to discharge since this was most likely an ischemic related arrhythmia. (6) Non-ST elevation myocardial infarction (NSTEMI), initial care episode Status: Acute Assessment & Plan: Based on upon the findings of her cardiac catheterization, she appears to have suffered a type I non-ST elevation myocardial infarction as opposed to a type II non-ST elevation myocardial infarction. In actuality, this may have been a delayed presentation of an anterior ST elevation myocardial infarction but with spontaneous lysis of thrombus prior to her presentation. By the time she arrived at the hospital, there was no evidence of anterior ST elevation but rather, findings consistent with a possible recent anterior myocardial infarction. (7) Mixed hyperlipidemia Assessment & Plan: As above, once her transaminase levels improve, I will start statin medication. (8) Morbid obesity Assessment & Plan: She has already been working on getting bariatric surgery. (9) Family history of sudden cardiac Assessment & Plan: I spoke with the patient's mother and the history sounds more consistent with premature coronary artery disease as opposed to a familial arrhythmia syndrome. As above, there is no definitive indication for defibrillator implantation or LifeVest. JORGE CALIX JR, MD Oct 05, 2021 08:35
[2021-10-05] MEDS: ASPIRIN 81 MG CHEW (CHILDREN'S ASA) PO SCH (08:57)
[2021-10-05] MEDS: TICAGRELOR 90 MG TABLET (BRILINTA) PO SCH ×2 (08:58→20:12)
[2021-10-05] MEDS: MUPIROCIN 2% OINT 22 GM (BACTROBAN) TUBE NSEACH SCH ×2 (08:58→20:16)
[2021-10-05] MEDS: PANTOPRAZOLE 40 MG (PROTONIX) VIAL IV SCH (08:58)
[2021-10-05] MEDS ORDERED: lisINopril 10 MG (PRINIVIL) TABLET PO SCH (09:00)
--- NOTE | 2021-10-05 09:42 | Diagnostic Imaging Report ---
PROCEDURE: CT head without contrast. TECHNIQUE: Multiple contiguous axial images were obtained through the brain without the use of intravenous contrast. Auto Exposure Controls were utilized during the CT exam to meet ALARA standards for radiation dose reduction. INDICATION: Unresponsive ICU patient. Elevated white count. Comparison with previous CT head 09/30/2021. FINDINGS: The maxillary sinuses show mucosal thickening more severe on the left measuring upwards of 8 mm. The ethmoid sinuses are completely opacified anteriorly with scattered fluid throughout. Mucosal edema and fluid extends into the left frontal sinus. There are no air-fluid levels. Nasal septum is deviated to the left. There is diffuse edema of the posterior nasal passageway. There are no destructive bony lesions or fractures. Impression: 1. The findings consistent with pansinusitis. 2. Mucosal edema of the posterior nasal passageway causing some obstruction. Dictated by: Dictated on workstation # [id number]
[2021-10-05] MEDS: DEXTROSE 10% IV SOLUTION 1,000 ML IV SCH (10:16)
--- NOTE | 2021-10-05 10:24 | Tele-ICU Progress Note ---
Subjective Date Seen by a Provider: Oct 05, 2021 Time Seen by a Provider: 09:35 Sepsis Event Evaluation Height, Weight, BMI Height: 5'2.00" Weight: 263lbs. 0.0oz. 119.017845kn; 49.85 BMI Method:Stated Exam Exam Patient acknowledged, consented, and participated in this virtual visit which was conducted using real time audio/video Vital Signs Date Time Temp Pulse Resp B/P (MAP) Pulse Ox O2 Delivery O2 Flow Rate FiO2 10/05/21 09:46 60 10/05/21 08:10 Mechanical Ventilator 60.00 10/05/21 08:06 91 Mechanical Ventilator 60 10/05/21 07:09 98 28 91 60 10/05/21 07:00 100 10/05/21 06:41 147/80 10/05/21 06:00 36.8 103 29 152/72 92 Mechanical Ventilator 50.00 10/05/21 05:53 50 10/05/21 05:00 37.2 96 29 145/68 92 Mechanical Ventilator 50.00 10/05/21 04:00 94 Mechanical Ventilator 50 10/05/21 04:00 37.3 98 26 140/67 92 Mechanical Ventilator 50.00 10/05/21 03:00 37.2 99 30 151/67 91 Mechanical Ventilator 50.00 10/05/21 02:22 98 27 92 60 10/05/21 02:21 98 165/69 10/05/21 02:00 37.3 99 29 143/73 92 Mechanical Ventilator 50.00 10/05/21 01:45 50 10/05/21 01:00 101 10/05/21 01:00 37.4 101 30 130/65 90 Mechanical Ventilator 50.00 10/05/21 00:00 37.2 107 26 92 Mechanical Ventilator 50.00 10/04/21 23:59 94 Mechanical Ventilator 50 10/04/21 23:00 37.3 98 29 92 Mechanical Ventilator 50.00 10/04/21 22:03 98 28 92 60 10/04/21 22:00 37.3 101 28 93 Mechanical Ventilator 50.00 10/04/21 21:45 50 10/04/21 21:00 37.3 105 28 94 Mechanical Ventilator 50.00 10/04/21 20:28 105 156/68 10/04/21 20:00 37.3 107 26 92 Mechanical Ventilator 50.00 10/04/21 20:00 94 Mechanical Ventilator 50 10/04/21 20:00 37.3 10/04/21 19:00 37.2 105 26 92 Mechanical Ventilator 50.00 10/04/21 19:00 105 10/04/21 18:45 106 26 92 Mechanical Ventilator 50.00 10/04/21 18:32 102 26 93 60 10/04/21 18:30 102 26 93 Mechanical Ventilator 50.00 10/04/21 18:15 102 26 92 Mechanical Ventilator 50.00 10/04/21 18:00 105 27 92 Mechanical Ventilator 50.00 10/04/21 17:45 50 10/04/21 17:30 105 26 93 Mechanical Ventilator 50.00 10/04/21 17:15 106 25 92 Mechanical Ventilator 50.00 10/04/21 17:00 105 26 93 Mechanical Ventilator 50.00 10/04/21 16:45 105 26 93 Mechanical Ventilator 50.00 10/04/21 16:30 104 26 95 Mechanical Ventilator 50.00 10/04/21 16:15 105 25 94 Mechanical Ventilator 50.00 10/04/21 16:00 94 Mechanical Ventilator 50 10/04/21 16:00 37.1 10/04/21 16:00 105 26 93 Mechanical Ventilator 50.00 10/04/21 15:45 104 25 92 Mechanical Ventilator 50.00 10/04/21 15:30 104 27 91 Mechanical Ventilator 50.00 10/04/21 15:15 105 25 91 Mechanical Ventilator 50.00 10/04/21 15:00 105 26 91 Mechanical Ventilator 50.00 10/04/21 14:03 98 26 92 60 10/04/21 13:47 98 25 92 Mechanical Ventilator 50.00 10/04/21 13:45 50 10/04/21 13:32 97 25 92 Mechanical Ventilator 50.00 10/04/21 13:17 94 25 91 Mechanical Ventilator 50.00 10/04/21 13:02 96 26 90 Mechanical Ventilator 50.00 10/04/21 13:00 97 10/04/21 12:47 101 54 95 Mechanical Ventilator 50.00 10/04/21 12:32 96 25 94 Mechanical Ventilator 50.00 10/04/21 12:17 96 25 95 Mechanical Ventilator 50.00 10/04/21 12:02 96 25 94 Mechanical Ventilator 50.00 10/04/21 11:34 94 Mechanical Ventilator 50 10/04/21 11:32 98 26 94 Mechanical Ventilator 50.00 10/04/21 11:17 96 25 94 Mechanical Ventilator 50.00 10/04/21 11:02 97 26 95 Mechanical Ventilator 50.00 10/04/21 10:47 99 26 94 Mechanical Ventilator 50.00 10/04/21 10:32 97 26 94 Mechanical Ventilator 50.00 I & O 10/05/21 07:00 Intake Total 1940 ml Output Total 2400 ml Balance -460 ml Height & Weight Height: 5'2.00" Weight: 263lbs. 0.0oz. 119.822041yf; 49.85 BMI Method:Stated General Appearance: Obese, Other (Sedated intubated) HEENT: PERRL/EOMI Neck: Supple Respiratory: Crackles (diffusly in all lung castro), Other (intubated, on vent) Cardiovascular: Regular Rate, Rhythm Capillary Refill: Less Than 3 Seconds Peripheral Pulses: 1+ Dorsalis Pedis (R), 1+ Left Dors-Pedis (L) (see free text) Extremity: Normal Capillary Refill Neurologic/Psychiatric: Other (sedated/ post-sedation stupor) Skin: Normal Color, Warm/Dry Lymphatic: No Adenopathy (cervial and axillary) Results Lab Laboratory Tests 10/04/21 03:53 10/05/21 04:20 Assessment/Plan Assessment/Plan (Tele-ICU Physician , Progress Note ) Available chart/ vitals / labs / Images reviewed Video assessment done using teleICU camera, rest of exam as per RN Discussed with RN , EXAM PER RN Events overnight : Afebrile FiO2 - 60% I/O = pos 8l sice admission- 1300 neg 10/04- even last 24 h Drips: Pressors: , hemodynamically stable Sedation gtt: ( RASS ) VENT SETTINGS and ABG reviewed Not candidate for SBT today REVIEWED Cardiovascular Stability / Sedation Score / FI02/PEEP / ABG / CXR Consultants: darnell Hospital course: 09/30 - s/p OTH card arrest , TTM 10/01 - peep 12 . 60% 10/02 - AC 18-460 1005 +16 - changed to rr 26 - tv350 ( 7 cc/kg IBW) +16 100% 10/03- cath - LAD stent 1123 - AC 18-460 +8 45 % after diuresis . OFF SEDATION 10/05 - still minimal responce , fio2 60 % A/P Acute resp failure ( PNA , posible developing ARDS , no PE on CT 09/30 - AC 18-460 +8 60% - responded to gentle diuresis ( 8 L positive balance ) - monitor closely , cont diuresis - OFF SEDATION SINCE 5 AM -10/04 , minimal respoce 24 h latter , no onvious Sz activite - WILL REPEAT CT HEAD - might need EEG PNA - bilar R>>L , suspect aspiration = abx started 09/30 = vanc , zosyn - cx bleed neg 09/30 , neg flu and covid - ( + MRSA nasal swab - on bactroban V fib OTH arrest - CAD - S/P STENT LAD 10/03 - ECHO EF 55% - as per cards HTN - started on nocardipine gtt 10/04 - as per cards Myoclonus after arrest - Keppra startd empiticlly 09/30 for possible sx -- OFF SEDATION WILL FOLLOW [facility]. -Slight TSH elevation of 5.2 with nl T4 transaminitis: ischemic hepatitis secodnary to cardiac arrest - improving Reportedly " one functional kidney " - monitor closely with diuresis Hypoglycemia - OFF dextrose , cont TF Nutrition - starting on TF Lines : RIGHT IJ 09/30 (Central Line Necessity Reviewed) [place]: + OG: + Nutrition: TF pulmicare Analgesia: Anxiety/ delirium VTE Prophylaxis: lovenox 60 q 12 Stress Ulcer Prophylaxis: ppi and pepcid Plans in collaboration with bedside consultants and IM MDs. Discussed with RN to reach out if any questions or concerns A total of 35 minutes of critical care time was devoted to this patient today, required to treat and/or prevent further deterioration of critical care condition ( as above) . CHAO ROBISON MD Oct 05, 2021 10:24
[2021-10-05] MEDS: FUROSEMIDE 40 MG/4 ML INJ (LASIX) IVP SCH ×2 (10:40→22:56)
[2021-10-05 10:42] VITALS: BP 158/73
[2021-10-05] MEDS ORDERED: APAP 325 MG/10.15 ML LIQ (TYLENOL) UDC NG ONE (10:45)
[2021-10-05 11:42] LABS: POTASSIUM 3.2 MMOL/L (3.6-5.0)
[2021-10-05 11:43] LABS: CALCIUM 8.5 MG/DL (8.5-10.1)
[2021-10-05 11:48] LABS: CREATININE SERUM 0.8 MG/DL (0.60-1.30)
--- NOTE | 2021-10-05 12:52 | Progress Note - Hospitalist ---
MUSHTAQJORGE 10/05/21 1252: Subjective HPI/CC On Admission Date Seen by Provider: Oct 05, 2021 Time Seen by Provider: 08:57 Sarah Larry is a 26 year old female with PMH super obesity, GERD, who presented after having a cardiac arrest at home. She is unable to provide any history and there is no family present. All information is obtained from the chart and discussion with the ER doctor and bedside RN. She was reportedly having heartburn recently and had been taking increasing amounts of antacids and PPIs. She was not feeling well yesterday and coworkers had recommended that she go to the hospital but she continued working. She was laying on the couch when her got home. He was in another room and heard gurgling sounds and returned to find her unresponsive. He moved her to the floor, called EMS, and began CPR. Upon EMS arrival she was found to be in VFib. She was given two shocks and ROSC was obtained. Upon my exam she is intubated and sedated and on hypothermia protocol. Subjective/Events-last exam Today the pt remains intubated and same responsiveness as yesterday - slight opening of eyes upon stimulation. ROS and exam limited by clinical condition. She has been off of sedation for >24hrs. She does not display purposeful movements at this time. A CT is planned for this AM. CXR indicates significant overall improved aeration of the right lung with scattered opacities. Family in the room and concerned. Objective Exam Vital Signs Vital Signs Date Time Temp Pulse Resp B/P (MAP) Pulse Ox O2 Delivery O2 Flow Rate FiO2 10/05/21 12:33 92 Mechanical Ventilator 70 10/05/21 11:28 70.00 10/05/21 11:00 37.1 101 34 Capillary Refill : Less Than 3 Seconds General Appearance: No Apparent Distress, WD/WN, Obese HEENT: Other (pupils are largely dialated however PERRL) Neck: Supple Respiratory: Wheezing ( - breath sounds greatly improved over yesterday) Cardiovascular: No Gallop, No Murmur, Tachycardia Gastrointestinal: No Organomegaly, No Pulsatile Mass, Soft Extremity: Normal Capillary Refill Skin: Normal Color, Warm/Dry Lymphatic: No Adenopathy (cervical and axillary) Results/Procedures Lab Laboratory Tests 10/05/21 04:20 10/05/21 11:15 Patient resulted labs reviewed. Imaging: Reviewed Imaging Report Assessment/Plan Assessment and Plan Assess & Plan/Chief Complaint Cardiac arrest - Ventricular fibrillation - NSTEMI S/P Cardiac Stent Acute respiratory failure with hypoxia and hypercapnia Aspiration pneumonia Likely obesity hypoventilation syndrome Likely obstructive sleep apnea Morbidly obese Ischemic hepatitis Plan: Intensive supportive care Abx for likely asp. PNA (MRSA pos) Cardiology following 10/04/21 Intensive supportive care Abx for likely asp. PNA (MRSA pos) Cardiology following 10/05/21 CT head Intensive supportive care - working towards awake and return of spontaneous breathing. Abx for likely asp. PNA (MRSA pos) Cardiology following TERESA PECK DO 10/06/21 0614: Subjective Subjective/Events-last exam CT scan of brain ordered Neurologically it is uncertain if she suffered anoxic brain injury Check meds and labs Updated mother at bedside. Objective Exam General Appearance: Chronically ill, Obese, Other (Intubated) Respiratory: Lungs Clear, Normal Breath Sounds Cardiovascular: Regular Rate, Rhythm Assessment/Plan Assessment and Plan Assess & Plan/Chief Complaint CT brain Maintain neurology anoxic brain injury suspected ICU care Prognosis poor Supervisory-Addendum Brief Verification & Attestation Participated in pt care: history, MDM, physical Personally performed: exam, history, MDM, supervision of care Care discussed with: Medical Student Procedures: n/a Results interpretation: Verified all documentation Verification and Attestation of Medical Student E/M Service A medical student performed and documented this service in my presence. I reviewed and verified all information documented by the medical student and made modifications to such information, when appropriate. I personally performed the physical exam and medical decision making. Teresa Peck Oct 06, 2021,06:13 JORGE LANDIN Oct 05, 2021 12:52 TERESA PECK DO Oct 06, 2021 06:14
[2021-10-05] MEDS ORDERED: hydrALAZINE (APESOLINE) 20 MG/ML VIAL IV PRN (13:15)
[2021-10-05 14:38] VITALS: BP 157/71
[2021-10-05] MEDS ORDERED: LABETALOL HCL 20 MG/4 ML VIAL IV PRN (18:30)
[2021-10-06] MEDS: FAMOTIDINE 20MG/2ML IV (PEPCID) IVP SCH (00:32)
[2021-10-06] MEDS: PROPOFOL DRIP (ICU) 100 ML IV SCH (00:33)
[2021-10-06] MEDS: NS IV 1000 ML 1,000 ML IV SCH (00:33)
[2021-10-06] MEDS: inSUlin ASPART (NovoLOG) 1 UNIT/0.01 ML (CHARGE PER UNIT) SC SCH ×2 (00:33→03:59)
[2021-10-06] MEDS: NOREPINEPHRINE 8 MG/250 ML 250 ML IV SCH (00:40)
[2021-10-06] MEDS: PIPERACILLIN/TAZOBACTAM (BULK) 4.5 GM in NS (IVPB) 100 ML IV SCH (01:33)
[2021-10-06] MEDS: RT-ALBUTEROL/IPRATROPIUM 3 ML (DUONEB) VIAL INH SCH (02:30)
[2021-10-06 04:00] LABS: ABG BASE EXCESS 6.4 MMOL/L (-2.5-2.5); ABG OXYGEN SATURATION 95 % (94-100); ABG PCO2 38 MMHG (35-45); ABG PO2 80 MMHG (79-93); ABG TCO2 30.9 MMOL/L (21.0-31.0); ALLENS TEST POSITIVE; INSPIRED O2 65%; PATIENT TEMP 37.3; VENTILATOR YES
[2021-10-06 04:01] LABS: BASOPHILS % (AUTO) 0 % (0-10); EOSINOPHILS # (AUTO) 0.2 10^3/uL (0.0-0.3); EOSINOPHILS % (AUTO) 2 % (0-10); HEMATOCRIT 34 % (35-52); HEMOGLOBIN 11.2 g/dL (11.5-16.0); LYMPHOCYTES # (AUTO) 1.3 10^3/uL (1.0-4.0); LYMPHOCYTES % (AUTO) 13 % (12-44); MEAN CORPUSCULAR HEMOGLOBIN 27 pg (25-34); MEAN CORPUSCULAR HGB CONC 33 g/dL (32-36); MEAN CORPUSCULAR VOLUME 83 fL (80-99); MEAN PLATELET VOLUME 10.2 fL (9.0-12.2); MONOCYTES # (AUTO) 0.8 10^3/uL (0.0-1.0); MONOCYTES % (AUTO) 8 % (0-12); NEUTROPHILS # (AUTO) 7.4 10^3/uL (1.8-7.8); NEUTROPHILS % (AUTO) 74 % (42-75); PLATELET COUNT 217 10^3/uL (130-400); WHITE BLOOD COUNT 9.9 10^3/uL (4.3-11.0)
[2021-10-06 04:12] LABS: ALBUMIN 2.8 GM/DL (3.2-4.5); POTASSIUM 3.3 MMOL/L (3.6-5.0)
[2021-10-06 04:13] LABS: CALCIUM 8.9 MG/DL (8.5-10.1)
[2021-10-06 04:16] LABS: BILIRUBIN,TOTAL 0.7 MG/DL (0.1-1.0)
[2021-10-06 04:18] LABS: CREATININE SERUM 0.81 MG/DL (0.60-1.30); PHOSPHORUS 3.2 MG/DL (2.3-4.7)
[2021-10-06 04:21] LABS: MAGNESIUM 1.9 MG/DL (1.6-2.4)
== END 2021-10-06 06:35 | DRG 246 ==
LOC: EDUNIT# 19:12 → ER 19:18 → ICU 20:50
PROVIDERS: ADMIT Internal Medicine; ATTEND Internal Medicine
PROC: 027034Z Dilation of Coronary Artery, One Artery with Drug-eluting Intraluminal Device, Percutaneous Approach (ICD-10-PCS; principal; 2021-09-30)
PROC: 0BH17EZ Insertion of Endotracheal Airway into Trachea, Via Natural or Artificial Opening (ICD-10-PCS; 2021-09-30)
PROC: 5A12012 Performance of Cardiac Output, Single, Manual (ICD-10-PCS; 2021-09-30)
PROC: 5A1955Z Respiratory Ventilation, Greater than 96 Consecutive Hours (ICD-10-PCS; 2021-09-30)
PROC: 4A023N7 Measurement of Cardiac Sampling and Pressure, Left Heart, Percutaneous Approach (ICD-10-PCS; 2021-10-03)
PROC: B2111ZZ Fluoroscopy of Multiple Coronary Arteries using Low Osmolar Contrast (ICD-10-PCS; 2021-10-03)
DX: I49.01 Ventricular fibrillation (principal); I21.A1 Myocardial infarction type 2; J69.0 Pneumonitis due to inhalation of food and vomit; K72.00 Acute and subacute hepatic failure without coma; J96.01 Acute respiratory failure with hypoxia; J96.02 Acute respiratory failure with hypercapnia; E66.2 Morbid (severe) obesity with alveolar hypoventilation; Z68.43 Body mass index [BMI] 50.0-59.9, adult; G93.40 Encephalopathy, unspecified; I25.110 Atherosclerotic heart disease of native coronary artery with unstable angina pectoris; I46.9 Cardiac arrest, cause unspecified; I10 Essential (primary) hypertension; J45.909 Unspecified asthma, uncomplicated; E03.9 Hypothyroidism, unspecified; K21.9 Gastro-esophageal reflux disease without esophagitis; E87.8 Other disorders of electrolyte and fluid balance, not elsewhere classified; E06.3 Autoimmune thyroiditis; E16.2 Hypoglycemia, unspecified; G25.3 Myoclonus; Z20.822 Contact with and (suspected) exposure to COVID-19; K75.81 Nonalcoholic steatohepatitis (NASH); Z82.41 Family history of sudden cardiac death
CPT/HCPCS: 31500; 36140; 36415; 70450; 71045; 71275; 74177; 80048; 80053; 80061; 80202; 80306; 80320; 80329; 81000; 82150; 82550; 82553; 82805; 82947; 83036; 83605; 83615; 83690; 83735; 83874; 83880; 84100; 84132; 84145; 84439; 84443; 84478; 84484; 84703; 85007; 85025; 85027; 85379; 85384; 85610; 85652; 85730; 86141; 86850; 86900; 86901; 87040; 87070; 87081; 87088; 87205; 87636; 93005; 93041; 93306; 93458; 94002; 94003; 94640; 94760; 94799; 96374; 96375

== ENCOUNTER → 2021-12-12 | Outpatient (RCR) | payer BC ==
[~2021-12-12] MED LIST changes: +ALPR0.254 PO; +CALC10009 PO; +ESOM40CA52 PO; +FLUO20CA48 PO; +LABE300T2 PO; +NIFE90TA57 PO
== END | disposition home or self-care (01) ==
LOC: CR 11-21 11:03
PROVIDERS: ATTEND Internal Medicine Cardiovascular Disease
DX: Z29.8 Encounter for other specified prophylactic measures (principal); I25.10 Atherosclerotic heart disease of native coronary artery without angina pectoris
CPT/HCPCS: 93798

== ENCOUNTER 2021-12-20 15:35 | Inpatient (IN) | payer BC ==
[~2021-12-20] VITALS: Ht 157.5 cm; Wt 132.7 kg
[2021-12-20] MEDS ORDERED: NS IV 1000 ML 1,000 ML IV SCH ×2 (16:30)
[2021-12-20] MEDS ORDERED: ONDANSETRON 4 MG/2 ML (SDV) Z0FRAN IVP ONE (16:30)
[2021-12-20] MEDS ORDERED: HOLD METFORMIN - RECEIVED CONTRAST 20 ML VIAL IV SCH (16:30)
[2021-12-20] MEDS ORDERED: NS 100 ML (IVPB) BAG IV ONE (16:30)
[2021-12-20] MEDS ORDERED: IOHEXOL 350 MG/ML 100 ML (OMNIPAQUE 350) VIAL IV ONE (16:30)
[2021-12-20 16:32] LABS: BASOPHILS # (AUTO) 0.1 10^3/uL (0.0-0.1); BASOPHILS % (AUTO) 0 % (0-10); EOSINOPHILS # (AUTO) 0.2 10^3/uL (0.0-0.3); EOSINOPHILS % (AUTO) 1 % (0-10); HEMATOCRIT 54 % (35-52); HEMOGLOBIN 17.1 g/dL (11.5-16.0); LYMPHOCYTES % (AUTO) 10 % (12-44); MEAN CORPUSCULAR HEMOGLOBIN 27 pg (25-34); MEAN CORPUSCULAR HGB CONC 32 g/dL (32-36); MEAN CORPUSCULAR VOLUME 84 fL (80-99); MEAN PLATELET VOLUME 9.9 fL (9.0-12.2); MONOCYTES # (AUTO) 0.7 10^3/uL (0.0-1.0); MONOCYTES % (AUTO) 4 % (0-12); NEUTROPHILS # (AUTO) 16.1 10^3/uL (1.8-7.8); NEUTROPHILS % (AUTO) 84 % (42-75); PLATELET COUNT 388 10^3/uL (130-400); WHITE BLOOD COUNT 19.2 10^3/uL (4.3-11.0)
--- NOTE | 2021-12-20 16:37 | ED Abdominal Pain ---
General Chief Complaint: Abdominal/GI Problems Stated Complaint: VOMITING/SWEATING/DIZZINESS Nursing Triage Note: PT TO RM 9 BY WHEELCHAIR WITH COMPLAINT OF ABD PAIN, N/V/D. PT STATES SYMPTOMS STARTED AFTER EATING A SALAD FOR LUNCH. PT PALE AND DIAPHORETIC AT TIME OF TRIAGE. HX OF POST CODE IN SEPTEMBER 2021 (JULISA TINOCO MD) History of Present Illness Date Seen by Provider: Dec 20, 2021 Time Seen by Provider: 16:00 Initial Comments 26-year-old female with PMH of cardiac arrest in September 2021, single functioning kidney since , morbid obesity, hypertension, GERD, s/p cholecystectomy, Phil's thyroiditis, is here with complaints of left upper quadrant and left lower quadrant abdominal pain associated with nausea and vomiting, one episode of diarrhea, tiredness, and mild dizziness, which all began today around noontime, 20 minutes after eating a salad. Pain level in ER is 3/10, but pt states pain is intemittent and can go all the way up to 7/10. Patient has extensive family history of cardiac disease. Patient denies fever, dysuria, hematemesis, melena, known sick contacts, chest pain, palpitations, cough. (JULISA TINOCO MD) Allergies and Home Medications Allergies Coded Allergies: escitalopram (Verified Allergy, Unknown, 01/05/17) Patient Home Medication List Home Medication List Reviewed: Yes (JULISA TINOCO MD) ALPRAZolam (ALPRAZolam) 0.25 Mg Tablet, 0.25 MG PO DAILY PRN for ANXIETY, (Reported) Entered as Reported by: SHANTE REED on 10/03/21 1034 Last Action: Continued Amoxicillin/Potassium Clav (Augmentin 875-125 Tablet) 1 Each Tablet, 1 EACH PO BID PRN Prescribed by: FIDEL PECK on 12/22/21 1122 Aspirin (Aspirin EC) 81 Mg Tablet.dr, 81 MG PO DAILY, (Reported) Entered as Reported by: SHANTE REED on 12/21/21 09 Last Action: Continued Atorvastatin Calcium (Atorvastatin Calcium) 20 Mg Tablet, 20 MG PO HS, (Reported) Entered as Reported by: SHANTE REED on 12/21/21952 Last Action: Continued Carvedilol (Carvedilol) 6.25 Mg Tablet, 6.25 MG PO BID, (Reported) Entered as Reported by: SHANTE REED on 12/21/21952 Last Action: Continued Esomeprazole Magnesium (Esomeprazole Magnesium) 40 Mg Capsule.dr, 40 MG PO DAILY, (Reported) Entered as Reported by: AFIA PUGA on 10/01/21 0454 Last Action: Converted Fluoxetine HCl (Fluoxetine HCl) 40 Mg Capsule, 40 MG PO HS, (Reported) Entered as Reported by: SHANTE REED on 12/21/21952 Last Action: Converted Lisinopril (Lisinopril) 10 Mg Tablet, 10 MG PO DAILY, (Reported) Entered as Reported by: SHANTE REED on 12/21/21952 Last Action: Held Metronidazole (Metronidazole) 500 Mg Tablet, 500 MG PO TID Prescribed by: FIDEL PECK on 12/22/21 112 Nitroglycerin (Nitroglycerin) 0.4 Mg Tab.subl, 0.4 MG SL UD PRN for CHEST PAIN, (Reported) Entered as Reported by: SHANTE REED on 12/21/21952 Last Action: Continued Ticagrelor (Brilinta) 90 Mg Tablet, 90 MG PO BID, (Reported) Entered as Reported by: SHANTE REED on 12/21/21952 Last Action: Continued Discontinued Medications Calcium Carbonate (Tums Ultra) 400 Mg Tab.chew, 400-800 MG PO Q6H PRN for HEARTBURN, (Reported) Discontinued Reason: No Longer Taking Entered as Reported by: SHANTE REED on 10/03/21 1034 Last Action: Discontinued Fluoxetine HCl (Fluoxetine HCl) 20 Mg Capsule, 40 MG PO HS, (Reported) Discontinued Reason: No Longer Taking Entered as Reported by: SHANTE REED on 10/03/21 1023 Last Action: Discontinued Labetalol HCl (Labetalol HCl) 300 Mg Tablet, 300 MG PO BID, (Reported) Discontinued Reason: No Longer Taking Entered as Reported by: SHANTE REED on 10/03/21 1023 Last Action: Discontinued Levothyroxine Sodium (Levothyroxine Sodium) 137 Mcg Tablet, 137 MCG PO DAILY, (Reported) Entered as Reported by: HUSSEIN MELGOZA on 03/13/18 0920 Last Action: Held Nifedipine (Nifedipine ER) 90 Mg Tab.er.24, 90 MG PO BID, (Reported) Discontinued Reason: No Longer Taking Entered as Reported by: SHANTE REED on 10/03/21 1023 Last Action: Discontinued Review of Systems Review of Systems Constitutional: no symptoms reported EENTM: No Symptoms Reported Respiratory: No Symptoms Reported Cardiovascular: No Symptoms Reported Gastrointestinal: Abdominal Pain, Diarrhea, Nausea, Vomiting Genitourinary: No Symptoms Reported Musculoskeletal: no symptoms reported Skin: no symptoms reported Endocrine: No Symptoms Reported Hematologic/Lymphatic: No Symptoms Reported (JULISA TINOCO MD) All Other Systems Reviewed Negative Unless Noted: Yes (JULISA TINOCO MD) Past Zyjcgwl-Fykjba-Diopuc Hx Patient Social History Tobacco Use?: No Use of E-Cig and/or Vaping dev: No Substance use?: No Alcohol Use?: No Pt feels they are or have been: No (JULISA TINOCO MD) Immunizations Up To Date Tetanus Booster (TDap): Less than 5yrs PED Vaccines UTD: Yes First/Initial COVID19 Vaccinat: November COVID19 Vaccination Tashi: December COVID19 Vaccination Date: November (JULISA TINOCO MD) Seasonal Allergies Seasonal Allergies: Yes (JULISA TINOCO MD) Past Medical History Surgeries: Yes Section, Gallbladder, Tonsillectomy Respiratory: Yes Asthma Currently Using CPAP: No Currently Using BIPAP: No Cardiac: Yes (pre-eclampsia w/ ) Hypertension Neurological: No 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 Sexually Transmitted Disease: No HIV/AIDS: No Genitourinary: Yes (functionally unilateral kidney) Gastrointestinal: No Gall Bladder Disease Musculoskeletal: No 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) Hypothyroidsim HEENT: No Cancer: No Did You Recieve Any Treatments: No Psychosocial: No Integumentary: No Blood Disorders: No Adverse Reaction/Blood Tranf: No (JULISA TINOCO MD) Family Medical History Graves' disease Hypercholesterolemia 19 FATHER (father) 19 MOTHER (mother) Hypertension 19 MOTHER (mother) Sudden cardiac No Pertinent Family Hx, Asthma, Heart Disease (JULISA TINOCO MD) Physical Exam Vital Signs Vital Signs - First Documented 12/20/21 15:46 Pulse 132 Resp 18 B/P (MAP) 87/76 (80) Pulse Ox 100 O2 Delivery Room Air (LE PERALTA) Vital Signs Capillary Refill : Less Than 3 Seconds (JULISA TINOCO MD) Height/Weight/BMI Height: 5'2.00" Weight: 263lbs. 0.0oz. 119.955786fb; 53.00 BMI Method:Stated General Appearance: mild distress, obese HEENT: PERRL/EOMI Neck: non-tender, full range of motion Respiratory: lungs clear, normal breath sounds, no respiratory distress, no accessory muscle use Cardiovascular: regular rate, rhythm, no edema, no gallop, no JVD, no murmur Gastrointestinal: tenderness (in LLQ and LUQ), other (quiet bowel sounds present) Extremities: normal range of motion, non-tender, no calf tenderness Back: normal inspection, no CVA tenderness, no vertebral tenderness Neurologic/Psychiatric: alert, normal mood/affect, oriented x 3 Skin: normal color Lymphatic: no adenopathy (JULISA TINOCO MD) Focused Exam Lactate Level 12/20/21 17:18: Lactic Acid Level 1.29 (LE PERALTA) Lactic Acid Level Laboratory Tests Test 12/20/21 17:18 Lactic Acid Level 1.29 MMOL/L (0.50-2.00) (LE PERALTA) Procedures/Interventions Date of ETT Placement: Oct 01, 2021 Time of ETT Placement: 2099 (JULISA TINOCO MD) Progress/Results/Core Measures Results/Orders Lab Results Laboratory Tests Test 12/20/21 16:15 12/20/21 17:18 Range/Units White Blood Count 19.2 H 4.3-11.0 10^3/uL Red Blood Count 6.43 H 3.80-5.11 10^6/uL Hemoglobin 17.1 H 11.5-16.0 g/dL Hematocrit 54 H 35-52 % Mean Corpuscular Volume 84 80-99 fL Mean Corpuscular Hemoglobin 27 25-34 pg Mean Corpuscular Hemoglobin Concent 32 32-36 g/dL Red Cell Distribution Width 13.2 10.0-14.5 % Platelet Count 388 130-400 10^3/uL Mean Platelet Volume 9.9 9.0-12.2 fL Immature Granulocyte % (Auto) 1 % Neutrophils (%) (Auto) 84 H 42-75 % Lymphocytes (%) (Auto) 10 L 12-44 % Monocytes (%) (Auto) 4 0-12 % Eosinophils (%) (Auto) 1 0-10 % Basophils (%) (Auto) 0 0-10 % Neutrophils # (Auto) 16.1 H 1.8-7.8 10^3/uL Lymphocytes # (Auto) 2.0 1.0-4.0 10^3/uL Monocytes # (Auto) 0.7 0.0-1.0 10^3/uL Eosinophils # (Auto) 0.2 0.0-0.3 10^3/uL Basophils # (Auto) 0.1 0.0-0.1 10^3/uL Immature Granulocyte # (Auto) 0.2 H 0.0-0.1 10^3/uL Neutrophils % (Manual) 82 % Lymphocytes % (Manual) 10 % Monocytes % (Manual) 6 % Eosinophils % (Manual) 2 % Blood Morphology Comment NORMAL D-Dimer >= 20.00 H 0.00-0.49 UG/ML Sodium Level 136 135-145 MMOL/L Potassium Level 3.9 3.6-5.0 MMOL/L Chloride Level 105 98-107 MMOL/L Carbon Dioxide Level 16 L 21-32 MMOL/L Anion Gap 15 H 5-14 MMOL/L Blood Urea Nitrogen 18 7-18 MG/DL Creatinine 1.04 0.60-1.30 MG/DL Estimat Glomerular Filtration Rate 75 BUN/Creatinine Ratio 17 Glucose Level 135 H 70-105 MG/DL Calcium Level 10.0 8.5-10.1 MG/DL Corrected Calcium 9.8 8.5-10.1 MG/DL Magnesium Level 1.8 1.6-2.4 MG/DL Total Bilirubin 0.9 0.1-1.0 MG/DL Aspartate Amino Transf (AST/SGOT) 18 5-34 U/L Alanine Aminotransferase (ALT/SGPT) 21 0-55 U/L Alkaline Phosphatase 140 H 40-136 U/L Troponin I < 0.028 <0.028 NG/ML B-Type Natriuretic Peptide < 10.0 <100.0 PG/ML Total Protein 7.7 6.4-8.2 GM/DL Albumin 4.2 3.2-4.5 GM/DL Lipase 19 8-78 U/L Thyroid Stimulating Hormone (TSH) 0.01 L 0.35-4.94 UIU/ML Free Thyroxine 2.12 H 0.70-1.48 NG/DL Lactic Acid Level 1.29 0.50-2.00 MMOL/L (LE PERALTA) Medications Given in ED Current Medications Medications Dose Ordered Sig/Ángel Route Start Time Stop Time Status Last Admin Dose Admin Iohexol 100 ml ONCE ONCE IV 12/20/21 16:30 12/20/21 16:31 DC 12/20/21 17:44 88 ML Ondansetron HCl 4 mg ONCE ONCE IVP 12/20/21 16:30 12/20/21 16:31 DC 12/20/21 16:35 4 MG Sodium Chloride 100 ml ONCE ONCE IV 12/20/21 16:30 12/20/21 16:31 DC 12/20/21 17:44 80 ML (LE PERALTA) Vital Signs/I&O 12/20/21 15:46 Pulse 132 Resp 18 B/P (MAP) 87/76 (80) Pulse Ox 100 O2 Delivery Room Air (LE PERALTA) Blood Pressure Mean: 80 Admisison Planning May Need Admission (Planning): 17:30 (JULISA TINOCO MD) Progress Progress Note : Progress Note 1. ABDOMINAL PAIN: - NPO - CT ABDOMEN WITH CONTRAST: - CMP - Lipase - UA -Zofran 4 mg IV stat for nausea. - IVF 2. SEPSIS vs BACTEREMIA: - CBC: WBC came back elevated at 19.2 with a left shift Blood cultures and lactic acid level. Started CEFTRIAXONE 1 g IV stat after doing blood cultures. - Lactic acid 3. ELEVATED D-DIMER: - D-dimer is 20 - CTA CHEST and u/s of bilateral lower extremities ordered - Stable O2 sat 4. SINGLE FUNCTIONING KIDNEY: -Due to presence of one kidney, will bolus 1 L of fluids prior to CT abdomen with contrast, and will continue with 150 /h post CT scan. - S. CREATININE IS NORMAL 5. HYPERTHYROIDISM: - s. TSH is low at 0.01 and free thyroxine (FT4) is elevated. - Pt has h/o Phil's and she is on Levothyroxine at home, and was given a 90 day supply in October. - Will need to check thyroid Ab's on admission. 6. CARDIAC ARREST IN SEP 2021: - Troponin is 0.28 - 1st EKG normal WILL SIGN OUT PATIENT TO HISTOLOGIST DOC FOR FOLLOW UP OF LABS AND IMAGING. (JULISA TINOCO MD) Progress Note : Time: 18:28 Progress Note Assumed care of the patient at shift change. I agree with above documented history and physical exam. Patient is apparently resting comfortably waiting results of imaging. She has been covered with appropriate fluids and antibiotics for nonshock, sepsis abdominal pain left side. Imaging demonstrates enteritis/colitis with free fluid in the right lower quadrant but the appendix is not visualized. Plan is to offer her admission and examination with general surgery. (LE PERALTA) Initial ECG Impression Date: Dec 20, 2021 Initial ECG Impression Time: 16:24 Initial ECG Rate: 87 Initial ECG Rhythm: Normal Sinus Initial ECG Impression: Normal (JULISA TINOCO MD) Diagnostic Imaging Diagonstic Imaging: Ultrasound Plain Films/CT/US/NM/MRI: leg (Bilateral lower extremities venous Doppler) Comments [facility], [place] NAME: ANGELALEJANDRO Giovana [facility] REC#: [id number] PT STATUS: REG ER : 1995 PHYSICIAN: JULISA TINOCO MD ADMIT DATE: 12/20/21/ER Signed Date of Exam:12/20/21 US VENOUS LOWER EXT GARIMA PROCEDURE: US Venous Lower Ext Garima. TECHNIQUE: Multiple real-time grayscale images were obtained over the lower extremities in various projections, bilaterally. Additional duplex Doppler and color Doppler images were also obtained. INDICATION: Elevated d-dimer EXAMINATION: Bilateral lower extremity venous Doppler 12/20/21 FINDINGS: There is no evidence for deep vein thrombosis with normal compressibility, augmentation and spontaneity of all visualized venous structures. IMPRESSION: 1. No evidence for deep vein thrombosis. Of note, per the java flex developer evaluation of the lower extremity/calf vessels limited due to poor visualization. No obvious thrombus in this region. Dictated by: Dictated on workstation # [id number] Dict: 12/20/21 1803 Trans: 12/20/21 1806 [id number] [id number] Interpreted by: KATARINA ROBIN MD Electronically signed by: KATARINA ROBIN MD 12/20/21 1806 Reviewed: Reviewed by Me Diagonstic Imaging: CT Plain Films/CT/US/NM/MRI: chest (angio), abdomen, pelvis [facility] [place] [place] NAME: ALEJANDRO ORTIZ [facility] REC#: [id number] PT STATUS: REG ER : 1995 PHYSICIAN: JULISA TINOCO MD ADMIT DATE: 12/20/21/ER Signed Date of Exam:12/20/21 CT MAXWELL CHEST/NOANG ABD-PELV W EXAMINATION: CTA of the chest with CT angiogram of the abdomen and pelvis, 12/20/2021. TECHNIQUE: Thin axial sections through the chest, abdomen and pelvis are obtained following intravenous contrast bolus. Multiplanar MIP images were reconstructed and reviewed. All CT scans use one or more of the following dose optimizing techniques: automated exposure control, MA and/or KvP adjustment based on patient size and exam type or iterative reconstruction. INDICATION: Nausea vomiting and diarrhea. Pale and diaphoretic. History of COVID in September. COMPARISON: 09/30/2021. FINDINGS: There are no central or proximal segmental pulmonary emboli. There are linear hypodensities across the superior mediastinum, which extend through the aortic arch with similar findings seen in the main pulmonary artery. Given the appearance, this is most likely artifact. Dissection felt to be much less likely. This could be caused by some motion artifact on these images. If there is continued clinical concern, short-term follow-up recommended. The remaining thoracic aorta is small in appearance but patent. The lungs appear clear. No pericardial or pleural effusions noted. There is no hilar or mediastinal adenopathy. Minimal soft tissue prominence in the anterior mediastinum is stable from previous imaging, likely residual thymic tissue. There are multiple old rib fractures on the right. Within the abdomen and pelvis, there is fatty infiltration throughout the liver. There is a focus of hyperdensity within the anterior aspect of the right lobe of the liver, which is nonspecific but likely a process such as transient hepatic attenuation difference. Nonemergent dedicated liver protocol CT could further characterize. A similar process extends into the posterior right lobe. There is evidence of previous cholecystectomy. The spleen is normal. Adrenal glands and pancreas are unremarkable. There is a wedge of low density within the posterior border of the right kidney, increased in size from previous imaging, likely a focus of cortical atrophy given prior findings. The left kidney is small, similar to previous imaging, consistent with marked atrophy. The abdominal aorta is small in caliber, similar to previous examination. Hypovolemia should be clinically excluded. There is poor opacification of the distal abdominal aorta limiting its evaluation. No aneurysmal dilatation is seen. No obvious dissection. There are thick-walled small bowel loops throughout the abdomen suggesting enteritis. There is fluid in the colon consistent with colitis. There is a small amount of free fluid in the pelvis. A serpiginous enhancing lesion in the right ovary likely an involuting corpus luteal cyst. The appendix is not seen with certainty; however, no inflammation other than the free fluid which tracks along the right lower quadrant into the pelvis likely unrelated to the appendix is present. Correlation with symptoms recommended. There is no acute osseous abnormality. IMPRESSION: 1. No central or proximal segmental pulmonary emboli. 2. Linear low-density lines across the aortic arch and main pulmonary artery. Given the appearance and distribution, this is likely artifact. Dissection difficult to completely exclude but felt to be much less likely. If there is continued clinical concern, a short-term follow-up is recommended. 3. Hyperdensities in the liver, nonspecific; see above discussion and recommendations. 4. Findings consistent with enteritis and colitis. Appendix not seen, but there is free fluid in the right lower quadrant and into the flank and also in the left adnexa. Correlate with patient's symptoms. 5. Involuting corpus luteal cyst in the right ovary with other incidental findings as above including small appearance of the abdominal aorta which is poorly opacified and poorly characterized. Hypovolemia should be clinically excluded. Dictated by: Dictated on workstation # [id number] Dict: 12/20/21 1744 Trans: 12/20/211804 [id number] Interpreted by: KATARINA ROBIN MD Electronically signed by: KAATRINA ROBIN MD 12/20/211804 Reviewed: Reviewed by Me (LE PERALTA) Transfer of Care Time: 18:00 Care transferred to: Dr Peralta (JULISA TINOCO MD) Departure Communication (Admissions) Time/Spoke to Admitting Phy: 19:13 Discussed the case with Dr. Peck who agrees with consult to surgery, Flagyl, Rocephin and would like to consult cardiology. She will put in queued orders. Time/Spoke to Consulting Phy: 19:[address] Kumar who agrees to consult on the case. He recommends Flagyl and Rocephin. At this time he does not entertain the likelihood of surgical intervention. 191: Discussed the case with Dr. Rebollar, cardiology who would like us to pass the case with Dr. Zhong in the morning. He agrees with continuing Brilinta and aspirin at this time. (LE PERALTA) Impression Primary Impression: Colitis Additional Impression: Sepsis Qualified Codes: A41.9 - Sepsis, unspecified organism Disposition: ADMITTED INPATIENT Condition: Stable Admissions Decision to Admit Reason: Admit from ER (General) Decision to Admit/Date: Dec 20, 2021 Time/Decision to Admit Time: 19:00 (LE PERALTA) Departure-Patient Inst. Referrals: MADAY FARR MD (PCP/Family) Primary Care Physician Scripts Metronidazole (Metronidazole) 500 Mg Tablet 500 MG PO TID, #15 TAB Prov: FIDEL PECK DO 12/22/21 Amoxicillin/Potassium Clav (Augmentin 875-125 Tablet) 1 Each Tablet 1 EACH PO BID PRN, #10 TAB Prov: FIDEL PECK DO 12/22/21 JULISA TINOCO MD Dec 20, 2021 16:37 LE PERALTA Dec 20, 2021 18:33
[2021-12-20 16:41] LABS: MAGNESIUM 1.8 MG/DL (1.6-2.4)
[2021-12-20 16:42] LABS: LIPASE 19 U/L (8-78)
[2021-12-20] MEDS ORDERED: cefTRIAXone 1 GM PRE-MIX 50 ML IV STA (16:48)
[2021-12-20 17:04] LABS: FREE T4 (FREE THYROXINE) 2.12 NG/DL (0.70-1.48)
[2021-12-20 17:08] LABS: EOSINOPHILS % (MANUAL) 2 %; LYMPHOCYTES % (MANUAL) 10 %; MONOCYTES % (MANUAL) 6 %; NEUTROPHILS % (MANUAL) 82 %; RBC MORPH NORMAL
[2021-12-20 17:10] LABS: ALBUMIN 4.2 GM/DL (3.2-4.5); BILIRUBIN,TOTAL 0.9 MG/DL (0.1-1.0); CREATININE SERUM 1.04 MG/DL (0.60-1.30); POTASSIUM 3.9 MMOL/L (3.6-5.0); TOTAL PROTEIN 7.7 GM/DL (6.4-8.2)
--- NOTE | 2021-12-20 18:03 | Diagnostic Imaging Report ---
EXAMINATION: CTA of the chest with CT angiogram of the abdomen and pelvis, 12/20/2021. TECHNIQUE: Thin axial sections through the chest, abdomen and pelvis are obtained following intravenous contrast bolus. Multiplanar MIP images were reconstructed and reviewed. All CT scans use one or more of the following dose optimizing techniques: automated exposure control, MA and/or KvP adjustment based on patient size and exam type or iterative reconstruction. INDICATION: Nausea vomiting and diarrhea. Pale and diaphoretic. History of COVID in September. COMPARISON: 09/30/2021. FINDINGS: There are no central or proximal segmental pulmonary emboli. There are linear hypodensities across the superior mediastinum, which extend through the aortic arch with similar findings seen in the main pulmonary artery. Given the appearance, this is most likely artifact. Dissection felt to be much less likely. This could be caused by some motion artifact on these images. If there is continued clinical concern, short-term follow-up recommended. The remaining thoracic aorta is small in appearance but patent. The lungs appear clear. No pericardial or pleural effusions noted. There is no hilar or mediastinal adenopathy. Minimal soft tissue prominence in the anterior mediastinum is stable from previous imaging, likely residual thymic tissue. There are multiple old rib fractures on the right. Within the abdomen and pelvis, there is fatty infiltration throughout the liver. There is a focus of hyperdensity within the anterior aspect of the right lobe of the liver, which is nonspecific but likely a process such as transient hepatic attenuation difference. Nonemergent dedicated liver protocol CT could further characterize. A similar process extends into the posterior right lobe. There is evidence of previous cholecystectomy. The spleen is normal. Adrenal glands and pancreas are unremarkable. There is a wedge of low density within the posterior border of the right kidney, increased in size from previous imaging, likely a focus of cortical atrophy given prior findings. The left kidney is small, similar to previous imaging, consistent with marked atrophy. The abdominal aorta is small in caliber, similar to previous examination. Hypovolemia should be clinically excluded. There is poor opacification of the distal abdominal aorta limiting its evaluation. No aneurysmal dilatation is seen. No obvious dissection. There are thick-walled small bowel loops throughout the abdomen suggesting enteritis. There is fluid in the colon consistent with colitis. There is a small amount of free fluid in the pelvis. A serpiginous enhancing lesion in the right ovary likely an involuting corpus luteal cyst. The appendix is not seen with certainty; however, no inflammation other than the free fluid which tracks along the right lower quadrant into the pelvis likely unrelated to the appendix is present. Correlation with symptoms recommended. There is no acute osseous abnormality. IMPRESSION: 1. No central or proximal segmental pulmonary emboli. 2. Linear low-density lines across the aortic arch and main pulmonary artery. Given the appearance and distribution, this is likely artifact. Dissection difficult to completely exclude but felt to be much less likely. If there is continued clinical concern, a short-term follow-up is recommended. 3. Hyperdensities in the liver, nonspecific; see above discussion and recommendations. 4. Findings consistent with enteritis and colitis. Appendix not seen, but there is free fluid in the right lower quadrant and into the flank and also in the left adnexa. Correlate with patient's symptoms. 5. Involuting corpus luteal cyst in the right ovary with other incidental findings as above including small appearance of the abdominal aorta which is poorly opacified and poorly characterized. Hypovolemia should be clinically excluded. Dictated by: Dictated on workstation # [id number]
--- NOTE | 2021-12-20 18:07 | Diagnostic Imaging Report ---
PROCEDURE: US Venous Lower Ext Enrique. TECHNIQUE: Multiple real-time grayscale images were obtained over the lower extremities in various projections, bilaterally. Additional duplex Doppler and color Doppler images were also obtained. INDICATION: Elevated d-dimer EXAMINATION: Bilateral lower extremity venous Doppler 12/20/21 FINDINGS: There is no evidence for deep vein thrombosis with normal compressibility, augmentation and spontaneity of all visualized venous structures. IMPRESSION: 1. No evidence for deep vein thrombosis. Of note, per the swatcher evaluation of the lower extremity/calf vessels limited due to poor visualization. No obvious thrombus in this region. Dictated by: Dictated on workstation # [id number]
[2021-12-20 19:11] LABS: BILIRUBIN,URINE NEGATIVE (NEGATIVE); CLARITY,URINE CLEAR; COLOR,URINE YELLOW; GLUCOSE, URINE (UA) NEGATIVE (NEGATIVE); KETONES,URINE 1+ (NEGATIVE); LEUKOCYTE ESTERASE ,URINE NEGATIVE (NEGATIVE); NITRITE,URINE NEGATIVE (NEGATIVE); PROTEIN,URINE NEGATIVE (NEGATIVE)
[2021-12-20 19:25] LABS: BACTERIA,URINE MODERATE /HPF; HYALINE CASTS, URINE 0-2 /LPF; WBC,URINE 0-2 /HPF
[2021-12-20] MEDS ORDERED: metroNIDAZOLE 500MG/100ML IVPB 100 ML IV ONE (19:30)
[2021-12-20] MEDS ORDERED: MELATONIN 3 MG TABLET PO PRN (21:45)
[2021-12-20] MEDS ORDERED: CALCIUM CARBONATE 500 MG (TUMS) TAB.CHEW PO PRN (21:45)
[2021-12-20] MEDS ORDERED: PATIENT MAY USE OWN MEDS, ALL PO SCH (21:45)
[2021-12-20] MEDS ORDERED: LACTULOSE SYRUP 10GM/15ML (ENULOSE) 30ML UDC PO PRN (21:45)
[2021-12-20] MEDS ORDERED: BISACODYL 10 MG SUPP (DULCOLAX) PR PRN (21:45)
[2021-12-20] MEDS ORDERED: MILK OF MAGNESIA 400 MG/5 ML 30 ML UDC PO PRN (21:45)
[2021-12-20] MEDS ORDERED: ANTACID SUSP 30 ML UDC (MYLANTA) PO PRN (21:45)
[2021-12-20] MEDS ORDERED: polyethylene glycoL POWDER 17 GM (MIRALAX) PACK PO PRN (21:45)
[2021-12-20] MEDS ORDERED: diphenhydrAMINE 50 MG/ML INJ (BENADRYL) IVP PRN (21:45)
[2021-12-20] MEDS ORDERED: ACETAMINOPHEN 325 MG TABLET PO PRN (21:45)
[2021-12-20] MEDS ORDERED: morphine INJ 4 MG/ML 1 ML (VIAL/SYRINGE) IV PRN (21:45)
[2021-12-20] MEDS ORDERED: ONDANSETRON 4 MG/2 ML (SDV) Z0FRAN IV PRN (21:45)
[2021-12-20] MEDS ORDERED: ONDANSETRON 4 MG (ZOFRAN) ORAL DISSOLVE TAB PO PRN (21:45)
[2021-12-20] MEDS ORDERED: diphenhydrAMINE 25 MG TAB (BENADRYL) PO PRN (21:45)
[2021-12-20] MEDS ORDERED: NS IV 1000 ML 1,000 ML ONE (21:53)
[2021-12-20 21:55] VITALS: BP 87/76
[2021-12-20] MEDS ORDERED: RT-ALBUTEROL SULF 2.5 MG/3 ML PRE-MIX VIAL INH PRN (22:00)
[2021-12-20] MEDS: NS IV 1000 ML 1,000 ML IV SCH (22:56)
[2021-12-20] MEDS: TICAGRELOR 90 MG TABLET (BRILINTA) PO SCH (22:56)
[2021-12-21 00:35] VITALS: BP 124/69
[2021-12-21 04:02] VITALS: BP 147/77
[2021-12-21 06:14] LABS: BASOPHILS % (AUTO) 0 % (0-10); EOSINOPHILS # (AUTO) 0.3 10^3/uL (0.0-0.3); EOSINOPHILS % (AUTO) 4 % (0-10); HEMATOCRIT 41 % (35-52); HEMOGLOBIN 12.6 g/dL (11.5-16.0); LYMPHOCYTES # (AUTO) 1.7 10^3/uL (1.0-4.0); LYMPHOCYTES % (AUTO) 21 % (12-44); MEAN CORPUSCULAR HEMOGLOBIN 27 pg (25-34); MEAN CORPUSCULAR HGB CONC 31 g/dL (32-36); MEAN CORPUSCULAR VOLUME 85 fL (80-99); MONOCYTES # (AUTO) 0.7 10^3/uL (0.0-1.0); MONOCYTES % (AUTO) 8 % (0-12); NEUTROPHILS # (AUTO) 5.1 10^3/uL (1.8-7.8); NEUTROPHILS % (AUTO) 65 % (42-75); PLATELET COUNT 255 10^3/uL (130-400); WHITE BLOOD COUNT 7.8 10^3/uL (4.3-11.0)
--- NOTE | 2021-12-21 06:25 | Consultation - Surgery ---
CESIASHAUN 12/21/21 0625: History of Present Illness History of Present Illness Patient Consulted On(joseph/time) 12/21/21 06:19 Date Seen by Provider: Dec 21, 2021 Time Seen by Provider: 06:10 Reason for Visit: Vomiting and abdominal pain History of Present Illness Consult requested by ED for colitis/enteritis. Pt is a 26 yo female w/ hx of recent VA (Sep 2019), a single functioning kidney since , HTN, GERD, and Phil thyroiditis (though she was hyperthyroid in the ER). She presented with vomiting and cramping/stabbing LUQ and LLQ abdominal pain since 12:30pm yesterday. Moving made the pain worse, 8/10 at its worst. Zofran helped the nausea and vomiting. Her D-Dimer was 20.00 and she had moderate bacteria in her urine. CT of the chest/thorax showed colitis and enteritis; it did not completely exclude an aortic dissection but deemed it unlikely. A bilat LE venous US showed no DVT. Her pain had improved to 2/10 this morning, and she was no longer nauseous or vomiting. She reports no sick contacts. Pt does mention that she had a salad for lunch yesterday (20 minutes before the episode), which historically has upset her stomach. Pt denies fever, chills, and CP at this time. Allergies and Home Medications Allergies Coded Allergies: escitalopram (Verified Allergy, Unknown, 01/05/17) Patient Home Medication List ALPRAZolam (ALPRAZolam) 0.25 Mg Tablet, 0.25 MG PO DAILY PRN for ANXIETY, (Reported) Entered as Reported by: SHANTE REED on 10/03/21 1034 Last Action: Continued Aspirin (Aspirin EC) 81 Mg Tablet.dr, 81 MG PO DAILY, (Reported) Entered as Reported by: SHANTE REED on 12/21/21952 Last Action: Continued Atorvastatin Calcium (Atorvastatin Calcium) 20 Mg Tablet, 20 MG PO HS, (Reported) Entered as Reported by: SHATNE REED on 12/21/21952 Last Action: Continued Carvedilol (Carvedilol) 6.25 Mg Tablet, 6.25 MG PO BID, (Reported) Entered as Reported by: SHANTE REED on 12/21/21952 Last Action: Continued Esomeprazole Magnesium (Esomeprazole Magnesium) 40 Mg Capsule.dr, 40 MG PO DAILY, (Reported) Entered as Reported by: AFIA PUGA on 10/01/21 0454 Last Action: Converted Fluoxetine HCl (Fluoxetine HCl) 40 Mg Capsule, 40 MG PO HS, (Reported) Entered as Reported by: SHANTE REED on 12/21/21952 Last Action: Converted Levothyroxine Sodium (Levothyroxine Sodium) 137 Mcg Tablet, 137 MCG PO DAILY, (Reported) Entered as Reported by: HUSSEIN MELGOZA on 03/13/18919 Last Action: Held Lisinopril (Lisinopril) 10 Mg Tablet, 10 MG PO DAILY, (Reported) Entered as Reported by: SHANTE REED on 12/21/21952 Last Action: Held Nitroglycerin (Nitroglycerin) 0.4 Mg Tab.subl, 0.4 MG SL UD PRN for CHEST PAIN, (Reported) Entered as Reported by: SHANTE REED on 12/21/21952 Last Action: Continued Ticagrelor (Brilinta) 90 Mg Tablet, 90 MG PO BID, (Reported) Entered as Reported by: SHANTE REED on 12/21/21952 Last Action: Continued Discontinued Medications Calcium Carbonate (Tums Ultra) 400 Mg Tab.chew, 400-800 MG PO Q6H PRN for HEARTBURN, (Reported) Discontinued Reason: No Longer Taking Entered as Reported by: SHANTE REED on 10/03/21 1034 Last Action: Discontinued Fluoxetine HCl (Fluoxetine HCl) 20 Mg Capsule, 40 MG PO HS, (Reported) Discontinued Reason: No Longer Taking Entered as Reported by: SHANTE REED on 10/03/21 1023 Last Action: Discontinued Labetalol HCl (Labetalol HCl) 300 Mg Tablet, 300 MG PO BID, (Reported) Discontinued Reason: No Longer Taking Entered as Reported by: SHANTE REED on 10/03/21 102 Last Action: Discontinued Nifedipine (Nifedipine ER) 90 Mg Tab.er.24, 90 MG PO BID, (Reported) Discontinued Reason: No Longer Taking Entered as Reported by: SHANTE REED on 10/03/21 1023 Last Action: Discontinued Past Irdlnhd-Ctxbsy-Ywdstb Hx Patient Social History Smoking Status: Never a Smoker Recent Hopitalizations: No Alcohol Use?: No Have you traveled recently?: No Immunizations Up To Date Tetanus Booster (TDap): Less than 5yrs PED Vaccines UTD: Yes Date of Influenza Vaccine: Sep 04, 2016 Seasonal Allergies Seasonal Allergies: Yes Surgeries History of Surgeries: Yes Surgeries: Section, Gallbladder, Tonsillectomy Respiratory History of Respiratory Disorde: Yes Respiratory Disorders: Asthma Cardiovascular History of Cardiac Disorders: Yes (pre-eclampsia w/ ) Cardiac Disorders: Heart Attack (Sep 2019), Hypertension Neurological History of Neurological Disord: No Reproductive System Hx Reproductive Disorders: No Sexually Transmitted Disease: No HIV/AIDS: No 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 Genitourinary History of Genitourinary Disor: Yes (functionally unilateral kidney) Gastrointestinal History of Gastrointestinal Di: No Gastrointestinal Disorders: Gall Bladder Disease Musculoskeletal History of Musculoskeletal Dis: No Endocrine History of Endocrine Disorders: Yes (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) Endocrine Disorders: Hypothyroidsim (Phil's) HEENT History of HEENT Disorders: No Cancer History of Cancer: No Psychosocial History of Psychiatric Problem: No Integumentary History of Skin or Integumenta: No Blood Transfusions History of Blood Disorders: No Adverse Reaction to a Blood Tr: No Family Medical History Significant Family History: No Pertinent Family Hx, Asthma, Heart Disease, Diabetes, Hypertension, Other Conditions/Hx (Graves dx- mom) Family Medial History: Graves' disease Hypercholesterolemia 19 FATHER (father) 19 MOTHER (mother) Hypertension 19 MOTHER (mother) Sudden cardiac Review of Systems-General Constitutional: No chills, No fever EENTM: No hearing loss, No blurred vision Respiratory: No cough, No dyspnea on exertion Cardiovascular: No chest pain, No palpitations Gastrointestinal: LUQ, LLQ, abdominal pain, diarrhea, nausea, vomiting Genitourinary: No dysuria, No frequency Musculoskeletal: No joint pain, No muscle pain Skin: No dryness, No rash Psychiatric/Neurological: Denies Headache, Denies Weakness Physical Exam-General Problems Physical Exam Vital Signs Vital Signs - First Documented 12/20/21 12/20/21 12/21/21 15:46 21:55 00:35 Temp 36.0 Pulse 132 Resp 18 B/P (MAP) 87/76 (80) Pulse Ox 100 O2 Delivery Room Air FiO2 21 Capillary Refill : Less Than 3 Seconds General Appearance: no apparent distress, obese HEENT: PERRL/EOMI Neck: supple, normal inspection Respiratory: lungs clear, normal breath sounds, no accessory muscle use Cardiovascular: regular rate, rhythm, no murmur Peripheral Pulses: 3+ Dorsalis Pedis (R), 3+ Left Dors-Pedis (L), 3+ Radial Pulses (R), 3+ Radial Pulses (L) Gastrointestinal: soft, tenderness (LUQ and epigastric region) Extremities: normal inspection, no pedal edema Neurologic/Psychiatric: alert, normal mood/affect, oriented x 3 Skin: normal color, warm/dry Data Review Labs Laboratory Tests 12/20/21 16:15: White Blood Count 19.2H, Red Blood Count 6.43H, Hemoglobin 17.1H, Hematocrit 54H , Mean Corpuscular Volume 84, Mean Corpuscular Hemoglobin 27, Mean Corpuscular Hemoglobin Concent 32, Red Cell Distribution Width 13.2, Platelet Count 388, Mean Platelet Volume 9.9, Immature Granulocyte % (Auto) 1, Neutrophils (%) (Auto) 84H, Lymphocytes (%) (Auto) 10L, Monocytes (%) (Auto) 4, Eosinophils (%) (Auto) 1, Basophils (%) (Auto) 0, Neutrophils # (Auto) 16.1H, Lymphocytes # (Auto) 2.0, Monocytes # (Auto) 0.7, Eosinophils # (Auto) 0.2, Basophils # (Auto) 0.1, Immature Granulocyte # (Auto) 0.2H, Neutrophils % (Manual) 82, Lymphocytes % (Manual) 10, Monocytes % (Manual) 6, Eosinophils % (Manual) 2, Blood Morphology Comment NORMAL, D-Dimer >= 20.00H, Sodium Level 136, Potassium Level 3.9, Chloride Level 105, Carbon Dioxide Level 16L, Anion Gap 15H, Blood Urea Nitrogen 18, Creatinine 1.04, Estimat Glomerular Filtration Rate 75, BUN/Creatinine Ratio 17, Glucose Level 135H, Calcium Level 10.0, Corrected Calcium 9.8, Magnesium Level 1.8, Total Bilirubin 0.9, Aspartate Amino Transf (AST/SGOT) 18, Alanine Aminotransferase (ALT/SGPT) 21, Alkaline Phosphatase 140H , Troponin I < 0.028, B-Type Natriuretic Peptide < 10.0, Total Protein 7.7, Albumin 4.2, Lipase 19, Thyroid Stimulating Hormone (TSH) 0.01L, Free Thyroxine 2.12H 12/20/21 17:18: Lactic Acid Level 1.29 12/20/21 19:00: Urine Color YELLOW, Urine Clarity CLEAR, Urine pH 6.0, Urine Specific [place] <=1.005, Urine Protein NEGATIVE, Urine Glucose (UA) NEGATIVE, Urine Ketones 1+H, Urine Nitrite NEGATIVE, Urine Bilirubin NEGATIVE, Urine Urobilinogen 0.2, Urine Leukocyte Esterase NEGATIVE, Urine RBC (Auto) NEGATIVE, Urine RBC NONE, Urine WBC 0-2, Urine Squamous Epithelial Cells 2-5, Urine Crystals NONE, Urine Bacteria MODERATEH, Urine Casts PRESENT, Urine Hyaline Casts 0-2H, Urine Mucus SMALLH, Urine Culture Indicated YES 12/21/21 06:00: Assessment/Plan Assessment/Plan Assessment/Plan Abdominal Pain N/V HTN Hx VA Single functioning kidney Phil's thyroiditis (hyperthyroidism currently) Morbid Obesity Continue Flagyl and Rocephin Zofran as needed Hold hypothyroid medication Consult Cardiology Continue Brilanta and ASA Conservative management without surgery at this time Monitor Labs GLEN PANTOJA DO 12/21/211925: History of Present Illness History of Present Illness History of Present Illness Counts requested by Dr. Acosta for colitis enteritis. Patient is a 26-year-old female who began having a cramping stabbing pain in the left upper quadrant left lower quadrant since about 1230 yesterday. Patient states that her pain at its worst was by an 8 out of 10. Moving made it worse. Nothing really helped. She is having episodes of nausea and vomiting. She did get some Zofran which did help. Patient unable to keep anything down. Patient states that today she is feeling significantly better after being admitted getting IV fluids and started on antibiotics. Her pain has improved to 2 out of 10. She has not had any more nausea or vomiting. She had a CT scan yesterday which did have some findings that were suggestive of enteritis/colitis and low volume state. Patient has no new complaints. She has recent history of cardiac arrest. Patient currently denies any nausea vomiting fever sweats chills shortness of breath or chest pain. Allergies and Home Medications Allergies Coded Allergies: escitalopram (Verified Allergy, Unknown, 01/05/17) Patient Home Medication List Home Medication List Reviewed: Yes ALPRAZolam (ALPRAZolam) 0.25 Mg Tablet, 0.25 MG PO DAILY PRN for ANXIETY, (Reported) Entered as Reported by: SHANTE REED on 10/03/21 103 Last Action: Continued Aspirin (Aspirin EC) 81 Mg Tablet.dr, 81 MG PO DAILY, (Reported) Entered as Reported by: SHANTE REED on 12/21/21952 Last Action: Continued Atorvastatin Calcium (Atorvastatin Calcium) 20 Mg Tablet, 20 MG PO HS, (Reported) Entered as Reported by: SHANTE REED on 12/21/21952 Last Action: Continued Carvedilol (Carvedilol) 6.25 Mg Tablet, 6.25 MG PO BID, (Reported) Entered as Reported by: SHANTE REED on 12/21/21952 Last Action: Continued Esomeprazole Magnesium (Esomeprazole Magnesium) 40 Mg Capsule.dr, 40 MG PO DAILY, (Reported) Entered as Reported by: AFIA PUGA on 10/01/21 0454 Last Action: Converted Fluoxetine HCl (Fluoxetine HCl) 40 Mg Capsule, 40 MG PO HS, (Reported) Entered as Reported by: SHANTE REED on 12/21/21952 Last Action: Converted Levothyroxine Sodium (Levothyroxine Sodium) 137 Mcg Tablet, 137 MCG PO DAILY, (Reported) Entered as Reported by: HUSSEIN MELGOZA on 03/13/18919 Last Action: Held Lisinopril (Lisinopril) 10 Mg Tablet, 10 MG PO DAILY, (Reported) Entered as Reported by: SHANTE REED on 12/21/21952 Last Action: Held Nitroglycerin (Nitroglycerin) 0.4 Mg Tab.subl, 0.4 MG SL UD PRN for CHEST PAIN, (Reported) Entered as Reported by: SHANTE REED on 12/21/21952 Last Action: Continued Ticagrelor (Brilinta) 90 Mg Tablet, 90 MG PO BID, (Reported) Entered as Reported by: SHANTE REED on 12/21/21952 Last Action: Continued Discontinued Medications Calcium Carbonate (Tums Ultra) 400 Mg Tab.chew, 400-800 MG PO Q6H PRN for HEARTBURN, (Reported) Discontinued Reason: No Longer Taking Entered as Reported by: SHANTE REED on 10/03/21 1034 Last Action: Discontinued Fluoxetine HCl (Fluoxetine HCl) 20 Mg Capsule, 40 MG PO HS, (Reported) Discontinued Reason: No Longer Taking Entered as Reported by: SHANTE REED on 10/03/21 1023 Last Action: Discontinued Labetalol HCl (Labetalol HCl) 300 Mg Tablet, 300 MG PO BID, (Reported) Discontinued Reason: No Longer Taking Entered as Reported by: SHANTE REED on 10/03/21 1023 Last Action: Discontinued Nifedipine (Nifedipine ER) 90 Mg Tab.er.24, 90 MG PO BID, (Reported) Discontinued Reason: No Longer Taking Entered as Reported by: SHANTE REED on 10/03/21 1023 Last Action: Discontinued Past Tuexoke-Nvwelf-Sqagzo Hx Reviewed Nursing Assessment Reviewed/Agree w Nursing PMH: Yes Family Medical History Family Medial History: Graves' disease Hypercholesterolemia 19 FATHER (father) 19 MOTHER (mother) Hypertension 19 MOTHER (mother) Sudden cardiac Review of Systems-General Constitutional: No chills, No fever EENTM: No hearing loss, No blurred vision Respiratory: No cough, No dyspnea on exertion Cardiovascular: No palpitations Gastrointestinal: LUQ, LLQ, abdominal pain, diarrhea, nausea, vomiting Genitourinary: No dysuria, No frequency Musculoskeletal: No joint pain, No muscle pain Skin: No dryness, No rash Psychiatric/Neurological: Denies Headache, Denies Weakness All Other Systems Reviewed Negative Unless Noted: Yes (Negative excepted noted.) Physical Exam-General Problems Physical Exam General Appearance: no apparent distress, obese HEENT: PERRL/EOMI, normal ENT inspection Neck: non-tender, supple, normal inspection Respiratory: chest non-tender, no respiratory distress, no accessory muscle use Cardiovascular: regular rate, rhythm, no JVD Gastrointestinal: soft, tenderness (LUQ and left lower quadrant very minimal tenderness to palpation no guarding or rebounding) Rectal: deferred Back: no CVA tenderness, no vertebral tenderness Extremities: normal range of motion, normal inspection, no pedal edema Neurologic/Psychiatric: alert, normal mood/affect, oriented x 3 Skin: normal color, warm/dry Lymphatic: no adenopathy Assessment/Plan Assessment/Plan Assessment/Plan Abdominal Pain left upper quadrant left lower quadrant N/V Enteritis/colitis HTN Hx VA Single functioning kidney Phil's thyroiditis (hyperthyroidism currently) Morbid Obesity Continue Flagyl and Rocephin Zofran as needed Hold hypothyroid medication Continue Brilanta and ASA Conservative management without surgery at this time Monitor Labs Patient enteritis/colitis could be secondary to low flow state due to hypovolemia. Patient is feeling significantly better today than yesterday. Would continue that with conservative measures. We discussed considering doing a colonoscopy on an outpatient basis once can stop her antiplatelet medications she will consider. Supervisory-Addendum Brief Verification & Attestation Participated in pt care: history, MDM, physical Personally performed: exam, history, MDM, supervision of care Care discussed with: Medical Student Procedures: n/a Results interpretation: Verified all documentation Verification and Attestation of Medical Student E/M Service A medical student performed and documented this service in my presence. I reviewed and verified all information documented by the medical student and made modifications to such information, when appropriate. I personally performed the physical exam and medical decision making. Glen Pantoja, Dec 21, 2021,19:27 SHAUN CALLAWAY Dec 21, 2021 06:25 GLEN PANTOJA DO Dec 21, 2021 19:26
[2021-12-21 06:26] LABS: ALBUMIN 3.2 GM/DL (3.2-4.5); POTASSIUM 3.6 MMOL/L (3.6-5.0)
[2021-12-21 06:27] LABS: CALCIUM 8.3 MG/DL (8.5-10.1)
[2021-12-21 06:29] LABS: TOTAL PROTEIN 5.8 GM/DL (6.4-8.2)
[2021-12-21 06:32] LABS: CREATININE SERUM 0.79 MG/DL (0.60-1.30)
[2021-12-21] MEDS ORDERED: FLU QUADRIvalent (3YOA+) 60 mcg/0.5 ml 2021-22(AFLURIA) IM ONE (07:00)
[2021-12-21 07:35] VITALS: BP 123/57
[2021-12-21] MEDS: metroNIDAZOLE 500MG/100ML IVPB 100 ML IV SCH ×2 (08:50→20:42)
[2021-12-21] MEDS: ASPIRIN E.C. 81 MG (ECOTRIN) TAB PO SCH (08:50)
[2021-12-21] MEDS: TICAGRELOR 90 MG TABLET (BRILINTA) PO SCH ×2 (08:50→20:43)
[2021-12-21] MEDS: ENOXAPARIN 60 MG/0.6 ML (LOVENOX) SYR SC SCH ×2 (08:51→20:42)
[2021-12-21] MEDS: DOCUSATE SODIUM 100 MG (COLACE) CAP PO SCH ×2 (08:51→20:44)
[2021-12-21] MEDS: SENNOSIDES 8.6 MG (SENOKOT) TAB PO SCH ×2 (08:51→20:44)
[2021-12-21] MEDS: NS IV 1000 ML 1,000 ML IV SCH ×2 (08:56→20:42)
[2021-12-21] MEDS ORDERED: ASPI-1238 PO (09:53)
[2021-12-21] MEDS ORDERED: TICA90TA PO (09:53)
[2021-12-21] MEDS ORDERED: FLUO40CA PO (09:53)
[2021-12-21] MEDS ORDERED: ATOR20TA66 PO (09:53)
[2021-12-21] MEDS ORDERED: LISI10TA25 PO (09:53)
[2021-12-21] MEDS ORDERED: CARV6.252 PO (09:53)
[2021-12-21] MEDS ORDERED: NITR0.4T39 SL (09:53)
[2021-12-21] MEDS ORDERED: NITROGLYCERIN 0.4 MG SL TABS BTL 25'S SL PRN (11:00)
[2021-12-21] MEDS ORDERED: ALPRAZolam 0.25 MG (XANAX) TAB PO PRN (11:00)
--- NOTE | 2021-12-21 11:03 | Consultation-Cardiology ---
HPI-Cardiology Cardiology Consultation: Date of Consultation 12/21/2021 Date of Admission 12/20/2021 Attending Physician Teresa Acosta DO Admitting Physician Cesilia Henson MD Consulting Physician JORGE CALIX JR, MD HPI: Time Seen by a Provider: 09:00 Chief Complaint: Reason for consultation: Coronary artery disease with recent myocardial infarction in September 2021. I had the pleasure of seeing Sarah on the medical/surgical unit at [facility] in [place], [place] this morning. She has a history of coronary artery disease with an acute non-ST elevation myocardial infarction in September 2021 treated with 2 drug eluting stents to the left anterior descending coronary, hypertension, hyperlipidemia, gastroesophageal reflux disease, asthma, generalized anxiety, and morbid obesity. She was in her usual state of health until 12/20 when she had eaten a salad and about 1 or 2 hours later, she started having nausea, vomiting and diarrhea. She had been avoiding salads because in the past, this would cause her to have worsening esophageal reflux symptoms. After the nausea and vomiting persisted, she decided to come to the emergency room to see if she could get some medication to treat the nausea. However, she had some testing in the emergency room and the emergency room physician elected to admit the patient overnight. When I saw the patient this morning, she states that the nausea and vomiting resolved after the first initial episodes. She denies any abdominal pain. She denies chest pain, dyspnea, paroxysmal nocturnal dyspnea, orthopnea, palpitations, lightheadedness, syncope, or ankle edema. Because of her cardiac history, a cardiology consultation was requested. Certain portions of this document may have been dictated utilizing voice recognition technology. Inherent to this technology, typographical and grammatical errors may exist. As much as I am diligent to identify and correct these mistakes, some errors may remain in the document. Review of Systems-Cardiology Review of Systems Other comments Review of 10 organ systems is as per the history of present illness, otherwise negative. All Other Systems Reviewed Negative Unless Noted: Yes QPL-[id number]-Spjcbc Hx Patient Social History Marrital Status: Smoking Status: Never a Smoker Have you traveled recently?: No Alcohol Use?: No Pt feels they are or have been: No Immunizations Up To Date Tetanus Booster (TDap): Less than 5yrs Date of Influenza Vaccine: Sep 04, 2016 Past Medical History PMH As described under Assessment. Family Medical History Family Medical History: Her mother had a coronary stent in her 30s. Family History: Graves' disease Hypercholesterolemia 19 FATHER (father) 19 MOTHER (mother) Hypertension 19 MOTHER (mother) Sudden cardiac Allergies and Home Medications Allergies Coded Allergies: escitalopram (Verified Allergy, Unknown, 01/05/17) Patient Home Medication List Home Medication List Reviewed: Yes ALPRAZolam (ALPRAZolam) 0.25 Mg Tablet, 0.25 MG PO DAILY PRN for ANXIETY, (Reported) Entered as Reported by: SHANTE REED on 10/03/21 1034 Last Action: Continued Aspirin (Aspirin EC) 81 Mg Tablet.dr, 81 MG PO DAILY, (Reported) Entered as Reported by: SHANTE REED on 12/21/21952 Last Action: Continued Atorvastatin Calcium (Atorvastatin Calcium) 20 Mg Tablet, 20 MG PO HS, (Repo rted) Entered as Reported by: SHANTE REED on 12/21/21952 Last Action: Continued Carvedilol (Carvedilol) 6.25 Mg Tablet, 6.25 MG PO BID, (Reported) Entered as Reported by: SHANTE REED on 12/21/21952 Last Action: Continued Esomeprazole Magnesium (Esomeprazole Magnesium) 40 Mg Capsule.dr, 40 MG PO DAILY, (Reported) Entered as Reported by: AFIA PUGA on 10/01/21 0454 Last Action: Converted Fluoxetine HCl (Fluoxetine HCl) 40 Mg Capsule, 40 MG PO HS, (Reported) Entered as Reported by: SHANTE REED on 12/21/21952 Last Action: Converted Levothyroxine Sodium (Levothyroxine Sodium) 137 Mcg Tablet, 137 MCG PO DAILY, (Reported) Entered as Reported by: HUSSEIN MELGOZA on 03/13/18 0920 Last Action: Held Lisinopril (Lisinopril) 10 Mg Tablet, 10 MG PO DAILY, (Reported) Entered as Reported by: SHANTE REED on 12/21/21952 Last Action: Held Nitroglycerin (Nitroglycerin) 0.4 Mg Tab.subl, 0.4 MG SL UD PRN for CHEST PAIN, (Reported) Entered as Reported by: SHANTE REED on 12/21/21952 Last Action: Continued Ticagrelor (Brilinta) 90 Mg Tablet, 90 MG PO BID, (Reported) Entered as Reported by: SHANTE REED on 12/21/21 0953 Last Action: Continued Discontinued Medications Calcium Carbonate (Tums Ultra) 400 Mg Tab.chew, 400-800 MG PO Q6H PRN for HEARTBURN, (Reported) Discontinued Reason: No Longer Taking Entered as Reported by: SHANTE REED on 10/03/21 1034 Last Action: Discontinued Fluoxetine HCl (Fluoxetine HCl) 20 Mg Capsule, 40 MG PO HS, (Reported) Discontinued Reason: No Longer Taking Entered as Reported by: SHANTE REED on 10/03/21 1023 Last Action: Discontinued Labetalol HCl (Labetalol HCl) 300 Mg Tablet, 300 MG PO BID, (Reported) Discontinued Reason: No Longer Taking Entered as Reported by: SHANTE REED on 10/03/21 1023 Last Action: Discontinued Nifedipine (Nifedipine ER) 90 Mg Tab.er.24, 90 MG PO BID, (Reported) Discontinued Reason: No Longer Taking Entered as Reported by: SHANTE REED on 10/03/21 1023 Last Action: Discontinued Exam Vital Signs Vital Signs Date Time Temp Pulse Resp B/P (MAP) Pulse Ox O2 Delivery O2 Flow Rate FiO2 12/21/21 12:15 89 12/21/21 08:23 100 Room Air 0.00 12/21/21 07:35 35.4 18 123/57 (79) 12/20/21 21:55 21 Physical Exam General: Alert. No acute distress. Well nourished and appears stated age. She is morbidly obese. Eye: Extraocular movements are intact. Conjunctivae are clear. There are no xanthelasma. HENT: Normocephalic. Atraumatic. Carotid pulsations 2/2 without bruits. Neck: Jugular venous pressure does not appear elevated. No thyromegaly appreciated. Respiratory: Lungs are clear to auscultation. Respirations are non-labored. Breath sounds are equal. Symmetrical chest wall expansion. Cardiovascular: Normal rate. Regular rhythm. No murmur. No gallop. Point of maximal impulse is not appear displaced. Good pulses equal in all extremities. No edema. Gastrointestinal: Soft. Normal bowel sounds. Skin: Skin turgor is normal. There is no pallor. Musculoskeletal: No kyphosis or scoliosis appreciated. Neurologic: Alert and oriented to person, place, time. Cranial nerves 3-12 appear grossly intact. The patient has good motor tone strength in the upper and lower extremities bilaterally. Psychiatric: Cooperative. Appropriate mood & affect. Labs Laboratory Tests Test 12/20/21 16:15 12/20/21 17:18 12/20/21 19:00 12/21/21 06:00 Range/Units White Blood Count 19.2 H 7.8 4.3-11.0 10^3/uL Red Blood Count 6.43 H 4.75 3.80-5.11 10^6/uL Hemoglobin 17.1 H 12.6 # 11.5-16.0 g/dL Hematocrit 54 H 41 35-52 % Mean Corpuscular Volume 84 85 80-99 fL Mean Corpuscular Hemoglobin 27 27 25-34 pg Mean Corpuscular Hemoglobin Concent 32 31 L 32-36 g/dL Red Cell Distribution Width 13.2 13.5 10.0-14.5 % Platelet Count 388 255 130-400 10^3/uL Mean Platelet Volume 9.9 10.0 9.0-12.2 fL Immature Granulocyte % (Auto) 1 0 % Neutrophils (%) (Auto) 84 H 65 42-75 % Lymphocytes (%) (Auto) 10 L 21 12-44 % Monocytes (%) (Auto) 4 8 0-12 % Eosinophils (%) (Auto) 1 4 0-10 % Basophils (%) (Auto) 0 0 0-10 % Neutrophils # (Auto) 16.1 H 5.1 1.8-7.8 10^3/uL Lymphocytes # (Auto) 2.0 1.7 1.0-4.0 10^3/uL Monocytes # (Auto) 0.7 0.7 0.0-1.0 10^3/uL Eosinophils # (Auto) 0.2 0.3 0.0-0.3 10^3/uL Basophils # (Auto) 0.1 0.0 0.0-0.1 10^3/uL Immature Granulocyte # (Auto) 0.2 H 0.0 0.0-0.1 10^3/uL Neutrophils % (Manual) 82 % Lymphocytes % (Manual) 10 % Monocytes % (Manual) 6 % Eosinophils % (Manual) 2 % Blood Morphology Comment NORMAL D-Dimer >= 20.00 H 0.00-0.49 UG/ML Sodium Level 136 135 135-145 MMOL/L Potassium Level 3.9 3.6 3.6-5.0 MMOL/L Chloride Level 105 109 H 98-107 MMOL/L Carbon Dioxide Level 16 L 16 L 21-32 MMOL/L Anion Gap 15 H 10 5-14 MMOL/L Blood Urea Nitrogen 18 13 7-18 MG/DL Creatinine 1.04 0.79 0.60-1.30 MG/DL Estimat Glomerular Filtration Rate 75 104 BUN/Creatinine Ratio 17 16 Glucose Level 135 H 101 70-105 MG/DL Calcium Level 10.0 8.3 L 8.5-10.1 MG/DL Corrected Calcium 9.8 8.9 8.5-10.1 MG/DL Magnesium Level 1.8 1.6-2.4 MG/DL Total Bilirubin 0.9 1.0 0.1-1.0 MG/DL Aspartate Amino Transf (AST/SGOT) 18 12 5-34 U/L Alanine Aminotransferase (ALT/SGPT) 21 15 0-55 U/L Alkaline Phosphatase 140 H 100 40-136 U/L Troponin I < 0.028 <0.028 NG/ML B-Type Natriuretic Peptide < 10.0 <100.0 PG/ML Total Protein 7.7 5.8 L 6.4-8.2 GM/DL Albumin 4.2 3.2 3.2-4.5 GM/DL Lipase 19 8-78 U/L Thyroid Stimulating Hormone (TSH) 0.01 L 0.35-4.94 UIU/ML Free Thyroxine 2.12 H 0.70-1.48 NG/DL Lactic Acid Level 1.29 0.50-2.00 MMOL/L Urine Color YELLOW Urine Clarity CLEAR Urine pH 6.0 5-9 Urine Specific [place] <=1.005 1.016-1.022 Urine Protein NEGATIVE NEGATIVE Urine Glucose (UA) NEGATIVE NEGATIVE Urine Ketones 1+ H NEGATIVE Urine Nitrite NEGATIVE NEGATIVE Urine Bilirubin NEGATIVE NEGATIVE Urine Urobilinogen 0.2 < = 1.0 MG/DL Urine Leukocyte Esterase NEGATIVE NEGATIVE Urine RBC (Auto) NEGATIVE NEGATIVE Urine RBC NONE /HPF Urine WBC 0-2 /HPF Urine Squamous Epithelial Cells 2-5 /HPF Urine Crystals NONE /LPF Urine Bacteria MODERATE H /HPF Urine Casts PRESENT /LPF Urine Hyaline Casts 0-2 H /LPF Urine Mucus SMALL H /LPF Urine Culture Indicated YES Radiology PERTINENT TEST RESULTS (reviewed during this visit): PORTABLE CHEST X-RAY (10/06/2021): 1. Mild pulmonary vascular congestion and/or vascular crowding. LABS (10/06/2021): Sodium 138. Potassium 3.3. Creatinine 0.81. GFR 84. Alkaline phosphatase 113. AST 37. ALT 87. CARDIAC CATHETERIZATION AND PERCUTANEOUS CORONARY INTERVENTION (10/03/2021): 1. Elevated left ventricular end-diastolic pressure. 2. There was severe disease of the midportion of the left anterior descending coronary artery with evidence of a probable previous ruptured plaque. I suspect this was the ischemia related vessel for her non-ST elevation myocardial in farction and may have led to her ventricular fibrillation cardiac arrest prior to admission. 3. Status post drug-eluting stent placement to the midportion of the left anterior descending coronary artery with two 2.5 x 15 mm drug-eluting Skypoint stents with both stents overlapped with 0% residual stenosis and DARRYL-3 flow. 4. The patient is known to have normal left ventricular systolic function with an estimated ejection fraction of 55-60% by echocardiogram performed on 10/01/2021. ECHOCARDIOGRAM (10/01/2021): 1. There is normal left ventricular chamber size with mild concentric left ventricular hypertrophy. Normal left ventricular systolic function with an estimated ejection fraction of 55-60% with no regional wall motion abnormalities identified. 2. The left ventricular diastolic parameters are normal. 3. The estimated pulmonary artery systolic pressure is 20 mmHg assuming a right atrial pressure of 5 mmHg. LABS (10/01/2021): Total cholesterol 187. Triglycerides 125. HDL 40. Direct LDL 136. ELECTROCARDIOGRAM (09/30/2021): Sinus rhythm with first-degree AV block, low voltage in the precordial leads, nonspecific anterolateral T wave changes and prolonged QT interval with a QTC of 491 ms. ECG Impression ECG Comment Electrocardiogram from 12/20 shows sinus rhythm with possible old anterior myocardial infarction. No acute ST changes. Diagnosis/Problems Diagnosis/Problems (1) Coronary artery disease without angina pectoris Assessment & Plan: She is not having any angina at this point in time. Her troponin level was undetectable in the emergency room. There are no ischemic changes on her resting electrocardiogram from the emergency room. I recommend she resume all of her cardiac medications including aspirin, ticagrelor, beta- indy, and statin medication. No additional cardiac testing is recommended at this time. (2) Primary hypertension Status: Chronic Assessment & Plan: Resume outpatient antihypertensive medication. (3) Mixed hyperlipidemia Status: Chronic Assessment & Plan: Resume atorvastatin. (4) Morbid obesity Status: Chronic Assessment & Plan: She has been working on weight loss and plans to consider bariatric surgery once she can come off ticagrelor. JORGE CALIX JR, MD Dec 21, 2021 11:03
[2021-12-21 12:00] VITALS: BP 121/57
--- NOTE | 2021-12-21 12:02 | History & Physical-Hospitalist ---
HAMMAD RESENDIZ 12/21/21 1202: History of Present Illness HPI/Chief Complaint CC: Vomiting, Abdominal Cramping/Stabbing Pains, LUQ/LLQ since 12/19/21 HPI: Sarah Larry is a 26yoF with PMHx of MO in Sep 2021, Phil's thyroiditis, single functioning kidney since , HTN, and GERD who presented with 1.5 days of abdominal pain, cramping, nausea, vomiting, and diarrhea. She was evaluated in the ED and found to have several laboratory abnormalities. A CT of abdomen/pelvis was performed suggestive of colitis and enteritis as well as severe hypovolemia. Her D-dimer was elevated and a LE ultrasound was ordered which excluded DVT. Troponin was normal. TSH suppressed, FT4 elevated. She received Metronidazole and Ceftriaxone in the ED as well as IVF and ondansetron for nausea. General surgery was consulted for evaluation. Cardiology was consulted due to proximity of prior MO. Today, she states that she is feeling improved. She is no longer having nausea and/or vomiting. She endorses 2 episodes of diarrhea, minimal without blood. Her abdominal pain has diminished as well. Source: patient, RN/MD Exam Limitations: no limitations Date Seen 12/21/21 Time Seen by a Provider: 09:00 Attending Physician Teresa Peck Lisa A MD Referring Physician Date of Admission Dec 20, 2021 at 19:18 Home Medications & Allergies Home Medications Reviewed patient Home Medication Reconciliation performed by pharmacy medication reconciliations pc maintenance technician and/or nursing. Patients Allergies have been reviewed. Allergies Allergies Coded Allergies escitalopram (Verified Allergy, Unknown, 01/05/17) Past Edxtukt-Vgbzrv-Enwavn Hx Patient Social History Marrital Status: Tobacco Use?: No Smoking Status: Never a Smoker Use of E-Cig and/or Vaping dev: No Substance use?: No Alcohol Use?: No Pt feels they are or have been: No Immunizations Up To Date Date of Influenza Vaccine: Sep 04, 2016 First/Initial COVID19 Vaccinat: November Second COVID19 Vaccination Tashi: December Tetanus Booster (TDap): Unknown Hepatitis A: Yes Hepatitis B: Yes PED Vaccines UTD: Yes Seasonal Allergies Seasonal Allergies: Yes Current Status status: Unable to obtain status: No Advance Directives: No Communicates: Verbally Primary Language: Sri Lankan Preferred Spoken Language: Sri Lankan Implanted or Applied Medical D: Stents Past Medical History Surgeries: Section, Gallbladder, Tonsillectomy Asthma Currently Using CPAP: No Currently Using BIPAP: No Heart Attack (Sep 2019), Hypertension [employer] History: IUD Sexually Transmitted Disease: No HIV/AIDS: No Gall Bladder Disease Hypothyroidsim (Phil's) Did You Recieve Any Treatments: No Anxiety Blood Disorders: No Adverse Reaction/Blood Tranf: No See above - anovulation, morbid obesity, solitary maternal kidney, hypothyroidism Family Medical History Graves' disease Hypercholesterolemia 19 FATHER (father) 19 MOTHER (mother) Hypertension 19 MOTHER (mother) Sudden cardiac No Pertinent Family Hx, Asthma, Heart Disease, Diabetes, Hypertension, Other Conditions/Hx (Graves dx- mom) Review of Systems Constitutional: no symptoms reported EENTM: no symptoms reported Respiratory: no symptoms reported Cardiovascular: no symptoms reported Gastrointestinal: LUQ, LLQ, abdominal pain (LUQ & LLQ), diarrhea, nausea, vomiting Genitourinary: no symptoms reported Musculoskeletal: no symptoms reported Skin: no symptoms reported Psychiatric/Neurological: No Symptoms Reported Physical Exam Physical Exam Vital Signs Vital Signs - First Documented 12/20/21 12/20/21 12/21/21 12/21/21 15:46 21:55 00:35 08:23 Temp 36.0 Pulse 132 Resp 18 B/P (MAP) 87/76 (80) Pulse Ox 100 O2 Delivery Room Air O2 Flow Rate 0.00 FiO2 21 Capillary Refill : Less Than 3 Seconds Height, Weight, BMI Height: 5'2.00" Weight: 263lbs. 0.0oz. [id number]; 53.49 BMI Method:Stated General Appearance: No Apparent Distress, WD/WN Eyes: Bilateral Eye Normal Inspection, Bilateral Eye PERRL, Bilateral Eye EOMI HEENT: PERRL/EOMI, Pharynx Normal, Moist Mucous Membranes Neck: Full Range of Motion, Normal Inspection, Non Tender Respiratory: Chest Non Tender, Lungs Clear, Normal Breath Sounds, No Accessory Muscle Use, No Respiratory Distress Cardiovascular: Regular Rate, Rhythm, No Edema, No Gallop, No JVD, No Murmur, Normal Peripheral Pulses Gastrointestinal: Normal Bowel Sounds, No Organomegaly, Soft; No Rebound; Tenderness (mild LLQ & LUQ) Rectal: Deferred; No Blood Streaked Stool Back: Normal Inspection Extremity: Normal Capillary Refill, Normal Inspection, Normal Range of Motion, No Pedal Edema Neurologic/Psychiatric: Alert, Oriented x3, No Motor/Sensory Deficits, Normal Mood/Affect, occupational health nurse II-XII Norm as Tested Skin: Normal Color, Warm/Dry Results Results/Procedures Labs Laboratory Tests 12/20/21 16:15 12/21/21 06:00 Patient resulted labs reviewed. Imaging: Reviewed Imaging Report Assessment/Plan Admission Diagnosis Colitis and Enteritis Admission Status: Inpatient Order (span 2 midnights) Reason for Inpatient Admission: IV Antibiotics and IV fluids Assessment and Plan Assessment: Colitis Enteritis Elevated D-dimer Hyperthyroidism Nausea Vomiting Diarrhea Dehydration Hx of MO Hx of Phil's thyroiditis Morbid Obesity Plan: Metronidazole (D#2) & Ceftriaxone (D#2) IVF @ 90 mL/hr Ondanestron PRN for vomiting LE USG (12/20): negative for DVT Continue home medications Appreciate Cardiology recommendations Appreciate General Surgery recommendations Diagnosis/Problems Diagnosis/Problems (1) Colitis Status: Acute (2) Enteritis Status: Acute (3) Hyperthyroidism Status: Chronic Assessment & Plan: Hx of Phil's (4) Vomiting Status: Acute Qualifiers: Nausea presence: with nausea (5) Diarrhea Status: Acute (6) Nausea Status: Acute (7) Morbid obesity Status: Chronic (8) Primary hypertension Status: Chronic (9) Obstructive sleep apnea Status: Chronic (10) Mixed hyperlipidemia Status: Chronic (11) Family history of sudden cardiac TERESA PECK 12/22/21 0525: History of Present Illness HPI/Chief Complaint CC: Abdominal pain from colitis HPI: 26 yr old morbidly obese [place]F. Pt had a ventricular arrhythmia and sudden cardiac due to acute myocardial infarction, status post stent place by Dr. Zhong. She presented with left lower quadrant abdominal pain. CT scan showed severe colitis. She was placed on Rocephin and Flagyl. Dr. Kumar was consulted along with Dr. Zhong. She feels much better and in less pain. Source: patient Past Iogispq-Tnqdsy-Dqnhly Hx Patient Social History Marrital Status: Employed/Student: unemployed Smoking Status: Never a Smoker Past Medical History Surgeries: Coronary Stent Sleep Apnea Coronary Artery Disease, High Cholesterol, Hypertension Family Medical History Graves' disease Hypercholesterolemia 19 FATHER (father) 19 MOTHER (mother) Hypertension 19 MOTHER (mother) Sudden cardiac Review of Systems Constitutional: see HPI EENTM: no symptoms reported Respiratory: no symptoms reported Cardiovascular: no symptoms reported Gastrointestinal: abdominal pain (LUQ & LLQ), loss of appetite, nausea, vomiting Genitourinary: no symptoms reported Musculoskeletal: no symptoms reported Skin: no symptoms reported Psychiatric/Neurological: No Symptoms Reported All Other Systems Reviewed Negative Unless Noted: Yes Physical Exam Physical Exam General Appearance: No Apparent Distress, Chronically ill, Obese Eyes: Right Eye Normal Inspection, Right Eye PERRL HEENT: PERRL/EOMI, Normal ENT Inspection, Pharynx Normal, Moist Mucous Membranes Neck: Full Range of Motion, Normal Inspection, Non Tender Respiratory: Chest Non Tender, Lungs Clear, Normal Breath Sounds, No Accessory Muscle Use, No Respiratory Distress Cardiovascular: Regular Rate, Rhythm, No Edema, No Gallop, No JVD, No Murmur, Normal Peripheral Pulses Gastrointestinal: Normal Bowel Sounds, No Organomegaly, No Pulsatile Mass, Soft, Tenderness (mild LLQ & LUQ) Back: Normal Inspection, No CVA Tenderness, No Vertebral Tenderness Extremity: Normal Capillary Refill, Normal Inspection, Normal Range of Motion, Non Tender, No Calf Tenderness, No Pedal Edema Neurologic/Psychiatric: Alert, Oriented x3, No Motor/Sensory Deficits, Normal Mood/Affect Skin: Normal Color, Warm/Dry Lymphatic: No Adenopathy Assessment/Plan Admission Diagnosis Assessment: Acute colitis Abdominal pain Recent ventricular arrhythmia due to acute MO status post stent Super morbid obesity BMI 53 Hypertension Hyperlipidemia Plan: Antibiotics Supportive care Admission Status: Inpatient Order (span 2 midnights) Reason for Inpatient Admission: IV antibiotics for colitis Supervisory-Addendum Brief Verification & Attestation Participated in pt care: history, MDM, physical Personally performed: exam, history, MDM, supervision of care Care discussed with: Medical Student Procedures: n/a Results interpretation: Verified all documentation Verification and Attestation of Medical Student E/M Service A medical student performed and documented this service in my presence. I reviewed and verified all information documented by the medical student and made modifications to such information, when appropriate. I personally performed the physical exam and medical decision making. Teresa Peck, Dec 22, 2021,05:23 [facility] RESENDIZ Dec 21, 2021 12:02 TERESA PECK DO Dec 22, 2021 05:25
[2021-12-21 16:00] VITALS: BP 124/75
[2021-12-21 20:00] VITALS: BP 122/79
[2021-12-21] MEDS ORDERED: TICAGRELOR 90 MG TABLET (BRILINTA) PO SCH (21:00)
[2021-12-21] MEDS ORDERED: NON-FORMULARY MEDICATION 1 EA EA (Fluoxetine HCl 40 MG) PO SCH (21:00)
[2021-12-21] MEDS ORDERED: FLUoxetine HCL 20 MG (PROzac) CAP PO SCH (21:00)
[2021-12-22 00:30] VITALS: BP 131/60
[2021-12-22 04:31] VITALS: BP 136/65
--- NOTE | 2021-12-22 05:49 | Progress Note - Surgery ---
Subjective Date Seen by a Provider: Dec 22, 2021 Time Seen by a Provider: 05:30 Subjective/Events-last exam Pt reports feeling good and wanting to go home. No longer has abdominal pain, nausea or vomiting. Pt continues to have diarrhea, but it has improved to once every couple hours. Pt is on clear liquid diet. Review of Systems General: No Chills, No Malaise HEENT: No Head Aches, No Visual Changes Pulmonary: No Dyspnea, No Cough Cardiovascular: No: Chest Pain, Palpitations Gastrointestinal: Diarrhea; No: Nausea, Vomiting, Abdominal Pain Genitourinary: No Dysuria, No Frequency Musculoskeletal: No: neck pain, leg pain Neurological: No: Weakness, Change in speech Focused Exam Lactate Level 12/20/21 17:18: Lactic Acid Level 1.29 Respiratory: Lungs Clear, Normal Breath Sounds, No Respiratory Distress Cardiovascular: Regular Rate, Rhythm, No Murmur Peripheral Pulses: 3+ Radial Pulses (R), 3+ Radial Pulses (L) Skin: normal color, warm/dry Objective Exam Vital Signs Date Time Temp Pulse Resp B/P (MAP) Pulse Ox O2 Delivery O2 Flow Rate FiO2 12/22/21 04:31 37.1 97 22 136/65 (88) 97 Room Air 12/22/21 01:00 85 12/22/21 00:30 36.5 88 20 131/60 (83) 98 Room Air 12/21/21 20:40 Room Air 12/21/21 20:00 36.7 76 18 122/79 (93) 98 Room Air 12/21/21 19:00 81 12/21/21 16:00 36.2 81 18 124/75 (91) 97 Room Air 12/21/21 12:15 89 12/21/21 12:00 36.2 91 18 121/57 (78) 98 Room Air 12/21/21 08:23 100 Room Air 0.00 12/21/21 08:00 Room Air 12/21/21 07:35 35.4 87 18 123/57 (79) 100 Room Air 12/21/21 07:00 86 I & O 12/22/21 07:00 Intake Total 1710 ml Balance 1710 ml General Appearance: No Apparent Distress, Chronically ill, Obese HEENT: PERRL/EOMI Neck: Normal Inspection, Supple Respiratory: Lungs Clear, Normal Breath Sounds, No Accessory Muscle Use, No Respiratory Distress Cardiovascular: Regular Rate, Rhythm, No Murmur, Normal Peripheral Pulses Peripheral Pulses: 3+ Dorsalis Pedis (R), 3+ Left Dors-Pedis (L), 3+ Radial Pulses (R), 3+ Radial Pulses (L) Gastrointestinal: non tender, soft Extremity: Normal Inspection, No Pedal Edema Neurologic/Psychiatric: Alert, Oriented x3, Normal Mood/Affect Skin: Normal Color, Warm/Dry Lymphatic: No Adenopathy Results Lab Laboratory Tests 12/21/21 06:00: White Blood Count 7.8, Red Blood Count 4.75, Hemoglobin 12.6#, Hematocrit 41, Mean Corpuscular Volume 85, Mean Corpuscular Hemoglobin 27, Mean Corpuscular Hemoglobin Concent 31L, Red Cell Distribution Width 13.5, Platelet Count 255, Mean Platelet Volume 10.0, Immature Granulocyte % (Auto) 0, Neutrophils (%) (Auto) 65, Lymphocytes (%) (Auto) 21, Monocytes (%) (Auto) 8, Eosinophils (%) (Auto) 4, Basophils (%) (Auto) 0, Neutrophils # (Auto) 5.1, Lymphocytes # (Auto) 1.7, Monocytes # (Auto) 0.7, Eosinophils # (Auto) 0.3, Basophils # (Auto) 0.0, Immature Granulocyte # (Auto) 0.0, Sodium Level 135, Potassium Level 3.6, Chloride Level 109H, Carbon Dioxide Level 16L, Anion Gap 10, Blood Urea Nitrogen 13, Creatinine 0.79, Estimat Glomerular Filtration Rate 104, BUN/Creatinine Ratio 16, Glucose Level 101, Calcium Level 8.3L, Corrected Calcium 8.9, Total Bilirubin 1.0, Aspartate Amino Transf (AST/SGOT) 12, Alanine Aminotransferase (ALT/SGPT) 15, Alkaline Phosphatase 100, Total Protein 5.8L, Albumin 3.2 Microbiology 12/20/21 Urine Culture - Preliminary, Resulted Slight Growth Present 12/20/21 Blood Culture - Preliminary, Resulted No growth Assessment/Plan Assessment/Plan Assessment/Plan Abdominal Pain left upper quadrant left lower quadrant N/V Enteritis/colitis HTN Hx SC Single functioning kidney Phil's thyroiditis (hyperthyroidism currently) Morbid Obesity Continue Flagyl and Rocephin Zofran as needed Hold hypothyroid medication Continue Brilanta and ASA Conservative management without surgery at this time Monitor Labs Consider colonoscopy in 6 months SHAUN CALLAWAY Dec 22, 2021 05:49
[2021-12-22 06:07] LABS: BASOPHILS % (AUTO) 1 % (0-10); EOSINOPHILS # (AUTO) 0.3 10^3/uL (0.0-0.3); EOSINOPHILS % (AUTO) 6 % (0-10); HEMATOCRIT 39 % (35-52); HEMOGLOBIN 12.3 g/dL (11.5-16.0); LYMPHOCYTES # (AUTO) 1.6 10^3/uL (1.0-4.0); LYMPHOCYTES % (AUTO) 36 % (12-44); MEAN CORPUSCULAR HEMOGLOBIN 26 pg (25-34); MEAN CORPUSCULAR HGB CONC 32 g/dL (32-36); MEAN CORPUSCULAR VOLUME 84 fL (80-99); MONOCYTES # (AUTO) 0.5 10^3/uL (0.0-1.0); MONOCYTES % (AUTO) 10 % (0-12); NEUTROPHILS # (AUTO) 2.1 10^3/uL (1.8-7.8); NEUTROPHILS % (AUTO) 48 % (42-75); PLATELET COUNT 212 10^3/uL (130-400); WHITE BLOOD COUNT 4.4 10^3/uL (4.3-11.0)
[2021-12-22 06:32] LABS: ALBUMIN 3.2 GM/DL (3.2-4.5); BILIRUBIN,TOTAL 0.7 MG/DL (0.1-1.0); CALCIUM 8.4 MG/DL (8.5-10.1); CREATININE SERUM 0.74 MG/DL (0.60-1.30); POTASSIUM 3.5 MMOL/L (3.6-5.0)
[2021-12-22 07:17] VITALS: BP 145/65
[2021-12-22] MEDS: TICAGRELOR 90 MG TABLET (BRILINTA) PO SCH (08:26)
[2021-12-22] MEDS: ENOXAPARIN 60 MG/0.6 ML (LOVENOX) SYR SC SCH (08:26)
[2021-12-22] MEDS: ASPIRIN E.C. 81 MG (ECOTRIN) TAB PO SCH (08:26)
[2021-12-22] MEDS: metroNIDAZOLE 500MG/100ML IVPB 100 ML IV SCH (08:27)
[2021-12-22] MEDS: DOCUSATE SODIUM 100 MG (COLACE) CAP PO SCH (08:29)
[2021-12-22] MEDS: SENNOSIDES 8.6 MG (SENOKOT) TAB PO SCH (08:29)
[2021-12-22] MEDS ORDERED: ASPIRIN E.C. 81 MG (ECOTRIN) TAB PO SCH (09:00)
[2021-12-22] MEDS ORDERED: PANTOPRAZOLE 40 MG (PROTONIX) TAB PO SCH (09:00)
[2021-12-22] MEDS ORDERED: NON-FORMULARY MEDICATION 1 EA EA (Esomeprazole Magnesium 40 MG) PO SCH (09:00)
[2021-12-22] MEDS ORDERED: cefTRIAXone 1 GM PRE-MIX 50 ML IV SCH (09:00)
[2021-12-22] MEDS: NS IV 1000 ML 1,000 ML IV SCH (10:41)
[2021-12-22 11:15] VITALS: BP 128/71
[2021-12-22] MEDS ORDERED: AMOX-358 PO (11:22)
[2021-12-22] MEDS ORDERED: METR-145 PO (11:22)
--- NOTE | 2021-12-22 11:22 | Discharge Summary ---
Discharge Summary Hospital Course Was the Problem List Reviewed?: Yes Problems/Dx: (1) Colitis Status: Acute (2) Coronary artery disease without angina pectoris (3) Primary hypertension Status: Chronic (4) Mixed hyperlipidemia Status: Chronic (5) Morbid obesity Status: Chronic Hospital Course Date of Admission: Dec 20, 2021 at 19:18 Admission Diagnosis : Family Physician/Provider: Cesilia Henson MD Date of Discharge: 12/22/21 Discharge Diagnosis: Assessment: Acute colitis Abdominal pain Recent ventricular arrhythmia due to acute [place] status post stent Super morbid obesity BMI 53 Hypertension Hyperlipidemia Hospital Course: HOSPITAL COURSE: Sarah Larry is a 26yoF with PMHx of [place] in Sep 2021, Phil's thyroiditis, single functioning kidney since , HTN, and GERD who presented on 12/21/21 with 1.5 days of abdominal pain, cramping, nausea, vomiting, and diarrhea. She was evaluated in the ED and found to have several laboratory abnormalities. A CT of abdomen/pelvis was performed suggestive of colitis and enteritis as well as severe hypovolemia. Her D-dimer was elevated and a LE ultrasound was ordered which excluded DVT. Troponin was normal. TSH suppressed, FT4 elevated. General surgery was consulted for evaluation and management recommendations. She was treated with IVF and 3 days of IV Metronidazole and Ceftriaxone. Her thyroid medication was held during her hospitalization and will continue to be on hold until she follows up with PCP. She will discharge on 5 days of Augmentin 875mg PO BID and Metronidazole 500mg PO TID. She will continue all home medications, including cardiac medications, except for thyroid medication as above. General surgery would like a colonoscopy in approximately 6 months. She will follow up with PCP in 2 weeks. She may return to her work at [employer] without any restrictions. H[facility] RESENDIZ Labs and Pending Lab Test: Laboratory Tests 12/22/21 05:55: White Blood Count 4.4, Red Blood Count 4.68, Hemoglobin 12.3, Hematocrit 39, Mean Corpuscular Volume 84, Mean Corpuscular Hemoglobin 26, Mean Corpuscular Hemoglobin Concent 32, Red Cell Distribution Width 13.3, Platelet Count 212, Mean Platelet Volume 10.0, Immature Granulocyte % (Auto) 0, Neutrophils (%) (Auto) 48, Lymphocytes (%) (Auto) 36, Monocytes (%) (Auto) 10, Eosinophils (%) (Auto) 6, Basophils (%) (Auto) 1, Neutrophils # (Auto) 2.1, Lymphocytes # (Auto) 1.6, Monocytes # (Auto) 0.5, Eosinophils # (Auto) 0.3, Basophils # (Auto) 0.0, Immature Granulocyte # (Auto) 0.0, Sodium Level 138, Potassium Level 3.5L, Chloride Level 113H, Carbon Dioxide Level 15L, Anion Gap 10, Blood Urea Nitrogen 6L, Creatinine 0.74, Estimat Glomerular Filtration Rate 113, BUN/Creatinine Ratio 8, Glucose Level 96, Calcium Level 8.4L, Corrected Calcium 9.0, Total Bilirubin 0.7, Aspartate Amino Transf (AST/SGOT) 14, Alanine Aminotransferase (ALT/SGPT) 20, Alkaline Phosphatase 97, Total Protein 6.0L, Albumin 3.2 Microbiology 12/20/21 Urine Culture - Preliminary, Resulted Slight Growth Present 12/20/21 Blood Culture - Preliminary, Resulted No growth Home Meds Active Reported Aspirin EC (Aspirin) 81 Mg Tablet.dr 81 Mg PO DAILY Fluoxetine HCl 40 Mg Capsule 40 Mg PO HS Nitroglycerin 0.4 Mg Tab.subl 0.4 Mg SL UD PRN Brilinta (Ticagrelor) 90 Mg Tablet 90 Mg PO BID Atorvastatin Calcium 20 Mg Tablet 20 Mg PO HS Carvedilol 6.25 Mg Tablet 6.25 Mg PO BID Lisinopril 10 Mg Tablet 10 Mg PO DAILY ALPRAZolam 0.25 Mg Tablet 0.25 Mg PO DAILY PRN Esomeprazole Magnesium 40 Mg Capsule.dr 40 Mg PO DAILY Levothyroxine Sodium 137 Mcg Tablet 137 Mcg PO DAILY Assessment/Pt Instructions Dr. Henson in 2 weeks Discharge Planning: <30 minutes discharge planning Discharge Instructions Discharge Diet: No Restrictions Activity as Tolerated: Yes Discharge Physical Examination Vital Signs Vital Signs Date Time Temp Pulse Resp B/P (MAP) Pulse Ox O2 Delivery O2 Flow Rate FiO2 12/22/21 11:15 36.6 79 20 128/71 (90) 100 Room Air 12/21/21 08:23 0.00 12/20/21 21:55 21 General Appearance: No Apparent Distress, WD/WN, Chronically ill, Obese Allergies: Coded Allergies: escitalopram (Verified Allergy, Unknown, 01/05/17) Discharge Summary Date of Admission Dec 20, 2021 at 19:18 Date of Discharge Discharge Date: Dec 22, 2021 Admission Diagnosis Assessment: Acute colitis Abdominal pain Recent ventricular arrhythmia due to acute [place] status post stent Super morbid obesity BMI 53 Hypertension Hyperlipidemia Plan: Antibiotics Supportive care Discharge Diagnosis (1) Coronary artery disease without angina pectoris Assessment & Plan: She is not having any angina at this point in time. Her troponin level was undetectable in the emergency room. There are no ischemic changes on her resting electrocardiogram from the emergency room. I recommend she resume all of her cardiac medications including aspirin, ticagrelor, beta- indy, and statin medication. No additional cardiac testing is recommended at this time. (2) Primary hypertension Status: Chronic Assessment & Plan: Resume outpatient antihypertensive medication. (3) Mixed hyperlipidemia Status: Chronic Assessment & Plan: Resume atorvastatin. (4) Morbid obesity Status: Chronic Assessment & Plan: She has been working on weight loss and plans to consider bariatric surgery once she can come off ticagrelor. FIDEL PECK DO Dec 22, 2021 11:22
[2021-12-22 12:26] VITALS: BP 128/71
--- NOTE | 2021-12-22 13:04 | Progress Note ---
[facility] RESEND[facility] 12/22/21 1304: Progress Note HOSPITAL COURSE: Sarah Larry is a 26yoF with PMHx of [place] in Sep 2021, Phil's thyroiditis, single functioning kidney since , HTN, and GERD who presented on 12/21/21 with 1.5 days of abdominal pain, cramping, nausea, vomiting, and diarrhea. She was evaluated in the ED and found to have several laboratory abnormalities. A CT of abdomen/pelvis was performed suggestive of colitis and enteritis as well as severe hypovolemia. Her D-dimer was elevated and a LE ultrasound was ordered which excluded DVT. Troponin was normal. TSH suppressed, FT4 elevated. General surgery was consulted for evaluation and management recommendations. She was treated with IVF and 3 days of IV Metronidazole and Ceftriaxone. Her thyroid medication was held during her hospitalization and will continue to be on hold until she follows up with PCP. She will discharge on 5 days of Augmentin 875mg PO BID and Metronidazole 500mg PO TID. She will continue all home medications, including cardiac medications, except for thyroid medication as above. General surgery would like a colonoscopy in approximately 6 months. She will follow up with PCP in 2 weeks. She may return to her work at [employer] without any restrictions. TERESA ACOSTA DO 12/23/21 0528: Supervisory-Addendum Brief Verification & Attestation Participated in pt care: history, MDM, physical Personally performed: exam, history, MDM, supervision of care Care discussed with: Medical Student Procedures: n/a Results interpretation: Verified all documentation Verification and Attestation of Medical Student E/M Service A medical student performed and documented this service in my presence. I reviewed and verified all information documented by the medical student and made modifications to such information, when appropriate. I personally performed the physical exam and medical decision making. Teresa Acosta, Dec 23, 2021,05:28 [facility] Dec 22, 2021 13:04 TERESA ACOSTA DO Dec 23, 2021 05:28
== END 2021-12-22 12:20 | disposition home or self-care (01) | DRG 392 ==
LOC: EDUNIT# 15:35 → ER 15:39 → 4TH 19:18
PROVIDERS: ADMIT Internal Medicine; ATTEND Internal Medicine
DX: K52.9 Noninfective gastroenteritis and colitis, unspecified (principal); Z68.43 Body mass index [BMI] 50.0-59.9, adult; Z95.5 Presence of coronary angioplasty implant and graft; I25.2 Old myocardial infarction; E66.01 Morbid (severe) obesity due to excess calories; I10 Essential (primary) hypertension; E78.2 Mixed hyperlipidemia; G47.33 Obstructive sleep apnea (adult) (pediatric); E78.00 Pure hypercholesterolemia, unspecified; E05.90 Thyrotoxicosis, unspecified without thyrotoxic crisis or storm; E06.3 Autoimmune thyroiditis; F41.9 Anxiety disorder, unspecified; K21.9 Gastro-esophageal reflux disease without esophagitis; I25.10 Atherosclerotic heart disease of native coronary artery without angina pectoris; Z79.82 Long term (current) use of aspirin; Z79.899 Other long term (current) drug therapy; E03.9 Hypothyroidism, unspecified
CPT/HCPCS: 36415; 71275; 74177; 80053; 81000; 83605; 83690; 83735; 83880; 84439; 84443; 84484; 85007; 85025; 85027; 85379; 87040; 87088; 93005; 93970; 94760

== ENCOUNTER → 2022-01-09 | Outpatient (RCR) | payer BC ==
[~2022-01-09] MED LIST changes: +AMOX-358 PO; +ASPI-1238 PO; +ATOR20TA66 PO; +CARV6.252 PO; +FLUO40CA PO; +LISI10TA25 PO; +METR-145 PO; +NITR0.4T39 SL; +TICA90TA PO
== END | disposition home or self-care (01) ==
LOC: CR 12-19 11:08
PROVIDERS: ATTEND Internal Medicine Cardiovascular Disease
DX: Z29.8 Encounter for other specified prophylactic measures (principal); I25.10 Atherosclerotic heart disease of native coronary artery without angina pectoris
CPT/HCPCS: 93798

== ENCOUNTER 2022-01-30 14:13 | Outpatient (RCR) | payer BC | END 2022-02-09 | disposition home or self-care (01) | LOC: CR 14:13 | PROVIDERS: ATTEND Internal Medicine Cardiovascular Disease | DX: Z29.8 Encounter for other specified prophylactic measures (principal); I25.10 Atherosclerotic heart disease of native coronary artery without angina pectoris | CPT/HCPCS: 93798 ==

== ENCOUNTER 2022-07-13 21:00 | Outpatient (CLI) | payer BC ==
[2022-07-13] VITALS (10 sets, daily range): BP systolic 136–187; BP diastolic 63–99
[~2022-07-13] VITALS: Ht 157.5 cm; Wt 138.5 kg
[~2022-07-13 21:00] MED LIST changes: +LABE200T10; +LABE200T10 PO; -LABE200T7; -LABE200T7 PO; -LABE300T2 PO; +LABE300T4 PO
[2022-07-13] MEDS ORDERED: LEVO125T PO (21:25)
[2022-07-13] MEDS ORDERED: LABE200T10 PO (21:25)
[2022-07-13] MEDS ORDERED: IRON18TA PO (21:33)
[2022-07-13] MEDS ORDERED: PREN-8 PO (21:33)
[2022-07-13 22:06] LABS: BILIRUBIN,URINE NEGATIVE (NEGATIVE); CLARITY,URINE CLEAR; COLOR,URINE YELLOW; GLUCOSE, URINE (UA) NEGATIVE (NEGATIVE); KETONES,URINE NEGATIVE (NEGATIVE); LEUKOCYTE ESTERASE ,URINE NEGATIVE (NEGATIVE); NITRITE,URINE NEGATIVE (NEGATIVE); PROTEIN,URINE 1+ (NEGATIVE)
[2022-07-13 22:16] LABS: BACTERIA,URINE FEW /HPF; WBC,URINE 0-2 /HPF
[2022-07-13 22:35] LABS: BASOPHILS % (AUTO) 0 % (0-10); EOSINOPHILS # (AUTO) 0.2 10^3/uL (0.0-0.3); EOSINOPHILS % (AUTO) 2 % (0-10); HEMATOCRIT 35 % (35-52); HEMOGLOBIN 11.4 g/dL (11.5-16.0); LYMPHOCYTES % (AUTO) 18 % (12-44); MEAN CORPUSCULAR HEMOGLOBIN 28 pg (25-34); MEAN CORPUSCULAR HGB CONC 33 g/dL (32-36); MEAN CORPUSCULAR VOLUME 86 fL (80-99); MEAN PLATELET VOLUME 9.8 fL (9.0-12.2); MONOCYTES # (AUTO) 0.9 10^3/uL (0.0-1.0); MONOCYTES % (AUTO) 8 % (0-12); NEUTROPHILS % (AUTO) 72 % (42-75); PLATELET COUNT 260 10^3/uL (130-400); WHITE BLOOD COUNT 11.1 10^3/uL (4.3-11.0)
[2022-07-13 22:48] LABS: POTASSIUM 3.8 MMOL/L (3.6-5.0)
[2022-07-13 22:49] LABS: CALCIUM 9.1 MG/DL (8.5-10.1)
[2022-07-13 22:51] LABS: TOTAL PROTEIN 6.1 GM/DL (6.4-8.2)
[2022-07-13 22:52] LABS: BILIRUBIN,TOTAL 0.3 MG/DL (0.1-1.0)
[2022-07-13 22:54] LABS: CREATININE SERUM 0.79 MG/DL (0.60-1.30)
[2022-07-13 22:57] LABS: URIC ACID 7.3 MG/DL (2.6-7.2)
--- NOTE | 2022-07-14 08:31 | Physician Query-Final Dx ---
PRASAD07/14/22 0831: Clinic Account Progress/Dx Physician Query: Please give diagnosis Please include # weeks gestation Date of Service Jul 13, 2022 at 21:00 PERI RANDHAWA MD 07/14/22 1100: Clinic Account Progress/Dx DIAGNOSIS: Diagnosis Third trimester 34 week gestation Obesity in Chronic HTN in ,NovJul 14, 2022 08:31 PERI RANDHAWA MD Jul 14, 2022 11:00
== END 2022-07-13 23:00 ==
LOC: LDRP 21:00 → WSo 21:00
PROVIDERS: ATTEND Family Medicine
DX: O36.8130 Decreased fetal movements, third trimester, not applicable or unspecified (principal); Z3A.32 32 weeks gestation of pregnancy
CPT/HCPCS: 36415; 80053; 81000; 82570; 83615; 84156; 84550; 85025; 87088; 99212

== ENCOUNTER 2022-08-17 13:48 | Emergency (ER) | payer BC ==
[~2022-08-17] VITALS: Ht 157.4 cm; Wt 132.9 kg
[~2022-08-17 13:48] MED LIST changes: +IRON18TA PO; +LEVO125T PO; +PREN-8 PO
[2022-08-17] MEDS ORDERED: ASPIRIN 81 MG CHEW (CHILDREN'S ASA) PO STA (14:03)
--- NOTE | 2022-08-17 14:08 | ED Chest Pain ---
General Chief Complaint: Chest Pain Stated Complaint: UPPER BACK PAIN Nursing Triage Note: PT TO RM 3 WITH CC OF CHEST PAIN. PT REPORTS BEGAN ABOUT 20MINUTES PRIOR TO ARRIVAL. PT STATES PAIN IS IN THE TOP PART OF HER BACK AND UNDER HER BREAST. PT REPORTS HAS HEART HX. PT STATES HAD HEART ATTACK SEP 2021. Source: patient, family Exam Limitations: no limitations History of Present Illness Date Seen by Provider: Aug 17, 2022 Time Seen by Provider: 14:00 Initial Comments Patient is a 27-year-old female, approximately 3 weeks delivery at full-term with a history of coronary artery disease onset of chest pain approximately 30 minutes prior to arrival. Patient had recently finished eating, she had sudden onset of squeezing tight band around her lower chest. It was accompanied by some sweating, shortness of breath and nausea. Patient had an acute FL in September 2021. She is maintained currently on baby aspirin and Lovenox injections. She states that she has been compliant with her medications. She currently rates her pain a "6". She has not taken anything for it. No recent illnesses. She is breast-feeding. She is not a diabetic. Has been on Keflex recently for seroma/infection at her site. Denies burning with urination. Had a little bit of diarrhea this afternoon. Not currently short of breath. All other review of systems reviewed and negative except as stated Timing/Duration: 1/2 hour Severity/Quality: moderate, ingestion, pressure, tightness Location: central Radiation: back Activities at Onset: other (Had just eaten) Prior CP/Workup: cardiac cath, heart attack ASA po ECONOMICS FACULTY MEMBER: No NTG SL ECONOMICS FACULTY MEMBER: No Associated Symptoms: back pain, heartburn, shortness of breath Allergies and Home Medications Allergies Coded Allergies: escitalopram (Verified Allergy, Unknown, 01/05/17) Patient Home Medication List Home Medication List Reviewed: Yes ALPRAZolam (ALPRAZolam) 0.25 Mg Tablet, 0.25 MG PO DAILY PRN for ANXIETY, (Reported) Entered as Reported by: SHANTE REED on 10/03/21 1034 Aspirin (Aspirin EC) 81 Mg Tablet., 81 MG PO DAILY, (Reported) Entered as Reported by: SHANTE REED on 12/21/21 0953 Esomeprazole Magnesium (Esomeprazole Magnesium) 40 Mg Capsule., 40 MG PO DAILY, (Reported) Entered as Reported by: AFIA PUGA on 10/01/21 0454 Fluoxetine HCl (Fluoxetine HCl) 40 Mg Capsule, 40 MG PO HS, (Reported) Entered as Reported by: SHANTE REED on 12/21/21952 Iron (Iron) 18 Mg Tablet, 65 MG PO DAILY, (Reported) Entered as Reported by: DAVINA VIVEROS on 07/13/222132 Labetalol HCl (Labetalol HCl) 200 Mg Tablet, 400 MG PO TID, (Reported) Entered as Reported by: DAVINA VIVEROS on 07/13/222124 Levothyroxine Sodium (Synthroid) 125 Mcg Tablet, 125 MCG PO DAILY, (Reported) Entered as Reported by: DAVINA VIVEROS on 07/13/222124 Nitroglycerin (Nitroglycerin) 0.4 Mg Tab.subl, 0.4 MG SL UD PRN for CHEST PAIN, (Reported) Entered as Reported by: SHANTE REED on 12/21/21952 Vit W-Ca,Fe,FA(<1 mg) ( Formula) 28 Mg Iron-800 Mcg Tablet, 1 EACH PO, (Reported) Entered as Reported by: DAVINA VIVEROS on 07/13/222132 Sucralfate (Carafate) 1 Gram Tablet, 1 GM PO QIDACHS Prescribed by: ALEX DAVIS on 08/17/221808 Ticagrelor (Brilinta) 90 Mg Tablet, 90 MG PO BID, (Reported) Entered as Reported by: SHANTE REED on 12/21/21952 Review of Systems Review of Systems Constitutional: see HPI EENTM: No Symptoms Reported Respiratory: Shortness of Air Cardiovascular: Chest Pain Gastrointestinal: Nausea Genitourinary: No Symptoms Reported Musculoskeletal: back pain Skin: no symptoms reported Psychiatric/Neurological: No Symptoms Reported All Other Systems Reviewed Negative Unless Noted: Yes Past Qiiqhgw-Hyiett-Lumojr Hx Patient Social History Tobacco Use?: No Substance use?: No Alcohol Use?: No Immunizations Up To Date Tetanus Booster (TDap): Less than 5yrs PED Vaccines UTD: Yes First/Initial COVID19 Vaccinat: November Second COVID19 Vaccination Tashi: December COVID19 Vaccination Date: November Seasonal Allergies Seasonal Allergies: Yes Past Medical History Surgery/Hospitalization HX: HEART ATTACK 2020, STENTS Surgeries: Yes Coronary Stent Respiratory: Yes Sleep Apnea Currently Using CPAP: No Currently Using BIPAP: No Cardiac: Yes (pre-eclampsia w/ ) Coronary Artery Disease, High Cholesterol, Hypertension Neurological: No Reproductive Disorders: No 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 Sexually Transmitted Disease: No HIV/AIDS: No Genitourinary: Yes (functionally unilateral kidney) Gastrointestinal: No Gall Bladder Disease Musculoskeletal: No 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) Hypothyroidsim HEENT: No Cancer: No Did You Recieve Any Treatments: No Psychosocial: No Anxiety Integumentary: No Blood Disorders: No Adverse Reaction/Blood Tranf: No Family Medical History Graves' disease Hypercholesterolemia 19 FATHER (father) 19 MOTHER (mother) Hypertension 19 MOTHER (mother) Sudden cardiac No Pertinent Family Hx, Asthma, Heart Disease, Diabetes, Hypertension, Other Conditions/Hx Physical Exam Vital Signs Vital Signs - First Documented 08/17/22 13:53 Temp 36.5 Pulse 109 Resp 13 B/P (MAP) 188/111 (136) Pulse Ox 100 O2 Delivery Room Air Capillary Refill : Less Than 3 Seconds Height, Weight, BMI Height: 5'2.00" Weight: 263lbs. 0.0oz. 119.409999yc; 53.00 BMI Method:Stated General Appearance: No Apparent Distress, WD/WN, Obese HEENT: PERRL/EOMI Neck: Normal Inspection Respiratory: Lungs Clear, Normal Breath Sounds, No Accessory Muscle Use, No Respiratory Distress Cardiovascular: Regular Rate, Rhythm Gastrointestinal: Non Tender, Soft Extremity: Normal Inspection, Normal Range of Motion Neurologic/Psychiatric: Alert, Oriented x3, No Motor/Sensory Deficits, Normal Mood/Affect Skin: Normal Color, Warm/Dry Procedures/Interventions Date of ETT Placement: Oct 01, 2021 Time of ETT Placement: 2099 Progress/Results/Core Measures Results/Orders Lab Results Laboratory Tests Test 08/17/22 13:59 08/17/22 17:29 Range/Units White Blood Count 7.0 4.3-11.0 10^3/uL Red Blood Count 4.64 3.80-5.11 10^6/uL Hemoglobin 12.7 11.5-16.0 g/dL Hematocrit 40 35-52 % Mean Corpuscular Volume 85 80-99 fL Mean Corpuscular Hemoglobin 27 25-34 pg Mean Corpuscular Hemoglobin Concent 32 32-36 g/dL Red Cell Distribution Width 14.2 10.0-14.5 % Platelet Count 400 130-400 10^3/uL Mean Platelet Volume 10.1 9.0-12.2 fL Immature Granulocyte % (Auto) 0 % Neutrophils (%) (Auto) 49 42-75 % Lymphocytes (%) (Auto) 34 12-44 % Monocytes (%) (Auto) 7 0-12 % Eosinophils (%) (Auto) 9 0-10 % Basophils (%) (Auto) 1 0-10 % Neutrophils # (Auto) 3.5 1.8-7.8 10^3/uL Lymphocytes # (Auto) 2.4 1.0-4.0 10^3/uL Monocytes # (Auto) 0.5 0.0-1.0 10^3/uL Eosinophils # (Auto) 0.7 H 0.0-0.3 10^3/uL Basophils # (Auto) 0.1 0.0-0.1 10^3/uL Immature Granulocyte # (Auto) 0.0 0.0-0.1 10^3/uL Prothrombin Time 13.5 12.2-14.7 SEC INR Comment 1.0 0.8-1.4 Activated Partial Thromboplast Time 34 24-35 SEC Sodium Level 138 135-145 MMOL/L Potassium Level 4.1 3.6-5.0 MMOL/L Chloride Level 106 98-107 MMOL/L Carbon Dioxide Level 24 21-32 MMOL/L Anion Gap 8 5-14 MMOL/L Blood Urea Nitrogen 14 7-18 MG/DL Creatinine 0.96 0.60-1.30 MG/DL Estimat Glomerular Filtration Rate 82 BUN/Creatinine Ratio 15 Glucose Level 93 70-105 MG/DL Uric Acid 6.9 2.6-7.2 MG/DL Calcium Level 9.5 8.5-10.1 MG/DL Corrected Calcium 9.7 8.5-10.1 MG/DL Magnesium Level 1.7 1.6-2.4 MG/DL Total Bilirubin 0.6 0.1-1.0 MG/DL Aspartate Amino Transf (AST/SGOT) 33 5-34 U/L Alanine Aminotransferase (ALT/SGPT) 32 0-55 U/L Alkaline Phosphatase 120 40-136 U/L Lactate Dehydrogenase 208 125-220 U/L Myoglobin 46.3 10.0-92.0 NG/ML Troponin I < 0.028 < 0.028 <0.028 NG/ML Total Protein 6.9 6.4-8.2 GM/DL Albumin 3.8 3.2-4.5 GM/DL My Orders Orders - ALEX DAVIS MD Ekg Tracing (08/17/22 13:52) Cbc With Automated Diff (08/17/22 14:03) Magnesium (08/17/22 14:03) Chest 1 View, Ap/Pa Only (08/17/22 14:03) Comprehensive Metabolic Panel (08/17/22 14:03) Myoglobin Serum (08/17/22 14:03) Protime With Inr (08/17/22 14:03) Partial Thromboplastin Time (08/17/22 14:03) O2 (08/17/22 14:03) Monitor-Rhythm Ecg Trace Only (08/17/22 14:03) Lipid Panel (08/18/22 06:00) Ed Iv/Invasive Line Start (08/17/22 14:03) Troponin I Swisher (08/17/22 14:03) Aspirin Chewable Tablet (Baby Aspirin Ch (08/17/22 14:03) Nitroglycerin 0.4 Mg Btl 25's (Nitrostat (08/17/22 14:15) Ns Iv 1000 Ml (Sodium Chloride 0.9%) (08/17/22 14:15) Ns Iv 1000 Ml (Sodium Chloride 0.9%) (08/17/22 14:09) Uric Acid (08/17/22 15:05) LDH (08/17/22 15:05) Magnesium (08/17/22 15:05) Labetalol Tablet (Normodyne Tablet) (08/17/22 15:30) Troponin I Coni (08/17/22 17:20) Medications Given in ED Current Medications Medications Dose Ordered Sig/Ángel Route Start Time Stop Time Status Last Admin Dose Admin Labetalol HCl 300 mg ONCE ONCE PO 08/17/22 15:30 08/17/22 15:31 DC 08/17/22 15:53 300 MG Nitroglycerin 1 TAB Q 5 MIN X 3 NEEDED PRN SL 10/6/22 14:15 08/17/22 14:12 0.4 MG Vital Signs/I&O 08/17/22 13:53 Temp 36.5 Pulse 109 Resp 13 B/P (MAP) 188/111 (136) Pulse Ox 100 O2 Delivery Room Air Blood Pressure Mean: 136 Progress Progress Note #1: Time: 15:06 Progress Note Discussed the patient's presentation, physical exam, history labs, EKG and chest x-ray with 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 He recommends a 3-hour troponin from the onset of pain. He reviewed the record and noted she is supposed to be on labetalol 400 mg 3 times daily. She did have a diastolic pressure at triage of 111. She is now down to 165/89. I added magnesium level, uric acid and LDH. We will likely also talk to her OB about her hypertension. I am going to make sure that she is on her labetalol. Dr. Zhong asked that she call his office to make a follow-up appointment next week. Progress Note #2: Time: 18:07 Progress Note Second troponin is negative. Patient's vital signs have been stable. Her blood pressure is fantastic. I had added uric acid LDH and magnesium levels these are all normal as well. I have strongly encouraged her to call Dr. Zhong office tomorrow for a follow-up appointment next week which she states she is going to do. I have also advised her if her chest pain returns or if she has any associated symptoms that she needs to come back to the emergency room for reevaluation. I am going to add some Carafate to her antacid regimen. She is comfortable with the plan of care. All questions are sought and answered. Patient is stable for discharge. Initial ECG Impression Date: Aug 17, 2022 Initial ECG Impression Time: 13:57 Initial ECG Rate: 103 Initial ECG Rhythm: S.Tach Initial ECG Intervals: Normal Initial ECG Impression: Nonspecific Changes Departure Impression Primary Impression: Chest pain Qualified Codes: R07.9 - Chest pain, unspecified Disposition: 01 HOME, SELF-CARE Condition: Improved Departure-Patient Inst. Decision time for Depature: 19:08 Referrals: JORGE ZHONG JR, MD SALVADOR, LISA A MD (PCP/Family) Primary Care Physician Patient Instructions: Chest Pain That Is Not Caused by the Heart (DC) Add. Discharge Instructions: Please call Dr. Zhong office tomorrow for a follow-up appointment next week Continue your daily home medications as previously prescribed. I have added Carafate for acid protection in your stomach, take this medication 30 minutes before meals and at bedtime. You can do this for the next couple of weeks to see if this helps with upper abdominal discomfort, bloating, chest discomfort. If at any point you have a recurrence of chest pressure/tightness or pain that causes shortness of breath, sweating or nausea please come back to the emergency room for reevaluation. Scripts Sucralfate (Carafate) 1 Gram Tablet 1 GM PO KALANI, #60 TAB Prov: ALEX DAVIS MD 08/17/22 Copy Copies To 1: MADAY FARR MD Copies To 2: JORGE ZHONG JR, MD CORNELIUS, KATHRYN M MD Aug 17, 2022 14:08
[2022-08-17] MEDS ORDERED: NS IV 1000 ML 1,000 ML ONE (14:09)
[2022-08-17 14:14] LABS: BASOPHILS # (AUTO) 0.1 10^3/uL (0.0-0.1); BASOPHILS % (AUTO) 1 % (0-10); EOSINOPHILS # (AUTO) 0.7 10^3/uL (0.0-0.3); EOSINOPHILS % (AUTO) 9 % (0-10); HEMATOCRIT 40 % (35-52); HEMOGLOBIN 12.7 g/dL (11.5-16.0); LYMPHOCYTES # (AUTO) 2.4 10^3/uL (1.0-4.0); LYMPHOCYTES % (AUTO) 34 % (12-44); MEAN CORPUSCULAR HEMOGLOBIN 27 pg (25-34); MEAN CORPUSCULAR HGB CONC 32 g/dL (32-36); MEAN CORPUSCULAR VOLUME 85 fL (80-99); MEAN PLATELET VOLUME 10.1 fL (9.0-12.2); MONOCYTES # (AUTO) 0.5 10^3/uL (0.0-1.0); MONOCYTES % (AUTO) 7 % (0-12); NEUTROPHILS # (AUTO) 3.5 10^3/uL (1.8-7.8); NEUTROPHILS % (AUTO) 49 % (42-75); PLATELET COUNT 400 10^3/uL (130-400)
[2022-08-17] MEDS ORDERED: NITROGLYCERIN 0.4 MG SL TABS BTL 25'S SL PRN (14:15)
[2022-08-17] MEDS ORDERED: NS IV 1000 ML 1,000 ML IV SCH (14:15)
[2022-08-17 14:19] LABS: ALBUMIN 3.8 GM/DL (3.2-4.5)
[2022-08-17 14:20] LABS: POTASSIUM 4.1 MMOL/L (3.6-5.0)
[2022-08-17 14:21] LABS: CALCIUM 9.5 MG/DL (8.5-10.1); PROTHROMBIN TIME PATIENT 13.5 SEC (12.2-14.7)
[2022-08-17 14:22] LABS: TOTAL PROTEIN 6.9 GM/DL (6.4-8.2)
--- NOTE | 2022-08-17 14:22 | Diagnostic Imaging Report ---
Indication: Chest pain COMPARISON: 10/04/2021 FINDINGS: The lungs are clear and well-expanded. The heart size within normal limits. No overt failure pattern, pneumonia, effusion or pneumothorax. IMPRESSION: No acute appearing abnormality. Dictated by: Dictated on workstation # [id number]
[2022-08-17 14:24] LABS: BILIRUBIN,TOTAL 0.6 MG/DL (0.1-1.0)
[2022-08-17 14:26] LABS: CREATININE SERUM 0.96 MG/DL (0.60-1.30)
[2022-08-17 14:29] LABS: MAGNESIUM 1.7 MG/DL (1.6-2.4)
[2022-08-17] MEDS ORDERED: LABETALOL 200 MG (NORMODYNE) TAB PO ONE (15:30)
[2022-08-17 15:47] LABS: MAGNESIUM 1.7 MG/DL (1.6-2.4); URIC ACID 6.9 MG/DL (2.6-7.2)
[2022-08-17] MEDS ORDERED: SUCR1TAB36 PO (18:09)
[2022-08-17 18:18] VITALS: BP 154/71
== END 2022-08-17 18:18 | disposition home or self-care (01) ==
LOC: EDUNIT# 13:48 → ER 13:49
DX: O90.9 Complication of the puerperium, unspecified (principal); R07.89 Other chest pain; I25.10 Atherosclerotic heart disease of native coronary artery without angina pectoris; I25.2 Old myocardial infarction; Z95.5 Presence of coronary angioplasty implant and graft; Z79.82 Long term (current) use of aspirin
CPT/HCPCS: 36415; 71045; 80053; 83615; 83735; 83874; 84484; 84550; 85025; 85610; 85730; 93005; 93041; 96360

== ENCOUNTER 2023-10-10 22:23 | Emergency (ER) | payer BC ==
[~2023-10-10] VITALS: Ht 162.5 cm; Wt 158.7 kg
[~2023-10-10 22:23] MED LIST changes: +ALBU8.5H6 IH; -RT-ALBUINH IH; +SUCR1TAB36 PO
--- NOTE | 2023-10-10 22:50 | ED Cardiac General ---
History of Present Illness General Chief Complaint: Chest Pain Stated Complaint: CHEST PAIN Source: patient Exam Limitations: no limitations History of Present Illness Date Seen by Provider: Oct 10, 2023 Time Seen by Provider: 22:50 Initial Comments Patient is a 28-year-old female who presents to the emergency department with a chief complaint of midsternal chest "burning". She states she feels like it may be just "heartburn" but she had this exact same symptoms prior to her cardiac arrest 2 years ago when she had 2 stents placed secondary to plaque rupture. She follows with a city alderman in [place]. Her next visit is in mid November. She states she is compliant with her daily medications. She takes blood pressure pills in the morning. She does present quite hypertensive with systolic in the 1 90-2 10 range. She is tachycardic with a heart rate of 105. She denies nausea with the discomfort, shortness of breath, lightheadedness or dizziness, near syncope. No recent illnesses such as fevers, chills, cough, congestion, diarrhea or dysuria. She states she had the pain all day today and it went away mid afternoon but came back shortly after supper at 6/630. It has been continuous. She rates it at a "6 or 7" at its worst currently a "2 or 3". She did take 2 sublingual nitroglycerin prior to arrival as well as a Xanax. Her last nitro was at 10:03 PM. 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 Timing/Duration: 4-6 hours, constant, 4-5 days Severity: moderate Location: substernal Prior CP/Workup: cardiac cath, heart attack NTG SL HEADING PINNER: Yes ASA po HEADING PINNER: Yes Associated Systoms: Chest Pain ("Burning") Allergies and Home Medications Allergies Coded Allergies: escitalopram (Verified Allergy, Unknown, 01/05/17) Patient Home Medication List Home Medication List Reviewed: Yes ALPRAZolam (ALPRAZolam) 0.25 Mg Tablet, 0.25 MG PO DAILY PRN for ANXIETY, (Reported) Entered as Reported by: SHANTE REED on 10/03/21 1034 Aspirin (Aspirin EC) 81 Mg Tablet., 81 MG PO DAILY, (Reported) Entered as Reported by: SHANTE REED on 12/21/21 0953 Esomeprazole Magnesium (Esomeprazole Magnesium) 40 Mg Capsule.dr, 40 MG PO DAILY, (Reported) Entered as Reported by: AFIA PUGA on 10/01/21 0454 Fluoxetine HCl (Fluoxetine HCl) 40 Mg Capsule, 40 MG PO HS, (Reported) Entered as Reported by: SHANTE REED on 12/21/21 09 Iron (Iron) 18 Mg Tablet, 65 MG PO DAILY, (Reported) Entered as Reported by: DAVINA VIVEROS on 07/13/222132 Labetalol HCl (Labetalol HCl) 200 Mg Tablet, 400 MG PO TID, (Reported) Entered as Reported by: DAVINA VIVEROS on 07/13/222124 Levothyroxine Sodium (Synthroid) 125 Mcg Tablet, 125 MCG PO DAILY, (Reported) Entered as Reported by: DAVINA VIVEROS on 07/13/222124 Nitroglycerin (Nitroglycerin) 0.4 Mg Tab.subl, 0.4 MG SL UD PRN for CHEST PAIN, (Reported) Entered as Reported by: SHANTE REED on 12/21/21952 Vit W-Ca,Fe,FA(<1 mg) ( Formula) 28 Mg Iron-800 Mcg Tablet, 1 EACH PO, (Reported) Entered as Reported by: DAVINA VIVEROS on 07/13/222132 Sucralfate (Carafate) 1 Gram Tablet, 1 GM PO QIDACHS Prescribed by: ALEX DAVIS on 08/17/22 180 Ticagrelor (Brilinta) 90 Mg Tablet, 90 MG PO BID, (Reported) Entered as Reported by: SHANTE REED on 12/21/21952 Review of Systems Review of Systems Constitutional: see HPI EENTM: No Symptoms Reported Respiratory: No Symptoms Reported Cardiovascular: Chest Pain Gastrointestinal: No Symptoms Reported Genitourinary: No Symptoms Reported Musculoskeletal: no symptoms reported Skin: no symptoms reported Psychiatric/Neurological: Anxiety Past [id number]-[id number] Hx Immunizations Up To Date Tetanus Booster (TDap): Less than 5yrs PED Vaccines UTD: Yes First/Initial COVID19 Vaccinat: November Second COVID19 Vaccination Tashi: December COVID19 Vaccination Date: November Seasonal Allergies Seasonal Allergies: Yes Past Medical History Surgery/Hospitalization HX: HEART ATTACK 2020, STENTS Surgeries: Yes Coronary Stent Respiratory: Yes Sleep Apnea Currently Using CPAP: No Currently Using BIPAP: No Cardiac: Yes (pre-eclampsia w/ ) Coronary Artery Disease, High Cholesterol, Hypertension Neurological: No Reproductive Disorders: No 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 Sexually Transmitted Disease: No HIV/AIDS: No Genitourinary: Yes (functionally unilateral kidney) Gastrointestinal: No Gall Bladder Disease Musculoskeletal: No 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) Hypothyroidsim HEENT: No Cancer: No Did You Recieve Any Treatments: No Psychosocial: No Anxiety Integumentary: No Blood Disorders: No Adverse Reaction/Blood Tranf: No Family Medical History Graves' disease Hypercholesterolemia 19 FATHER (father) 19 MOTHER (mother) Hypertension 19 MOTHER (mother) Sudden cardiac No Pertinent Family Hx, Asthma, Heart Disease, Diabetes, Hypertension, Other Conditions/Hx Physical Exam Vital Signs Vital Signs - First Documented 10/10/23 10/11/23 22:32 01:58 Temp 36.3 Pulse 105 Resp 18 B/P (MAP) 202/116 (144) Pulse Ox 100 O2 Delivery Room Air Capillary Refill : Height, Weight, BMI Height: 5'2.00" Weight: 263lbs. 0.0oz. 119.518045rd; 53.00 BMI Method:Stated General Appearance: No Apparent Distress, WD/WN, Obese (Morbid obesity) HEENT: PERRL/EOMI Neck: Normal Inspection Respiratory: Lungs Clear, Normal Breath Sounds, No Accessory Muscle Use, No Respiratory Distress Cardiovascular: Regular Rate, Rhythm, Tachycardia (105) Gastrointestinal: Non Tender, Soft Extremity: Normal Inspection Neurologic/Psychiatric: Alert, Oriented x3, No Motor/Sensory Deficits, Normal Mood/Affect Skin: Normal Color, Warm/Dry Procedures/Interventions Date of ETT Placement: Oct 01, 2021 Time of ETT Placement: 2099 Progress/Results/Core Measures Results/Orders Lab Results Laboratory Tests Test 10/10/23 22:44 10/11/23 00:57 Range/Units White Blood Count 7.4 4.3-11.0 10^3/uL Red Blood Count 4.85 3.80-5.11 10^6/uL Hemoglobin 10.9 L 11.5-16.0 g/dL Hematocrit 38 35-52 % Mean Corpuscular Volume 78 L 80-99 fL Mean Corpuscular Hemoglobin 23 L 25-34 pg Mean Corpuscular Hemoglobin Concent 29 L 32-36 g/dL Red Cell Distribution Width 17.9 H 10.0-14.5 % Platelet Count 343 130-400 10^3/uL Mean Platelet Volume 10.2 9.0-12.2 fL Immature Granulocyte % (Auto) 0 % Neutrophils (%) (Auto) 42 42-75 % Lymphocytes (%) (Auto) 42 12-44 % Monocytes (%) (Auto) 9 0-12 % Eosinophils (%) (Auto) 6 0-10 % Basophils (%) (Auto) 1 0-10 % Neutrophils # (Auto) 3.1 1.8-7.8 10^3/uL Lymphocytes # (Auto) 3.1 1.0-4.0 10^3/uL Monocytes # (Auto) 0.6 0.0-1.0 10^3/uL Eosinophils # (Auto) 0.4 H 0.0-0.3 10^3/uL Basophils # (Auto) 0.1 0.0-0.1 10^3/uL Immature Granulocyte # (Auto) 0.0 0.0-0.1 10^3/uL Prothrombin Time 12.8 12.2-14.7 SEC INR Comment 0.9 0.8-1.4 Activated Partial Thromboplast Time 29 24-35 SEC Sodium Level 136 135-145 MMOL/L Potassium Level 3.7 3.6-5.0 MMOL/L Chloride Level 107 98-107 MMOL/L Carbon Dioxide Level 21 21-32 MMOL/L Anion Gap 8 5-14 MMOL/L Blood Urea Nitrogen 14 7-18 MG/DL Creatinine 0.89 0.60-1.30 MG/DL Estimat Glomerular Filtration Rate 89 BUN/Creatinine Ratio 16 Glucose Level 134 H 70-105 MG/DL Calcium Level 8.8 8.5-10.1 MG/DL Corrected Calcium 9.3 8.5-10.1 MG/DL Magnesium Level 1.9 1.6-2.4 MG/DL Total Bilirubin 0.4 0.1-1.0 MG/DL Aspartate Amino Transf (AST/SGOT) 16 5-34 U/L Alanine Aminotransferase (ALT/SGPT) 18 0-55 U/L Alkaline Phosphatase 124 40-136 U/L Troponin I < 0.028 < 0.028 <0.028 NG/ML Total Protein 6.4 6.4-8.2 GM/DL Albumin 3.4 3.2-4.5 GM/DL My Orders Orders - ALEX DAVIS MD Ekg Tracing (10/10/23 22:32) Cbc And Automated Diff (10/10/23 22:49) Magnesium (10/10/23 22:49) Chest 1 View, Ap/Pa Only (10/10/23 22:49) Comprehensive Metabolic Panel (10/10/23 22:49) Protime With Inr (10/10/23:49) Partial Thromboplastin Time (10/10/23 22:49) O2 (10/10/23:49) Monitor-Rhythm Ecg Trace Only (10/10/23:49) Ed Iv/Invasive Line Start (10/10/23:49) Troponin I [place] (10/10/23 22:49) Sucralfate Tablet (Sucralfate Tablet) (10/10/23 23:30) Antacid Suspension (Antacid Suspension (10/10/23 23:30) Lidocaine 2% Viscous 15 Ml (Xylocaine Vi (10/10/23 23:30) Chest Pa/Lat (2 View) (10/10/23 23:26) Troponin I [place] (10/11/23 00:31) Medications Given in ED Vital Signs/I&O 10/10/23 10/11/23 22:32 01:58 Temp 36.3 Pulse 105 94 Resp 18 16 B/P (MAP) 202/116 (144) 163/88 Pulse Ox 100 99 O2 Delivery Room Air Progress Progress Note : Time: 01:07 Progress Note Patient seen and evaluated by me, evaluation today includes "cardiac workup" to include CBC, comprehensive metabolic panel, magnesium level, serum troponin x 2, EKG, coags, single view chest x-ray followed by 2 view chest x-ray. Pertinent physical exam findings well-developed well-nourished morbidly obese female in mild distress due to anterior chest pain. Vital signs are stable. Heart is regular, lungs are clear, 2+ radial pulses bilaterally. No reproducible chest wall tenderness. Abdomen is mildly tender in the epigastrium. Normal bowel sounds. No significant lower extremity edema or calf tenderness. Differential diagnosis includes ACS, aortic dissection, GERD/esophagitis Labs, EKG and chest x-ray independently reviewed and interpreted by me. Her CBC shows normal white count with slightly low hemoglobin at 10.9, hematocrit of 38, normal platelets. Her comprehensive metabolic panel is entirely normal. Her coags are within normal limits as well. Serum troponin x 2 is undetectable. Her EKG shows normal sinus rhythm without ST segment elevation or depression. Her initial single view chest x-ray is limited secondary to body habitus/obesity. Repeat two-view shows clear lungs, normal mediastinum, no effusion. Patient is treated in the emergency department with a GI cocktail, 30 mL of Maalox, 5 cc of viscous lidocaine and a gram of Carafate. She had good relief of her symptoms. Suspect that this is all GI/GERD in nature. She has c lose follow-up scheduled with her city alderman in [place]. She is comfortable with discharge to home after 2 negative troponins. She has had no ectopy in the department, no change in vital signs or deterioration in her condition. No concerning findings to warrant CT scan of the chest. Return precautions provided in both verbal and written format. All questions are sought and answered. Patient is improved at discharge. Initial ECG Impression Date: Oct 10, 2023 Initial ECG Impression Time: 22:38 Initial ECG Rate: 115 Initial ECG Rhythm: S.Tach Initial ECG Intervals PA interval 192 QRS 91 QTc 439 Diagnostic Imaging Diagonstic Imaging: Xray Plain Films/CT/US/NM/MRI: chest Comments Single view chest x-ray independently interpreted by me, opacification of the right lung castro likely due to body habitus, obesity no obvious abnormalities Diagonstic Imaging: Xray Plain Films/CT/US/NM/MRI: chest Comments 2 view chest x-ray independently reviewed and interpreted by me, normal mediastinum, no infiltrates or effusion, clear lungs Departure Impression Primary Impression: Chest pain Qualified Codes: R07.9 - Chest pain, unspecified Additional Impression: Heartburn Disposition: HOME, SELF-CARE Condition: Improved Departure-Patient Inst. Referrals: MADAY FARR MD (PCP/Family) Primary Care Physician Patient Instructions: Acid Reflux and GERD in Adults (DC) Add. Discharge Instructions: Continue your daily medications as prescribed. Please follow-up with your primary care physician. If you have a return of symptoms especially with sweating, shortness of breath or nausea associated with the chest pain please return to the emergency room for reevaluation. Please keep your scheduled follow-up appointment with your city alderman in [place]. Copy Copies To 1: MADAY FARR MD, KATHRYN M MD Oct 10, 2023 22:50
[2023-10-10 22:56] LABS: BASOPHILS # (AUTO) 0.1 10^3/uL (0.0-0.1); BASOPHILS % (AUTO) 1 % (0-10); EOSINOPHILS # (AUTO) 0.4 10^3/uL (0.0-0.3); EOSINOPHILS % (AUTO) 6 % (0-10); HEMATOCRIT 38 % (35-52); HEMOGLOBIN 10.9 g/dL (11.5-16.0); LYMPHOCYTES # (AUTO) 3.1 10^3/uL (1.0-4.0); LYMPHOCYTES % (AUTO) 42 % (12-44); MEAN CORPUSCULAR HEMOGLOBIN 23 pg (25-34); MEAN CORPUSCULAR HGB CONC 29 g/dL (32-36); MEAN CORPUSCULAR VOLUME 78 fL (80-99); MEAN PLATELET VOLUME 10.2 fL (9.0-12.2); MONOCYTES # (AUTO) 0.6 10^3/uL (0.0-1.0); MONOCYTES % (AUTO) 9 % (0-12); NEUTROPHILS # (AUTO) 3.1 10^3/uL (1.8-7.8); NEUTROPHILS % (AUTO) 42 % (42-75); PLATELET COUNT 343 10^3/uL (130-400); WHITE BLOOD COUNT 7.4 10^3/uL (4.3-11.0)
[2023-10-10 23:04] LABS: ALBUMIN 3.4 GM/DL (3.2-4.5); CHLORIDE 107 MMOL/L (98-107); POTASSIUM 3.7 MMOL/L (3.6-5.0); SODIUM 136 MMOL/L (135-145)
[2023-10-10 23:05] LABS: CALCIUM 8.8 MG/DL (8.5-10.1); INR 0.9 (0.8-1.4); PROTHROMBIN TIME PATIENT 12.8 SEC (12.2-14.7)
[2023-10-10 23:06] LABS: GLUCOSE 134 MG/DL (70-105)
[2023-10-10 23:07] LABS: TOTAL PROTEIN 6.4 GM/DL (6.4-8.2)
[2023-10-10 23:08] LABS: CARBON DIOXIDE 21 MMOL/L (21-32)
[2023-10-10 23:09] LABS: BILIRUBIN,TOTAL 0.4 MG/DL (0.1-1.0)
[2023-10-10 23:10] LABS: ALKALINE PHOSPHATASE 124 U/L (40-136); CREATININE SERUM 0.89 MG/DL (0.60-1.30); GFR ESTIMATED 89
[2023-10-10 23:11] LABS: BUN/CREATININE RATIO 16
[2023-10-10 23:13] LABS: ALANINE AMINOTRANSFERASE 18 U/L (0-55); MAGNESIUM 1.9 MG/DL (1.6-2.4)
[2023-10-10] MEDS ORDERED: SUCRALFATE 1 GM TABLET PO ONE (23:30)
[2023-10-10] MEDS ORDERED: ANTACID SUSPENSION 30 ML UDC PO ONE (23:30)
[2023-10-10] MEDS ORDERED: LIDOCAINE 2% VISCOUS 15 ML UDC PO ONE (23:30)
[2023-10-11 01:58] VITALS: BP 163/88
--- NOTE | 2023-10-11 07:13 | Diagnostic Imaging Report ---
EXAM: CHEST 1 VIEW, AP/PA ONLY INDICATION: Chest pain. COMPARISON: 08/17/2022. FINDINGS: Examination limited by underpenetration. Normal heart size and central pulmonary vascularity. No focal pulmonary opacity. No pleural effusion or pneumothorax. No acute osseous findings. IMPRESSION: Limited exam. No acute cardiopulmonary findings. Dictated by: Dictated on workstation # [id number]
--- NOTE | 2023-10-11 07:13 | Diagnostic Imaging Report ---
EXAM: CHEST PA/LAT (2 VIEW) INDICATION: Chest pain. COMPARISON: CTA chest 12/20/2021. FINDINGS: Normal heart size and central pulmonary vascularity. Lungs are clear. No pleural effusion or pneumothorax. No acute osseous findings. IMPRESSION: No acute cardiopulmonary findings. Dictated by: Dictated on workstation # [id number]
== END 2023-10-11 02:02 | disposition home or self-care (01) ==
LOC: EDUNIT# 22:23 → ER 22:26
DX: R07.2 Precordial pain (principal); R12 Heartburn; Z95.5 Presence of coronary angioplasty implant and graft; E66.01 Morbid (severe) obesity due to excess calories; Z68.43 Body mass index [BMI] 50.0-59.9, adult
CPT/HCPCS: 36415; 71045; 71046; 80053; 83735; 84484; 85025; 85610; 85730; 93005; 93041